=== PATIENT | female | born 1950 | race Caucasian/White ===

== ENCOUNTER → 2018-06-02 14:15 | Outpatient (CLI) | payer MEDICARE, SELFPAY ==
[2018-06-02 15:41] LABS: CRP < 2.90 mg/L (0.0-3.0)
[2018-06-04 16:11] LABS: Endomysial Antibody IgA Negative (Negative)
[2018-06-04 17:15] LABS: Immunoglobulin A 147 mg/dL (87-352); t-Transglutaminase IgA <2 U/mL (0-3)
== END ==
PROVIDERS: Family Provider Family Medicine; PCP Family Medicine; Visit Provider Internal Medicine Gastroenterology
DX: R10.9 Unspecified abdominal pain (principal)
CPT/HCPCS: 36415; 82784; 83516; 86140; 86255

== ENCOUNTER 2018-07-15 11:57 | Emergency (ER) | payer MEDICARE, SELFPAY ==
[2018-07-15 11:58] VITALS: BP 143/81; PULSE 71; RESP 18; TEMP 36.6; O2SAT 99; BMI 21.8
--- NOTE | 2018-07-15 12:13 | CT_ITS ---
STUDY: CT ABDOMEN AND PELVIS WITH CONTRAST REASON FOR EXAM: Female, 68 years old. Epigastric pain for a few weeks. RADIATION DOSAGE (If Supplied By Facility): CTDIvol = ( 14.11 ) mGy, DLP = ( 533.43 ) mGycm TECHNIQUE: Transaxial images were obtained from the dome of the diaphragm to the symphysis pubis without oral contrast. 100CC ml of Isovue 300 contrast was administered. Sagittal and coronal images were reconstructed. Individualized dose optimization techniques were used for this CT. COMPARISON: 09/22/2008 FINDINGS: Body wall soft tissues: No acute process. Osseous structures: Mild scoliosis. Degenerative disc disease L-1-L2, L4-L5 and L5-S1 without significant stenosis. Inferior chest: Clear lung bases, normal distal esophagus, no cardiomegaly, small pericardial effusion. Hepatobiliary: Normal. Pancreas: No acute process. Spleen: Normal. Adrenal glands: Normal. Urogenital: Normal kidneys, collecting systems, ureters, urinary bladder., Uterus, with no adnexal mass or cyst, trace cul-de-sac free fluid. Prominent adnexal veins discussed below. Pelvic floor and sidewalls and retroperitoneum: No mass or adenopathy. Vasculature: No acute vascular abnormality. 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 This is contributing to dual ectatic gonadal veins descending down to the left adnexa, with engorgement of left adnexal veins, uterine subserosal veins and right adnexal veins. This may present with symptoms of pelvic venous congestion syndrome although this may also be a normal variant pathway that is asymptomatic. Stomach: No acute process. Small bowel and mesentery: No acute process. Large bowel: Normal appendix and large bowel. Free fluid or free air: None. CT/Abdomen/Pelvis WITH Contrast IMPRESSION: Small pericardial effusion of uncertain significance. No acute abdominopelvic process. Nutcracker syndrome with pelvic venous congestion. Electronically Signed: Balaji Siegel, at 14:43 EDT Tel , Service support ,
--- NOTE | 2018-07-15 12:13 | ED.VISSUMM ---
- ER Visit Summary Date of Service: 07/15/18 Chief Complaint: Abdominal pain History of Present Illness: The patient is a 68 F presenting with abdominal pain. States this started a few weeks ago but has progressively worsened. She was seen by the physician finance assistant in her primary care physician's office yesterday. She was started on Zantac for gastritis. Today she states the pain worsened. She tried Tylenol with no improvement. She has a history of previous cholecystectomy. History of IBS. She denies fever. She has nausea with no vomiting. Denies urinary complaints. Denies chest pain or shortness of breath. Physical Examination: Vitals are stable. Patient is afebrile. Alert no acute distress. HEENT exam is unremarkable. Neck is supple. Lungs are clear and equal bilaterally. Heart is regular rate and rhythm. Abdomen is soft left lower quadrant tenderness with no rebound or guarding Skin is warm and dry. No focal neurologic deficit. Remainder of exam is unremarkable. Emergency Department Course and Treatment: Patient is given IV morphine, Zofran. CBC, chemistries unremarkable. Liver lipase are normal. Urinalysis is unremarkable. CT abdomen pelvis shows no acute abdominopelvic process. Nutcracker syndrome with pelvic venous congestion. On reevaluation, patient's pain is completely resolved. Abdomen is soft and nontender with no rebound or guarding. Discussed with Dr. Adorno who recommends follow-up with vascular surgery. Patient is given vascular surgery referral. Advised return to ED for any worsening complaints. Disposition: Discharge home Impression: Abdominal pain, resolved This note was generated with [employer] dictation software. It may contain incorrect words, spelling, and punctuation that were not noted in review of the chart prior to signing ED Disposition - Plan for ED Patient: Chief Complaint: Abd Pain Instructions: ED Abdominal Pain Unkn Cause Referrals: Kwaku Biswas MD [STAFF PHYSICIAN] - Chris Lovett MD [Primary Care Provider] - Raul Mcintosh MD [NON-STAFF] -
[2018-07-15 12:28] LABS: Bacteria 0 SEEN /hpf (None Seen); Mucous, Urine 0 SEEN /hpf (<or=2+); Red Blood Cells-Urine 0 SEEN /hpf (0-5)
[2018-07-15 12:32] LABS: Color, Urine Yellow (Yellow); Glucose, Dipstick Normal (Normal); Ketone-Dipstick Negative (Negative); Leukocyte Esterase-Dipstick 25 /ul (Negative); Nitrite-Dipstick Negative (Negative); Occult Blood-Urine Negative /ul (Negative); Protein-Dipstick Negative (Negative); Specific Gravity, Urine 1.005 (1.002-1.030); Urine Bilirubin Dipstick Negative (Negative); Urine Clarity Sl. Cloudy (Clear); Urine Urobilinogen Normal (Normal)
[2018-07-15 12:38] LABS: Squamous Epithelial Cells - UA 0-5 SEEN /hpf (5-10); White Blood Cells 0-5 SEEN /hpf (0-5)
[2018-07-15 12:39] LABS: Absolute Lymphocyte Count 2.02 X10^3/ul (0.83-4.51); Absolute Neutrophil Count 3.3 X10^3/uL (2.0-7.7); Basophil# 0.03 X10^3/uL; Basophil% 0.5 % (0-1); Eosinophils% 1.7 % (0-5); Hematocrit 45.8 % (37-47); Hemoglobin 14.9 g/dl (12.0-15.0); Lymphocyte # 2.02 X10^3/ul (4.0); Lymphocyte % 34.6 % (19-41); Mean Corp Hgb Conc 32.5 g/gl (32-36); Mean Corpuscular Hgb 30.7 pg (27.0-32.0); Mean Corpuscular Volume 94.2 fL (81-99); Mean Platelet Vol. 9.2 fl (6.2-12.0); Monocyte# 0.38 X10^3/uL; Monocyte% 6.5 % (0-10); Neutrophil % 56.5 % (47-70); Platelet Count 265 K/mm3 (150-450); RBC Distribution Width CV 13.2 % (11.6-14.6); RBC Distribution Width SD 44.1 fl (35.1-43.9); Red Blood Count 4.86 M/mm3 (4.2-5.4); White Blood Count 5.8 K/mm3 (4.4-11.0)
[2018-07-15 12:42] LABS: POSITIVE COUNT NO; POSITIVE DIFFERENTIAL NO; POSITIVE MORPHOLOGY NO
--- NOTE | 2018-07-15 12:43 | ED.RN ---
PT DOES NOT WANT MEDICATION AT THIS TIME
[2018-07-15 13:01] LABS: AST(SGOT) 20 U/L (15-37); Alanine Aminotransfer ALT/SGPT 25 U/L (13-56); Albumin, Serum 4.2 g/dL (3.2-5.0); Alkaline Phosphatase 74 U/L (45-117); Anion Gap 7 (5-15); BUN 17 mg/dL (7-18); BUN/Creat Ratio 22.7 RATIO (10-20); Calcium,Total 9.1 mg/dL (8.5-10.1); Chloride 105 mmol/L (98-107); Creatinine, Serum 0.75 mg/dL (0.55-1.02); EST Glomerular Filtration Rate 81 mL/min (>60); Est Glom Filt Rate - Afr Amer 99 mL/min (>60); Globulin 3.5 g/dL (2.2-4.2); Glucose 85 mg/dL (74-106); Lipase 194 U/L (73-393); Protein, Total 7.7 g/dL (6.4-8.2); Sodium Level 142 mmol/L (136-145)
--- NOTE | 2018-07-15 16:42 | ED.DEP ---
ED Disposition - Plan for ED Patient: Chief Complaint: Abd Pain Instructions: ED Abdominal Pain Unkn Cause Referrals: Chris Lovett MD [Primary Care Provider] - Raul Mcintosh MD [NON-STAFF] - Kwaku Biswas MD [STAFF PHYSICIAN] -
[2018-07-15 17:20] VITALS: BP 132/73; PULSE 90; RESP 16; O2SAT 97
== END 2018-07-15 17:21 | disposition home or self-care (01) ==
PROVIDERS: Emergency Provider Emergency Medicine; Family Provider Family Medicine; PCP Family Medicine
DX: R10.32 Left lower quadrant pain (principal); R10.13 Epigastric pain; K29.70 Gastritis, unspecified, without bleeding; Z79.899 Other long term (current) drug therapy
CPT/HCPCS: 74177; 80048; 80076; 81001; 83690; 85025; 99283; J7030; Q9967; J2405

== ENCOUNTER → 2019-03-30 | Outpatient (CLI) | payer MEDICARE, SELFPAY ==
--- NOTE | 2019-03-30 12:36 | BI_ITS ---
MAMMOGRAPHY - BILATERAL SCREENING 3-D TOMOSYNTHESIS REASON FOR EXAM: Female, 68 years old. Bilateral Screening 3-D tomosynthesis PERTINENT HISTORY: No significant family history. TECHNIQUE: 2-D mammograms and 3-D Tomosynthesis of the breast (s) were performed. CAD was performed. COMPARISON: December 17, 2016, January 12, 2016 FINDINGS: The breast composition is composed of scattered fibroglandular density. Scattered benign calcifications are seen. No dense spiculated masses or suspicious microcalcifications are identified. No architectural distortion is identified. There is no skin thickening or retraction. There has been no significant change since the prior study. BI/SCREEN MAMM (CAD) W/VIKI BILAT IMPRESSION: No mammographic signs of malignancy. Routine yearly mammograms recommended. ASSESSMENT CATEGORY: BIRADS Category 1: Negative. A letter regarding these results will be sent to the patient by the facility within 30 days. FOLLOW UP RECOMMENDATION: Yearly follow up mammogram recommended. (A) Approximately 10% of breast cancers are not detected by mammography. A normal mammogram should not delay biopsy of a clinically suspicious abnormality. Electronically Signed: Bryce Mayen MD at 17:32 EDT , Service support ,
== END | disposition home or self-care (01) ==
LOC: OPBI 12:34
PROVIDERS: Family Provider Family Medicine; PCP Family Medicine; Referring Provider Family Medicine; Visit Provider Family Medicine
DX: Z12.31 Encounter for screening mammogram for malignant neoplasm of breast (principal)
CPT/HCPCS: 77063; 77067

== ENCOUNTER 2020-03-03 08:33 | Emergency (ER) | payer MEDICARE, SELFPAY ==
[2020-03-03] VITALS (8 sets, daily range): BP systolic 93–130; BP diastolic 52–83; PULSE 89–109; RESP 16–23; TEMP 36.6–36.7; O2SAT 96–98; BMI 21.1
--- NOTE | 2020-03-03 08:36 | NURSING ---
NO OLD EKGS
--- NOTE | 2020-03-03 08:48 | RAD_ITS ---
STUDY: X-RAY CHEST REASON FOR EXAM: Female, 69 years old. CP THAT STARTED LAST NIGHT, SOB. CP LAST WEEK THAT LAST FOR 3 DAYS. TECHNIQUE: Single AP portable view of the chest. COMPARISON: None. FINDINGS: EKG electrodes are seen. Mild degree of increased markings at the lung bases suggestive of bibasilar atelectasis and/or early infiltrates worse on the right side. There is no demonstrated pleural abnormality. Normal size heart. Normal mediastinum and fawn. Normal visualized pulmonary arteries. Normal visualized aortic arch and descending thoracic aorta. Normal visualized thoracic spine. Normal visualized ribs, clavicles, and shoulders. There is no demonstrated abnormality of the visualized soft tissue structures of the upper abdomen. RAD/Chest 1 View (Portable) IMPRESSION: Mild degree of increased markings at the lung bases slightly worse on the right side. This may represent atelectasis and/or early infiltrates. Electronically Signed: Blue Sheikh, at 9:42 EDT , Service support ,
--- NOTE | 2020-03-03 08:48 | EKG12_ITS ---
Test Reason : CP Blood Pressure : / mmHG Vent. Rate : 104 BPM Atrial Rate : 104 BPM P-R Int : 146 ms QRS Dur : 074 ms QT Int : 338 ms P-R-T Axes : 045 002 036 degrees QTc Int : 444 ms Sinus tachycardia Otherwise normal ECG Confirmed by GARY ANDREWS ([id number]), technical editor NIYA ELLIOTT ([id number] on 03/07/2020 11:27:50 AM Referred By: MAXIME Confirmed By:GARY ANDREWS
--- NOTE | 2020-03-03 08:49 | ED.VISSUMM ---
- ER Visit Summary Date of Service: 03/03/20 Chief Complaint: [Chest pain] History of Present Illness: The patient is a 69 F [presents to the emergency department complaint of chest discomfort that started last evening around suppertime. Patient describes a pressure like someone standing on her in the center of her chest that radiates to her neck as well as both shoulder blades. Patient denies any nausea or vomiting. She does feel short of breath with it. Patient states she had similar episode last week that lasted about 3 days and then resolved. Patient had blood work yesterday and was told she had high calcium levels. Patient does take a calcium supplement and was instructed to discontinue that for the next week. No history of PE or DVT. No cardiac history.] Physical Examination: [HEENT-PERRLA, EOMI. Cranial nerves II through XII grossly intact. TMs clear. Mucous membranes moist. No adenopathy. Cardiovascular-regular rate and rhythm without murmur or ectopy Lungs-clear to auscultation, chest wall stable without crepitus or subcu emphysema Abdomen-normoactive bowel sounds, soft, nontender, no rebound or rigidity, no peritoneal signs. Extremities-intact ?4, normal range of motion, normal pulses, atraumatic] Test Results: [EKG obtained arrival shows sinus rhythm with a ventricular rate of 104 bpm with some nonspecific ST changes noted. No old EKGs available for comparison.] CBC with differential obtained was unremarkable. Chemistries unremarkable. Troponin less than 0.015. D-dimer was normal. Chest x-ray showed increased markings in the lung bases which could represent atelectasis versus early infiltrates. CTA of the chest was obtained as patient continued of pain with no relief from nitro and wanted to rule out dissection. CTA of the chest showed bibasilar infiltrates without evidence of PE or dissection. Emergency Department Course and Treatment: [Patient placed on quality assurance monitor chassis on arrival. Patient received sublingual nitro which did not improve her pain. Patient had blood cultures ordered. Patient started on Rocephin and Zithromax. Patient had COVID 19 test ordered.] Treatment Plan: [Admit] patient does not have classic pneumonia symptoms. 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 It is unclear if CT findings are acute or chronic. Patient was evaluated by hospitalist in the department by Dr. Dickerson. After hospitalist and patient had long conversation it was felt that patient would go home. I was asked to obtain a delta troponin which was negative. COVID-19 test still pending. I was asked to start patient on Levaquin. I was told patient was given the option to be admitted but would prefer to go home. She is advised to return if increasing shortness of breath, worsening chest pain, exertional dyspnea, or condition should worsen anyway. Disposition: [Discharged] Impression: [Chest pain-rule out acute coronary syndrome Pneumonia] This note was generated with [employer] dictation software. It may contain incorrect words, spelling, and punctuation that were not noted in review of the chart prior to signing ED Disposition - Plan for ED Patient: Referrals: Senthil Aguilar MD [Primary Care Provider] -
[2020-03-03 08:59] LABS: Absolute Lymphocyte Count 1.17 X10^3/uL (0.83-4.51); Absolute Neutrophil Count 7.3 X10^3/uL (2.0-7.7); Basophil# 0.03 X10^3/uL; Basophil% 0.3 % (0-1); Eosinophil# 0.08 X10^3/uL; Eosinophils% 0.9 % (0-5); Hemoglobin 14.3 g/dL (12.0-15.0); Lymphocyte # 1.17 X10^3/ul (4.0); Lymphocyte % 12.6 % (19-41); Mean Corp Hgb Conc 32.5 g/dL (32-36); Mean Corpuscular Hgb 31.2 pg (27.0-32.0); Mean Corpuscular Volume 95.9 fL (81-99); Mean Platelet Vol. 9.2 fl (6.2-12.0); Monocyte# 0.65 X10^3/uL; NRBC Flagged by Analyzer 0 % (0-5); Neutrophil # 7.32 X10^3/uL (2.7-7.7); Platelet Count 375 K/mm3 (150-450); RBC Distribution Width CV 13.1 % (11.6-14.6); RBC Distribution Width SD 46.5 fl (35.1-43.9); Red Blood Count 4.59 M/mm3 (4.2-5.4); White Blood Count 9.3 K/mm3 (4.4-11.0)
[2020-03-03] MEDS: Aspirin 81 MG TAB.CHEW 324 MG PO (09:06)
[2020-03-03] MEDS: Nitroglycerin SL (ED/IMG/CATH) 0.4 MG TABLET SUBLINGUAL ×3 (09:09→09:29)
[2020-03-03] MEDS: 0.9% Normal Saline 1,000 ML 150 ML IV (09:10)
[2020-03-03 09:16] LABS: Anion Gap 5 (5-15); BUN 9 mg/dL (7-18); Calcium,Total 9.2 mg/dL (8.5-10.1); Chloride 107 mmol/L (98-107); Creatinine, Serum 0.75 mg/dL (0.55-1.02); EST Glomerular Filtration Rate 81 mL/min (>60); Est Glom Filt Rate - Afr Amer 98 mL/min (>60); Glucose 102 mg/dL (74-106); Potassium 3.5 mmol/L (3.5-5.1); Sodium Level 140 mmol/L (136-145)
[2020-03-03 09:31] LABS: D-Dimer Quantitative (DVT/PE) <= 0.27 FEU/ug/m (0.27-0.49)
--- NOTE | 2020-03-03 09:31 | CT_ITS ---
STUDY: CTA CHEST REASON FOR EXAM: Female, 69 years old. Chest pain x 3 days, SOB. RADIATION DOSAGE (If Supplied By Facility): CTDIvol = ( 4.36 ) mGy, DLP = ( 134.30 ) mGycm TECHNIQUE: The examination was performed with the intravenous administration of 100mL Isovue 370. Post-processing of the angiographic images was performed, with multiplanar reformation and 3D reconstruction. Individualized dose optimization techniques were used for this CT. COMPARISON: None. FINDINGS: Normal enhancement of the main pulmonary artery and right and left pulmonary arteries. Normal enhancement of the bilateral peripheral pulmonary arteries. There is no demonstrated pulmonary embolism. Normal thoracic aorta and visualized great vessels. There is no demonstrated aortic dissection. Small pericardial effusion. Normal mediastinum. Normal hilar regions. Normal visualized trachea and bronchi. The lungs are well expanded. Bibasilar patchy infiltrates. Normal pleura. Normal chest wall structures. There are degenerative changes of thoracic spine. Normal visualized upper abdomen. CT/CTA Chest W/WO Contrast IMPRESSION: Patchy bibasilar infiltrates. Electronically Signed: Blue Sheikh, at 10:24 EDT , Service support ,
[2020-03-03] MEDS: Ceftriaxone 1 GM/50 ML BAG IV (11:09)
--- NOTE | 2020-03-03 11:26 | ED.RN ---
dr cabezas in to see pt. pt asks to be sent home . will complete a delta troponin
--- NOTE | 2020-03-03 12:34 | ED.DEP ---
ED Disposition - Plan for ED Patient: Instructions: ED Chest Pain Pleurisy, ED Chest Pain Atypical Unkn Cause, Pneumonia Prescriptions: Levofloxacin [Levaquin] 750 mg PO DAILY #7 tab Prescription Printed Hydrocodone Bitart/Apap 5-325 [[place] 5MG-325MG] 1 tab PO Q4H PRN PRN 2 Days #10 tab PRN Reason: Pain Prescription Printed Referrals: Senthil Aguilar MD [Primary Care Provider] - 5-7 Days
--- NOTE | 2020-03-03 12:37 | ED.RN ---
pt states iv hurts. this rn sachin blood with no difficulty. area soft but tender. iv dc'd per pt request. dr aware . po medication to be oredered
[2020-03-03] MEDS: levoFLOXacin 750 MG Tablet PO (12:55)
--- NOTE | 2020-03-03 13:00 | CON.PCM_ITS ---
Reason for Consult Date of Consultation: 03/03/20 Reason for Consultation: Chest pain History of Present Illness: The patient is a 69 year old F presents with chest pain. Chest pain that began over the past few days but states that it is worse with movement particularly twisting and also deep respirations. Patient had similar symptoms about a week prior to which were much more intense. Patient sought evaluation at this time because it recurred. Work-up in the emergency room was unremarkable. The hospital service was asked to evaluate the patient for further chest pain evaluation. Patient denies any sick contacts though she did feel ill about a week ago. Patient had a CAT scan carotid dissection but did not did not show any dissection but did show some infiltrate in the bases. [] Past Medical History Allergies No Known Allergies Allergy (Verified 03/03/20 08:34) Home Medications: Ambulatory Orders Medication Instructions Recorded Hydrocodone Bitart/Apap 5-325 1 tab PO Q4H PRN PRN 2 Days #10 tab 03/03/20 [[place] 5MG-325MG] Levofloxacin [Levaquin] 750 mg PO DAILY #7 tab 03/03/20 Smoking Status: Never smoker - *Family History Maternal History Items: - - No lung disease Review of Systems Constitutional: Denies: Chills, Fever, Weight Change Eyes: Denies: Blurred vision, Double vision HEENT: Denies: Head Aches, Sinus Congestion, Sinus Drainage Cardiovascular: Reports: Chest Pain Respiratory: Reports: Cough Gastrointestinal: Denies: Abdominal Pain, Nausea, Vomiting Genitourinary: Denies: Dysuria Musculoskeletal: Denies: Joint Pain, Joint Tenderness Skin: Denies: Rash, Wounds Neurological: Denies: Numbness, Tingling, Focal weakness Hematologic/ Lymphatic: Denies: Easy Bruising, Easy Bleeding, Hx of blood clot Comment: All review of systems were negative except as mentioned above in the history of present illness and the other review of systems. - Physical Exam Vitals/I&O's: Vital Signs Temp Pulse Resp BP Pulse Ox 36.6 C 89 18 107/61 98 03/03/20 12:56 03/03/20 12:56 03/03/20 12:56 03/03/20 12:56 03/03/20 12:38 Oxygen Delivery Method Room Air Weight: 59.3 kg Body Mass Index (BMI) 21.1 Intake and Output for Last 24 Hours 03/01/20 03/02/20 03/03/20 23:59 23:59 23:59 Intake Total 1166.67 / 1166.67 Balance 1166.67 / 1166.67 General: Alert, Cooperative, No apparent distress HEENT: Atraumatic, Normocephalic Oral: Moist Mucosa, No Gingival or Mucosal Lesions/ Ulcerations Neck: No Nodes, Thyroid Normal Size and Texture Lungs: Normal air movement, - - Bibasilar crackles Cardiovascular: Regular rate, Regular Rhythm, Normal S1, Normal S2, No murmurs Abdomen: Bowel Sounds Present, Soft, Non Tender, Non-Distended, No Hepato- splenomegaly Extremities: No edema, No Calf Tenderness Skin: No rashes, No breakdown Musculoskeletal: No Tenderness to Palpation of Joints or Extremities, No Muscle Wasting Neurological: Sensory exam intact to light touch and pain, Coordination normal Psych/Mental Status: Normal Affect, Appropriate Laboratory Results 03/03/20 08:50: WBC 9.3, RBC 4.59, Hgb 14.3, Hct 44.0, MCV 95.9, MCH 31.2, MCHC 32.5, RDW Std Deviation 46.5 H, RDW Coeff of Ameya 13.1, Plt Count 375, MPV 9.2, Immature Gran % (Auto) 0.200, Neut % (Auto) 79.0 H, Lymph % (Auto) 12.6 L, [place] % (Auto) 7.0, Eos % (Auto) 0.9, Baso % (Auto) 0.3, Absolute Neuts (auto) 7.3, Absolute Lymphs (auto) 1.17, Nucleated RBC % 0 03/03/20 08:50: D-Dimer Quant (PE/DVT) <= 0.27 03/03/20 08:50: Sodium 140, Potassium 3.5, Chloride 107, Carbon Dioxide 28.0, Anion Gap 5, BUN 9, Creatinine 0.75, Estim Creat Clear Calc 48.30, Est GFR (MDRD) Af Amer 98, Est GFR (MDRD) Non-Af 81, BUN/Creatinine Ratio 12.0, Glucose 102, Calcium 9.2, Troponin I < 0.015 03/03/20 11:50: Troponin I < 0.015 Clinical Impression(s) from Imaging Studies Chest X-Ray 03/03/20 08:48 IMPRESSION: Mild degree of increased markings at the lung bases slightly worse on the right side. This may represent atelectasis and/or early infiltrates. Electronically Signed: Blue Sheikh, at 9:42 EDT , Service support , Chest CTA 03/03/20 09:31 IMPRESSION: Patchy bibasilar infiltrates. Electronically Signed: Blue Sheikh, at 10:24 EDT , Service support , Assessment/Plan 1. Chest pain: Suspect is more pleuritic in nature as is worse with deep respiration and cough. Troponins were negative x2 and her EKG was unremarkable for any ischemic changes. Told the patient that my suspicion for this being cardiac is very low and even if it were higher, she would not be able to have a stress test at this hospital particular there is concern for COVID-19. Recommend she follow-up with her primary care provider to see if she still having ongoing symptoms and that point time to have further evaluation with a possible stress test. Once again, my suspicion for this being cardiac is extremely low. 2. Pneumonia: Could be bacterial pneumonia versus viral infiltrate. Patient did have some concerning areas for groundglass opacity which can be seen with COVID-19. Patient did have symptoms a week ago and back again but less severe. My concern of this being COVID is higher from and is being bacterial pneumonia. I did recommend patient be discharged on antibiotics. Patient advised to return if she is feeling worse. I told the patient that I do not feel is necessary for her to be hospitalized but I did offer her the opportunity to be put in under observation under the COVID core head units. I did tell her that should we would be donning and doffing protective gear appropriately to mitigate any kind of transfer of COVID even if she were not to have it. She did have COVID testing performed in the emergency room which results are still pending. I did recommend that she exercise social distancing at home and to wear a mask while she is at home but also other family members to wear a mask while they interact with her. Medical I feel the patient can be discharged home. Case was discussed with emergency room physician. Office Visits / Consults: [id number] OP Consult L4
== END 2020-03-03 12:58 | disposition home or self-care (01) ==
LOC: ED 10:13
PROVIDERS: Emergency Provider Emergency Medicine; PCP Family Medicine
DX: J18.9 Pneumonia, unspecified organism (principal); R07.9 Chest pain, unspecified
CPT/HCPCS: 71045; 71275; 80048; 84484; 85025; 85379; 87040; 87635; 93005; 96361; 96365; 96367; 99285; C9803; G2023; J7030; Q9967; A4216; U0004

== ENCOUNTER 2020-03-10 12:05 | Inpatient (IN) | payer MEDICARE, SELFPAY ==
[2020-03-03 08:34] VITALS: BMI 21.1
[2020-03-10] VITALS (9 sets, daily range): BP systolic 123–158; BP diastolic 63–104; PULSE 107–125; RESP 18–28; TEMP 35.8–37.2; O2SAT 94–98; BMI 21.8; BMI 22.1; BMI 22.8
--- NOTE | 2020-03-10 12:30 | EKG12_ITS ---
Test Reason : SOB Blood Pressure : / mmHG Vent. Rate : 111 BPM Atrial Rate : 111 BPM P-R Int : 138 ms QRS Dur : 074 ms QT Int : 312 ms P-R-T Axes : 005 -13 023 degrees QTc Int : 424 ms Sinus tachycardia Voltage criteria for left ventricular hypertrophy Nonspecific ST and T wave abnormality Abnormal ECG Confirmed by ANASTACIA MULTANI, CRISTELA ([id number]), editor index KAYLA TSAI ([id number]) on 03/14/2020 1:36:01 PM Referred By: ANTOLIN Confirmed By:CRISTELA GALAVIZ MD
--- NOTE | 2020-03-10 12:38 | ED.DCSUM_ITS ---
- ER Visit Summary Date of Service: 03/10/20 Chief Complaint: Shortness of breath History of Present Illness: The patient is a 69 F who presents with shortness of breath that is been constant for the past week. Patient was seen here 1 week ago and was diagnosed with pneumonia. Patient was started on Levaquin at that time. Patient states she took her last dose of Levaquin today. Patient states she is not feeling any better. Patient admits to some pain in her back that is worse when she lays flat. Patient admits to a mild cough but denies any sputum production. Patient states her fever has been up to 100 but nothing higher. Patient admits to some dull pain in her chest this started on her left side but is now in the substernal area. Patient denies any vomiting. Patient was tested for COVID-19 the last time she was in the emergency department and was negative. Blood cultures were also drawn at that time which were negative. Physical Examination: Vital signs are stable except for mild tachycardia of 114. Patient is afebrile here. Patient is in no acute distress. Oral mucosa is pink and moist. Neck is supple. Trachea is midline. There is no JVD. Heart was regular and tachycardic. Lungs showed rales in the bases bilaterally. Abdomen is soft. Bowel sounds are normal. There is no tenderness. Cranial nerves II through XII are intact. There are no focal motor or sensory deficits. Extremities are intact. There is no calf tenderness or edema. Test Results: EKG showed sinus tachycardia with a rate of 111. There are nonspecific ST-T wave changes and evidence of left ventricular hypertrophy. These were unchanged compared to previous EKG dated 03/03/2020. Chest x-ray shows progression of the left lower lobe infiltrate. CBC was essentially within normal limits. Comprehensive metabolic profile was also within normal limits. Urinalysis does not show any evidence of urinary tract infection. Troponin was normal. D-dimer was elevated at 3.9. Because of this a CTA of the chest was obtained. There is no evidence of PE. There is progression of bilateral lower lobe infiltrates compared to previous CT on 03/03/2020. RSV and influenza swabs were negative. Rapid strep was positive. Emergency Department Course and Treatment: Blood cultures were obtained. Patient was started on Rocephin and Zithromax here. Case was discussed with the hospitalist. She recommended repeating the COVID-19 test. This was ordered. Patient will be admitted. Patient understood and was agreeable with the plan. All questions were answered. Disposition: Admit to hospital Impression: 1. Pneumonia 2. Sepsis 3. Failed outpatient therapy This note was generated with [employer] dictation software. It may contain incorrect words, spelling, and punctuation that were not noted in review of the chart prior to signing ED Disposition - Plan for ED Patient: Disposition: Acute Care Hospital [facility] Diagnosis: Pneumonia, Sepsis, Failure of outpatient treatment Referrals: Senthil Aguilar MD [Primary Care Provider] -
[2020-03-10] MEDS: Ipratropium/Albuterol Sulfate 3 ML AMPUL.NEB INHALATION (12:53)
[2020-03-10 13:15] LABS: Absolute Lymphocyte Count 1.04 X10^3/uL (0.83-4.51); Absolute Neutrophil Count 8.1 X10^3/uL (2.0-7.7); Basophil# 0.05 X10^3/uL; Basophil% 0.5 % (0-1); Eosinophil# 0.05 X10^3/uL; Eosinophils% 0.5 % (0-5); Hematocrit 40.8 % (37-47); Hemoglobin 12.8 g/dL (12.0-15.0); Lymphocyte # 1.04 X10^3/ul (4.0); Lymphocyte % 10.4 % (19-41); Mean Corp Hgb Conc 31.4 g/dL (32-36); Mean Corpuscular Hgb 30.5 pg (27.0-32.0); Mean Corpuscular Volume 97.1 fL (81-99); Monocyte# 0.76 X10^3/uL; Monocyte% 7.6 % (0-10); NRBC Flagged by Analyzer 0 % (0-5); Neutrophil # 8.05 X10^3/uL (2.7-7.7); Neutrophil % 80.7 % (47-70); Platelet Count 530 K/mm3 (150-450); RBC Distribution Width CV 13.2 % (11.6-14.6); RBC Distribution Width SD 47.3 fl (35.1-43.9)
[2020-03-10] MEDS: Acetaminophen 500 MG Tablet 1000 MG PO (13:19)
--- NOTE | 2020-03-10 13:20 | RAD_ITS ---
STUDY: X-RAY CHEST REASON FOR EXAM: Female, 69 years old. INCREASING SOB AND CHEST WALL PAIN. REPORTS RECENTLY DIAGNOSED WITH PNEUMONIA TECHNIQUE: Single AP portable view of the chest. COMPARISON: Comparison is made with prior examination dated March 03, 2020. FINDINGS: EKG electrodes are seen. Since prior study, there has been further infiltration in the left lower lobe with a small left pleural effusion. Mild degree of increased markings at the right lung base as well. Normal size heart. Normal mediastinum and fawn. Normal visualized pulmonary arteries. Normal visualized aortic arch and descending thoracic aorta. There are degenerative changes of the visualized thoracic spine. Normal visualized ribs, clavicles, and shoulders. There is no demonstrated abnormality of the visualized soft tissue structures of the upper abdomen. RAD/Chest 1 View (Portable) IMPRESSION: Interval progression of the left lower lobe infiltrate with a small left pleural effusion. Mild increased markings at the right lung base. Electronically Signed: Blue Sheikh, at 13:32 EDT , Service support ,
[2020-03-10 13:26] LABS: Bacteria 0 SEEN /hpf (None Seen); Mucous, Urine 0 SEEN /hpf (<or=2+)
[2020-03-10 13:29] LABS: Color, Urine Yellow (Yellow); Glucose, Dipstick Normal (Normal); Ketone-Dipstick Negative (Negative); Leukocyte Esterase-Dipstick 25 /ul (Negative); Nitrite-Dipstick Negative (Negative); Occult Blood-Urine 25 /ul (Negative); Protein-Dipstick 15 mg/dl (Negative); Urine Bilirubin Dipstick Negative (Negative); Urine Clarity Sl. Cloudy (Clear); Urine Urobilinogen Normal (Normal)
[2020-03-10 13:33] LABS: ALB/GLOB Ratio 0.6 RATIO (0.9-2.4); AST(SGOT) 46 U/L (15-37); Alanine Aminotransfer ALT/SGPT 77 U/L (13-56); Albumin, Serum 3.1 g/dL (3.2-5.0); Alkaline Phosphatase 163 U/L (45-117); Anion Gap 7 (5-15); BUN 9 mg/dL (7-18); BUN/Creat Ratio 11.5 RATIO (10-20); Calcium,Total 9.4 mg/dL (8.5-10.1); Chloride 102 mmol/L (98-107); Creatinine, Serum 0.78 mg/dL (0.55-1.02); EST Glomerular Filtration Rate 77 mL/min (>60); Est Glom Filt Rate - Afr Amer 93 mL/min (>60); Estimated Creatinine Clearance 46.43 ml/min; Globulin 5.1 g/dL (2.2-4.2); Glucose 112 mg/dL (74-106); Potassium 3.7 mmol/L (3.5-5.1); Protein, Total 8.2 g/dL (6.4-8.2); Sodium Level 138 mmol/L (136-145)
--- NOTE | 2020-03-10 13:42 | CT_ITS ---
STUDY: CTA CHEST REASON FOR EXAM: Female, 69 years old. INCREASED SHORTNESS OF BREATH, CHEST WALL PAIN, CHILLS,COUGH -- RECENTLY DX W/ PNEUMONIA -- NEG COVID X1 MONTH AGO RADIATION DOSAGE (If Supplied By Facility): CTDIvol = ( 4.31 ) mGy, DLP = ( 115.74 ) mGycm TECHNIQUE: The examination was performed with the intravenous administration of 100CC ISOVUE 370. Post-processing of the angiographic images was performed, with multiplanar reformation and 3D reconstruction. Individualized dose optimization techniques were used for this CT. COMPARISON: Comparison is made with prior study dated March 03, 2020. FINDINGS: Normal enhancement of the main pulmonary artery and right and left pulmonary arteries. Normal enhancement of the bilateral peripheral pulmonary arteries. There is no demonstrated pulmonary embolism. Normal thoracic aorta and visualized great vessels. There is no demonstrated aortic dissection. Moderate pericardial effusion. There are calcifications of the coronary arteries. Cardiomegaly. Normal mediastinum. Normal hilar regions. Normal visualized trachea and bronchi. The lungs are well expanded. Mild to moderate degree of left pleural effusion with infiltration at the left lung base. Patchy right lower lobe infiltrate as well. These have progressed as compared to prior study. Normal chest wall structures. There are degenerative changes of thoracic spine. Normal visualized upper abdomen. CT/CTA Chest W/WO Contrast IMPRESSION: Mild to moderate degree of left pleural effusion with underlying consolidation. Patchy infiltrate in the right lower lobe. Moderate degree of a pericardial effusion. Coronary artery calcification. Electronically Signed: Blue Sheikh, at 14:14 EDT , Service support ,
[2020-03-10 13:45] LABS: Red Blood Cells-Urine 0-5 SEEN /hpf (0-5); Squamous Epithelial Cells - UA 0-5 SEEN /hpf (5-10); White Blood Cells 0-5 SEEN /hpf (0-5)
[2020-03-10] MEDS: 0.9% Normal Saline 1,000 ML 999 ML IV ×2 (14:47→14:54)
[2020-03-10 15:26] LABS: Lactic Acid 1.3 mmol/L (0.4-1.9)
--- NOTE | 2020-03-10 15:39 | PCM.HP.STD ---
History of Present Illness Date of Admission: 03/10/20 Chief Complaint: SOB The patient is a 69 year old F who began having sx of SOB, pleuritic CP and low grade temps about 2 weeks ago. She states that initially she felt badly and then she thought her sx had gone and she was feeling back to her baseline. About 2 days after that she began to feel poorly again and on 03/03/2020 she came to the ED and was diagnosed with PNA and given a script for Levaquin, which she completed today. She was tested for COVID-19 at that time and was negative and blood cx were negative as well. She came back as she is still having some SOB and pain. She c/o persistent low grade temps of abut 100 degrees and has a mild cough with no significant sputum production. She states that she has been in isolation up until recently and when she has gone out she has been wearing a mask. She did go out recently to get her hair done. She has had no vomiting but has had some loose stool which she attributed to the antibiotics. Upon presentation she she is tachycardic, sats were 93-97% on RA but she does have tachypnea with RR in the upper 20-30. Temp has been normal since presentation with no temp > 98.6. She has a normal white count with lymphopenia, mild transaminase elevations, thrombocytosis, and her D-Dimer was elevated to 3.90; it was WNL on the . CTA of her chest was done and does not show PE but does demonstrate a moderate L pleural effusion with ? infiltrate vs compressive atelectasis and a moderate pericardial effusion. On exam she has crackles in her R base and is diminshed in her L base in the distal 1/2 of the lung field. Past Medical History Allergies No Known Allergies Allergy (Verified 03/10/20 12:05) Home Medications: Ambulatory Orders Medication Instructions Recorded NK 03/10/20 Surgical History: no surgical history Psychiatric History: No pertinent psych hx [employer] History: No pertinent [employer] history Lives: Spouse/ Significant Other Smoking Status: Never smoker - *Family History Maternal History Items: - - No lung disease Review of Systems Constitutional: Reports: Anorexia, Fever, Malaise, Weakness, Fatigue. Denies: Chills, Night Sweats, Weight Change Eyes: Denies: Blurred vision, Cataracts, Conjunctivae Inflammation, Double vision, Drainage, Eyelid Inflammation, Pain, Redness, Vision Change HEENT: Denies: Difficulty Hearing, Difficulty Swallowing, Dysphasia, Ear Pain, Eye Pain, Hard of Hearing, Head Aches, Hearing Changes, Nasal bleeding, Nasal Congestion, Post Nasal Drip, Sinus Congestion, Sinus Drainage, Sore Throat, Visual Changes Cardiovascular: Reports: Chest Pain. Denies: Claudication, Chest Pressure, Chest Tightness, Edema, Heaviness, Light Headedness, Orthopnea, Palpitations, Paroxysmal Noc. Dyspnea, Syncope Respiratory: Reports: Cough, Pleuritic Pain, Shortness of Breath, Shortness of breath at rest, Shortness of breath upon exertion. Denies: Hemoptysis, Sputum production, Wheezing Gastrointestinal: Reports: Diarrhea. Denies: Abdominal Pain, Constipation, Dyspepsia, Hematemesis, Hematochezia, Nausea, Melena, Vomiting Genitourinary: Denies: Dysuria, Frequency, Hematuria, Hesitancy, Incontinence, Nocturia, Retention, Urgency Gynecological: Denies: Breast symptoms, Vaginal bleeding, Vaginal discharge, Vaginal itching Musculoskeletal: Denies: Back Pain, Joint Pain, Joint stiffness, Joint swelling, Joint Tenderness, Muscle pain, Neck Pain Skin: Denies: Dryness, Jaundice, Lesions, Pruritis, Rash, Skin Changes, Wounds Neurological: Denies: Balance problems, Blurred vision, Double vision, Change in Speech, Slurred speech, Confusion, Difficulty swallowing, Focal weakness, Headaches, Incoordination, Numbness, Tingling, Tremor, Seizures Psychiatric: Denies: Anxiety, Depression Endocrine: Denies: Change in Body Habitus, Heat/ Cold Intolerance, Polydipsia, Polyuria, Hx of Irradiation, Hx of Thyroiditis Hematologic/ Lymphatic: Denies: Adenopathy, Anemia, Easy Bruising, Easy Bleeding, Petechiae, Purpura, Hx of blood clot, Hx of blood transfusion VTE Information - Inpt Only VTE Present on Admission: No VTE Pharm Prophylaxis ordered?: Yes Patient Problems: Active and Suspected Problems Pneumonia (Acute) Sepsis (Acute) Failure of outpatient treatment (Acute) - Physical Exam Vitals/I&O's: Vital Signs Temp Pulse Resp BP Pulse Ox 98.2 F 110 H 23 H 158/104 H 94 03/10/20 14:45 03/10/20 14:45 03/10/20 14:45 03/10/20 14:45 03/10/20 14:45 Oxygen Delivery Method Room Air Weight: 60.5 kg Body Mass Index (BMI) 22.1 Intake and Output for Last 24 Hours 03/08/20 03/09/20 03/10/20 23:59 23:59 23:59 Intake Total 666.55 / 666.55 Balance 666.55 / 666.55 General: Alert, Oriented x3, Cooperative, Well developed, Well nourished, - - appears younger than stated age HEENT: Atraumatic, PERRLA, EOMI, Normocephalic, EAC Clear Oral: Moist Mucosa, No Gingival or Mucosal Lesions/ Ulcerations, - - mallampati 2, no thrush, good dentition Neck: Supple, No JVD, Negative Carotid Bruits, Negative Hepatojugular Reflux, No Nodes, No Nuchal Rigidity, Trachea Midline, Thyroid Normal Size and Texture Lungs: No rhonchi, No wheeze, Diminished - L Base to about 1/2 of the lung field, Short of Breath, Tachypneic, - - crackles R base, RR 33 Cardiovascular: Regular Rhythm, Normal S1, Normal S2, No murmurs, No Ectopic Activity, No rub noted, No Gallop, Tachycardic Abdomen: Bowel Sounds Present, Soft, Non Tender, Non-Distended, No Hepato-splenomegaly, No hernias noted Extremities: No clubbing, No cyanosis, No edema, Capillary Refill Less than 3 Seconds, Peripheral Pulses Normal Skin: No rashes, No breakdown Musculoskeletal: No Tenderness to Palpation of Joints or Extremities, No Muscle Wasting Lymphatic: No Cervical, Supraclavicular, or Inguinal Adenopathy Neurological: Cranial nerves II-XII grossly intact, Deep Tendon Reflexes 2+/4 and Symmetrical, Neuro grossly intact Psych/Mental Status: Normal Affect, Appropriate, Anxious - mild as she is worried about potential COVID imfection, - - A&O x 4 Microbiology Past 72 Hours 03/10/20 12:53 Mucosa - Nose Rapid RSV (DFA) - Final 03/10/20 12:53 Mucosa - Nose Influenza Types A,B Direct FA (STACIE) - Final 03/10/20 12:53 Mucosa - Throat Group A Streptococcus Rapid Screen - Final Streptococcus Group A Laboratory Results 03/10/20 12:50: WBC 10.0, RBC 4.20, Hgb 12.8, Hct 40.8, MCV 97.1, MCH 30.5, MCHC 31.4 L, RDW Std Deviation 47.3 H, RDW Coeff of Ameya 13.2, Plt Count 530 H, MPV 9.0, Immature Gran % (Auto) 0.300, Neut % (Auto) 80.7 H, Lymph % (Auto) 10.4 L, Hancock % (Auto) 7.6, Eos % (Auto) 0.5, Baso % (Auto) 0.5, Absolute Neuts (auto) 8.1 H, Absolute Lymphs (auto) 1.04, Nucleated RBC % 0 03/10/20 12:50: D-Dimer Quant (PE/DVT) 3.90 H* 03/10/20 12:50: Sodium 138, Potassium 3.7, Chloride 102, Carbon Dioxide 29.0, Anion Gap 7, BUN 9, Creatinine 0.78, Estim Creat Clear Calc 46.43, Est GFR (MDRD) Af Amer 93, Est GFR (MDRD) Non-Af 77, BUN/Creatinine Ratio 11.5, Glucose 112 H, Calcium 9.4, Total Bilirubin 0.40, AST 46 H, ALT 77 H, Alkaline Phosphatase 163 H, Troponin I < 0.015, Total Protein 8.2, Albumin 3.1 L, Globulin 5.1 H, Albumin/Globulin Ratio 0.6 L 03/10/20 13:20: Urine Color Yellow, Urine Clarity Sl. Cloudy, Urine pH 6.0, Ur Specific Hinckley 1.020, Urine Protein 15 H, Urine Glucose (UA) Normal, Urine Ketones Negative, Urine Occult Blood 25 H, Urine Nitrite Negative, Urine Bilirubin Negative, Urine Urobilinogen Normal, Ur Leukocyte Esterase 25 H, Urine RBC 0-5 SEEN, Urine WBC 0-5 SEEN, Ur Squamous Epith Cells 0-5 SEEN, Urine Bacteria 0 SEEN, Urine Mucus 0 SEEN 03/10/20 14:35: Lactic Acid 1.3 03/10/20 15:22: COVID-19 (GAGE) Pending Current Medications Sodium Chloride () 1,000 mls @ 999 mls/hr IV .Q1H1M [facility]; Protocol Stop: 03/10/20 16:10 Last Admin: 03/10/20 14:54 Dose: 999 mls/hr Documented by: Assessment/Plan All Active Problems Pneumonia (Acute) Sepsis (Acute) Failure of outpatient treatment (Acute) SOB -with elevated D-dimer, mild transaminitis, tachypnea and lymphopenia will R/O COVID-19 -test pending -Flu and RSV negative -lactate is WNL -Check ECHO -continue Rocephin and Azithro for now -will try to obtain sputum sample -LLL consolidation may not be infiltrate and may be compression atelectasis -check urine antigens and mycoplasma -Albuterol HFA PRN -supplemental O2 as needed Elevated D-Dimer -CT neg -will give Lovenox BID dosing for now Transaminitis -suspect related to acute infection -repeat in am and monitor Throat cx + for GAS -Rocephin for now Moderate L Pleural Effusion -may need thora -will repeat CXR with decubitus view in the am to evaluate how it layers out Pericardial Effusion -moderate on CT -Check ECHO DVT Prophylaxis -Lovenox 30 BID Inpatient E&M: [id number] Init Hosp L3
[2020-03-10 16:48] LABS: Probe Check PASS; Specimen Processing Control PASS
--- NOTE | 2020-03-10 17:40 | ECHOD_ITS ---
Reason For Study: SOB Procedure This was a 2D Doppler, Color Flow transthoracic echocardiogram. Exam performed portable in patient room. Left Ventricle Normal LV size. Left ventricular systolic function is normal. The estimated ejection fraction is 60 %. Stage 2 diastolic dysfunction. No regional wall motion abnormalities noted. Right Ventricle Normal RV size. Normal systolic function. Atria Normal left atrium. Normal right atrium. Mitral Valve Normal mitral valve. Tricuspid Valve Normal tricuspid valve. Mild to moderate (1-2+) tricuspid valve insufficiency. Pulmonary artery systolic pressure is 34 mmHg. Aortic Valve Trisinus/trileaflet aortic valve. Pulmonic Valve Normal pulmonic valve. Great Vessels Normal aortic root. The pulmonary artery is normal size. Normal inferior vena cava. Pericardium/Pleural Trivial pericardial effusion. Moderate size left pleural effusion. MMode/2D Measurements & Calculations LVIDd: 3.2 cm IVSd: 0.84 cm Ao root diam: 2.9 cm LVIDs: 1.6 cm LVPWd: 0.77 cm RVDd: 2.3 cm FS: 49.9 % LAV(MOD-bp): 32.2 ml LA A4 area: 14.9 cm2 RA A4 area: 14.3 cm2 LAV(MOD-bp) Indexed: 19.3 ml/m2 LAV(MOD-sp2): 27.2 ml LAV(MOD-sp4): 32.7 ml Doppler Measurements & Calculations MV E max maxwell: 104.9 cm/sec Lat Peak E' Maxwell: 8.0 cm/sec Med Peak E' Maxwell: 9.1 cm/sec MV A max maxwell: 70.8 cm/sec E/E' lat: 13.1 E/E' med: 11.6 MV E/A: 1.5 Ao V2 max: 187.3 cm/sec LV V1 max: 130.8 cm/sec PA V2 max: 117.2 cm/sec Ao max P.0 mmHg LV V1 max P.8 mmHg TR max maxwell: 280.6 cm/sec TR max P.5 mmHg Interpretation Summary Normal LV size. Left ventricular systolic function is normal. The estimated ejection fraction is 60 %. Stage 2 diastolic dysfunction. Trivial pericardial effusion. Moderate size left pleural effusion. Ordering Physician: Ivette Fay Referring Physician: Senthil Aguilar Performed By: Kirsten Tejeda RDCS
[2020-03-10] MEDS: Acetaminophen 325 MG Tablet 650 MG PO (18:07)
[2020-03-10] MEDS: Enoxaparin 30 MG/0.3 ML Syringe SC (21:18)
[2020-03-10] MEDS: Ketorolac 15 MG/ML Vial IV (22:11)
[2020-03-10] MEDS: 0.9% Saline Lock 10 ML Syringe IV (22:11)
[2020-03-11] MEDS: Acetaminophen 325 MG Tablet 650 MG PO ×2 (01:40→10:20)
[2020-03-11 02:39] VITALS: BP 118/67; PULSE 111; RESP 20; TEMP 36.7; O2SAT 93
--- NOTE | 2020-03-11 05:50 | RAD_ITS ---
STUDY: X-RAY CHEST REASON FOR EXAM: Female, 69 years old. Left lateral decubitus film for left pleural effusion TECHNIQUE: Left down decubitus view. COMPARISON: Comparison is made with prior examination dated March 10, 2020. FINDINGS: There is evidence of a [id number] sized free flowing left pleural effusion. Basilar atelectasis.. RAD/Special CXR (Obl/Decub/A/L) IMPRESSION: Small to moderate sized left pleural effusion. Electronically Signed: Blue Sheikh, at 9:50 EDT , Service support ,
[2020-03-11 06:05] LABS: Absolute Lymphocyte Count 1.39 X10^3/uL (0.83-4.51); Absolute Neutrophil Count 10.3 X10^3/uL (2.0-7.7); Basophil# 0.03 X10^3/uL; Basophil% 0.2 % (0-1); Eosinophil# 0.01 X10^3/uL; Eosinophils% 0.1 % (0-5); Hematocrit 33.2 % (37-47); Hemoglobin 10.4 g/dL (12.0-15.0); Lymphocyte # 1.39 X10^3/ul (4.0); Lymphocyte % 10.8 % (19-41); Mean Corp Hgb Conc 31.3 g/dL (32-36); Mean Corpuscular Hgb 30.8 pg (27.0-32.0); Mean Corpuscular Volume 98.2 fL (81-99); Mean Platelet Vol. 9.2 fl (6.2-12.0); Monocyte% 8.5 % (0-10); NRBC Flagged by Analyzer 0 % (0-5); Neutrophil # 10.32 X10^3/uL (2.7-7.7); Neutrophil % 80.1 % (47-70); Platelet Count 444 K/mm3 (150-450); RBC Distribution Width CV 13.7 % (11.6-14.6); RBC Distribution Width SD 48.9 fl (35.1-43.9); Red Blood Count 3.38 M/mm3 (4.2-5.4); White Blood Count 12.9 K/mm3 (4.4-11.0)
[2020-03-11 06:31] LABS: AST(SGOT) 27 U/L (15-37); Alanine Aminotransfer ALT/SGPT 54 U/L (13-56); Albumin, Serum 2.2 g/dL (3.2-5.0); Alkaline Phosphatase 140 U/L (45-117); Anion Gap 7 (5-15); BUN 6 mg/dL (7-18); BUN/Creat Ratio 9.8 RATIO (10-20); Bilirubin, Direct 0.33 mg/dL (0.00-0.30); Calcium,Total 8.4 mg/dL (8.5-10.1); Chloride 107 mmol/L (98-107); Creatinine, Serum 0.62 mg/dL (0.55-1.02); EST Glomerular Filtration Rate 102 mL/min (>60); Est Glom Filt Rate - Afr Amer 123 mL/min (>60); Estimated Creatinine Clearance 46.43 ml/min; Glucose 110 mg/dL (74-106); Magnesium 2.3 mg/dL (1.6-2.6); Potassium 3.5 mmol/L (3.5-5.1); Protein, Total 6.2 g/dL (6.4-8.2); Sodium Level 139 mmol/L (136-145)
[2020-03-11 07:26] LABS: SARS-COV-2 TOTAL ABS Nonreactive (Nonreactive)
--- NOTE | 2020-03-11 08:06 | NURSING ---
echo staff called unit and state they are coming at this time to complete echo
[2020-03-11 08:30] VITALS: BP 129/66; PULSE 114; RESP 20; TEMP 37.1; O2SAT 94
[2020-03-11] MEDS: 0.9% Saline Lock 10 ML Syringe IV (08:31)
--- NOTE | 2020-03-11 10:15 | NURSING ---
This RN notified that patient states that she has been having some chest pain with atb infusion. This RN spoke with Dorina, primary RN- she states doctors are aware that it originally occurred in ER and they completed full cardiac workup that was negative. Pt did have an echo today that was completed this AM.
[2020-03-11] MEDS: Enoxaparin 30 MG/0.3 ML Syringe SC ×2 (10:21→21:31)
--- NOTE | 2020-03-11 11:42 | PCM.PN.HOSP ---
Patient Problems: Active and Suspected Problems Pneumonia (Acute) Sepsis (Acute) Failure of outpatient treatment (Acute) Reason for Visit: Follow-up for pneumonia, shortness of breath and chest pain. Objective: Patient has tachycardia, heart rate in the 110s. Blood pressures controlled. No hypoxia. Respiratory rate 20/min Patient complained that she has left upper extremity pain for few days about 2 weeks ago that got better and then had left-sided chest pain which moved to the center and also sometimes gets back pain on lying down. She denies history of chronic rheumatological disease including rheumatoid, lupus or other disease. Denies smoking except few years in teenage. Denies chronic cardiac or pulmonary disease including asthma, COPD or prolonged exposure history to dust, fumes or pollutants. She has seasonal allergy. Vitals/I&O's: Vital Signs Temp Pulse Resp BP Pulse Ox 98.8 F 114 H 20 H 129/66 H 94 03/11/20 08:30 03/11/20 08:30 03/11/20 08:30 03/11/20 08:30 03/11/20 08:30 Oxygen Delivery Method Room Air Weight: 137 lb Body Mass Index (BMI) 22.8 Intake and Output for Last 24 Hours 03/09/20 03/10/20 03/11/20 23:59 23:59 23:59 Intake Total 1921.55 / 2221.55 806.5 / 806.5 Balance 1921.55 / 2221.55 806.5 / 806.5 General: Alert, Oriented x3, Cooperative HEENT: Atraumatic, PERRLA, EOMI, Normocephalic Oral: No Gingival or Mucosal Lesions/ Ulcerations, Dry Mucosa Neck: Supple, No JVD, Negative Carotid Bruits Lungs: Clear to auscultation, No rhonchi, No wheeze, No rales, Diminished - Air entry diminished in the left lung base, more than right lung base. Cardiovascular: Regular rate, Regular Rhythm, Normal S1, Normal S2, No murmurs Abdomen: Bowel Sounds Present, Soft, Non Tender, Non-Distended, No Hepato-splenomegaly Extremities: No edema, Capillary Refill Less than 3 Seconds Skin: No rashes, No breakdown Musculoskeletal: No Tenderness to Palpation of Joints or Extremities Neurological: Cranial nerves II-XII grossly intact, Deep Tendon Reflexes 2+/4 and Symmetrical, Neuro grossly intact, Motor Exam 5/5 strength throughout Psych/Mental Status: Normal Affect, Appropriate Microbiology Past 72 Hours 03/10/20 18:42 Mucosa - Nasopharyngeal Respiratory Panel (PCR) - Final 03/10/20 19:40 Interface Orders Streptococcus pneumoniae Antigen (M - Final 03/10/20 19:40 Interface Orders Legionella Antigen - Final 03/10/20 12:53 Mucosa - Nose Rapid RSV (DFA) - Final 03/10/20 12:53 Mucosa - Nose Influenza Types A,B Direct FA (STACIE) - Final 03/10/20 12:53 Mucosa - Throat Group A Streptococcus Rapid Screen - Final Streptococcus Group A Laboratory Results 03/10/20 12:50: WBC 10.0, RBC 4.20, Hgb 12.8, Hct 40.8, MCV 97.1, MCH 30.5, MCHC 31.4 L, RDW Std Deviation 47.3 H, RDW Coeff of Ameya 13.2, Plt Count 530 H, MPV 9.0, Immature Gran % (Auto) 0.300, Neut % (Auto) 80.7 H, Lymph % (Auto) 10.4 L, Wright % (Auto) 7.6, Eos % (Auto) 0.5, Baso % (Auto) 0.5, Absolute Neuts (auto) 8.1 H, Absolute Lymphs (auto) 1.04, Nucleated RBC % 0 03/10/20 12:50: D-Dimer Quant (PE/DVT) 3.90 H* 03/10/20 12:50: Sodium 138, Potassium 3.7, Chloride 102, Carbon Dioxide 29.0, Anion Gap 7, BUN 9, Creatinine 0.78, Estim Creat Clear Calc 46.43, Est GFR (MDRD) Af Amer 93, Est GFR (MDRD) Non-Af 77, BUN/Creatinine Ratio 11.5, Glucose 112 H, Calcium 9.4, Total Bilirubin 0.40, AST 46 H, ALT 77 H, Alkaline Phosphatase 163 H, Troponin I < 0.015, Total Protein 8.2, Albumin 3.1 L, Globulin 5.1 H, Albumin/Globulin Ratio 0.6 L 03/10/20 13:20: Urine Color Yellow, Urine Clarity Sl. Cloudy, Urine pH 6.0, Ur Specific Hickman 1.020, Urine Protein 15 H, Urine Glucose (UA) Normal, Urine Ketones Negative, Urine Occult Blood 25 H, Urine Nitrite Negative, Urine Bilirubin Negative, Urine Urobilinogen Normal, Ur Leukocyte Esterase 25 H, Urine RBC 0-5 SEEN, Urine WBC 0-5 SEEN, Ur Squamous Epith Cells 0-5 SEEN, Urine Bacteria 0 SEEN, Urine Mucus 0 SEEN 03/10/20 14:35: Lactic Acid 1.3 03/10/20 15:22: COVID-19 (GAGE) Negative 03/10/20 18:53: Mycoplasma pneumon IgG Pending, Mycoplasma pneumon IgM Pending 03/10/20 18:53: SARS Serology Nonreactive 03/11/20 05:38: WBC 12.9 H, RBC 3.38 L, Hgb 10.4 L, Hct 33.2 L, MCV 98.2, MCH 30.8, MCHC 31.3 L, RDW Std Deviation 48.9 H, RDW Coeff of Ameya 13.7, Plt Count 444, MPV 9.2, Immature Gran % (Auto) 0.300, Neut % (Auto) 80.1 H, Lymph % (Auto) 10.8 L, Wright % (Auto) 8.5, Eos % (Auto) 0.1, Baso % (Auto) 0.2, Absolute Neuts (auto) 10.3 H, Absolute Lymphs (auto) 1.39, Nucleated RBC % 0 03/11/20 05:38: Sodium 139, Potassium 3.5, Chloride 107, Carbon Dioxide 25.0, Anion Gap 7, BUN 6 L, Creatinine 0.62, Estim Creat Clear Calc 46.43, Est GFR (MDRD) Af Amer 123, Est GFR (MDRD) Non-Af 102, BUN/Creatinine Ratio 9.8 L, Glucose 110 H, Calcium 8.4 L, Magnesium 2.3, Total Bilirubin 0.60, Direct Bilirubin 0.33 H, AST 27, ALT 54, Alkaline Phosphatase 140 H, Total Protein 6.2 L, Albumin 2.2 L, Globulin 4.0 Current Medications Acetaminophen (Tylenol) 650 mg PO Q6H PRN PRN PRN Reason: Pain 1-07/16 or Fever Last Admin: 03/11/20 10:20 Dose: 650 mg Documented by: Albuterol Sulfate (Ventolin Aerosols) 2.5 mg INHALATION Q4H PRN PRN Reason: SOB &/OR WHEEZING Enoxaparin Sodium (Lovenox) 30 mg SC BID [facility] Last Admin: 03/11/20 10:21 Dose: 30 mg Documented by: Azithromycin 500 mg/ Dextrose 255 mls @ 250 mls/hr IV Q24 [facility] Stop: 03/12/20 23:59 Last Infusion: 03/11/20 09:54 Dose: Infused Documented by: Ceftriaxone Sodium 2 gm/ (Sodium Chloride) 50 mls @ 100 mls/hr IV Q24 [facility] Last Infusion: 03/11/20 11:07 Dose: Infused Documented by: Sodium Chloride () 250 mls @ 15 mls/hr IV .[id number] PRN PRN Reason: Saline Flush Last Infusion: 03/11/20 08:37 Dose: 0 mls/hr Documented by: Sodium Chloride () 250 mls @ 15 mls/hr IV .[id number] PRN PRN Reason: Additional IVPB Infusion Lactobacillus Acidophilus (Acidophilus) 1 tablet PO 4X/DAY [facility] Last Admin: 03/11/20 10:20 Dose: 1 tablet Documented by: Sodium Chloride () 10 - 40 ml IV UD PRN PRN Reason: SALINE FLUSH Last Admin: 03/11/20 08:31 Dose: 10 ml Documented by: STROKE Vital Signs/Narrative: Vital Signs Temp Pulse Resp BP Pulse Ox 03/11/20 08:30 98.8 F 114 H 20 H 129/66 H 94 Medical Necessity - Tobacco Use Smoking Status: Never smoker Assessment/Plan All Active Problems Pneumonia (Acute) Sepsis (Acute) Failure of outpatient treatment (Acute) This is a 69-year-old female who is admitted with about 2 weeks history of shortness of breath, progressively worsening along with pleuritic chest pain and low-grade fever. She completed 1 week of Levaquin as an outpatient but symptoms did not jeremiah therefore admitted. COVID-19 x2 are negative. Start serology nonreactive. 1. Bilateral lower lobe pneumonia with a small left pleural effusion. Patient had chest x-ray and 2 CT scans since March 03. All images were independently reviewed. There is progression of infiltrate in bilateral lower lobes, more on the left lower lobe with small effusion. Since left effusion is not big enough that requires tap. The patient is on IV ceftriaxone and Zithromax. ID consult. Strep group A positive. Saroj antigens are negative. Respiratory panel are negative. Sputum culture pending. Mild leukocytosis with left shift. Patient has inflammatory markers including d-dimer, transaminases elevated. Improvement in inflammatory markers. 2D echo is pending. 2. Small to moderate left pleural effusion: follow-up further with chest x-ray. As mentioned above, may be reactive from pneumonia/parapneumonic effusion 3. Pericardial Effusion -moderate on CT. Follow-up echo. 4. DVT Prophylaxis -Lovenox 30 BID Total time of the visit including total time spent in counseling or coordination of care, (more than 50% of the total time, spent in obtaining medical information from nurses and other ancillary care providers), coordination with consultants, review of labs and imaging is 30 minutes Microbiology Past 72 Hours 03/10/20 18:42 Mucosa - Nasopharyngeal Respiratory Panel (PCR) - Final 03/10/20 19:40 Interface Orders Streptococcus pneumoniae Antigen (M - Final 03/10/20 19:40 Interface Orders Legionella Antigen - Final 03/10/20 12:53 Mucosa - Nose Rapid RSV (DFA) - Final 03/10/20 12:53 Mucosa - Nose Influenza Types A,B Direct FA (STACIE) - Final 03/10/20 12:53 Mucosa - Throat Group A Streptococcus Rapid Screen - Final Streptococcus Group A Clinical Impression(s) from Imaging Studies Chest X-Ray 03/10/20 13:20 IMPRESSION: Interval progression of the left lower lobe infiltrate with a small left pleural effusion. Mild increased markings at the right lung base. Chest CTA 03/10/20 13:42 IMPRESSION: Mild to moderate degree of left pleural effusion with underlying consolidation. Patchy infiltrate in the right lower lobe. Moderate degree of a pericardial effusion. Coronary artery calcification. Electronically Signed: Blue Sheikh, at 14:14 EDT , Service support , Chest X-Ray 03/11/20 05:50 IMPRESSION: Small to moderate sized left pleural effusion. Inpatient E&M: [id number] [facility] Hosp L3
--- NOTE | 2020-03-11 11:54 | NURSING ---
Call placed to James and update given on pts condition
--- NOTE | 2020-03-11 13:45 | CASEMGMT ---
RN MIRIAM Face to Face with patient for initial transition planning/care coordination assessment. RN CM introduced self and role at [facility]. Patient lying in bed, alert and oriented. Patient willing to participate in assessment and is able to answer all questions appropriately. Care providers, pharmacy, and demographics verified. Patient wishes to discharge home, denies need for home health at this time. Patient states she has no further needs or concerns at this time. CM to follow for discharge planning needs that may arise. PCP: Lauren Specialists: None Preferred Pharmacy: [facility] Insurance: [facility] Prescription Benefit: yes Living Will/HPOA: yes, James LNKHURRAM: Living Arrangements: Patient lives with in 1 story home with 2 steps to enter the home. Patient is independent at home. Transportation: self/ DME/HHC: Patient has walker at home, denies additional DME. Patient denies previous HHC. Disposition Plan: Patient to discharge home with family support and follow-up plans in place. Lachelle ROJAS, RN, CM
--- NOTE | 2020-03-11 14:13 | CON.PCM_ITS ---
Problem List (1) Pneumonia Status: Acute Reason for Consult: pneumonia Consulted by: Dr. Matute History of Present Illness: The patient is a 69 year old F with minimal PMH, presented yesterday to ED with about 2 weeks of chest/shoulder pressure and pain. Pain waxes and wanes and is migratory. Initially had some dyspnea, cough with yellow/green sputum. Mild fever. No headache, no aches, no sore throat, no change in taste/smell. No sick contacts. Was given course of azithro without improvement, went to ED 03/03, given levaquin for 1 week without much improvement but sputum did resolve. Came back last night, started on azithro/ceftriaxone. Pain slightly improved today. Repeat covid neg. Full ROS performed and neg except as noted above. - Medical History Surgical History: reviewed Allergies/Adverse Reactions: Allergies No Known Allergies Allergy (Verified 03/10/20 12:05) Home Medications: Ambulatory Orders Medication Instructions Recorded NK 03/10/20 - Social History Tobacco Use: non-smoker Vital Signs Temp Pulse Resp BP Pulse Ox 98.8 F 114 H 20 H 129/66 H 94 03/11/20 08:30 03/11/20 08:30 03/11/20 08:30 03/11/20 08:30 03/11/20 08:30 Oxygen Delivery Method Room Air Weight: 62.142 kg Body Mass Index (BMI) 22.8 Microbiology Past 72 Hours 03/10/20 18:15 Gram Stain - Final Sputum, Expectorated/Coughed Respiratory Culture - Preliminary Appears to be normal respiratory anibal. Further studies to follow. 03/10/20 18:42 Respiratory Panel (PCR) - Final Mucosa - Nasopharyngeal 03/10/20 19:40 Streptococcus pneumoniae Antigen (M - Final Interface Orders 03/10/20 19:40 Legionella Antigen - Final Interface Orders 03/10/20 12:53 Rapid RSV (DFA) - Final Mucosa - Nose 03/10/20 12:53 Influenza Types A,B Direct FA (STACIE) - Final Mucosa - Nose 03/10/20 12:53 Group A Streptococcus Rapid Screen - Final Mucosa - Throat Streptococcus Group A Laboratory Tests Past 24 Hrs 03/10/20 03/10/20 03/10/20 14:35 15:22 18:53 WBC RBC Hgb Hct MCV MCH MCHC RDW Std Deviation RDW Coeff of Ameya Plt Count MPV Immature Gran % (Auto) Neut % (Auto) Lymph % (Auto) [place] % (Auto) Eos % (Auto) Baso % (Auto) Absolute Neuts (auto) Absolute Lymphs (auto) Nucleated RBC % Sodium Potassium Chloride Carbon Dioxide Anion Gap BUN Creatinine Estim Creat Clear Calc Est GFR (MDRD) Af Amer Est GFR (MDRD) Non-Af BUN/Creatinine Ratio Glucose Lactic Acid 1.3 Calcium Magnesium Total Bilirubin Direct Bilirubin AST ALT Alkaline Phosphatase Total Protein Albumin Globulin COVID-19 (GAGE) Negative Mycoplasma pneumon IgG Pending Mycoplasma pneumon IgM Pending SARS Serology 03/10/20 03/11/20 03/11/20 18:53 05:38 05:38 WBC 12.9 H RBC 3.38 L Hgb 10.4 L Hct 33.2 L MCV 98.2 MCH 30.8 MCHC 31.3 L RDW Std Deviation 48.9 H RDW Coeff of Ameya 13.7 Plt Count 444 MPV 9.2 Immature Gran % (Auto) 0.300 Neut % (Auto) 80.1 H Lymph % (Auto) 10.8 L [place] % (Auto) 8.5 Eos % (Auto) 0.1 Baso % (Auto) 0.2 Absolute Neuts (auto) 10.3 H Absolute Lymphs (auto) 1.39 Nucleated RBC % 0 Sodium 139 Potassium 3.5 Chloride 107 Carbon Dioxide 25.0 Anion Gap 7 BUN 6 L Creatinine 0.62 Estim Creat Clear Calc 46.43 Est GFR (MDRD) Af Amer 123 Est GFR (MDRD) Non-Af 102 BUN/Creatinine Ratio 9.8 L Glucose 110 H Lactic Acid Calcium 8.4 L Magnesium 2.3 Total Bilirubin 0.60 Direct Bilirubin 0.33 H AST 27 ALT 54 Alkaline Phosphatase 140 H Total Protein 6.2 L Albumin 2.2 L Globulin 4.0 COVID-19 (GAGE) Mycoplasma pneumon IgG Mycoplasma pneumon IgM SARS Serology Nonreactive - Other Studies Radiology: [] reviewed cxr images, small L sided effusion Other Studies: [] Route of nutrition/ use of supplements: [] Nutritional Intake: [] IV Site: [] Hoyt Catheter: [] - Physical Exam General: Alert, Oriented x3, Cooperative, No apparent distress HEENT: Atraumatic, PERRLA, EOMI Neck: Supple, No Nodes Lungs: - - dull in L base Cardiovascular: Regular rate, Regular Rhythm Abdomen: Soft, Non Tender, Non-Distended Extremities: No edema Skin: No rashes IV Site: Peripheral, without redness Musculoskeletal: - - mild tenderness over sternum Neurological: Cranial nerves II-XII grossly intact - Assessment/Plan Antibiotics: [] Assessment/Plan: [] Active and Suspected Problems Pneumonia (Acute) Sepsis (Acute) Failure of outpatient treatment (Acute) Low suspicion for covid at this point with 2 neg pcrs and neg serology. Echo was ok. D-dimer was high but no PE seen. No arm swelling, so low suspicion for UE dvt. Some pain is reproducible with palpation on chest. Throat with GAS but no sore throat. Cont azithro/ceftriaxone for now while cxs pending. Sputum showing normal anibal. Will follow, thank you, d/w Dr. Matute
[2020-03-11 14:22] VITALS: BP 114/64; PULSE 106; RESP 18; TEMP 36.9; O2SAT 98
--- NOTE | 2020-03-11 16:50 | NURSING ---
Call placed to anna Coburn update given on patients test results per patient request.
[2020-03-11] MEDS: Capsaicin 0.025% 1 APPLIC Tube TOPICAL (18:36)
[2020-03-11 21:30] VITALS: BP 122/56; PULSE 113; RESP 18; TEMP 37.9; O2SAT 94
[2020-03-11 22:38] VITALS: TEMP 37.1
[2020-03-12] VITALS (10 sets, daily range): BP systolic 108–142; BP diastolic 60–97; PULSE 102–112; RESP 18; TEMP 36.8–37.5; O2SAT 92–96
[2020-03-12] MEDS: Acetaminophen 325 MG Tablet 650 MG PO ×2 (06:39→18:08)
--- NOTE | 2020-03-12 09:04 | PCM.PN.HOSP ---
Patient Problems: Active and Suspected Problems Pneumonia (Acute) Sepsis (Acute) Failure of outpatient treatment (Acute) Reason for Visit: Follow-up for bilateral pneumonia and pleuritic chest pain Objective: Patient shortness of breath is better but he still complained of chest pain which is migratory from left side and then moved to right upper chest. Pulse ox 92% on room air. Heart rate in 100s. T-max 100.2 Fahrenheit last night Vitals/I&O's: Vital Signs Temp Pulse Resp BP Pulse Ox 98.7 F 106 H 18 108/60 92 03/12/20 07:32 03/12/20 07:32 03/12/20 07:32 03/12/20 07:32 03/12/20 07:32 Oxygen Delivery Method Room Air Weight: 137 lb Body Mass Index (BMI) 22.8 Intake and Output for Last 24 Hours 03/10/20 03/11/20 03/12/20 23:59 23:59 23:59 Intake Total 1921.55 / 2221.55 1806.5 / 1806.5 1000 / 1000 Balance 1921.55 / 2221.55 1806.5 / 1806.5 1000 / 1000 General: Alert, Oriented x3, Cooperative HEENT: Atraumatic, PERRLA, EOMI, Normocephalic Neck: Supple, No JVD, Negative Carotid Bruits Lungs: Clear to auscultation, No rhonchi, No wheeze, No rales, Diminished - Air entry diminished in bilateral lower lungs. Cardiovascular: Regular Rhythm, Normal S1, Normal S2, No murmurs, Tachycardic Abdomen: Bowel Sounds Present, Soft, Non Tender, Non-Distended Extremities: No edema, Capillary Refill Less than 3 Seconds Skin: No rashes, No breakdown Musculoskeletal: No Tenderness to Palpation of Joints or Extremities Neurological: Cranial nerves II-XII grossly intact, Neuro grossly intact Psych/Mental Status: Normal Affect, Appropriate Microbiology Past 72 Hours 03/10/20 14:42 Blood Culture (Wb) - Left Forearm Blood Culture - Preliminary No growth in 48 hours. 03/10/20 14:35 Blood Culture (Wb) - Anticubital Right Blood Culture - Preliminary No growth in 48 hours. 03/10/20 18:15 Sputum, Expectorated/Coughed Gram Stain - Final 03/10/20 18:15 Sputum, Expectorated/Coughed Respiratory Culture - Preliminary Appears to be normal respiratory anibal. Further studies to follow. 03/10/20 18:42 Mucosa - Nasopharyngeal Respiratory Panel (PCR) - Final 03/10/20 19:40 Interface Orders Streptococcus pneumoniae Antigen (M - Final 03/10/20 19:40 Interface Orders Legionella Antigen - Final 03/10/20 12:53 Mucosa - Nose Rapid RSV (DFA) - Final 03/10/20 12:53 Mucosa - Nose Influenza Types A,B Direct FA (STACIE) - Final 03/10/20 12:53 Mucosa - Throat Group A Streptococcus Rapid Screen - Final Streptococcus Group A Current Medications Acetaminophen (Tylenol) 650 mg PO Q6H PRN PRN PRN Reason: Pain 1-07/16 or Fever Last Admin: 03/12/20 06:39 Dose: 650 mg Documented by: Albuterol Sulfate (Ventolin Aerosols) 2.5 mg INHALATION Q4H PRN PRN Reason: SOB &/OR WHEEZING Capsaicin (Zostrix) 1 applic TOPICAL TID PRN PRN; Protocol PRN Reason: Pain Last Admin: 03/11/20 18:36 Dose: 1 applicatio Documented by: Enoxaparin Sodium (Lovenox) 30 mg SC BID [facility] Last Admin: 03/11/20 21:31 Dose: 30 mg Documented by: Azithromycin 500 mg/ Dextrose 255 mls @ 250 mls/hr IV Q24 [facility] Stop: 03/12/20 23:59 Last Infusion: 03/11/20 09:54 Dose: Infused Documented by: Ceftriaxone Sodium 2 gm/ (Sodium Chloride) 50 mls @ 100 mls/hr IV Q24 [facility] Last Infusion: 03/11/20 11:07 Dose: Infused Documented by: Sodium Chloride () 250 mls @ 15 mls/hr IV .[id number] PRN PRN Reason: Saline Flush Last Infusion: 03/11/20 08:37 Dose: 0 mls/hr Documented by: Sodium Chloride () 250 mls @ 15 mls/hr IV .[id number] PRN PRN Reason: Additional IVPB Infusion Lactobacillus Acidophilus (Acidophilus) 1 tablet PO 4X/DAY [facility] Last Admin: 03/11/20 21:31 Dose: 1 tablet Documented by: Sodium Chloride () 10 - 40 ml IV UD PRN PRN Reason: SALINE FLUSH Last Admin: 03/11/20 08:31 Dose: 10 ml Documented by: STROKE Vital Signs/Narrative: Vital Signs Temp Pulse Resp BP Pulse Ox 03/12/20 07:32 98.7 F 106 H 18 108/60 92 03/12/20 06:44 98.4 F Medical Necessity - Tobacco Use Smoking Status: Never smoker Assessment/Plan All Active Problems Pneumonia (Acute) Sepsis (Acute) Failure of outpatient treatment (Acute) This is a 69-year-old female who is admitted with about 2 weeks history of shortness of breath, progressively worsening along with pleuritic chest pain and low-grade fever. She completed 1 week of Levaquin as an outpatient but symptoms did not jeremiah therefore admitted. COVID-19 x2 are negative. Start serology nonreactive. 1. Bilateral lower lobe pneumonia with a small left pleural effusion. Patient had chest x-ray and 2 CT scans since March 03. All images were independently reviewed. There is progression of infiltrate in bilateral lower lobes, more on the left lower lobe with small effusion. Since left effusion is not big enough that requires tap. The patient is on IV ceftriaxone and Zithromax. ID consult appreciated and discussed. 03/12 strep group A positive. Urinary antigens are negative. Respiratory panel are negative. Sputum culture appears normal respiratory anibal. Mild leukocytosis with left shift. Patient has inflammatory markers including d-dimer, transaminases elevated. Improvement in inflammatory markers. Discussed with ID. 2D echo reported as EF 60%, normal LV size with stage II diastolic dysfunction with history of chronic diastolic heart failure. Trivial pericardial effusion. Mild to moderate left pleural effusion. 2. Small left pleural effusion: follow-up further with chest x-ray. As mentioned above, may be reactive from pneumonia/parapneumonic effusion, discussed with radiologist Dr. Sheikh. No indication for thoracocentesis. Will repeat chest x-ray on 03/14/2020 a.m. 3. Pericardial Effusion -Echo reported trivial pericardial effusion 4. DVT Prophylaxis -Lovenox 30 BID Total time of the visit including total time spent in counseling or coordination of care, (more than 50% of the total time, spent in obtaining medical information from nurses and other ancillary care providers), coordination with consultants, review of labs and imaging is 30 minutes Microbiology Past 72 Hours 03/10/20 14:42 Blood Culture (Wb) - Left Forearm Blood Culture - Preliminary No growth in 48 hours. 03/10/20 14:35 Blood Culture (Wb) - Anticubital Right Blood Culture - Preliminary No growth in 48 hours. 03/10/20 18:15 Sputum, Expectorated/Coughed Gram Stain - Final 03/10/20 18:15 Sputum, Expectorated/Coughed Respiratory Culture - Preliminary Appears to be normal respiratory anibal. Further studies to follow. 03/10/20 18:42 Mucosa - Nasopharyngeal Respiratory Panel (PCR) - Final 03/10/20 19:40 Interface Orders Streptococcus pneumoniae Antigen (M - Final 03/10/20 19:40 Interface Orders Legionella Antigen - Final 03/10/20 12:53 Mucosa - Nose Rapid RSV (DFA) - Final 03/10/20 12:53 Mucosa - Nose Influenza Types A,B Direct FA (STACIE) - Final 03/10/20 12:53 Mucosa - Throat Group A Streptococcus Rapid Screen - Final Streptococcus Group A Clinical Impression(s) from Imaging Studies Chest X-Ray 03/10/20 13:20 IMPRESSION: Interval progression of the left lower lobe infiltrate with a small left pleural effusion. Mild increased markings at the right lung base. Chest CTA 03/10/20 13:42 IMPRESSION: Mild to moderate degree of left pleural effusion with underlying consolidation. Patchy infiltrate in the right lower lobe. Moderate degree of a pericardial effusion. Coronary artery calcification. Electronically Signed: Blue Sheikh, at 14:14 EDT , Service support , Chest X-Ray 03/11/20 05:50 IMPRESSION: Small to moderate sized left pleural effusion. Inpatient E&M: 23957 Subs Hosp L2
[2020-03-12] MEDS: 0.9% Saline Lock 10 ML Syringe IV (09:22)
[2020-03-12] MEDS: Enoxaparin 30 MG/0.3 ML Syringe SC ×2 (09:24→22:13)
[2020-03-12] MEDS: Capsaicin 0.025% 1 APPLIC Tube TOPICAL (19:59)
[2020-03-13] VITALS (7 sets, daily range): BP systolic 106–127; BP diastolic 59–91; PULSE 75–109; RESP 16–18; TEMP 36.4–37.1; O2SAT 94–97
[2020-03-13] MEDS: Acetaminophen 325 MG Tablet 650 MG PO ×2 (00:18→06:54)
[2020-03-13 06:19] LABS: Absolute Lymphocyte Count 1.87 X10^3/uL (0.83-4.51); Absolute Neutrophil Count 5.4 X10^3/uL (2.0-7.7); Basophil# 0.06 X10^3/uL; Basophil% 0.7 % (0-1); Eosinophil# 0.26 X10^3/uL; Eosinophils% 3.2 % (0-5); Hematocrit 36.3 % (37-47); Hemoglobin 11.7 g/dL (12.0-15.0); Lymphocyte # 1.87 X10^3/ul (4.0); Lymphocyte % 22.8 % (19-41); Mean Corp Hgb Conc 32.2 g/dL (32-36); Mean Corpuscular Hgb 30.2 pg (27.0-32.0); Mean Corpuscular Volume 93.8 fL (81-99); Mean Platelet Vol. 8.8 fl (6.2-12.0); Monocyte% 7.3 % (0-10); NRBC Flagged by Analyzer 0 % (0-5); Neutrophil # 5.36 X10^3/uL (2.7-7.7); Neutrophil % 65.5 % (47-70); Platelet Count 595 K/mm3 (150-450); RBC Distribution Width CV 13.6 % (11.6-14.6); RBC Distribution Width SD 46.5 fl (35.1-43.9); Red Blood Count 3.87 M/mm3 (4.2-5.4); White Blood Count 8.2 K/mm3 (4.4-11.0)
--- NOTE | 2020-03-13 07:59 | RAD_ITS ---
STUDY: X-RAY CHEST REASON FOR EXAM: Female, 69 years old. LEFT PLEURAL EFFUSION, COUGH, SHORT OF BREATH, TECHNIQUE: PA and lateral views of the chest. Decubitus films were also obtained. COMPARISON: 11 March 2020 FINDINGS: There is a large left layering effusion within the left lower lobe which on left side down projection demonstrates minimal layering. Small layering effusion overlying the right costophrenic angle is also noted. Normal size heart. Normal mediastinum and fawn. Normal visualized pulmonary arteries. Normal visualized aortic arch and descending thoracic aorta. Normal visualized thoracic spine. Normal visualized ribs, clavicles, and shoulders. There is no demonstrated abnormality of the visualized soft tissue structures of the upper abdomen. RAD/Chest 3 View IMPRESSION: Similar large left lower lung layering effusion with minimal layering and associated left upper lobe basilar atelectasis. Additionally small layering right effusion is present. Electronically Signed: Ryan Garza DO at 9:03 EDT , Service support ,
[2020-03-13] MEDS: Enoxaparin 30 MG/0.3 ML Syringe SC (09:33)
[2020-03-13] MEDS: 0.9% Saline Lock 10 ML Syringe IV (09:35)
[2020-03-13] MEDS: Ketorolac 15 MG/ML Vial IV (09:35)
--- NOTE | 2020-03-13 10:13 | PCM.PN.HOSP ---
Patient Problems: Active and Suspected Problems Pneumonia (Acute) Sepsis (Acute) Failure of outpatient treatment (Acute) Reason for Visit: Patient continues to complain of pain, bilateral front and back of chest. Patient reluctant to take NSAID yesterday as it can exacerbate her interstitial cystitis. I convinced her to take for 1 day of Motrin and she had 1 dose of 50 mg IV Toradol which improved her pain. No shortness of breath. Mild tachycardia. No fever. Vitals/I&O's: Vital Signs Temp Pulse Resp BP Pulse Ox 98.2 F 101 H 16 127/91 H 95 03/13/20 09:00 03/13/20 09:00 03/13/20 09:00 03/13/20 09:00 03/13/20 09:00 Oxygen Delivery Method Room Air Weight: 137 lb Body Mass Index (BMI) 22.8 Intake and Output for Last 24 Hours 03/11/20 03/12/20 03/13/20 23:59 23:59 23:59 Intake Total 1806.5 / 1806.5 2125 / 2125 500 / 500 Balance 1806.5 / 1806.5 2125 / 2125 500 / 500 General: Alert, Oriented x3, Cooperative HEENT: Atraumatic, PERRLA, EOMI, Normocephalic Neck: Supple, No JVD, Negative Carotid Bruits Lungs: No rhonchi, No wheeze, No rales, Diminished - Air entry diminished in left lower half. Stony dullness present in left lower half of lung of moderate pleural effusion. No crepitation or rhonchi Cardiovascular: Regular rate, Regular Rhythm, Normal S1, Normal S2, No murmurs Abdomen: Bowel Sounds Present, Soft, Non Tender, Non-Distended Extremities: No edema, Capillary Refill Less than 3 Seconds Skin: No rashes, No breakdown Musculoskeletal: No Tenderness to Palpation of Joints or Extremities Neurological: Cranial nerves II-XII grossly intact Psych/Mental Status: Normal Affect, Appropriate Microbiology Past 72 Hours 03/10/20 18:15 Sputum, Expectorated/Coughed Gram Stain - Final 03/10/20 18:15 Sputum, Expectorated/Coughed Respiratory Culture - Final Mixed normal respiratory anibal. No Streptococcus pneumoniae, beta-hemolytic Streptococcus or Staphylococcus aureus isolated. 03/10/20 14:42 Blood Culture (Wb) - Left Forearm Blood Culture - Preliminary No growth in 48 hours. 03/10/20 14:35 Blood Culture (Wb) - Anticubital Right Blood Culture - Preliminary No growth in 48 hours. 03/10/20 18:42 Mucosa - Nasopharyngeal Respiratory Panel (PCR) - Final 03/10/20 19:40 Interface Orders Streptococcus pneumoniae Antigen (M - Final 03/10/20 19:40 Interface Orders Legionella Antigen - Final 03/10/20 12:53 Mucosa - Nose Rapid RSV (DFA) - Final 03/10/20 12:53 Mucosa - Nose Influenza Types A,B Direct FA (STACIE) - Final 03/10/20 12:53 Mucosa - Throat Group A Streptococcus Rapid Screen - Final Streptococcus Group A Laboratory Results 03/13/20 05:55: WBC 8.2, RBC 3.87 L, Hgb 11.7 L, Hct 36.3 L, MCV 93.8, MCH 30.2, MCHC 32.2, RDW Std Deviation 46.5 H, RDW Coeff of Ameya 13.6, Plt Count 595 H, MPV 8.8, Immature Gran % (Auto) 0.500, Neut % (Auto) 65.5, Lymph % (Auto) 22.8, [place] % (Auto) 7.3, Eos % (Auto) 3.2, Baso % (Auto) 0.7, Absolute Neuts (auto) 5.4, Absolute Lymphs (auto) 1.87, Nucleated RBC % 0 Current Medications Acetaminophen (Tylenol) 650 mg PO Q6H PRN PRN PRN Reason: Pain 1-10/10 or Fever Last Admin: 03/13/20 06:54 Dose: 650 mg Documented by: Albuterol Sulfate (Ventolin Aerosols) 2.5 mg INHALATION Q4H PRN PRN Reason: SOB &/OR WHEEZING Capsaicin (Zostrix) 1 applic TOPICAL TID PRN PRN; Protocol PRN Reason: Pain Last Admin: 03/12/20 19:59 Dose: 1 applicatio Documented by: Enoxaparin Sodium (Lovenox) 30 mg SC BID [facility] Last Admin: 03/13/20 09:33 Dose: 30 mg Documented by: Famotidine (Pepcid) 20 mg PO DAILY [facility] Ceftriaxone Sodium 2 gm/ (Sodium Chloride) 50 mls @ 100 mls/hr IV Q24 [facility] Last Admin: 03/13/20 09:35 Dose: 100 mls/hr Documented by: Sodium Chloride () 250 mls @ 15 mls/hr IV .[id number] PRN PRN Reason: Saline Flush Last Infusion: 03/12/20 15:17 Dose: Infused Documented by: Sodium Chloride () 250 mls @ 15 mls/hr IV .[id number] PRN PRN Reason: Additional IVPB Infusion Ibuprofen (Motrin) 600 mg PO Q8 [facility] Ketorolac Tromethamine (Toradol (Bkc)) 15 mg IV Q6 PRN PRN Reason: Pain Score 6-10/10 Stop: 03/18/20 09:57 Lactobacillus Acidophilus (Acidophilus) 1 tablet PO 4X/DAY [facility] Last Admin: 03/13/20 09:33 Dose: 1 tablet Documented by: Sodium Chloride () 10 - 40 ml IV UD PRN PRN Reason: SALINE FLUSH Last Admin: 03/13/20 09:35 Dose: 10 ml Documented by: STROKE Vital Signs/Narrative: Vital Signs Temp Pulse Resp BP Pulse Ox 03/13/20 09:00 98.2 F 101 H 16 127/91 H 95 Medical Necessity - Tobacco Use Smoking Status: Never smoker Assessment/Plan All Active Problems Pneumonia (Acute) Sepsis (Acute) Failure of outpatient treatment (Acute) This is a 69-year-old female who is admitted with about 2 weeks history of shortness of breath, progressively worsening along with pleuritic chest pain and low-grade fever. She completed 1 week of Levaquin as an outpatient but symptoms did not jeremiah therefore admitted. COVID-19 x2 are negative. Start serology nonreactive. 1. Bilateral lower lobe pneumonia with a small left pleural effusion. Patient had chest x-ray and 2 CT scans since March 03. All images were independently reviewed. There is progression of infiltrate in bilateral lower lobes, more on the left lower lobe with small effusion. Since left effusion is not big enough that requires tap. The patient is on IV ceftriaxone and Zithromax. ID consult appreciated and discussed. 6/6 strep group A positive. Urinary antigens are negative. Respiratory panel are negative. Sputum culture appears normal respiratory anibal. Mild leukocytosis with left shift. Patient has inflammatory markers including d-dimer, transaminases elevated. Improvement in inflammatory markers. Discussed with ID. 2D echo reported as EF 60%, normal LV size with stage II diastolic dysfunction with history of chronic diastolic heart failure. Trivial pericardial effusion. Mild to moderate left pleural effusion. 03/13: Repeat chest x-ray done shows moderate left pleural effusion associated left upper lobe basilar atelectasis and small right effusion with no change from previous x-ray. Chest pain is pleuritic and agreed for NSAID. Monitor kidney function electrolytes. Ultrasound-guided thoracocentesis tomorrow a.m. 2. Mild to moderate left pleural effusion: follow-up further with chest x-ray. As mentioned above, may be reactive from pneumonia/parapneumonic effusion, discussed with radiologist Dr. Sheikh. As mentioned above 3. Pericardial Effusion -Echo reported trivial pericardial effusion 4. DVT Prophylaxis -Lovenox 30 BID. Hold night dose of Lovenox for thoracocentesis tomorrow a.m. Total time of the visit including total time spent in counseling or coordination of care, (more than 50% of the total time, spent in obtaining medical information from nurses and other ancillary care providers), coordination with consultants, review of labs and imaging and discussion with patient is 30 minutes Clinical Impression(s) from Imaging Studies Chest X-Ray 03/10/20 13:20 IMPRESSION: Interval progression of the left lower lobe infiltrate with a small left pleural effusion. Mild increased markings at the right lung base. Chest CTA 03/10/20 13:42 IMPRESSION: Mild to moderate degree of left pleural effusion with underlying consolidation. Patchy infiltrate in the right lower lobe. Moderate degree of a pericardial effusion. Coronary artery calcification. Electronically Signed: Blue Sheikh, at 14:14 EDT , Service support , Chest X-Ray 03/11/20 05:50 IMPRESSION: Small to moderate sized left pleural effusion. Chest X-Ray 03/13/20 07:59 IMPRESSION: Similar large left lower lung layering effusion with minimal layering and associated left upper lobe basilar atelectasis. Additionally small layering right effusion is present. Microbiology Past 72 Hours 03/10/20 18:15 Sputum, Expectorated/Coughed Gram Stain - Final 03/10/20 18:15 Sputum, Expectorated/Coughed Respiratory Culture - Final Mixed normal respiratory anibal. No Streptococcus pneumoniae, beta-hemolytic Streptococcus or Staphylococcus aureus isolated. 03/10/20 14:42 Blood Culture (Wb) - Left Forearm Blood Culture - Preliminary No growth in 48 hours. 03/10/20 14:35 Blood Culture (Wb) - Anticubital Right Blood Culture - Preliminary No growth in 48 hours. 03/10/20 18:42 Mucosa - Nasopharyngeal Respiratory Panel (PCR) - Final 03/10/20 19:40 Interface Orders Streptococcus pneumoniae Antigen (M - Final 03/10/20 19:40 Interface Orders Legionella Antigen - Final 03/10/20 12:53 Mucosa - Nose Rapid RSV (DFA) - Final 03/10/20 12:53 Mucosa - Nose Influenza Types A,B Direct FA (STACIE) - Final 03/10/20 12:53 Mucosa - Throat Group A Streptococcus Rapid Screen - Final Streptococcus Group A Laboratory Results 03/13/20 05:55: WBC 8.2, RBC 3.87 L, Hgb 11.7 L, Hct 36.3 L, MCV 93.8, MCH 30.2, MCHC 32.2, RDW Std Deviation 46.5 H, RDW Coeff of Ameya 13.6, Plt Count 595 H, MPV 8.8, Immature Gran % (Auto) 0.500, Neut % (Auto) 65.5, Lymph % (Auto) 22.8, [place] % (Auto) 7.3, Eos % (Auto) 3.2, Baso % (Auto) 0.7, Absolute Neuts (auto) 5.4, Absolute Lymphs (auto) 1.87, Nucleated RBC % 0 Inpatient E&M: [id number] Subs Hosp L3
[2020-03-13] MEDS: Famotidine 20 MG Tablet PO (11:51)
[2020-03-13] MEDS: Ibuprofen 600 MG Tablet PO ×2 (11:51→17:16)
--- NOTE | 2020-03-13 15:12 | NURSING ---
called abdi with luciano
--- NOTE | 2020-03-13 17:15 | EKG12_ITS ---
Test Reason : PALPS Blood Pressure : / mmHG Vent. Rate : 102 BPM Atrial Rate : 102 BPM P-R Int : 162 ms QRS Dur : 072 ms QT Int : 356 ms P-R-T Axes : 004 001 017 degrees QTc Int : 463 ms Sinus tachycardia Nonspecific T wave abnormality Abnormal ECG When compared with ECG of 10-MAR-2020 12:53, MANUAL COMPARISON REQUIRED, DATA IS UNCONFIRMED Confirmed by ANASTACIA MULTANI, CRISTELA ([id number]), continuity editor NIYA ELLIOTT ([id number]) on 03/15/2020 10:19:34 AM Referred By: LESLIE Confirmed By:CRISTELA GALAVIZ MD
--- NOTE | 2020-03-13 17:17 | NURSING ---
pt c/o palpitations. apical hr checked and hr was irregular. ekg ordered and tele placed on pt . dr tovar notified of event
[2020-03-13] MEDS: Ibuprofen 400 MG Tablet PO (21:21)
[2020-03-14] VITALS (7 sets, daily range): BP systolic 109–136; BP diastolic 54–72; PULSE 95–115; RESP 14–18; TEMP 36.5–37.1; O2SAT 93–97
--- NOTE | 2020-03-14 | FLU_PTH ---
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 Jaison Matute MD : [id number] BED: 1 DIS: 03/15/2020 SPEC #: [id number] RECD: 03/14/20 11:15 STATUS: ESPERANZA REQ #: [id number] JAYSON: 03/14/20 00:[address]: Jaison Matute DEPT: CYTOLOGY RECD BY: Orlando Cabrera ENTERED: 03/14/20 12:27 SP TYPE: Fluid OTHR DR: DO Dr. James Welch MD Dr. William Lago, MD Tissues: THORACIC FLUID Procedures: Special Stain Group II Surgery Specimen Level IV Cytospin Fluid HEADER OPERATION: Left sided thoracentesis PRE-OP DIAGNOSIS: Pleural effusion TISSUE SUBMITTED: Thoracentesis fluid for cytology DIAGNOSIS CYTOLOGY Thoracentesis fluid for cytology (cytospin and cell block): Negative for malignant cells. See comment. LASHONDA:ramo 03/15/20 COMMENT Correlation with clinical findings and appropriate follow up are necessary. CYTOLOGY STUDY Slides are reviewed. CYTOLOGY GROSS Received is 80 ml of clear yellow fluid labeled with the patient's name and and designated per the requisition as thoracentesis. Submitted for cytology preparation including cell block. / ramo 03/14/20 TC:5 CPT: 20541, 16360
[2020-03-14] MEDS: Ibuprofen 400 MG Tablet PO ×3 (05:57→21:06)
[2020-03-14 06:26] LABS: Absolute Lymphocyte Count 1.84 X10^3/uL (0.83-4.51); Absolute Neutrophil Count 5.6 X10^3/uL (2.0-7.7); Basophil# 0.04 X10^3/uL; Basophil% 0.5 % (0-1); Eosinophil# 0.34 X10^3/uL; Eosinophils% 4.1 % (0-5); Hematocrit 39.6 % (37-47); Hemoglobin 12.6 g/dL (12.0-15.0); Lymphocyte # 1.84 X10^3/ul (4.0); Lymphocyte % 22.2 % (19-41); Mean Corp Hgb Conc 31.8 g/dL (32-36); Mean Corpuscular Hgb 30.7 pg (27.0-32.0); Mean Corpuscular Volume 96.6 fL (81-99); Mean Platelet Vol. 8.6 fl (6.2-12.0); Monocyte# 0.44 X10^3/uL; Monocyte% 5.3 % (0-10); NRBC Flagged by Analyzer 0 % (0-5); Neutrophil # 5.58 X10^3/uL (2.7-7.7); Neutrophil % 67.5 % (47-70); Platelet Count 605 K/mm3 (150-450); RBC Distribution Width CV 13.8 % (11.6-14.6); RBC Distribution Width SD 49.3 fl (35.1-43.9); White Blood Count 8.3 K/mm3 (4.4-11.0)
[2020-03-14 06:35] LABS: International Normalized Ratio 1.1; Prothrombin Time (Protime)PT. 13.4 SECONDS (11.7-14.9)
[2020-03-14 06:53] LABS: ALB/GLOB Ratio 0.6 RATIO (0.9-2.4); AST(SGOT) 25 U/L (15-37); Alanine Aminotransfer ALT/SGPT 50 U/L (13-56); Albumin, Serum 2.6 g/dL (3.2-5.0); Alkaline Phosphatase 151 U/L (45-117); Anion Gap 5 (5-15); BUN 9 mg/dL (7-18); BUN/Creat Ratio 12.1 RATIO (10-20); Calcium,Total 9.4 mg/dL (8.5-10.1); Chloride 110 mmol/L (98-107); Creatinine, Serum 0.74 mg/dL (0.55-1.02); EST Glomerular Filtration Rate 82 mL/min (>60); Est Glom Filt Rate - Afr Amer 99 mL/min (>60); Estimated Creatinine Clearance 46.43 ml/min; Globulin 4.7 g/dL (2.2-4.2); Glucose 88 mg/dL (74-106); Potassium 3.9 mmol/L (3.5-5.1); Protein, Total 7.3 g/dL (6.4-8.2); Sodium Level 142 mmol/L (136-145)
[2020-03-14 06:55] LABS: LDH 184 U/L (84-246)
--- NOTE | 2020-03-14 10:00 | RAD_ITS ---
STUDY: X-RAY CHEST REASON FOR EXAM: Female, 69 years old. THORA LEFT SIDE TECHNIQUE: AP inspiration and expiration views. COMPARISON: Comparison is made with prior examination dated March 13, 2020. FINDINGS: The patient is status post left thoracentesis. There is no evidence of pneumothorax. Minimal pleural-parenchymal changes persist at the left base. RAD/Chest Insp/Exp 2 View IMPRESSION: Status post left thoracentesis. There is no evidence of pneumothorax. Electronically Signed: Blue Sheikh, at 12:33 EDT , Service support ,
--- NOTE | 2020-03-14 10:10 | US_ITS ---
PROCEDURE: ULTRASOUND GUIDED THORACENTESIS. DATE: March 14, 2020. INDICATION: Female, 69 years old. Left pleural effusion. PHYSICIAN: Blue Sheikh M.D. PROCEDURE: The risks, benefits, and alternatives to the procedure were explained to the patient. The specific risks of bleeding, infection, and pneumothorax requiring chest tube insertion were discussed and accepted. Written informed consent was obtained. Ultrasonographic evaluation of the left lower pleural space was carried out. An adequate pocket was identified. The patient was placed in the sitting, upright position. The overlying skin was prepped and draped in sterile fashion. 1% lidocaine was administered subcutaneously for local anesthesia. Under ultrasound guidance, a 5 Omani thoracentesis needle/catheter system was advanced into the left posterior lower pleural fluid collection. Approximately 500 mL of td-colored fluid was drained. The catheter was removed, and a sterile dressing was applied. A specimen was collected and sent to the laboratory for analysis, as requested by the referring clinician. The patient tolerated the procedure well. A chest x-ray was ordered. US/Thoracentesis W US IMPRESSION: Ultrasound-guided left thoracentesis. Electronically Signed: Blue Sheikh, at 12:13 EDT , Service support ,
--- NOTE | 2020-03-14 10:22 | NURSING ---
pt off unit for thoracentesis
[2020-03-14 11:16] LABS: Cytology, Body Fluid / CSF SEE PATHOLOGY REPORT
[2020-03-14] MEDS: Famotidine 20 MG Tablet PO (11:21)
[2020-03-14] MEDS: 0.9% Saline Lock 10 ML Syringe IV ×2 (11:24→14:16)
[2020-03-14 11:39] LABS: Body Fluid Mononuclear WBC # 0.617 10^3/uL; Body Fluid Mononuclear WBC % 81.6 %; Body Fluid Polynuclear WBC # 0.139 10^3/uL; Body Fluid Polynuclear WBC % 18.4 %; Body Fluid Total Cells Counted 0.787 10^3/ul; White Blood Count/Body Fluid 0.756 10^3/uL
--- NOTE | 2020-03-14 11:58 | PN_ITS ---
Patient Problems: Active and Suspected Problems Pneumonia (Acute) Sepsis (Acute) Failure of outpatient treatment (Acute) Reason for Visit: Follow-up effusion, chest pain and shortness of breath. Objective: Patient had palpitation and tachycardia in the evening last night. EKG was done and reported as sinus tachycardia at [address]-T changes. Troponin normal. Patient has much relief of chest pain and is feeling much better. Motrin dose was decreased to 400 mg 3 times daily yesterday. Patient just had left-sided thoracocentesis. On physical exam General: Alert, Oriented x3, Cooperative HEENT: Atraumatic, PERRLA, EOMI, Normocephalic Neck: Supple, No JVD, Negative Carotid Bruits Lungs: No rhonchi, No wheeze, No rales, Air entry diminished in left lower half. Left sided moderate pleural effusion. Cardiovascular: Regular rate, Regular Rhythm, Normal S1, Normal S2, No murmurs Abdomen: Bowel Sounds Present, Soft, Non Tender, Non-Distended : No suprapubic tenderness or renal angle tenderness. Extremities: No edema, Capillary Refill Less than 3 Seconds Skin: No rashes, No breakdown Musculoskeletal: No Tenderness to Palpation of Joints or Extremities Neurological: Cranial nerves II-XII grossly intact Psych/Mental Status: Normal Affect, Appropriate Vitals/I&O's: Vital Signs Temp Pulse Resp BP Pulse Ox 98.1 F 108 H 16 127/54 H 93 03/14/20 08:24 03/14/20 11:16 03/14/20 11:16 03/14/20 11:16 03/14/20 08:24 Oxygen Delivery Method [3] Room Air Oxygen Delivery Method [2] Room Air Oxygen Delivery Method [1 ( Room Air Initial Baseline)] Oxygen Delivery Method Room Air Weight: 137 lb Body Mass Index (BMI) 22.8 Intake and Output for Last 24 Hours 03/12/20 03/13/20 03/14/20 23:59 23:59 23:59 Intake Total 2124 / 2124 1000 / 1000 500 / 500 Output Total 500 / 500 Balance 2124 / 2124 1000 / 1000 0 / 0 Microbiology Past 72 Hours 03/10/20 18:15 Sputum, Expectorated/Coughed Gram Stain - Final 03/10/20 18:15 Sputum, Expectorated/Coughed Respiratory Culture - Final Mixed normal respiratory anibal. No Streptococcus pneumoniae, beta-hemolytic Streptococcus or Staphylococcus aureus isolated. 03/10/20 14:42 Blood Culture (Wb) - Left Forearm Blood Culture - Preliminary No growth in 48 hours. 03/10/20 14:35 Blood Culture (Wb) - Anticubital Right Blood Culture - Preliminary No growth in 48 hours. Laboratory Results 03/13/20 10:45: Fluid pH Pending 03/13/20 17:45: Troponin I < 0.015 03/14/20 06:00: WBC 8.3, RBC 4.10 L, Hgb 12.6, Hct 39.6, MCV 96.6, MCH 30.7, MCHC 31.8 L, RDW Std Deviation 49.3 H, RDW Coeff of Ameya 13.8, Plt Count 605 H, MPV 8.6, Immature Gran % (Auto) 0.400, Neut % (Auto) 67.5, Lymph % (Auto) 22.2, Elbert % (Auto) 5.3, Eos % (Auto) 4.1, Baso % (Auto) 0.5, Absolute Neuts (auto) 5.6, Absolute Lymphs (auto) 1.84, Nucleated RBC % 0 03/14/20 06:00: Sodium 142, Potassium 3.9, Chloride 110 H, Carbon Dioxide 27.0, Anion Gap 5, BUN 9, Creatinine 0.74, Estim Creat Clear Calc 46.43, Est GFR (MDRD) Af Amer 99, Est GFR (MDRD) Non-Af 82, BUN/Creatinine Ratio 12.1, Glucose 88, Calcium 9.4, Total Bilirubin 0.30, AST 25, ALT 50, Alkaline Phosphatase 151 H, Total Protein 7.3, Albumin 2.6 L, Globulin 4.7 H, Albumin/Globulin Ratio 0.6 L 03/14/20 06:00: PT 13.4, INR 1.1 03/14/20 06:00: Lactate Dehydrogenase 184 03/14/20 10:45: Fluid Glucose Pending, Fluid Total Protein Pending, Fluid LDH Pending 03/14/20 10:45: Fluid Source Pending, Fluid Color Pending, Fluid Appearance Pending, Fluid WBC Pending, Fluid RBC Pending, Fluid Tot Cell Count Pending, Fl Pathologist Comment Pending, Fluid Comment 2 Pending 03/14/20 10:45: Miscellaneous Cytology Pending Current Medications Acetaminophen (Tylenol) 650 mg PO Q6H PRN PRN PRN Reason: Pain 1-10/10 or Fever Last Admin: 03/13/20 06:54 Dose: 650 mg Documented by: Albuterol Sulfate (Ventolin Aerosols) 2.5 mg INHALATION Q4H PRN PRN Reason: SOB &/OR WHEEZING Capsaicin (Zostrix) 1 applic TOPICAL TID PRN PRN; Protocol PRN Reason: Pain Last Admin: 03/12/20 19:59 Dose: 1 applicatio Documented by: Enoxaparin Sodium (Lovenox) 30 mg SC BID [facility] Last Admin: 03/13/20 09:33 Dose: 30 mg Documented by: Famotidine (Pepcid) 20 mg PO DAILY [facility] Last Admin: 03/14/20 11:21 Dose: 20 mg Documented by: Ceftriaxone Sodium 2 gm/ (Sodium Chloride) 50 mls @ 100 mls/hr IV Q24 [facility] Last Admin: 03/14/20 11:21 Dose: 100 mls/hr Documented by: Sodium Chloride () 250 mls @ 15 mls/hr IV .[id number] PRN PRN Reason: Saline Flush Last Infusion: 03/12/20 15:17 Dose: Infused Documented by: Sodium Chloride () 250 mls @ 15 mls/hr IV .[id number] PRN PRN Reason: Additional IVPB Infusion Ibuprofen (Motrin) 400 mg PO Q8 [facility] Last Admin: 03/14/20 05:57 Dose: 400 mg Documented by: Ketorolac Tromethamine (Toradol (Bkc)) 15 mg IV Q6H PRN PRN Reason: Pain Score 6-10/10 Stop: 03/18/20 15:31 Lactobacillus Acidophilus (Acidophilus) 1 tablet PO 4X/DAY [facility] Last Admin: 03/14/20 11:19 Dose: 1 tablet Documented by: Sodium Chloride () 10 - 40 ml IV UD PRN PRN Reason: SALINE FLUSH Last Admin: 03/14/20 11:24 Dose: 10 ml Documented by: STROKE Vital Signs/Narrative: Vital Signs Temp Pulse Pulse Pulse Pulse Resp Resp 03/14/20 11:16 108 H 115 H 109 H 16 03/14/20 08:24 98.1 F 106 H 16 Resp Resp BP BP BP BP Pulse Ox 03/14/20 11:16 14 16 127/54 H 136/72 H 112/55 L 03/14/20 08:24 109/57 L 93 Medical Necessity - Tobacco Use Smoking Status: Never smoker Assessment/Plan All Active Problems Pneumonia (Acute) Sepsis (Acute) Failure of outpatient treatment (Acute) This is a 69-year-old female who is admitted with about 2 weeks history of shortness of breath, progressively worsening along with pleuritic chest pain and low-grade fever. She completed 1 week of Levaquin as an outpatient but symptoms did not jeremiah therefore admitted. COVID-19 x2 are negative. Start serology nonreactive. 1. Bilateral lower lobe pneumonia with a small left pleural effusion. Patient had chest x-ray and 2 CT scans since March 03. All images were independently reviewed. There is progression of infiltrate in bilateral lower lobes, more on the left lower lobe with small effusion. Since left effusion is not big enough that requires tap. The patient is on IV ceftriaxone and Zithromax. ID consult appreciated and discussed. 03/12 strep group A positive. Urinary antigens are negative. Respiratory panel are negative. Sputum culture appears normal respiratory anibal. Mild leukocytosis with left shift. Patient has inflammatory markers including d- dimer, transaminases elevated. Improvement in inflammatory markers. Discussed with ID. 2D echo reported as EF 60%, normal LV size with stage II diastolic dysfunction with history of chronic diastolic heart failure. Trivial pericardial effusion. Mild to moderate left pleural effusion. 03/13: Repeat chest x-ray done shows moderate left pleural effusion associated left upper lobe basilar atelectasis and small right effusion with no change from previous x-ray. Chest pain is pleuritic and agreed for NSAID. Monitor kidney function electrolytes. 2. Mild to moderate left pleural effusion: follow-up further with chest x-ray. As mentioned above 03/14: Patient had 500 mL td-colored left side thoracocentesis. Serum LDH normal 184. As per lights criteria, fluid is exudative per protein and LDH criteria. Fluid cell count total 756 WBC mainly 57% lymphocyte and 20% monocyte, 23% neutrophils. Glucose 114. Culture and cytology sent. Seen by ID 3. Pericardial Effusion -Echo reported trivial pericardial effusion 4. DVT Prophylaxis -Lovenox 30 BID. Total time of the visit including total time spent in counseling or coordination of care, (more than 50% of the total time, spent in obtaining medical information from nurses and other ancillary care providers), coordination with consultants, review of labs and imaging and discussion with patient is 30 minutes Clinical Impression(s) from Imaging Studies Chest X-Ray 03/10/20 13:20 IMPRESSION: Interval progression of the left lower lobe infiltrate with a small left pleural effusion. Mild increased markings at the right lung base. Chest CTA 03/10/20 13:42 IMPRESSION: Mild to moderate degree of left pleural effusion with underlying consolidation. Patchy infiltrate in the right lower lobe. Moderate degree of a pericardial effusion. Coronary artery calcification. Electronically Signed: Blue Echeverriajoon, at 14:14 EDT , Service support , Chest X-Ray 03/11/20 05:50 IMPRESSION: Small to moderate sized left pleural effusion. Chest X-Ray 03/13/20 07:59 IMPRESSION: Similar large left lower lung layering effusion with minimal layering and associated left upper lobe basilar atelectasis. Additionally small layering right effusion is present. Microbiology Past 72 Hours 03/10/20 18:15 Sputum, Expectorated/Coughed Gram Stain - Final 03/10/20 18:15 Sputum, Expectorated/Coughed Respiratory Culture - Final Mixed normal respiratory anibal. No Streptococcus pneumoniae, beta-hemolytic Streptococcus or Staphylococcus aureus isolated. 03/10/20 14:42 Blood Culture (Wb) - Left Forearm Blood Culture - Preliminary No growth in 48 hours. 03/10/20 14:35 Blood Culture (Wb) - Anticubital Right Blood Culture - Preliminary No growth in 48 hours. Laboratory Results 03/13/20 10:45: Fluid pH Pending 03/13/20 17:45: Troponin I < 0.015 03/14/20 06:00: WBC 8.3, RBC 4.10 L, Hgb 12.6, Hct 39.6, MCV 96.6, MCH 30.7, MCHC 31.8 L, RDW Std Deviation 49.3 H, RDW Coeff of Ameya 13.8, Plt Count 605 H, MPV 8.6, Immature Gran % (Auto) 0.400, Neut % (Auto) 67.5, Lymph % (Auto) 22.2, Elbert % (Auto) 5.3, Eos % (Auto) 4.1, Baso % (Auto) 0.5, Absolute Neuts (auto) 5.6, Absolute Lymphs (auto) 1.84, Nucleated RBC % 0 03/14/20 06:00: Sodium 142, Potassium 3.9, Chloride 110 H, Carbon Dioxide 27.0, Anion Gap 5, BUN 9, Creatinine 0.74, Estim Creat Clear Calc 46.43, Est GFR (MDRD) Af Amer 99, Est GFR (MDRD) Non-Af 82, BUN/Creatinine Ratio 12.1, Glucose 88, Calcium 9.4, Total Bilirubin 0.30, AST 25, ALT 50, Alkaline Phosphatase 151 H, Total Protein 7.3, Albumin 2.6 L, Globulin 4.7 H, Albumin/Globulin Ratio 0.6 L 03/14/20 06:00: PT 13.4, INR 1.1 03/14/20 06:00: Lactate Dehydrogenase 184 03/14/20 10:45: Fluid Glucose 114 H, Fluid Total Protein 3.8, Fluid LDH 139 03/14/20 10:45: Fluid Source Pending, Fluid Color Pending, Fluid Appearance Pending, Fluid WBC Pending, Fluid RBC Pending, Fluid Tot Cell Count Pending, Fl Pathologist Comment Pending, Fluid Comment 2 Pending 03/14/20 10:45: Miscellaneous Cytology Pending Inpatient E&M: 25270 Subs Hosp L3
[2020-03-14 12:01] LABS: Glucose, Body Fluid 114 mg/dL (40-70); LDH,Body Fluid 139 Units/l (Not Establ.); Protein, Body Fluid 3.8 g/dL (Not Establ.)
[2020-03-14 12:41] LABS: Auto B Fluid Analyzer BKGD Ct COUNTS W/IN LIMITS (W/IN LIMITS); Source- Body Fluid THORACENTESIS
[2020-03-14 12:42] LABS: Appearance/Body Fluid CLEAR; Body Fluid QC Type(s) BF1Q; Color/Body Fluid YELLOW; Lymphocytes 57 %; Mesothelial Cells 20 %; Monocytes 20 %; Neutrophil (Segs) 23 %
[2020-03-14 14:22] LABS: Red Cell Count/Body Fluid 94 /mm3
--- NOTE | 2020-03-14 15:21 | PCM.PN.ID ---
Patient Problems: Active and Suspected Problems Pneumonia (Acute) Sepsis (Acute) Failure of outpatient treatment (Acute) Subjective: Feeling better, breathing much improved, no fever, chest pain much improved. - Physical Exam Vitals/I&O's: Vital Signs Temp Pulse Resp BP Pulse Ox 97.7 F L 103 H 18 120/68 95 03/14/20 14:09 03/14/20 14:09 03/14/20 14:09 03/14/20 14:09 03/14/20 14:09 Oxygen Delivery Method [3] Room Air Oxygen Delivery Method [2] Room Air Oxygen Delivery Method [1 ( Room Air Initial Baseline)] Oxygen Delivery Method Room Air Weight: 62.142 kg Body Mass Index (BMI) 22.8 Intake and Output for Last 24 Hours 03/12/20 03/13/20 03/14/20 23:59 23:59 23:59 Intake Total 2125 / 2125 1000 / 1000 550 / 550 Output Total 500 / 500 Balance 2125 / 2125 1000 / 1000 50 / 50 General: Alert, Cooperative, No apparent distress Lungs: Clear to auscultation, Normal air movement Cardiovascular: Regular rate, Regular Rhythm Abdomen: Soft, Non Tender, Non-Distended Skin: No rashes Microbiology Past 72 Hours 03/14/20 10:45 Fluid - Thoracentesis Fluid Gram Stain - Final 03/10/20 18:15 Sputum, Expectorated/Coughed Gram Stain - Final 03/10/20 18:15 Sputum, Expectorated/Coughed Respiratory Culture - Final Mixed normal respiratory anibal. No Streptococcus pneumoniae, beta-hemolytic Streptococcus or Staphylococcus aureus isolated. 03/10/20 14:42 Blood Culture (Wb) - Left Forearm Blood Culture - Preliminary No growth in 48 hours. 03/10/20 14:35 Blood Culture (Wb) - Anticubital Right Blood Culture - Preliminary No growth in 48 hours. Laboratory Results 03/13/20 10:45: Fluid pH Pending 03/13/20 17:45: Troponin I < 0.015 03/14/20 06:00: WBC 8.3, RBC 4.10 L, Hgb 12.6, Hct 39.6, MCV 96.6, MCH 30.7, MCHC 31.8 L, RDW Std Deviation 49.3 H, RDW Coeff of Ameya 13.8, Plt Count 605 H, MPV 8.6, Immature Gran % (Auto) 0.400, Neut % (Auto) 67.5, Lymph % (Auto) 22.2, Hopkins % (Auto) 5.3, Eos % (Auto) 4.1, Baso % (Auto) 0.5, Absolute Neuts (auto) 5.6, Absolute Lymphs (auto) 1.84, Nucleated RBC % 0 03/14/20 06:00: Sodium 142, Potassium 3.9, Chloride 110 H, Carbon Dioxide 27.0, Anion Gap 5, BUN 9, Creatinine 0.74, Estim Creat Clear Calc 46.43, Est GFR (MDRD) Af Amer 99, Est GFR (MDRD) Non-Af 82, BUN/Creatinine Ratio 12.1, Glucose 88, Calcium 9.4, Total Bilirubin 0.30, AST 25, ALT 50, Alkaline Phosphatase 151 H, Total Protein 7.3, Albumin 2.6 L, Globulin 4.7 H, Albumin/Globulin Ratio 0.6 L 03/14/20 06:00: PT 13.4, INR 1.1 03/14/20 06:00: Lactate Dehydrogenase 184 03/14/20 10:45: Fluid Glucose 114 H, Fluid Total Protein 3.8, Fluid LDH 139 03/14/20 10:45: Fluid Source THORACENTESIS, Fluid Color YELLOW, Fluid Appearance CLEAR, Fluid WBC 0.756, Fluid RBC 94, Fluid Tot Cell Count 0.787 H, Fld Polynuclear WBCs # 0.139, Fld Polynuclear WBCs % 18.4, Fluid Mononuclear WBCs 0.617, Fld Mononuclear WBCs % 81.6, Fluid Neutrophils 23, Fluid Lymphocytes 57, Fluid Monocytes 20, Fld Mesothelial Cells 20, Fl Pathologist Comment May follow, Fluid Comment 2 SEE COMMENT 03/14/20 10:45: Miscellaneous Cytology Pending Current Medications Acetaminophen (Tylenol) 650 mg PO Q6H PRN PRN PRN Reason: Pain 1-07/16 or Fever Last Admin: 03/13/20 06:54 Dose: 650 mg Documented by: Albuterol Sulfate (Ventolin Aerosols) 2.5 mg INHALATION Q4H PRN PRN Reason: SOB &/OR WHEEZING Capsaicin (Zostrix) 1 applic TOPICAL TID PRN PRN; Protocol PRN Reason: Pain Last Admin: 03/12/20 19:59 Dose: 1 applicatio Documented by: Enoxaparin Sodium (Lovenox) 30 mg SC BID [facility] Last Admin: 03/13/20 09:33 Dose: 30 mg Documented by: Famotidine (Pepcid) 20 mg PO DAILY [facility] Last Admin: 03/14/20 11:21 Dose: 20 mg Documented by: Ceftriaxone Sodium 2 gm/ (Sodium Chloride) 50 mls @ 100 mls/hr IV Q24 [facility] Last Infusion: 03/14/20 12:00 Dose: Infused Documented by: Sodium Chloride () 250 mls @ 15 mls/hr IV .[id number] PRN PRN Reason: Saline Flush Last Infusion: 03/12/20 15:17 Dose: Infused Documented by: Sodium Chloride () 250 mls @ 15 mls/hr IV .[id number] PRN PRN Reason: Additional IVPB Infusion Ibuprofen (Motrin) 400 mg PO Q8 [facility] Last Admin: 03/14/20 14:16 Dose: 400 mg Documented by: Ketorolac Tromethamine (Toradol (Bkc)) 15 mg IV Q6H PRN PRN Reason: Pain Score 6-10/10 Stop: 03/18/20 15:31 Lactobacillus Acidophilus (Acidophilus) 1 tablet PO 4X/DAY [facility] Last Admin: 03/14/20 14:16 Dose: 1 tablet Documented by: Sodium Chloride () 10 - 40 ml IV UD PRN PRN Reason: SALINE FLUSH Last Admin: 03/14/20 14:16 Dose: 10 ml Documented by: Medical Necessity - Tobacco Use Smoking Status: Never smoker Route of nutrition/ use of supplements: [] Nutritional Intake: [] IV Site: [] Hoyt Catheter: [] - Assessment/Plan Antibiotics: [] Assessment/Plan: [] Active and Suspected Problems Pneumonia (Acute) Sepsis (Acute) Failure of outpatient treatment (Acute) Low suspicion for covid at this point with 2 neg pcrs and neg serology. Echo was ok. Feeling much better. On ceftriaxone. Tap done, may be parapneumonic effusion. May be able to stop abx tomorrow and d/c home. Will follow, d/w Dr. Matute
[2020-03-14 16:19] LABS: Mycoplasma Pneum AB IgG 925 U/mL (0-99); Mycoplasma pneum. AB IgM < 770 U/mL (0-769)
--- NOTE | 2020-03-14 16:27 | NURSING ---
James called and this time and updated on pt's day per her request.
--- NOTE | 2020-03-14 19:55 | NURSING ---
Pt upset this shift= reports that she called out stating she felt she had a fever and needed her temp checked and no one came in an acceptable time per. This RN busy with stat orders in another room. When able to enter pt room to check temp- this RN apologized for delay and notified pt of need to be in another room. Pt angry and states, you mean to tell me no one else was out there that could take my temperature? It is probably gone now- I don't feel flushed anymore. This RN notified patient that we can look at other things including lab work to indicate infection. Also notified that she has been afebrile x2 days. temp= 98.2 at this time. This RN again apologized and pt again voiced anger for not having temperature taken. sabiha rim fire charger operator notified of situation.
[2020-03-15 02:26] VITALS: BP 116/76; PULSE 92; RESP 16; TEMP 36.7; O2SAT 96
[2020-03-15] MEDS: Ibuprofen 400 MG Tablet PO (05:48)
--- NOTE | 2020-03-15 09:28 | DCINST_ITS ---
- Discharge Diagnoses Current Active Problems: Current Active and Chronic Problems Pneumonia (Acute) Sepsis (Acute) Failure of outpatient treatment (Acute) You will use the following diet at home:: Regular Your food should be the consistency of: Regular Discharge Activity: May Not Drive - FOR 1 WEEK until sees PCP Weight Bearing Status: Weight bearing as tolerated Call your doctor if you observe: Fever of 101 or Higher, Coldness, Increased Pain, Change in Color, Inability to urinate, Inability to have a bowel movement, Using more than one pad per hour, Shortness of breath, Dizziness, Fainting spells, Swelling in the ankles, Chest pain, Prolonged hiccoughing, Increased palpitations (irregular heartbeat), Calf discomfort, Uncontrolled pain Instructions: Thoracentesis Allergies/Adverse Reactions: Allergies No Known Allergies Allergy (Verified 03/10/20 12:05) Medications to take at Discharge Ibuprofen [Motrin] 400 mg PO Q8H PRN PRN tab 03/15/20 Lactobacillus Acidophilus [Acidophilus] 1 tab PO 4X/DAY tab 03/15/20 Primary Care Physician: Senthil Aguilar MD [Primary Care Provider] - Please follow up with your Primary Care Physician in: [place] 1 week to follow up pleural fluid culture and cytology Test Results: Test results from this visit will be discussed in further detail at your follow- up appointment, if applicable.
[2020-03-15 09:50] VITALS: BP 116/56; PULSE 72; RESP 16; TEMP 36.8; O2SAT 95
[2020-03-15] MEDS: 0.9% Saline Lock 10 ML Syringe IV (10:01)
[2020-03-15] MEDS: Famotidine 20 MG Tablet PO (10:04)
[2020-03-15 11:15] LABS: Pathologist Comment/Body Fluid Reviewed
--- NOTE | 2020-03-15 11:30 | DS.PCM_ITS ---
Discharge Date and Diagnosis - Problem List Patient Problems: Active and Suspected Problems Pneumonia (Acute) Sepsis (Acute) Failure of outpatient treatment (Acute) Date of Admission: 03/10/20 Date of Discharge: 03/15/20 - Primary Discharge Diagnosis Acute Problems: Active Problems Pneumonia (Acute) Sepsis (Acute) Failure of outpatient treatment (Acute) Hospital Course and Treatment Summary of Care Provided: [] This is a 69-year-old female who is admitted with about 2 weeks history of shortness of breath, progressively worsening along with pleuritic chest pain and low-grade fever. She completed 1 week of Levaquin as an outpatient but symptoms did not jeremiah therefore admitted. COVID-19 x 2 are negative. Start serology nonreactive. 1.Sepsis secondary to Bilateral lower lobe pneumonia, probably progressed from strep group A acute pharyngitis with moderate left pleural effusion, present on admission:Patient has tachypnea, left lower lobe infiltrate, community-acquired pneumonia with high suspicion of parapneumonic effusion. Urinary antigens are negative. Respiratory panel are negative. Sputum culture appears normal respiratory anibal. Mild leukocytosis with left shift. Patient has inflammatory markers including d-dimer, transaminases elevated. Improvement in inflammatory markers. Patient has group a streptococcus present in the mucosa swab of throat suggestive of strep A, acute pharyngitis Patient had chest x-ray and 2 CT scans since March 03. All images were independently reviewed. There is progression of infiltrate in bilateral lower lobes, more on the left lower lobe with heart rate effusion. ID was consulted. Patient had 5 days of IV antibiotics and prior to that she had a 7 days of Levaquin. Therefore no further need for antibiotic. Patient has been afebrile for 5 days during hospital course. 2D echo reported as EF 60%, normal LV size with stage II diastolic dysfunction with history of chronic diastolic heart failure. Trivial pericardial effusion. Mild to moderate left pleural effusion. 2. Mild to moderate left pleural effusion: follow-up further with chest x-ray. As mentioned above 03/14: Patient had 500 mL td-colored left side thoracocentesis. Serum LDH normal 184. As per lights criteria, fluid is exudative per protein and LDH criteria. Fluid cell count total 756 WBC mainly 57% lymphocyte and 20% monocyte, 23% neutrophils. Glucose 114. Pleural fluid Gram stain shows no organism. Final culture pending. Pleural fluid cytology is negative for malignant cells. 3. Pericardial Effusion -Echo reported trivial pericardial effusion 4. DVT Prophylaxis -Lovenox 30 BID. Discharge medication reconciliation done. Discharge follow-up instructions completed. Discharge process discussed with the patient and all questions were answered to patient's satisfaction. Patient was advised to take Motrin 400 mg every 6 hourly as needed for pleuritic chest pain along with PPI she takes at home. Total time spent, exact 35 minutes on discharge meds reconciliation, examination, coordination of care with nurses and ancillary staff, review of imaging and blood test and discussion with the patient on follow-up instructions Patient Problems: Active and Suspected Problems Pneumonia (Acute) Sepsis (Acute) Failure of outpatient treatment (Acute) Objective: Patient is to complain of intermittent chest pain, mainly midsternal sometimes left lower, pleuritic in nature. Patient had 2 times EKG and troponins, negative for acute coronary syndrome. Acute coronary syndrome ruled out. Pleural fluid cytology suggestive of exudative. No high-grade fever during hospital course of 5 days. T-max 100.2 Fahrenheit on 03/11. On physical exam General: Alert, Oriented x3, Cooperative HEENT: Atraumatic, PERRLA, EOMI, Normocephalic Neck: Supple, No JVD, Negative Carotid Bruits Lungs: No rhonchi, No wheeze, No rales, Air entry improved in left lower half. Had left-sided thoracocentesis Cardiovascular: Regular rate, Regular Rhythm, Normal S1, Normal S2, No murmurs Abdomen: Bowel Sounds Present, Soft, Non Tender, Non-Distended : No suprapubic tenderness or renal angle tenderness. Extremities: No edema, Capillary Refill Less than 3 Seconds Skin: No rashes, No breakdown Musculoskeletal: No Tenderness to Palpation of Joints or Extremities Neurological: Cranial nerves II-XII grossly intact Psych/Mental Status: Normal Affect, Appropriate - Physical Exam Vitals/I&O's: Vital Signs Temp Pulse Resp BP Pulse Ox 98.1 F 92 16 116/76 96 03/15/20 02:26 03/15/20 02:26 03/15/20 02:26 03/15/20 02:26 03/15/20 02:26 Oxygen Delivery Method [3] Room Air Oxygen Delivery Method [2] Room Air Oxygen Delivery Method [1 ( Room Air Initial Baseline)] Oxygen Delivery Method Room Air Weight: 137 lb Body Mass Index (BMI) 22.8 Intake and Output for Last 24 Hours 03/13/20 03/14/20 03/15/20 23:59 23:59 23:59 Intake Total 1000 / 1000 1110 / 1110 Output Total 500 / 500 Balance 1000 / 1000 610 / 610 Microbiology Past 72 Hours 03/14/20 10:45 Fluid - Thoracentesis Fluid Gram Stain - Final 03/10/20 18:15 Sputum, Expectorated/Coughed Gram Stain - Final 03/10/20 18:15 Sputum, Expectorated/Coughed Respiratory Culture - Final Mixed normal respiratory anibal. No Streptococcus pneumoniae, beta-hemolytic Streptococcus or Staphylococcus aureus isolated. 03/10/20 14:42 Blood Culture (Wb) - Left Forearm Blood Culture - Preliminary No growth in 48 hours. 03/10/20 14:35 Blood Culture (Wb) - Anticubital Right Blood Culture - Preliminary No growth in 48 hours. Laboratory Results 03/10/20 18:53: Mycoplasma pneumon IgG 925 H, Mycoplasma pneumon IgM < 770 03/13/20 10:45: Fluid pH Pending 03/14/20 10:45: Fluid Glucose 114 H, Fluid Total Protein 3.8, Fluid LDH 139 03/14/20 10:45: Fluid Source THORACENTESIS, Fluid Color YELLOW, Fluid Appearance CLEAR, Fluid WBC 0.756, Fluid RBC 94, Fluid Tot Cell Count 0.787 H, Fld Polynuclear WBCs # 0.139, Fld Polynuclear WBCs % 18.4, Fluid Mononuclear WBCs 0.617, Fld Mononuclear WBCs % 81.6, Fluid Neutrophils 23, Fluid Lymphocytes 57, Fluid Monocytes 20, Fld Mesothelial Cells 20, Fl Pathologist Comment May follow, Fluid Comment 2 SEE COMMENT 03/14/20 10:45: Miscellaneous Cytology Pending Current Medications Acetaminophen (Tylenol) 650 mg PO Q6H PRN PRN PRN Reason: Pain 1-10 or Fever Last Admin: 03/13/20 06:54 Dose: 650 mg Documented by: Albuterol Sulfate (Ventolin Aerosols) 2.5 mg INHALATION Q4H PRN PRN Reason: SOB &/OR WHEEZING Capsaicin (Zostrix) 1 applic TOPICAL TID PRN PRN; Protocol PRN Reason: Pain Last Admin: 03/12/20 19:59 Dose: 1 applicatio Documented by: Enoxaparin Sodium (Lovenox) 30 mg SC BID [facility] Last Admin: 03/13/20 09:33 Dose: 30 mg Documented by: Famotidine (Pepcid) 20 mg PO DAILY [facility] Last Admin: 03/14/20 11:21 Dose: 20 mg Documented by: Ceftriaxone Sodium 2 gm/ (Sodium Chloride) 50 mls @ 100 mls/hr IV Q24 [facility] Last Infusion: 03/14/20 12:00 Dose: Infused Documented by: Sodium Chloride () 250 mls @ 15 mls/hr IV .[id number] PRN PRN Reason: Saline Flush Last Infusion: 03/12/20 15:17 Dose: Infused Documented by: Sodium Chloride () 250 mls @ 15 mls/hr IV .[id number] PRN PRN Reason: Additional IVPB Infusion Ibuprofen (Motrin) 400 mg PO Q8 [facility] Last Admin: 03/15/20 05:48 Dose: 400 mg Documented by: Ketorolac Tromethamine (Toradol (Bkc)) 15 mg IV Q6H PRN PRN Reason: Pain Score 6-10/10 Stop: 03/18/20 15:31 Lactobacillus Acidophilus (Acidophilus) 1 tablet PO 4X/DAY [facility] Last Admin: 03/14/20 21:06 Dose: 1 tablet Documented by: Sodium Chloride () 10 - 40 ml IV UD PRN PRN Reason: SALINE FLUSH Last Admin: 03/14/20 14:16 Dose: 10 ml Documented by: Discharge Activity: May Not Drive - FOR 1 WEEK until sees PCP Weight Bearing Status: Weight bearing as tolerated Call your doctor if you observe: Fever of 101 or Higher, Coldness, Increased Pain, Change in Color, Inability to urinate, Inability to have a bowel movement, Using more than one pad per hour, Shortness of breath, Dizziness, Fainting spells, Swelling in the ankles, Chest pain, Prolonged hiccoughing, Increased palpitations (irregular heartbeat), Calf discomfort, Uncontrolled pain Home Medications: Medications to take at Discharge Ibuprofen [Motrin] 400 mg PO Q8H PRN PRN tab 03/15/20 Lactobacillus Acidophilus [Acidophilus] 1 tab PO 4X/DAY tab 03/15/20 Primary Care Physician: Senthil Aguilar MD [Primary Care Provider] - Please follow up with your Primary Care Physician in: [place] 1 week to follow up pleural fluid culture and cytology Patient Instructions: Thoracentesis Medical Necessity - Tobacco Use Smoking Status: Never smoker Meaningful Use Info Meaningful Use Diagnoses (Choose all that apply): None applicable Inpatient E&M: [id number] [facility]
--- NOTE | 2020-03-15 11:39 | PCM.PN.ID ---
Patient Problems: Active and Suspected Problems Pneumonia (Acute) Sepsis (Acute) Failure of outpatient treatment (Acute) Subjective: Feeling better, no dyspnea, mild chest soreness, no fever - Physical Exam Vitals/I&O's: Vital Signs Temp Pulse Resp BP Pulse Ox 98.3 F 72 16 116/56 L 95 03/15/20 09:50 03/15/20 09:50 03/15/20 09:50 03/15/20 09:50 03/15/20 09:50 Oxygen Delivery Method [3] Room Air Oxygen Delivery Method [2] Room Air Oxygen Delivery Method [1 ( Room Air Initial Baseline)] Oxygen Delivery Method Room Air Weight: 62.142 kg Body Mass Index (BMI) 22.8 Intake and Output for Last 24 Hours 03/13/20 03/14/20 03/15/20 23:59 23:59 23:59 Intake Total 1000 / 1000 1110 / 1110 50 / 50 Output Total 500 / 500 Balance 1000 / 1000 610 / 610 50 / 50 General: Alert, Cooperative, No apparent distress Lungs: Clear to auscultation, Normal air movement Cardiovascular: Regular rate, Regular Rhythm Abdomen: Soft, Non Tender, Non-Distended Skin: No rashes Microbiology Past 72 Hours 03/14/20 10:45 Fluid - Thoracentesis Fluid Gram Stain - Final 03/14/20 10:45 Fluid - Thoracentesis Fluid Body Fluid Culture - Preliminary No growth-Final to follow 03/10/20 18:15 Sputum, Expectorated/Coughed Gram Stain - Final 03/10/20 18:15 Sputum, Expectorated/Coughed Respiratory Culture - Final Mixed normal respiratory anibal. No Streptococcus pneumoniae, beta-hemolytic Streptococcus or Staphylococcus aureus isolated. 03/10/20 14:42 Blood Culture (Wb) - Left Forearm Blood Culture - Preliminary No growth in 48 hours. 03/10/20 14:35 Blood Culture (Wb) - Anticubital Right Blood Culture - Preliminary No growth in 48 hours. Laboratory Results 03/10/20 18:53: Mycoplasma pneumon IgG 925 H, Mycoplasma pneumon IgM < 770 03/14/20 10:45: Fluid Glucose 114 H, Fluid Total Protein 3.8, Fluid LDH 139 03/14/20 10:45: Fluid Source THORACENTESIS, Fluid Color YELLOW, Fluid Appearance CLEAR, Fluid WBC 0.756, Fluid RBC 94, Fluid Tot Cell Count 0.787 H, Fld Polynuclear WBCs # 0.139, Fld Polynuclear WBCs % 18.4, Fluid Mononuclear WBCs 0.617, Fld Mononuclear WBCs % 81.6, Fluid Neutrophils 23, Fluid Lymphocytes 57, Fluid Monocytes 20, Fld Mesothelial Cells 20, Fl Pathologist Comment Reviewed, Fluid Comment 2 SEE COMMENT Current Medications Acetaminophen (Tylenol) 650 mg PO Q6H PRN PRN PRN Reason: Pain 1-10/10 or Fever Last Admin: 03/13/20 06:54 Dose: 650 mg Documented by: Albuterol Sulfate (Ventolin Aerosols) 2.5 mg INHALATION Q4H PRN PRN Reason: SOB &/OR WHEEZING Capsaicin (Zostrix) 1 applic TOPICAL TID PRN PRN; Protocol PRN Reason: Pain Last Admin: 03/12/20 19:59 Dose: 1 applicatio Documented by: Enoxaparin Sodium (Lovenox) 30 mg SC BID ON LICENSE OF [facility] Last Admin: 03/13/20 09:33 Dose: 30 mg Documented by: Famotidine (Pepcid) 20 mg PO DAILY ON LICENSE OF [facility] Last Admin: 03/15/20 10:04 Dose: 20 mg Documented by: Ceftriaxone Sodium 2 gm/ (Sodium Chloride) 50 mls @ 100 mls/hr IV Q24 ON LICENSE OF [facility] Last Infusion: 03/15/20 10:34 Dose: Infused Documented by: Sodium Chloride () 250 mls @ 15 mls/hr IV .[id number] PRN PRN Reason: Saline Flush Last Infusion: 03/12/20 15:17 Dose: Infused Documented by: Sodium Chloride () 250 mls @ 15 mls/hr IV .[id number] PRN PRN Reason: Additional IVPB Infusion Ibuprofen (Motrin) 400 mg PO Q8 ON LICENSE OF [facility] Last Admin: 03/15/20 05:48 Dose: 400 mg Documented by: Ketorolac Tromethamine (Toradol (Bkc)) 15 mg IV Q6H PRN PRN Reason: Pain Score 6-10/10 Stop: 03/18/20 15:31 Lactobacillus Acidophilus (Acidophilus) 1 tablet PO 4X/DAY ON LICENSE OF [facility] Last Admin: 03/15/20 10:03 Dose: 1 tablet Documented by: Sodium Chloride () 10 - 40 ml IV UD PRN PRN Reason: SALINE FLUSH Last Admin: 03/15/20 10:01 Dose: 10 ml Documented by: Medical Necessity - Tobacco Use Smoking Status: Never smoker Route of nutrition/ use of supplements: [] Nutritional Intake: [] IV Site: [] Hoyt Catheter: [] - Assessment/Plan Antibiotics: [] Assessment/Plan: [] Active and Suspected Problems Pneumonia (Acute) Sepsis (Acute) Failure of outpatient treatment (Acute) Low suspicion for covid at this point with 2 neg pcrs and neg serology. Echo was ok. Feeling much better. On ceftriaxone. Tap done, may be parapneumonic effusion. Ok for d/c home off of abx. Will follow as needed, d/w Dr. Matute
[2020-03-15 12:32] VITALS: BP 116/69; PULSE 105; RESP 16; TEMP 36.6; O2SAT 98
--- NOTE | 2020-03-15 12:46 | NURSING ---
pt c/o rapid hr and check and hr is irreg and tachy - pt states it feels like my heart is going to explode- will let dr tovar know - vs obtained and hr at 109- montioring
[2020-03-15 12:53] VITALS: BP 102/58; PULSE 109; RESP 16; TEMP 36.5; O2SAT 97
[2020-03-15] MEDS: Ibuprofen 600 MG Tablet PO (13:04)
--- NOTE | 2020-03-15 14:50 | NURSING ---
pt states hr better and after listening- apical at 74- talked with pt at [facility] about pnuemonia and stress and anxiety and how they can all be connected - pt stated understand and is ready for d/c
[2020-03-16 23:53] LABS: pH, Body Fluid 11254 7.5 (Not Estab.)
== END 2020-03-15 14:40 | disposition home or self-care (01) | DRG 194 ==
LOC: ED 15:18 → MS3 18:36
PROVIDERS: Admitting Provider Internal Medicine; Emergency Provider Emergency Medicine; PCP Family Medicine; Visit Provider Internal Medicine
DX: J18.9 Pneumonia, unspecified organism (principal); J90 Pleural effusion, not elsewhere classified; I31.3 Pericardial effusion (noninflammatory); I50.32 Chronic diastolic (congestive) heart failure; J98.11 Atelectasis; J02.0 Streptococcal pharyngitis; B95.0 Streptococcus, group A, as the cause of diseases classified elsewhere; D72.810 Lymphocytopenia; R74.0 Nonspecific elevation of levels of transaminase and lactic acid dehydrogenase [LDH]; N30.10 Interstitial cystitis (chronic) without hematuria
CPT/HCPCS: 32555; 36415; 71045; 71046; 71047; 71275; 80048; 80053; 80076; 81001; 82945; 83605; 83615; 83735; 83986; 84157; 84484; 85025; 85379; 85610; 86738; 86769; 87040; 87070; 87075; 87077; 87205; 87449; 87633; 87635; 87804; 87807; 87880; 88108; 88305; 88313; 89050; 93005; 93306; 94640; 96365; 96367; 99285; G2023; J7030; J7040; J7050; Q9967; A4216; J0696; U0003

== ENCOUNTER → 2020-04-11 | Outpatient (CLI) | payer MEDICARE, SELFPAY ==
[2020-03-10 17:47] VITALS: BMI 22.8
== END | disposition home or self-care (01) ==
LOC: PSN 11:02
PROVIDERS: PCP Family Medicine; Referring Provider Family Medicine; Visit Provider Family Medicine
DX: R00.2 Palpitations (principal)
CPT/HCPCS: 93225; 93226

== ENCOUNTER → 2020-05-26 | Outpatient (CLI) | payer MEDICARE, SELFPAY ==
[2020-03-10 17:47] VITALS: BMI 22.8
--- NOTE | 2020-05-26 15:15 | BI_ITS ---
MAMMOGRAPHY - BILATERAL SCREENING 3-D TOMOSYNTHESIS REASON FOR EXAM: Female, 70 years old. Annual screening mammogram. PERTINENT HISTORY: History of bilateral needle biopsies in 2004. TECHNIQUE: 2-D mammograms and 3-D Tomosynthesis of the breast (s) were performed. CAD was performed. COMPARISON: 03/30/2019, 12/17/2016 FINDINGS: The breast composition is Scattered benign calcifications are seen. No dense spiculated masses or suspicious microcalcifications are identified. No architectural distortion is identified. There is no skin thickening or retraction. There has been no significant change since the prior study. BI/SCREEN MAMM (CAD) W/VIKI BILAT IMPRESSION: No mammographic signs of malignancy. Routine yearly mammograms recommended. ASSESSMENT CATEGORY: BIRADS Category 2: Benign. A letter regarding these results will be sent to the patient by the facility within 30 days. FOLLOW UP RECOMMENDATION: Yearly follow up mammogram recommended. (A) Approximately 10% of breast cancers are not detected by mammography. A normal mammogram should not delay biopsy of a clinically suspicious abnormality. Electronically Signed: Bryce Mayen MD at 15:17 EDT , Service support ,
== END | disposition home or self-care (01) ==
PROVIDERS: PCP Family Medicine; Referring Provider Family Medicine; Visit Provider Family Medicine
DX: Z12.31 Encounter for screening mammogram for malignant neoplasm of breast (principal)
CPT/HCPCS: 77063; 77067

== ENCOUNTER 2021-05-24 12:59 | Day surgery (SDC) | payer MEDICARE, SELFPAY ==
[2020-03-10 17:47] VITALS: BMI 22.8
[2021-05-24] MEDS: Lactated Ringers 1,000 ML 100 ML IV (13:35)
[2021-05-24 13:52] VITALS: BP 148/87; PULSE 93; RESP 16; TEMP 37.2; O2SAT 98; BMI 22.8
[2021-05-24] MEDS: Cefazolin 2 GM in 0.9% Normal Saline 100 ML IV (15:21)
--- NOTE | 2021-05-24 15:32 | PCM.HP.STD ---
HPI - General HPI Narrative COSME WRIGHT, is a 71 F who presents for hydrodistention history of interstitial cystitis PFSH Medical History (Updated 05/24/21 @ 15:[address] Arias Plasencia MD) Alcohol use Arthritis Dietary restriction Gastric reflux History of echocardiogram History of IBS History of pain when walking History of steroid therapy Hx of tendinitis Interstitial cystitis Non-smoker Wears glasses Home Medications ibuprofen 400 mg PO Q8H PRN PRN tab 03/15/20 [Rx Last Taken Unknown] acidophilus-pectin, citrus 1 tablet PO PRN PRN 05/19/21 [History Last Taken Unknown] multivitamin 1 tab PO DAILY 05/19/21 [History Last Taken Unknown] ciprofloxacin HCl [Cipro] 500 mg PO BID #6 tab 05/24/21 [Rx Last Taken Unknown] oxycodone-acetaminophen 1 tab PO Q4H PRN 7 Days #10 tab 05/24/21 [Rx Last Taken Unknown] Allergy/AdvReac Type Severity Reaction Status Date / Time levofloxacin Allergy Nausea Verified 05/24/21 13:52 Surgical History (Updated 05/19/21 @ 14:22 by Sol Gaines) Hx laparoscopic cholecystectomy Hx of colonoscopy Hx of foot surgery Social History Smoking Status: Never smoker Vital Signs Vital Signs Vital Signs: 05/24/21 13:52 Temperature 98.9 F Temperature Source Temporal Pulse Rate 93 Respiratory Rate 16 Respiratory Pattern Normal Blood Pressure 148/87 H Blood Pressure Mean 107 Blood Pressure Source Monitor Blood Pressure Position Semi-Fowlers Blood Pressure Location Right Arm Pulse Ox 98 Oxygen Delivery Method Room Air Weight Weight: 60.2 kg Body Mass Index (BMI) 22.8 Physical Exam Const alert and oriented x3 General Appearance: cooperative HEENT normocephalic, head/scalp atraumatic, EAC's normal and TM's normal bilaterally Eyes PERRL and EOMs intact bilaterally Pupil: sluggish Neck no lymphadenopathy, supple and no JVD General: trachea midline Lymph Lymphatic: no lymphadenopathy noted, lymphedema and lymphadenopathy Resp normal respiratory effort, normal air movement and clear to auscultation bilaterally Cardio regular rate, regular rhythm and peripheral pulses 2+ throughout GI soft to palpation, non-tender and non-distended Extremity normal capillary refill and no clubbing, cyanosis or edema General Extremity: no tenderness to palpation of joints or extremities Skin no rashes or lesions noted General Skin Exam: turgor normal Lesions: no lesions Rashes: no rashes Neuro CN's II-XII intact bilaterally Speech: speech normal Motor Exam: strength 5/5 throughout; Negative for general weakness Psych thought process normal, cooperative and affect normal Appearance: appropriate
--- NOTE | 2021-05-24 15:33 | EX.PCM.DISCH ---
Discharge Instructions Procedure Urology Diet Discharge Diet: No restrictions Activity Discharge Activity: Return to Normal Activity and May Not Drive (while taking narcotic pain medications.) Dressing / Incision Call your doctor if you observe: Fever of 101 or Higher Follow Up Care Please Follow Up With: Arias Plasencia MD When: Call [phone] for an appointment Test Results: Test results from this visit will be discussed in further detail at your follow-up appointment, if applicable. Discharge Plan Admission Primary Reason for Your Visit: hydrodistention Attending Provider: Arias Plasencia Primary Care Provider: Senthil Aguilar Discharge Orders/Prescriptions Prescriptions: New oxycodone-acetaminophen 5-325 mg tablet 1 tab PO Q4H PRN (Reason: pain) 7 Days Qty: 10 RF: 0 ciprofloxacin HCl [Cipro] 500 mg tablet 500 mg PO BID Qty: 6 RF: 0 Continued ibuprofen 400 MG tablet 400 mg PO Q8H PRN PRN (Reason: pleuritic chest pain) RF: 0 multivitamin Tablet 1 tab PO DAILY RF: 0 acidophilus-pectin, citrus 1 TABLET tablet 1 tablet PO PRN PRN (Reason: PRN) RF: 0 Referrals / Follow Up: Arias Plasencia MD [STAFF PHYSICIAN] - Senthil Aguilar MD [Primary Care Provider] - Disposition Disposition (needs filled in before D/C Order can be placed): Home, Self Care
--- NOTE | 2021-05-24 15:33 | PCM.OPRPT ---
Report of Operation Date of Procedure: 05/24/21 Pre-Operative Diagnosis: Interstitial cystitis Post-Operative Diagnosis: Same Surgery/Procedure Performed:: Cystoscopy hydrodistention of the bladder instillation of bladder medication Description of Surgical Findings:: 71-year-old female with a history of interstitial cystitis who is been having chronic bladder pain and despite conservative measures her bladder pain has not improved so today working to proceed with a hydrodistention of the bladder and a cystoscopy diagnostic. Patient was taken back to the operating room at the smooth induction of anesthesia she was placed in dorsolithotomy position the urethra vaginal area were prepped and draped in usual sterile fashion went in the bladder with a 21 Portuguese rigid cystourethroscope the urethra is normal, the trigone was normal, in the back of the bladder there are some few areas that look like biopsy sites in possible Levi's ulcer, the bladder mucosa looked very thin, I then distended the bladder for 4-1/2 minutes the first time up to maximum cath passage of the bladder which was around 600 cc, and then after draining the bladder there was the typical intracystitis oozing from multiple sites. We did a second distention for another 4-1/2 minutes. And then after the second distention then a red rubber catheter was put in the bladder and I instilled a bladder IC medications combination of heparin bicarb lidocaine DMSO into the bladder per protocol. After the instillation of the medication of the bladder the patient anesthetic was reversed taken back to PACU good condition she will follow-up in a few weeks she will be given a prescription for some Cipro and some pain medicine as needed. Surgeon: Arias Plasencia Type of Anesthesia: General Drains: None Admit VTE Documentation VTE Present on Admission: No VTE Mechan Device Prophylaxis: SCD's
[2021-05-24] MEDS: Sodium Bicarbonate 50 MEQ/50 ML Vial IRRIGATION (15:39)
[2021-05-24] MEDS: Lidocaine 2% (20 ml mdv) 20 ML Vial 60 ML OPERA.SITE (15:39)
[2021-05-24] MEDS: Dimethyl Sulfoxide 50 ML Solution TOPICAL (15:39)
[2021-05-24] MEDS: Heparin 10,000 UNITS/10 ML Vial 10000 UNITS IV (15:39)
[2021-05-24] MEDS: Hydrocortisone Sod Succinate 100 MG/2 ML Vial 150 MG IV (15:39)
[2021-05-24] MEDS: Lidocaine 2% (20 ml mdv) 20 ML Vial 40 ML OPERA.SITE (15:39)
[2021-05-24 16:21] VITALS: BP 137/77; BP 148/87; PULSE 86; RESP 16; TEMP 36.4; O2SAT 100
[2021-05-24 16:30] VITALS: BP 131/70; BP 148/87; PULSE 84; RESP 16; O2SAT 98
[2021-05-24 16:45] VITALS: BP 142/72; BP 148/87; PULSE 83; RESP 16; O2SAT 100
[2021-05-24 16:53] VITALS: BP 138/74; BP 148/87; PULSE 82; RESP 16; TEMP 36.5; O2SAT 98
[2021-05-24] MEDS: Ketorolac 15 MG/ML Vial IV (16:58)
[2021-05-24 18:15] VITALS: BP 124/70; BP 148/87; PULSE 80; RESP 16; TEMP 36.3; O2SAT 99
== END 2021-05-24 18:15 | disposition home or self-care (01) ==
LOC: SDC 13:02 → AC 13:06
PROVIDERS: PCP Family Medicine; Referring Provider Urology; Visit Provider Urology
PROC: 0T7B7ZZ Dilation of Bladder, Via Natural or Artificial Opening (ICD-10-PCS; CPT 52260; principal; 2021-05-24 15:10)
DX: N30.10 Interstitial cystitis (chronic) without hematuria (principal); K21.9 Gastro-esophageal reflux disease without esophagitis; K58.9 Irritable bowel syndrome, unspecified; Z90.49 Acquired absence of other specified parts of digestive tract
CPT/HCPCS: 52260; J7120; J1212; J2405

== ENCOUNTER → 2021-05-31 12:44 | Outpatient (CLI) | payer MEDICARE, SELFPAY ==
[2020-03-10 17:47] VITALS: BMI 22.8
--- NOTE | 2021-05-31 12:59 | BI_ITS ---
MAMMOGRAPHY - BILATERAL SCREENING REASON FOR EXAM: Female, 71 years old. Routine annual screening examination. PERTINENT HISTORY: Non-contributory. TECHNIQUE: Digital bilateral breast viki (3D mammographic acquisition) in the CC and MLO projections. 2-D mediolateral oblique (MLO) and craniocaudad (CC) views of both breasts were obtained. CAD: Full Field Digital Mammography with Computer Added Detection was performed. COMPARISON: Comparison is made with prior examination 05/26/2020 and 03/30/2019. FINDINGS: Breast Composition: The breasts are heterogeneously dense, which may obscure small masses. There are no dominant masses or suspicious calcifications. No other significant abnormalities are identified. There has been no significant change since the prior study. BI/SCRN MAMM (CAD)W/VIKI BILAT IMPRESSION: Stable bilateral screening mammogram. Yearly follow-up mammogram recommended. (A) ASSESSMENT CATEGORY: BIRADS Category 1: Negative. A letter regarding these results will be sent to the patient by the facility within 30 days. Approximately 10% of breast cancers are not detected by mammography. A normal mammogram should not delay biopsy of a clinically suspicious abnormality. [id number] Electronically Signed: Blue Sheikh MD at 13:57 EDT , Service support ,
== END ==
PROVIDERS: PCP Family Medicine; Referring Provider Family Medicine; Visit Provider Family Medicine
DX: Z12.31 Encounter for screening mammogram for malignant neoplasm of breast (principal)
CPT/HCPCS: 77063; 77067

== ENCOUNTER 2021-08-16 16:55 | Emergency (ER) | payer MEDICARE, SELFPAY ==
[2021-08-16 16:57] VITALS: BP 160/80; PULSE 89; RESP 16; TEMP 36.1; O2SAT 100; BMI 21.9
--- NOTE | 2021-08-16 17:18 | ED.VIS.CHEST ---
HPI History of Present Illness Chief Complaint: Back Narrative Narrative: 71-year-old female presenting with left posterior shoulder pain which radiates around to the front in the left anterior ribs. Patient states this has been here for days. She does not describe any shortness of breath. She does not have pleuritic chest pain. She denies pressure. She states it is intermittent. She is not had any fever, chills, cough but does relate that she previously had sepsis and pneumonia and did not have any cough or other symptoms. She had a chest x-ray done today that was negative on an outpatient basis. She was told to come to the ER for a CTA of the chest to rule out blood clot. Patient states she has no recent travel, recent mobilization, prior DVT or PE, history of cancer. Patient states she does not have a significant cardiac history. She states she is very active and is sometimes on a treadmill. She does state that she is retired and does not do much vigorous work but it is possible she could have strained something. She denies paresthesias. PE Risk Factors: Negative for Recent Travel/Surgery, Recent Immobilization, Prior DVT or PE and Cancer PFSH PFSH Medical History Alcohol use Arthritis Dietary restriction Gastric reflux History of echocardiogram History of IBS History of pain when walking History of steroid therapy Hx of tendinitis Interstitial cystitis Non-smoker Wears glasses Home Medications ibuprofen 400 mg PO Q8H PRN PRN tab 03/15/20 [Rx Last Taken Unknown] acidophilus-pectin, citrus 1 tablet PO PRN PRN 05/19/21 [History Last Taken Unknown] multivitamin 1 tab PO DAILY 05/19/21 [History Last Taken Unknown] ciprofloxacin HCl [Cipro] 500 mg PO BID #6 tab 05/24/21 [Rx Last Taken Unknown] oxycodone-acetaminophen 1 tab PO Q4H PRN 7 Days #10 tab 05/24/21 [Rx Last Taken Unknown] Allergy/AdvReac Type Severity Reaction Status Date / Time ciprofloxacin Allergy Swelling Verified 08/16/21 16:56 levofloxacin Allergy Nausea Verified 05/24/21 13:52 Surgical History Hx laparoscopic cholecystectomy Hx of colonoscopy Hx of foot surgery Social History Smoking Status: Never smoker ROS ROS ED Constitutional Constitutional ED: Denies chills or fever(s) Eyes Eyes: Denies none or change in vision Cardiovascular Cardiovascular: Reports chest pain; Denies palpitations or racing heartbeat Respiratory/Chest Respiratory/Chest: Denies cough, dyspnea or dyspnea on exertion Gastrointestinal Gastrointestinal: Denies abdominal pain, nausea or vomiting Genitourinary Genitourinary ED: Denies dysuria or hematuria Musculoskeletal Musculoskeletal: Reports back pain; Denies arthralgias, myalgias or neck pain Integumentary Denies rash Neurologic Neurologic: Denies headache(s) or paresthesias EXAM Physical Exam Const Vital Signs: 08/16/21 16:57 08/16/21 17:41 Temperature 96.9 F L Temperature Source Temporal Pulse Rate 89 Respiratory Rate 16 Blood Pressure 160/80 H Blood Pressure Mean 106 Pulse Ox 100 97 Oxygen Delivery Method Room Air Room Air Positive well nourished General Appearance ED: NAD; Negative for pallor HEENT Reports moist mucous membranes normocephalic and atraumatic Eyes PERRL and EOMs intact bilaterally Resp normal respiratory effort Effort and Inspection: respiratory distress Cardio regular rate and regular rhythm GI normal to inspection, nondistended, normoactive bowel sounds Neuro oriented x3, CN's II-XII intact bilaterally and no sensory deficits noted Sensorium / Orientation: awake and alert Motor Exam: strength 5/5 throughout Psych mental status grossly normal Skin General Skin Exam: Negative for jaundice or pallor Heart Score History: Slightly/Non-Suspicious ECG: Normal Age: >45 - <65 years Risk Factors: No Risk Factors Score: 1 MDM MDM MDM Narrative Medical decision making narrative: Patient presenting with left upper back pain that radiates around to the left side of the chest. She does not have a cough, fever, shortness of breath. She does not describe it as pleuritic or pressure-like. She has no other symptoms. The pain is intermittent. She had a chest x-ray done today which was negative. She was sent to the ED out of concern for pulmonary embolism although she has no risk factors for this and has no history of this. I will obtain lab work including basic labs and troponin given her chest pain and I will obtain a D-dimer because she is low risk. CBC and BMP are unremarkable. D-dimer is negative. Troponin is 2:08 days of pain. I do not believe she needs a repeat troponin given the symptoms do not sound cardiac in nature at all. Patient had a negative chest x-ray earlier today. Given that her D-dimer is negative I do not believe she needs a CAT scan. Patient is counseled to follow-up with her primary care physician to ensure resolution. Impression: 1. Atypical chest pain Lab Data Labs: Laboratory Results - last 24 hr 08/16/21 08/16/21 08/16/21 17:40 17:40 17:40 WBC 6.5 RBC 4.61 Hgb 13.7 Hct 42.9 MCV 93.1 MCH 29.7 MCHC 31.9 L RDW Std Deviation 43.8 RDW Coeff of Ameya 12.8 Plt Count 295 MPV 9.3 Immature Gran % (Auto) 0.300 Neut % (Auto) 61.0 Lymph % (Auto) 30.3 [place] % (Auto) 5.8 Eos % (Auto) 2.0 Baso % (Auto) 0.6 Absolute Neuts (auto) 4.0 Absolute Lymphs (auto) 1.97 Nucleated RBC % 0 D-Dimer Quant (PE/DVT) < 0.27 L Sodium 141 Potassium 3.5 Chloride 107 Carbon Dioxide 28.0 Anion Gap 6 BUN 14 Creatinine 0.77 Estim Creat Clear Calc 43.27 Est GFR (MDRD) Af Amer 95 Est GFR (MDRD) Non-Af 78 BUN/Creatinine Ratio 18.3 Glucose 107 H Calcium 9.2 Troponin I High Sens 8 Discharge Plan Triage Chief Complaint: Back ED Provider: Roman Oropeza Dx/Rx/DC Orders Prescriptions: No Action ibuprofen 400 MG tablet 400 mg PO Q8H PRN PRN (Reason: pleuritic chest pain) RF: 0 multivitamin Tablet 1 tab PO DAILY RF: 0 acidophilus-pectin, citrus 1 TABLET tablet 1 tablet PO PRN PRN (Reason: PRN) RF: 0 oxycodone-acetaminophen 5-325 mg tablet 1 tab PO Q4H PRN (Reason: pain) 7 Days Qty: 10 RF: 0 ciprofloxacin HCl [Cipro] 500 mg tablet 500 mg PO BID Qty: 6 RF: 0 Primary Care Provider: Senthil Aguilar
--- NOTE | 2021-08-16 17:22 | EKG12_ITS ---
Test Reason : BACK PAIN Blood Pressure : / mmHG Vent. Rate : 082 BPM Atrial Rate : 082 BPM P-R Int : 166 ms QRS Dur : 076 ms QT Int : 392 ms P-R-T Axes : 051 -13 030 degrees QTc Int : 457 ms Normal sinus rhythm Voltage criteria for left ventricular hypertrophy Abnormal ECG Confirmed by JULIAN MULTANI, CHER ([id number]), acquisition editor KAYLA TSAI ([id number]) on 08/17/2021 11:29:28 AM Referred By: NAVID Confirmed By:CHER JORDAN MD
[2021-08-16 17:41] VITALS: O2SAT 97
[2021-08-16 17:45] LABS: Absolute Lymphocyte Count 1.97 X10^3/uL (0.83-4.51); Basophil# 0.04 X10^3/uL; Basophil% 0.6 % (0-1); Eosinophil# 0.13 X10^3/uL; Hematocrit 42.9 % (37-47); Hemoglobin 13.7 g/dL (12.0-15.0); Lymphocyte # 1.97 X10^3/ul (0.83-4.51); Lymphocyte % 30.3 % (19-41); Mean Corp Hgb Conc 31.9 g/dL (32-36); Mean Corpuscular Hgb 29.7 pg (27.0-32.0); Mean Corpuscular Volume 93.1 fL (81-99); Mean Platelet Vol. 9.3 fl (6.2-12.0); Monocyte# 0.38 X10^3/uL; Monocyte% 5.8 % (0-10); NRBC Flagged by Analyzer 0 % (0-5); Neutrophil # 3.96 X10^3/uL (2.7-7.7); Platelet Count 295 K/mm3 (150-450); RBC Distribution Width CV 12.8 % (11.6-14.6); RBC Distribution Width SD 43.8 fl (35.1-43.9); Red Blood Count 4.61 M/mm3 (4.2-5.4); White Blood Count 6.5 K/mm3 (4.4-11.0)
[2021-08-16 18:03] LABS: D-Dimer Quantitative (DVT/PE) < 0.27 FEU/ug/m (0.27-0.49)
[2021-08-16 18:05] LABS: Anion Gap 6 (5-15); BUN 14 mg/dL (7-18); BUN/Creat Ratio 18.3 RATIO (10-20); Calcium,Total 9.2 mg/dL (8.5-10.1); Chloride 107 mmol/L (98-107); Creatinine, Serum 0.77 mg/dL (0.55-1.02); EST Glomerular Filtration Rate 78 mL/min (>60); Est Glom Filt Rate - Afr Amer 95 mL/min (>60); Estimated Creatinine Clearance 43.27 ml/min; Glucose 107 mg/dL (74-106); Potassium 3.5 mmol/L (3.5-5.1); Sodium Level 141 mmol/L (136-145); Troponin-I HS 8 pg/mL (3.0-54.0)
== END 2021-08-16 19:09 | disposition home or self-care (01) ==
PROVIDERS: Emergency Provider Student in an Organized Health Care Education/Training Program; PCP Family Medicine
DX: R07.89 Other chest pain (principal); M19.90 Unspecified osteoarthritis, unspecified site; K21.9 Gastro-esophageal reflux disease without esophagitis
CPT/HCPCS: 80048; 84484; 85025; 85379; 93005; 99284; A4216

== ENCOUNTER → 2021-09-07 | Outpatient (CLI) | payer MEDICARE, SELFPAY | END | disposition home or self-care (01) | LOC: LABSPEC 16:47 | PROVIDERS: PCP Family Medicine; Visit Provider Urology | DX: R30.0 Dysuria (principal) | CPT/HCPCS: 87086; 87088 ==

== ENCOUNTER → 2021-09-22 13:01 | Outpatient (CLI) | payer MEDICARE, SELFPAY | PROVIDERS: PCP Family Medicine; Referring Provider Urology; Visit Provider Urology | DX: R30.0 Dysuria (principal) | CPT/HCPCS: 87086; 87088 ==

== ENCOUNTER → 2022-05-22 | Outpatient (CLI) | payer MEDICARE, SELFPAY | END | disposition home or self-care (01) | LOC: LABSPEC 16:33 | PROVIDERS: PCP Family Medicine; Visit Provider Urology | DX: R31.9 Hematuria, unspecified (principal) | CPT/HCPCS: 87077; 87086; 87088; 87186 ==

== ENCOUNTER → 2022-06-04 | Outpatient (CLI) | payer MEDICARE, SELFPAY ==
--- NOTE | 2022-06-04 10:10 | BI_ITS ---
MAMMOGRAPHY - BILATERAL SCREENING REASON FOR EXAM: Female, 72 years old. Routine annual screening examination. PERTINENT HISTORY: Non-contributory. Prior bilateral breast biopsies. TECHNIQUE: Digital bilateral breast viki (3D mammographic acquisition) in the CC and MLO projections. 2-D mediolateral oblique (MLO) and craniocaudad (CC) views of both breasts were obtained. CAD: Full Field Digital Mammography with Computer Added Detection was performed. COMPARISON: Comparison is made with prior study dated 05/31/2021 and 05/26/2020. FINDINGS: Breast Composition: The breasts are heterogeneously dense, which may obscure small masses. There are no dominant masses or suspicious calcifications. A tissue clip marker is seen in the retroareolar region of the left breast. No other significant abnormalities are identified. There has been no significant change since the prior study. BI/SCRN MAMM (CAD)W/VIKI BILAT IMPRESSION: Stable bilateral screening mammogram. Yearly follow-up mammogram recommended. (A) ASSESSMENT CATEGORY: BIRADS Category 2: Benign. A letter regarding these results will be sent to the patient by the facility within 30 days. Approximately 10% of breast cancers are not detected by mammography. A normal mammogram should not delay biopsy of a clinically suspicious abnormality. [id number] Electronically Signed: Blue Sheikh MD at 11:13 EDT ,
== END | disposition home or self-care (01) ==
LOC: OPBI 10:07
PROVIDERS: PCP Family Medicine; Visit Provider Family Medicine
DX: Z12.31 Encounter for screening mammogram for malignant neoplasm of breast (principal)
CPT/HCPCS: 77063; 77067

== ENCOUNTER 2022-06-15 06:33 | Day surgery (SDC) | payer MEDICARE, SELFPAY ==
[2022-06-15 06:55] VITALS: BP 142/99; PULSE 85; RESP 16; TEMP 37.1; O2SAT 98; BMI 22.4
[2022-06-15] MEDS: Lactated Ringers 1,000 ML 15 ML IV (07:07)
[2022-06-15] MEDS: Cefazolin 2 GM in 0.9% Normal Saline 100 ML IV (08:28)
[2022-06-15] MEDS: Sodium Bicarbonate 50 MEQ/50 ML Vial (08:45)
[2022-06-15] MEDS: Heparin 10,000 UNITS/10 ML Vial 10000 UNITS (08:45)
[2022-06-15] MEDS: Dimethyl Sulfoxide 50 ML Solution INTRA-CATH (08:45)
[2022-06-15] MEDS: Lidocaine 2% (20 ml mdv) 20 ML Vial (08:45)
[2022-06-15] MEDS: MethylPREDNISolone 125 MG/2 ML Vial 150 MG IV (08:45)
--- NOTE | 2022-06-15 08:59 | HP.PCM_ITS ---
HPI - General General Date of Service: 06/15/22 Chief Complaint: Interstitial cystitis HPI Narrative COSME WRIGHT, is a 72 F who presents for a hydrodistention and also again place medication in her bladder for interstitial cystitis. She is done this before and it really helped her with her bladder pain. Today she is mostly complaining of burning with urination we will send the urine for culture as well. Last culture was negative. [facility] Medical History (Updated 06/08/22 @ 11:33 by Nayely Olivia) Alcohol use Arthritis Dietary restriction Gastric reflux History of echocardiogram History of Holter monitoring History of IBS History of pain when walking Interstitial cystitis Migraine headache Non-smoker Wears glasses Home Medications ibuprofen 400 mg tablet 400 mg PO Q8H PRN PRN pleuritic chest pain 03/15/20 [Rx Last Taken Unknown] acidophilus 25 million cell-pectin, citrus 100 mg tablet 1 tablet PO PRN PRN PRN 05/19/21 [History Last Taken Unknown] multivitamin 1 tab PO DAILY 05/19/21 [History Last Taken Unknown] dicyclomine 20 mg tablet 20 mg PO DAILY PRN PRN IBS 06/08/22 [History Last Taken Unknown] cephalexin 500 mg capsule 500 mg PO TID #9 caps 06/15/22 [Rx Last Taken Unknown] Allergy/AdvReac Type Severity Reaction Status Date / Time ciprofloxacin Allergy Swelling Verified 06/15/22 06:54 doxycycline Allergy Other Verified 06/15/22 06:54 levofloxacin Allergy Nausea Verified 06/15/22 06:54 Surgical History (Updated 06/08/22 @ 11:22 by Nayely Olivia) History of bladder surgery History of surgery on wrist Hx laparoscopic cholecystectomy Hx of colonoscopy Hx of foot surgery Social History Smoking Status: Never smoker Vital Signs Vital Signs Vital Signs: 06/15/22 06:55 06/15/22 06:55 Temperature 98.7 F Temperature Source Oral Pulse Rate 85 Respiratory Rate 16 Respiratory Pattern Normal Blood Pressure 142/99 H Blood Pressure Mean 113 Blood Pressure Source Monitor Blood Pressure Position Semi-Fowlers Blood Pressure Location Left Arm Pulse Ox 98 Oxygen Delivery Method Room Air Weight Weight: 59.33 kg Body Mass Index (BMI) 22.4
--- NOTE | 2022-06-15 08:59 | DCINST_ITS ---
Discharge Instructions Diet Discharge Diet: No restrictions Activity Discharge Activity: Return to Normal Activity Follow Up Care Please Follow Up With: Arias Plasencia MD When: Call for an appointment in 2 weeks Test Results: Test results from this visit will be discussed in further detail at your follow- up appointment, if applicable. Discharge Plan Admission Primary Reason for Your Visit: hydrodistention Attending Provider: Arias Plasencia Primary Care Provider: Senthil Aguilar Discharge Orders/Prescriptions Prescriptions: New cephalexin 500 mg capsule 500 mg PO TID Qty: 9 0RF No Action ibuprofen 400 MG tablet 400 mg PO Q8H PRN PRN (Reason: pleuritic chest pain) 0RF multivitamin Tablet 1 tab PO DAILY acidophilus-pectin, citrus 1 TABLET tablet 1 tablet PO PRN PRN (Reason: PRN) dicyclomine 20 mg Tablet 20 mg PO DAILY PRN PRN (Reason: IBS) Referrals / Follow Up: Arias Plasencia MD [Med Staff - Active Staff] - Senthil Aguilar MD [Primary Care Provider] - Disposition Disposition (needs filled in before D/C Order can be placed): Home, Self Care
--- NOTE | 2022-06-15 09:00 | PCM.OPRPT ---
Report of Operation Date of Procedure: 06/15/22 Pre-Operative Diagnosis: Interstitial cystitis bladder pain and dysuria Post-Operative Diagnosis: Same Surgery/Procedure Performed:: Cystoscopy hydrodistention of the bladder and instillation of medication in her bladder Description of Surgical Findings:: Indication this is a 72-year-old female has a history of interstitial cystitis she has chronic bladder pain frequency pain burning with urination. Was recently treated. Recent culture was negative for infection. She still continues to have burning and pain and discomfort in her bladder we talked about the options of management we could do topical treatments of medication her bladder in the office, in the past she had a hydrodistention which was very effective in relieving her pain or discomfort so she wants to have that done again at the same time were also going to instill a cocktail of medications in her bladder to help with her interstitial cystitis. Unfortunately could not make any guarantees that this procedure or the medications can help with her bladder pain but hopefully it well. Patient was taken back to the operating room at a smooth induction of general anesthesia she was placed in dorsolithotomy position. On exam the urethra and vaginal area were completely normal no masses or abnormalities appreciated on exam the urethra looked normal. Went inside the bladder with a 21 [place] rigid cystourethroscope. The inside of the bladder had classic findings for interstitial cystitis with some reddish areas in the bladder she had a prior biopsy in the past that was negative for any malignancy. We then performed a hydrodistention the bag was measured up to 80 cm in the bladder patient's bladder and we distended bladder and held pressure with a distended bladder for 4 minutes. After this was done then the bladder was drained had a classic minor bleeding from all over the bladder classic for IC. I then placed the catheter bladder and we put in 120 mL of the IC cocktail which is combination of DMSO bicarbonate Heparin and lidocaine. But this in the bladder for out 5 minutes I then drained this out and we did a second hydrodistention again 4 minutes at a pressure of 80 cm of water. After the second hydrodistention and we put a catheter in her bladder and then we put another 120 cc of DMSO bicarbonate lidocaine and heparin combination into the bladder, I then took out the catheter left the medication in her bladder however hold it as long as possible and then she can urinate before she goes home. Plan to see her back in the office in about 2 weeks for checkup we will give her a short course of antibiotics on discharge. We will send the urine for culture. The urine appeared clear Surgeon: Arias Plasencia Type of Anesthesia: General Drains: none Admit VTE Documentation VTE Present on Admission: No VTE Mechan Device Prophylaxis: SCD's
[2022-06-15 09:08] VITALS: BP 123/71; BP 142/99; PULSE 85; RESP 16; TEMP 36.4; O2SAT 99
[2022-06-15 09:15] VITALS: BP 121/67; BP 142/99; PULSE 84; RESP 16; O2SAT 97
[2022-06-15 09:20] VITALS: BP 129/65; BP 142/99; PULSE 79; RESP 16; O2SAT 100
[2022-06-15 09:25] VITALS: BP 126/66; BP 142/99; PULSE 77; RESP 16; TEMP 36.7; O2SAT 99
[2022-06-15] MEDS: Ketorolac 30 MG/ML Syringe IV (09:59)
[2022-06-15] MEDS: Acetaminophen 325 MG Tablet 650 MG PO (10:11)
[2022-06-15 10:36] VITALS: BP 136/71; BP 142/99; PULSE 75; RESP 16; TEMP 36.7; O2SAT 98
== END 2022-06-15 10:45 | disposition home or self-care (01) ==
LOC: SDC 06:39 → AC 06:40
PROVIDERS: PCP Family Medicine; Referring Provider Urology; Visit Provider Urology
PROC: 0T7B7ZZ Dilation of Bladder, Via Natural or Artificial Opening (ICD-10-PCS; CPT 52260; principal; 2022-06-15 08:10)
DX: N30.10 Interstitial cystitis (chronic) without hematuria (principal); R30.0 Dysuria; R39.89 Other symptoms and signs involving the genitourinary system; G89.29 Other chronic pain; K21.9 Gastro-esophageal reflux disease without esophagitis; Z79.899 Other long term (current) drug therapy
CPT/HCPCS: 52260; 87086; 87088; J7120; J1212; J2405

== ENCOUNTER 2022-09-10 10:26 | Emergency (ER) | payer MEDICARE, SELFPAY ==
[2022-09-10 10:27] VITALS: BP 160/84; PULSE 87; RESP 16; TEMP 36.3; O2SAT 97; BMI 21.8
--- NOTE | 2022-09-10 10:54 | EX.ED.GENINJ ---
HPI History of Present Illness Chief Complaint: Other, Pain/Inj Informant: patient Narrative Narrative: Patient has right lower anterior rib pain. She states that on Saturday evening she was getting out of a recliner. As she rotated around her foot got stuck and she fell with her full force onto the arm of the recliner. She states she did not hurt her foot. The only thing that hurts is her right anterior lateral rib cage. She has been eating and drinking fine. No hematuria. She is not short of breath but taking a big deep breath does hurt a little bit. The pain started immediately. Also, moving or twisting hurts. No trouble walking. No pain with upper extremities. She did not hit her head. No anticoagulation. PFSH [facility] Medical History Alcohol use Arthritis Dietary restriction Gastric reflux History of echocardiogram History of Holter monitoring History of IBS History of pain when walking Interstitial cystitis Migraine headache Non-smoker Wears glasses Home Medications ibuprofen 400 mg tablet 400 mg PO Q8H PRN PRN pleuritic chest pain 03/15/20 [Rx Last Taken Unknown] acidophilus 25 million cell-pectin, citrus 100 mg tablet 1 tablet PO PRN PRN PRN 05/19/21 [History Last Taken Unknown] multivitamin 1 tab PO DAILY 05/19/21 [History Last Taken Unknown] dicyclomine 20 mg tablet 20 mg PO DAILY PRN PRN IBS 06/08/22 [History Last Taken Unknown] cephalexin 500 mg capsule 500 mg PO TID #9 caps 06/15/22 [Rx Last Taken Unknown] oxycodone-acetaminophen 5 mg-325 mg tablet 1 tab PO Q4H PRN pain 7 days #20 tabs 06/15/22 [Rx Last Taken Unknown] oxycodone-acetaminophen 5 mg-325 mg tablet (Percocet) 1 tab PO Q6H PRN pain 3 days #10 tabs 09/10/22 [Rx Last Taken Unknown] Allergy/AdvReac Type Severity Reaction Status Date / Time ciprofloxacin Allergy Swelling Verified 09/10/22 10:28 doxycycline Allergy Other Verified 09/10/22 10:28 levofloxacin Allergy Nausea Verified 09/10/22 10:28 Surgical History History of bladder surgery History of surgery on wrist Hx laparoscopic cholecystectomy Hx of colonoscopy Hx of foot surgery Social History Smoking Status: Never smoker ROS ROS ED Constitutional Constitutional ED: Denies chills or fever(s) ENT ENT ED: Denies rhinorrhea or sore throat Cardiovascular Cardiovascular: Reports chest pain; Denies palpitations or racing heartbeat Respiratory/Chest Respiratory/Chest: Denies cough or dyspnea Gastrointestinal Gastrointestinal: Denies diarrhea, nausea or vomiting Genitourinary Genitourinary ED: Denies hematuria Musculoskeletal Musculoskeletal: Denies back pain or neck pain Integumentary Denies abscess, Abrasions or rash Neurologic Neurologic: Denies headache(s) Hematologic/Lymphatic Hematologic/Lymphatic: Denies easy bleeding or easy bruising Allergic/Immunologic Allergic/Immunologic ED: Denies urticaria EXAM Physical Exam Const Vital Signs: 09/10/22 10:27 09/10/22 11:06 Temperature 97.4 F L Temperature Source Temporal Pulse Rate 87 Respiratory Rate 16 Respiratory Effort Normal Non-Labored Respiratory Pattern Normal Blood Pressure 160/84 H Blood Pressure Mean 109 Pulse Ox 97 Oxygen Delivery Method Room Air Positive well nourished and well developed General Appearance ED: well developed and NAD HEENT atraumatic; Negative for trauma Eyes EOMs intact bilaterally Neck full ROM Neck Narrative: No cervical spine tenderness Resp normal respiratory effort and clear to auscultation bilaterally Resp Narrative: Patient has tenderness at the anterior ribs just to about the point of the anterior axillary line. Below the ribs and the abdomen are quite benign. No subcu air. No crepitance is felt. Cardio regular rhythm and no murmurs GI normal to inspection, nondistended, normoactive bowel sounds and non-tender Back/Spine normal to inspection and no thoracic nor lumbar tenderness Extremity normal to inspection and full ROM Neuro Sensorium / Orientation: alert Psych mental status grossly normal Skin no rashes or lesions noted MDM MDM MDM Narrative Medical decision making narrative: X-rays show rib fracture without pneumothorax or pneumonia. Ice rest [id number] meds will be appropriate. I will write for something stronger especially to take at night for sleep. She has used oxycodone in the past without difficulties. Radiography Diagnostic Testing: Clinical Impression(s) from Imaging Studies Ribs w/Chest X-Ray 09/10/22 11:10 IMPRESSION: RIBS: Nondisplaced fracture involving the anterior lateral aspect of the right ninth rib. CHEST: No acute abnormality is seen. Electronically Signed: Blue Sheikh MD at 11:51 EST , Three-view x-ray of the ribs and chest show nondisplaced right ninth rib fracture. No pneumothorax or pneumonia. Discharge Plan Triage Chief Complaint: Other, Pain/Inj ED Provider: Andrei Borrero Dx/Rx/DC Orders Clinical Impression: Right rib fracture, Fall at home Instructions: ED Rib Fracture Prescriptions: New oxycodone-acetaminophen [Percocet] 5-325 mg tablet 1 tab PO Q6H PRN (Reason: pain) 3 Days Qty: 10 0RF No Action ibuprofen 400 MG tablet 400 mg PO Q8H PRN PRN (Reason: pleuritic chest pain) 0RF multivitamin Tablet 1 tab PO DAILY acidophilus-pectin, citrus 1 TABLET tablet 1 tablet PO PRN PRN (Reason: PRN) dicyclomine 20 mg Tablet 20 mg PO DAILY PRN PRN (Reason: IBS) cephalexin 500 mg capsule 500 mg PO TID Qty: 9 0RF oxycodone-acetaminophen 5-325 mg tablet 1 tab PO Q4H PRN (Reason: pain) 7 Days Qty: 20 0RF Primary Care Provider: Senthil Aguilar Referrals: Senthil Aguilar MD [Primary Care Provider] - 1 Week if not improving Disposition Disposition: Home, Self Care
--- NOTE | 2022-09-10 11:10 | RAD_ITS ---
STUDY: X-RAY - UNILATERAL RIBS ( RIGHT ) WITH CHEST REASON FOR EXAM: Female, 72 years old. Right-sided rib pain following a fall. TECHNIQUE - RIBS: 2 view(s) of the ribs. TECHNIQUE - CHEST: Single PA view of the chest. COMPARISON: Comparison is made with prior chest radiograph dated 03/14/2020. FINDINGS - RIBS: There is a nondisplaced fracture of the anterior lateral aspect of the right ninth rib. FINDINGS - CHEST: Hyperinflation. No acute abnormality is seen. There is no demonstrated pleural abnormality. Normal size heart. Normal mediastinum and fawn. Normal visualized pulmonary arteries. Normal visualized aortic arch and descending thoracic aorta. There is a dextroscoliosis of the thoracic spine. Normal visualized ribs, clavicles, and shoulders. There is no demonstrated abnormality of the visualized soft tissue structures of the upper abdomen. RAD/Ribs Uni Min 3V w/PA Chest IMPRESSION: RIBS: Nondisplaced fracture involving the anterior lateral aspect of the right ninth rib. CHEST: No acute abnormality is seen. Electronically Signed: Blue Sheikh MD at 11:51 EST ,
== END 2022-09-10 13:00 | disposition home or self-care (01) ==
PROVIDERS: Emergency Provider Emergency Medicine; PCP Family Medicine; Visit Provider Emergency Medicine
DX: S22.31XA Fracture of one rib, right side, initial encounter for closed fracture (principal); R07.9 Chest pain, unspecified; W19.XXXA Unspecified fall, initial encounter
CPT/HCPCS: 71101; 99282

== ENCOUNTER → 2023-04-15 | Outpatient (CLI) | payer MEDICARE, SELFPAY ==
--- NOTE | 2023-04-15 09:32 | US_ITS ---
STUDY: SUPERFICIAL ULTRASOUND - REASON FOR EXAM: Female, 72 years old. RT GROIN POSSIBLE LYMPH NODE ENLARGEMENT TECHNIQUE: A superficial ultrasound was performed with real-time and static leavitt-scale imaging. COMPARISON: None. FINDINGS: Multiple sonographic images obtained in the area of interest in the right groin show no sonographic abnormality. No identifiable solid or cystic lesions. US/Ext Non Vasc Limited/Soft Tiss IMPRESSION: No sonographic abnormalities. Electronically Signed: Jama Whalen MD at 0:03 EDT ,
== END | disposition home or self-care (01) ==
LOC: US 09:29
PROVIDERS: PCP Family Medicine; Referring Provider Registered Nurse; Visit Provider Registered Nurse
DX: R59.9 Enlarged lymph nodes, unspecified (principal)
CPT/HCPCS: 76882

== ENCOUNTER → 2023-06-27 | Outpatient (CLI) | payer MEDICARE, SELFPAY ==
--- NOTE | 2023-06-27 10:14 | BI_ITS ---
MAMMOGRAPHY - BILATERAL SCREENING REASON FOR EXAM: Female, 73 years old. Routine annual screening examination. PERTINENT HISTORY: Non-contributory. History of prior bilateral needle biopsies. TECHNIQUE: Digital bilateral breast viki (3D mammographic acquisition) in the CC and MLO projections. 2-D mediolateral oblique (MLO) and craniocaudad (CC) views of both breasts were obtained. CAD: Full Field Digital Mammography with Computer Added Detection was performed. COMPARISON: Comparison is made with prior study dated June 04, 2022 and May 31, 2021. FINDINGS: Breast Composition: The breasts are heterogeneously dense, which may obscure small masses. There are no dominant masses or suspicious calcifications. 2 adjacent tissue but markings are seen in the retroareolar region of the right breast. No other significant abnormalities are identified. There has been no significant change since the prior study. BI/SCRN MAMM (CAD)W/VIKI BILAT IMPRESSION: Stable bilateral screening mammogram. Yearly follow-up mammogram recommended. (A) ASSESSMENT CATEGORY: BIRADS Category 2: Benign. A letter regarding these results will be sent to the patient by the facility within 30 days. Approximately 10% of breast cancers are not detected by mammography. A normal mammogram should not delay biopsy of a clinically suspicious abnormality. [id number] Electronically Signed: Blue Sheikh MD at 11:19 EDT ,
== END | disposition home or self-care (01) ==
LOC: OPBI 10:13
PROVIDERS: PCP Family Medicine; Referring Provider Family Medicine; Visit Provider Family Medicine
DX: Z12.31 Encounter for screening mammogram for malignant neoplasm of breast (principal)
CPT/HCPCS: 77063; 77067

== ENCOUNTER 2023-09-20 15:34 | Observation (INO) | payer MEDICARE, SELFPAY ==
[2023-09-20 15:35] VITALS: BP 143/64; PULSE 82; RESP 16; TEMP 36.8; O2SAT 100; BMI 22.8
--- NOTE | 2023-09-20 15:51 | EDS_ITS ---
HPI HPI - Female History of Present Illness Chief Complaint: Female C/O Detail of Chief Complaint: Lump in left groin Informant: patient Narrative Narrative: Patient presents to the emergency department complaint of a lump in the left groin. Patient states that she noticed it about a week ago because she had some pain in that area. Worse with certain movements. She has had no fever. She has had no nausea or vomiting. She was seen by her primary care physician Dr. Lauren roth and referred to the emergency department for concern about incarcerated hernia. PFSH PFS Medical History Alcohol use Arthritis Dietary restriction Gastric reflux History of echocardiogram History of Holter monitoring History of IBS History of pain when walking Interstitial cystitis Migraine headache Non-smoker Wears glasses Home Medications dicyclomine PO TID PRN IBS 09/20/23 [History Last Taken Unknown] pantoprazole 20 mg tablet,delayed release 20 mg PO DAILY GERD 09/20/23 [History Last Taken Unknown] Allergy/AdvReac Type Severity Reaction Status Date / Time ciprofloxacin Allergy Swelling Verified 09/20/23 15:34 doxycycline Allergy Other Verified 09/20/23 15:34 levofloxacin Allergy Nausea Verified 09/20/23 15:34 Surgical History History of bladder surgery History of surgery on wrist Hx laparoscopic cholecystectomy Hx of colonoscopy Hx of foot surgery Social History Smoking Status: Never smoker ROS ROS ED Review of Systems ROS Unobtainable: other Constitutional Constitutional ED: Reports lethargy; Denies chills, fever(s), sweats or weight loss Eyes Eyes: Denies blurry vision, change in vision or diplopia ENT ENT ED: Denies rhinorrhea or sore throat Cardiovascular Cardiovascular: Denies chest pain, orthopnea or racing heartbeat Respiratory/Chest Respiratory/Chest: Denies cough, dyspnea, dyspnea on exertion, orthopnea or sputum Gastrointestinal Gastrointestinal: Reports abdominal pain; Denies diarrhea, nausea or vomiting Genitourinary Genitourinary ED: Denies dysuria, hematuria or urinary frequency Musculoskeletal Musculoskeletal: Denies arthralgias, back pain, myalgias or neck pain Integumentary Denies abscess, Abrasions or rash Neurologic Neurologic: Denies headache(s) or weakness Psychiatric Psychiatric: Denies anxiety, depression or suicidal thoughts Endocrine Endocrinology: Denies polydipsia, polyphagia or polyuria Hematologic/Lymphatic Hematologic/Lymphatic: Denies easy bleeding, easy bruising or lymphadenopathy Allergic/Immunologic Allergic/Immunologic ED: Denies mouth swelling, tongue swelling or urticaria EXAM Physical Exam Const Vital Signs: 09/20/23 15:35 09/20/23 17:34 09/20/23 18:49 Temperature 98.2 F 97.6 F L Temperature Source Temporal Temporal Pulse Rate 82 65 81 Respiratory Rate 16 16 16 Blood Pressure 143/64 H 125/84 H 144/76 H Blood Pressure Mean 90 97 98 Pulse Ox 100 99 99 Oxygen Delivery Method Room Air Room Air Room Air Positive well nourished and well developed General Appearance ED: well developed and NAD HEENT Reports TM's clear and moist mucous membranes normocephalic and atraumatic; Negative for trauma or tenderness Tympanic Membrane ED: Yes TM's clear Eyes PERRL and EOMs intact bilaterally General Eye ED: Negative for pale conjunctiva or scleral icterus Neck no lymphadenopathy, supple and no JVD General: Negative for tenderness Chest Wall inspection of chest normal and palpation of chest normal Chest: Negative for tenderness Resp normal respiratory effort and clear to auscultation bilaterally Effort and Inspection: Negative for respiratory distress or pain with movement Auscultation: Negative for rhonchi, wheezes or diminished lung sounds Cardio regular rate, regular rhythm, S1 normal heart sound, S2 normal heart sound and no murmurs Peripheral Pulses: pulses 2+ throughout GI normal to inspection, nondistended, normoactive bowel sounds, soft to palpation, non-distended and no masses GI Narrative: Patient with painful lump left inguinal area. She does have a hernia that I am not able to reduce. Area is tender. There is no erythema or warmth to the area. Coloration noted. Back/Spine no CVA tenderness and no thoracic nor lumbar tenderness Extremity normal to inspection General Extremety ED: Negative for edema General Extremity: Negative for edema Neuro oriented x3, CN's II-XII intact bilaterally, no sensory deficits noted and gait normal Sensorium / Orientation: awake, alert, oriented to person, oriented to place and oriented to time Motor Exam: strength 5/5 throughout and strength abnormal Psych mental status grossly normal Skin no rashes or lesions noted and no wounds MDM MDM MDM Narrative Medical decision making narrative: Patient with left inguinal hernia that is painful. Unable to reduce in department. Will discuss with Dr. Miller. CBC with differential obtained showing of 8.0 with hemoglobin 14.7 and platelet count of 304. Chemistries unremarkable. Lactate normal 1.4. CT scan of the abdomen pelvis obtained read by radiology as left femoral hernia with epiploic appendagitis from colon. Also small fluid collection in the mid abdomen of unknown etiology or significance. I did discuss findings with Dr. Su who is the surgeon on-call who evaluated patient in the emergency department and will admit patient for surgical intervention tomorrow. Lab Data Attestation: I reviewed the patient's lab results. Labs: Laboratory Results - last 24 hr 09/20/23 16:07 WBC 8.0 RBC 4.89 Hgb 14.7 Hct 47.2 H MCV 96.5 MCH 30.1 MCHC 31.1 L RDW Std Deviation 47.6 H RDW Coeff of Ameya 13.3 Plt Count 304 MPV 9.8 Immature Gran % (Auto) 0.300 Neut % (Auto) 70.8 H Lymph % (Auto) 20.7 Alfalfa % (Auto) 6.4 Eos % (Auto) 1.3 Baso % (Auto) 0.5 Absolute Neuts (auto) 5.6 Absolute Lymphs (auto) 1.65 Nucleated RBC % 0 Sodium 142 Potassium 3.5 Chloride 110 H Carbon Dioxide 28.0 Anion Gap 4 L BUN 14 Creatinine 0.88 Estim Creat Clear Calc 47.70 Est GFR (MDRD) Af Amer 81 Est GFR (MDRD) Non-Af 67 BUN/Creatinine Ratio 15.9 Glucose 89 Lactic Acid 1.4 Calcium 9.5 EKG Initial EKG: Attestation: I personally reviewed and interpreted this EKG as follows: Comments: With rate of 80 bpm with no acute ST segment changes. Discharge Plan Triage Chief Complaint: Female C/O ED Provider: Foreign Shen Dx/Rx/DC Orders Clinical Impression: History of IBS, Femoral hernia, Abdominal pain Prescriptions: No Action pantoprazole 20 mg tablet,delayed release (DR/EC) 20 mg PO DAILY dicyclomine [Bentyl] PO TID PRN (Reason: IBS) Patient Comments: 1 CAPSULE Primary Care Provider: Senthil Aguilar Referrals: Senthil Aguilar MD [Primary Care Provider] - Disposition Disposition: Acute Care Hospital [facility]
--- NOTE | 2023-09-20 15:51 | CT_ITS ---
INDICATION: abdominal pain EXAMINATION: CT Abdomen And Pelvis W/ Contrast Injection TECHNIQUE: Helically acquired images were obtained of the abdomen and pelvis after IV contrast. A radiation dose optimization technique was used for this scan. IV Contrast dosage and agent: IV 100mL Isovue-300 Oral contrast: None. COMPARISON: 07/15/2018 FINDINGS: Visualized lung bases: Unremarkable Liver: Unremarkable Gallbladder: Surgically absent. Spleen: Unremarkable Pancreas: Unremarkable Adrenal Glands: Unremarkable Kidneys: Unremarkable Vasculature: Mild scattered aortoiliac atherosclerotic calcifications. GI Tract: Subtle fat stranding surrounding the transverse and ascending colon. Lymphadenopathy: None Peritoneum: There is a loculated 1.6 x 1.4 cm nonrim-enhancing water attenuation fluid collection in the lower abdomen to the right of midline at the S3/S4 level (image 40, series 601). Bladder: Unremarkable Reproductive organs: Bilateral tubal ligation clips. Pelvic venous congestion. Bones/Soft tissues: There is a left femoral hernia containing fat, vessels and a fat density oval lesion adjacent to the proximal sigmoid colon with surrounding fat stranding. It measures 2.1 x 1.6 cm. Mild multilevel degenerative disc disease and spondylosis of the visualized thoracolumbar spine. 2 mm anterolisthesis L4 on L5. CT/Abdomen/Pelvis W IV Cont ONLY IMPRESSION: Findings suspicious for left femoral hernia containing fat, vessels and epiploic appendagitis. Subtle inflammatory changes surrounding the ascending and transverse colon could represent infectious versus inflammatory colitis in the correct clinical setting. 1.6 cm nonrim-enhancing fluid collection in the lower abdomen to the right of midline at the S3/S4 level of uncertain cause. 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 N.B. : The above Results were Read Back by Chip Rodriguez MD to Foreign Shen DO, and understanding confirmed on 09/20/2023 19:08:45 (ET). Electronically Signed: Chip Rodriguez MD at 19:29 EST ,
[2023-09-20] MEDS: 0.9% Normal Saline (1000mL) 1,000 ML 125 ML IV (16:13)
[2023-09-20 16:48] LABS: Absolute Lymphocyte Count 1.65 X10^3/uL (0.83-4.51); Absolute Neutrophil Count 5.6 X10^3/uL (2.0-7.7); Basophil# 0.04 X10^3/uL; Basophil% 0.5 % (0-1); Eosinophils% 1.3 % (0-5); Hematocrit 47.2 % (37-47); Hemoglobin 14.7 g/dL (12.0-15.0); Lymphocyte # 1.65 X10^3/ul (0.83-4.51); Lymphocyte % 20.7 % (19-41); Mean Corp Hgb Conc 31.1 g/dL (32-36); Mean Corpuscular Hgb 30.1 pg (27.0-32.0); Mean Corpuscular Volume 96.5 fL (81-99); Mean Platelet Vol. 9.8 fl (6.2-12.0); Monocyte# 0.51 X10^3/uL; Monocyte% 6.4 % (0-10); NRBC Flagged by Analyzer 0 % (0-5); Neutrophil # 5.64 X10^3/uL (2.7-7.7); Neutrophil % 70.8 % (47-70); Platelet Count 304 K/mm3 (150-450); RBC Distribution Width CV 13.3 % (11.6-14.6); RBC Distribution Width SD 47.6 fl (35.1-43.9); Red Blood Count 4.89 M/mm3 (4.2-5.4)
[2023-09-20 16:50] LABS: Anion Gap 4 (5-15); BUN 14 mg/dL (7-18); BUN/Creat Ratio 15.9 RATIO (10-20); Calcium,Total 9.5 mg/dL (8.5-10.1); Chloride 110 mmol/L (98-107); Creatinine, Serum 0.88 mg/dL (0.55-1.02); EST Glomerular Filtration Rate 67 mL/min (>60); Est Glom Filt Rate - Afr Amer 81 mL/min (>60); Glucose 89 mg/dL (74-106); Potassium 3.5 mmol/L (3.5-5.1); Sodium Level 142 mmol/L (136-145)
[2023-09-20 17:15] LABS: Lactic Acid 1.4 mmol/L (0.4-1.9)
[2023-09-20 17:34] VITALS: BP 125/84; PULSE 65; RESP 16; O2SAT 99
[2023-09-20] MEDS: Ondansetron 4 MG/2 ML Vial IV (18:01)
[2023-09-20] MEDS: Morphine 4 MG/ML Syringe IV (18:01)
--- NOTE | 2023-09-20 18:20 | EKG12_ITS ---
Test Reason : PRE-OP Blood Pressure : / mmHG Vent. Rate : 080 BPM Atrial Rate : 080 BPM P-R Int : 172 ms QRS Dur : 076 ms QT Int : 390 ms P-R-T Axes : 057 -13 023 degrees QTc Int : 449 ms Normal sinus rhythm Possible Left atrial enlargement Minimal voltage criteria for LVH, may be normal variant ( R in aVL ) Borderline ECG Confirmed by GREGG MULTANI, AGUEDA ([id number]), script editor KAYLA TSIA ([id number]) on 09/23/2023 1:35:14 P M Referred By: REBEKA Confirmed By:MICHAEL ESCOBEDO MD
--- NOTE | 2023-09-20 18:28 | HP.PCM.SX_ITS ---
HPI - General HPI Narrative COSME WRIGHT, is a 73 F who presents with left groin pain. The patient went to her PCP and noted that she has been having a bulge in her left groin for the past week. She says it got larger over the last 2 days. She is a little sore but is not very painful. She denies any nausea vomiting fevers or chills. PFSH Medical History Alcohol use Arthritis Dietary restriction Gastric reflux History of echocardiogram History of Holter monitoring History of IBS History of pain when walking Interstitial cystitis Migraine headache Non-smoker Wears glasses Home Medications dicyclomine PO TID PRN IBS 09/20/23 [History Last Taken Unknown] pantoprazole 20 mg tablet,delayed release mg PO 09/20/23 [History Last Taken Unknown] Allergy/AdvReac Type Severity Reaction Status Date / Time ciprofloxacin Allergy Swelling Verified 09/20/23 15:34 doxycycline Allergy Other Verified 09/20/23 15:34 levofloxacin Allergy Nausea Verified 09/20/23 15:34 Surgical History History of bladder surgery History of surgery on wrist Hx laparoscopic cholecystectomy Hx of colonoscopy Hx of foot surgery Social History Smoking Status: Never smoker ROS Constitutional Constitutional: Denies anorexia, chills or fatigue Eyes Eyes: Denies blurry vision ENT HEENT: Denies abnormal hearing or dysphagia Cardiovascular Cardiovascular: Denies chest pain or chest pain at rest Respiratory/Chest Respiratory/Chest: Denies cough or dyspnea Gastrointestinal Gastrointestinal: Denies abdominal pain, constipation, diarrhea, nausea or vomiting Genitourinary Genitourinary: Reports genital pain Musculoskeletal Musculoskeletal: Denies back pain Integumentary Integumentary: Denies new lesions Neurologic Neurologic: Denies abnormal gait Psychiatric Psychiatric: Denies anxiety Endocrine Endocrinology: Denies heat intolerance Vital Signs Vital Signs Vital Signs: 09/20/23 15:35 Temperature 98.2 F Temperature Source Temporal Pulse Rate 82 Respiratory Rate 16 Blood Pressure 143/64 H Blood Pressure Mean 90 Pulse Ox 100 Oxygen Delivery Method Room Air Weight Weight: 132 lb 15.02 oz Body Mass Index (BMI) 22.8 Physical Exam Const oriented x3 and no apparent distress Resp normal respiratory effort Cardio regular rate and regular rhythm GI normal to inspection, nondistended, normoactive bowel sounds GI Narrative: Patient has an incarcerated left inguinal hernia. It is unable to be reduced. There is no redness or erythema over the area. It is not tender and less is deeply palpated while trying to reduce. Extremity normal to inspection Results Lab / Micro Data 09/20/23 16:07 09/20/23 16:07 Labs: Laboratory Results - last 24 hr 09/20/23 16:07: WBC 8.0, RBC 4.89, Hgb 14.7, Hct 47.2 H, MCV 96.5, MCH 30.1, MCHC 31.1 L, RDW Std Deviation 47.6 H, RDW Coeff of Ameya 13.3, Plt Count 304, MPV 9.8, Immature Gran % (Auto) 0.300, Neut % (Auto) 70.8 H, Lymph % (Auto) 20.7, [place] % (Auto) 6.4, Eos % (Auto) 1.3, Baso % (Auto) 0.5, Absolute Neuts (auto) 5.6, Absolute Lymphs (auto) 1.65, Nucleated RBC % 0, Sodium 142, Potassium 3.5, Chloride 110 H, Carbon Dioxide 28.0, Anion Gap 4 L, BUN 14, Creatinine 0.88, Estim Creat Clear Calc 47.70, Est GFR (MDRD) Af Amer 81, Est GFR (MDRD) Non-Af 67, BUN/Creatinine Ratio 15.9, Glucose 89, Lactic Acid 1.4, Calcium 9.5 Assessment & Plan Assessment/Plan (1) Incarcerated left inguinal hernia: PLAN: The patient has left inguinal hernia which I was unable to reduce. I revi ewed the CT scan which is not officially read yet but it appears that there is a diverticulum from the sigmoid colon held within a inguinal or femoral hernia with a very small neck and the diverticulum does contain stool. It does not appear to be strangulated. Her white count and lactate are normal and it does not hurt unless I am really pushing on the trying to reduce it but I was unable to reduce it after trying twice. I would like to admit her and take her for surgery tomorrow. I discussed robotic assisted laparoscopic inguinal hernia repair with mesh. I discussed having to perform open if I am unable to reduce it in the OR or from inside. I also discussed having to resect bowel if there is any bowel but I do not think there is ischemia to the bowel as it is not very tender and it appears only be a diverticulum through a small neck. I discussed the risks of surgery such as bleeding, infection, injury to other organs such as the bowel, bladder, ureter or blood supply to the leg. Patient understands all the risks and is willing to proceed with surgery tomorrow. Arnaldo Su MD Pager: [facility] [address] [place] [address], [address] [place] [address] Office:
[2023-09-20 18:49] VITALS: BP 144/76; PULSE 81; RESP 16; TEMP 36.4; O2SAT 99
[2023-09-20 21:13] VITALS: BMI 22.1
[2023-09-20 21:25] VITALS: BP 146/73; PULSE 77; RESP 14; TEMP 36.6; O2SAT 100
[2023-09-20] MEDS: 0.9% Normal Saline (1000mL) 1,000 ML 100 ML IV (21:46)
[2023-09-21] VITALS (12 sets, daily range): BP systolic 117–156; BP diastolic 59–81; PULSE 73–99; RESP 16–20; TEMP 36.5–37; O2SAT 93–100; BMI 22.1
[2023-09-21] MEDS: 0.9% Normal Saline (1000mL) 1,000 ML 100 ML IV (06:03)
[2023-09-21] MEDS: Cefotetan 2 GM in 0.9% Normal Saline (100mL MB+) 100 ML IV (07:50)
[2023-09-21] MEDS: Bupivacaine 0.25% 30 ML Vial (09:06)
--- NOTE | 2023-09-21 09:10 | PCM.OPRPT ---
Report of Operation Date of Procedure: 09/21/23 Pre-Operative Diagnosis: Incarcerated left femoral hernia Post-Operative Diagnosis: Same Surgery/Procedure Performed:: Robotic assisted laparoscopic left femoral incarcerated hernia repair Type of Anesthesia: General/Regional Specimen's removed: 1. Left inguinal hernia sac 2. Pericolonic appendage Estimated Blood Loss (mL): 5 Description of Procedure: Patient was brought back to the operating room and general anesthesia was induced. The abdomen and groin were prepped and draped in usual sterile fashion. Next a midline incision was made superior to the umbilicus and the fascia was grasped and elevated. A Veress needle was placed into the abdomen and a drop test was performed. Next the abdomen was insufflated to 15 mmHg and then the Veress needle was removed and a port was placed. Camera was placed into the abdomen and there were no injuries from entry. The patient was placed in Trendelenburg position. I was unable to reduce the inflamed epiploic appendage from the hernia. Next under direct visualization right and left lateral 8 mm port were placed and then the robot was docked. I was still unable to reduce the fat and so an incision was made in the peritoneum and dissection was carried inferiorly until the hernia was identified. The anterior portion of the hernia was opened using scissors. This allowed for reduction of the contents. The epiploic appendage was necrotic. Next the hernia sac was dissected free and reduced. The hernia sac was necrotic as well and resected. The contents were removed as well. I decided not to place mesh due to the amount of inflammation. The hernia itself was closed with 2 interrupted 2-0 silk sutures to reapproximate the tissue. Next the peritoneum was reapproximated using a running 3 OV lock suture. The opening where the hernia sac was was also closed with a running 3 oh V-Loc suture. This completely covered the hernia area with peritoneum. Next the epiploic appendage was inspected. It was suture-ligated from the colon using a 2-0 silk suture. The colon appeared viable with no signs of ischemia. None of the colon was actually in the hernia only the fat. The right colon was inspected as well as there was question of colitis but the colon appeared normal from the outside. Next the camera was moved to the left lateral port and a bag was placed through the umbilicus port and the contents of the hernia and epiploic appendage were placed into the bag and removed. Next the robot was undocked and the ports were removed and the abdomen was allowed to desufflate. The incision sites were injected with local anesthetic and closed with interrupted 4-0 Monocryl suture. Steri-Strips and bandages were applied. Patient was awoken and taken to PACU in stable condition. Grafts/Implants Used: No mesh was used Admit VTE Documentation VTE Mechan Device Prophylaxis: SCD's
--- NOTE | 2023-09-21 12:38 | CASEMGMT ---
RN CM: This RN CM met with pt and pt's spouse at bedside. Pt awake, alert, but states she is not feeling well. Pt deferred assessment and review of VIRGEN form with her spouse. Pt's spouse James states pt is independent at baseline with ADLs and IADLs and denies any expected discharge needs at this time. Reviewed VIRGEN form with pt's spouse per pt's request who signed form. Original placed in chart and copy provided to pt's spouse. Glory Bradshaw RN [facility]
[2023-09-21] MEDS: Pantoprazole Sodium 20 MG Tablet PO (12:58)
[2023-09-21] MEDS: Dicyclomine 10 MG Capsule 20 MG PO (12:58)
[2023-09-21] MEDS: Piperacil/Tazobactam 3.375 GM in 0.9% Normal Saline (50mL MB+) 50 ML IV ×2 (14:03→21:23)
[2023-09-21] MEDS: Acetaminophen 325 MG Tablet 650 MG PO (16:23)
[2023-09-22 04:26] VITALS: BP 133/65; PULSE 74; RESP 20; TEMP 36.8; O2SAT 97
[2023-09-22] MEDS: Acetaminophen 325 MG Tablet 650 MG PO (04:30)
[2023-09-22] MEDS: Piperacil/Tazobactam 3.375 GM in 0.9% Normal Saline (50mL MB+) 50 ML IV (04:32)
[2023-09-22 07:58] VITALS: BP 134/68; PULSE 75; RESP 16; TEMP 36.7; O2SAT 97
--- NOTE | 2023-09-22 08:12 | PCM.PN.SRG ---
Subjective Subjective Patient reports she is doing well. She is still having some mild pain in the groin but she reports she is tolerating a diet with no issues. Objective Data Objective Data Vital Signs: Vital Signs Temp Pulse Resp BP Pulse Ox O2 Del Method O2 Flow Rate 98.0 F 75 16 134/68 H 97 Room Air 2 09/22/23 07:58 09/22/23 07:58 09/22/23 07:58 09/22/23 07:58 09/22/23 07:58 09/22/23 07:58 09/21/23 09:45 Oxygen Flow Rate (L/min) 2 Oxygen Delivery Method Room Air Weight: 130 lb 11.746 oz Body Mass Index (BMI) 22.1 Intake & Output: Intake and Output for Last 24 Hours 09/20/23 09/21/23 09/22/23 23:59 23:59 23:59 Intake Total 981.25 / 981.25 1760.00 / 1760.00 50 / 50 Output Total 1600 / 1600 Balance 981.25 / 981.25 160.00 / 160.00 50 / 50 Lab / Micro Data 09/20/23 16:07 09/20/23 16:07 Physical Exam Const oriented x3 and no apparent distress Resp normal respiratory effort GI soft to palpation and non-tender Assessment & Plan Assessment/Plan (1) Femoral hernia: QUALIFIERS: Obstruction and gangrene presence: without obstruction or gangrene Laterality: unilateral Recurrence: non-recurrent Qualified Code(s): K41.90 - Unilateral femoral hernia, without obstruction or gangrene, not specified as recurrent PLAN: Patient seems to be doing well after her left femoral hernia repair. She is still having some soreness in that area but I assured her that this would take some time to go away as there was necrosis of the hernia sac. I will discharge her home and she will follow-up with me. Arnaldo Su MD Pager: [facility] [address] [place] [address], [address] [place] [address] Office:
--- NOTE | 2023-09-22 08:13 | DS.PCM_ITS ---
Providers Date of Admission: 09/21/23 Primary Care Physician: Dr. Senthil Aguilar MD Reason For Visit: INCARCERATED LEFT INGUINAL HERNIA Diagnosis Discharge Diagnosis (1) Femoral hernia: Status: Acute Code(s): K41.90 - Unilateral femoral hernia, without obstruction or gangrene, not specified as recurrent Qualifiers: Obstruction and gangrene presence: without obstruction or gangrene Laterality: unilateral Recurrence: non-recurrent Qualified Code(s): K41.90 - Unilateral femoral hernia, without obstruction or gangrene, not specified as recurrent Plan: Patient seems to be doing well after her left femoral hernia repair. She is still having some soreness in that area but I assured her that this would take some time to go away as there was necrosis of the hernia sac. I will discharge her home and she will follow-up with me. Arnaldo Su MD Pager: [facility] [address] [place] [address], [address] [place] [phone] Office: Medications at Discharge Home Medications dicyclomine 20 mg PO DAILY PRN PRN IBS 09/20/23 pantoprazole 20 mg tablet,delayed release 20 mg PO DAILY GERD 09/20/23 acetaminophen 325 mg tablet 650 mg (2 x 325 mg) PO Q4H PRN PRN Pain 1-10 Or Fever #0 tabs 09/22/23 oxycodone 5 mg tablet 5 - 10 mg (1 - 2 x 5 mg) PO Q4H PRN PRN Pain Score 4-10 5 days #20 tabs 09/22/23 Hospital Course Operations None (Robotic assisted left femoral hernia repair) Summary of Care Provided Hospital Course: The patient was admitted with incarcerated left femoral hernia containing epiploic appendagitis. The patient had robotic assisted laparoscopic femoral hernia repair. Mesh was not placed due to the inflammation. The hernia sac was necrotic and was resected. The epiploic appendagitis was resected as well. Patient seemed to be doing well the next day and will be discharged home today. She will follow-up with me in 1 week. Weight / BMI Weight Weight: 130 lb 11.746 oz Body Mass Index (BMI) 22.1 ABG / Lab / Microbiology Data 09/20/23 16:07 09/20/23 16:07 D/C Instructions Discharge Diet: No restrictions Discharge Activity: May Drive (In 2 to 3 days and once off narcotics) and May Sh ower Lifting Restrictions: No lifting over 15 pounds for 4-6 weeks Call your doctor if your incision/area has: Continuous Slow Oozing, Sudden Increased Bleeding, Increased Pain/ Swelling, Increased Redness, Foul Smelling Discharge and Swelling at the incision site Call your doctor if you observe: Fever of 101 or Higher Remove Dressing in: 2 days (Remove clear dressing in 2 days, remove Steri-Strips in 7 to 10 days. May shower over both starting today) Cleanse incision/area with: Soap & Water Please Follow Up With: Arnaldo Su MD When: Please call to schedule 1 week follow up appointment. [phone] Meaningful Use Info Meaningful Use Diagnoses (Choose all that apply): None applicable Discharge Plan Admission Admit Date/Time: 09/21/23 18:24 Attending Provider: Arnaldo Su Primary Care Provider: Senthil Aguilar Instructions Additional Instructions / Restrictions: Alternate ibuprofen and Tylenol for pain, oxycodone for breakthrough. Discharge Orders/Prescriptions Prescriptions: New acetaminophen 325 mg Tablet 650 mg PO Q4H PRN PRN (Reason: Pain 1-10 Or Fever) Qty: 0 0RF oxycodone 5 mg Tablet 5 - 10 mg PO Q4H PRN PRN (Reason: Pain Score 4-10) 5 Days Qty: 20 0RF Continued pantoprazole 20 mg tablet,delayed release (DR/EC) 20 mg PO DAILY dicyclomine [Bentyl] 20 mg PO DAILY PRN PRN (Reason: IBS) Patient Comments: 1 CAPSULE Referrals / Follow Up: Senthil Aguilar MD [Primary Care Provider] - Disposition Disposition (needs filled in before D/C Order can be placed): Home, Self Care
--- NOTE | 2023-09-23 07:50 | HIP_PTH ---
PATIENT: COSME WRIGHT LOC: MS3 U#:[id number] AGE/SX: 73/F ROOM: [facility] [place] RE09/20/[address]: Dr. Arnaldo Su MD : [id number] BED: 1 DIS: 09/22/2023 SPEC #: [id number] RECD: 09/23/23 12:04 STATUS: ESPERANZA TEE #: [id number] JAYSON: 09/23/23 07:[address]: Aranldo Su DEPT: SURGICAL PATHOLOGY RECD BY: Glenna Ferrari ENTERED: 09/23/23 12:05 SP TYPE: TOTAL HIP OTHR DR: Dr. Senthil Aguilar MD Tissues: Hip, NOS Procedures: Surgery Specimen Level IV HEADER OPERATION: Lap robotic left incarcerated femoral hernia repair PRE-OP DIAGNOSIS: Incarcerated left femoral hernia TISSUE SUBMITTED: Left femoral hernia sac and epiploic fat MICROSCOPIC DIAGNOSIS Left femoral hernia sac and fat, excision: Fibrosis, granulation and focal acute inflammation. AM:ramo 09/25/2023 MICROSCOPIC DESCRIPTION Slides are reviewed. GROSS DESCRIPTION Received in fixative is one container labeled with the patient's name and designated left femoral hernia sac and epiploic fat. The specimen consists of multiple pieces of yellow adipose tissue that in aggregate measure 3.5 x 3.0 x 1.5 cm. No mass lesion is identified. Tractor [employer]ic Helper sections are submitted in one cassette. / SJ:ramo 09/23/2023 TC:2 CPT: 13732
== END 2023-09-22 09:25 | disposition home or self-care (01) | DRG 352 ==
LOC: ED 19:11 → MS3 19:39
PROVIDERS: Admitting Provider Surgery; Emergency Provider Emergency Medicine; PCP Family Medicine; Visit Provider Surgery
PROC: 0YQ64ZZ Repair Left Inguinal Region, Percutaneous Endoscopic Approach (ICD-10-PCS; CPT 49650; principal; 2023-09-21 07:30)
DX: K41.30 Unilateral femoral hernia, with obstruction, without gangrene, not specified as recurrent (principal); K21.9 Gastro-esophageal reflux disease without esophagitis; Z79.899 Other long term (current) drug therapy
CPT/HCPCS: 49650; S2900; 00830; 74177; 80048; 83605; 85025; 88305; 88311; 93005; 94668; 96361; 96365; 96366; 96375; 99221; 99284; J7030; Q9967; A4216; G0378; J2405

== ENCOUNTER → 2023-10-21 | Outpatient (CLI) | payer MEDICARE, SELFPAY ==
--- NOTE | 2023-10-21 13:50 | CT_ITS ---
STUDY: CT PELVIS WITH CONTRAST REASON FOR EXAM: Female, 73 years old. left groin pain RADIATION DOSAGE (If Supplied By Facility): CTDIvol = ( 27.75 ) mGy, DLP = ( 1015.49 ) mGycm TECHNIQUE: Transaxial imaging of the pelvis was performed without oral contrast. Oral and amp;amp; IV Gastrografin and amp;amp; 100mL Isovue-370 was administered intravenously. Individualized dose optimization techniques were used for this CT. COMPARISON: None. FINDINGS: Normal urinary bladder. Anteverted uterus. Normal visualized small intestine. Increased fecal debris within the colon suggestive of constipation, more obvious distally. The visualized appendix is normal in size. There is no pelvic fluid. There is no pelvic lymphadenopathy or mass lesion. Normal visualized pelvic arteries. Small left-sided fat-containing inguinal hernia. There are diffuse degenerative changes of the visualized lumbar spine. Possible mild osteopenia. CT/Pelvis WITH IV Contrast IMPRESSION: Small left-sided fat-containing inguinal hernia. Possible mild constipation. No acute appendicitis or bowel obstruction. Electronically Signed: Stefanie Leon MD at 16:45 EST ,
--- OUTSIDE RECORDS SUMMARY | 2023-10-21 14:43 | XMS RPT_ITS | CCD ---
Author Name Unknown Address [facility] [address] [place] [address] Organization [facility] Care Team Providers Care Appian Bpm Developer Name Role Phone Godfrey Aguilar MD Primary Care Provider GODFERY AGUILAR Primary Care Unavailable TARIQ, GODFREY Sullivan Attending Unavailable TARIQ, GODFREY Sullivan Primary Care Unavailable TARIQ, GODFREY Sullivan Referring Unavailable TARIQ, GODFREY Sullivan Primary Care Unavailable TARIQ, GODFREY Sullivan Attending Unavailable CATHERINE AGUAYO Attending Unavailable TARIQ, GODFREY Sullivan Primary Care Unavailable ATRIQ, GODFREY Sullivan Attending Unavailable TARIQ, GODFREY Sullivan Primary Care Unavailable TARIQ, GODFREY Sullivan Primary Care Unavailable MARYAN HUMPHREY Attending Unavailable TARIQ, GODFREY Sullivan Primary Care Unavailable TARIQ, GODFREY Sullivan Attending Unavailable TARIQ, GODFREY Sullivan Primary Care Unavailable TARIQ, GODFREY Sullivan Referring Unavailable TARIQ, GODFREY Sullivan Primary Care Unavailable TARIQ, GODFREY Sullivan Referring Unavailable TARIQ, GODFREY Sullivan Primary Care Unavailable TARIQ, GODFREY Sullivan Attending Unavailable TARIQ, GODFREY Sullivan Primary Care Unavailable TARIQ, GODFREY Sullivan Primary Care Unavailable TARIQ, GODFREY Sullivan Referring Unavailable TARIQ, GODFREY Sullivan Primary Care Unavailable TARIQ, GODFREY Sullivan Referring Unavailable TARIQ, GODFREY Sullivan Primary Care Unavailable TARIQ, GODFREY Sullivan Referring Unavailable Allergies Allergy Classification Reported Allergen(s) Allergy Type Date of Onset Reaction(s) Facility Quinolones (antibiotic) (2 sources) levoFLOXacin Drug Allergy 7 Other (See Comments) [facility] (20 sources) Amitriptyline; Translations: [AMITRIPTYLINE] Drug Allergy 2 Other: See Comments [facility] (20 sources) cefdinir; Translations: [CEFDINIR] Drug Allergy 2 Other: See Comments [facility] (20 sources) Ciprofloxacin; Translations: [CIPROFLOXACIN] Drug Allergy 6 Swelling [facility] (20 sources) Doxycycline; Translations: [DOXYCYCLINE] Drug Allergy 2 Other: See Comments [facility] (20 sources) Hydrocortisone; Translations: [HYDROCORTISONE] Drug Allergy 2 Unknown [facility] (20 sources) levoFLOXacin; Translations: [LEVOFLOXACIN] Drug Allergy 7 Other: See Comments [facility] (20 sources) environmental [Other] Propensity to adverse reactions 6 Itching [facility] Work Phone: (1 source) OTHER; Translations: [OTHER] Propensity to adverse reactions (disorder) 6 [facility] Repository NEGATED: Highlighted row has been ruled out!Unclassified (2 sources) Other Propensity to adverse reactions 1 [facility] Medications Current Medications Medication Drug Class(es) Dates Sig (Normalized) Sig (Original) acetaminophen 325 mg / HYDROcodone bitartrate 5 mg oral tablet (1 source) Opioid Agonist Start: 03-10-2021 End: 03-15-2021 take 1 tablet by mouth every eight hours as needed for pain HYDROcodone-acet aminophen (NORCO) 5-325 MG per tablet Indications: De Quervain's tenosynovitis, left , Post-op pain Take 1 tablet by mouth every 8 hours as needed for Pain for up to 5 days. 15 tablet 0 03/10/2021 03/15/2021 Active ALPRAZolam 0.25 mg disintegrating oral tablet (1 source) Benzodiazepine Start: 03-10-2021 ALPRAZolam (NIRAVAM) dissolvable tablet 0.25 mg amoxicillin 875 mg / clavulanate 125 mg oral tablet (3 sources) Penicillin-class Antibacterial Start: 05-25-2023 End: 06-01-2023 take 1 tablet by mouth twice daily amoxicillin-clav ulanic acid (AUGMENTIN) 875-125 mg per tablet Take 1 tablet by mouth twice daily for 7 days. 14 tablet 0 05/25/2023 06/01/2023 Active Completed/Discontinued Medications Medication Drug Class(es) Dates Sig (Normalized) Sig (Original) acetaminophen 500 mg oral tablet (1 source) Start: 03-10-2021 End: 03-10-2021 acetaminophen (TYLENOL) tablet 1,000 mg Problems Active Problems Problem Classification Problem Date Documented Da te Episodic/Chronic Abdominal pain (2 sources) Abdominal pain; Translations: [Unspecified abdominal pain] Onset: 08-26-2023 09-11-2023 Episodic Acquired foot deformities (2 sources) Acquired hallux valgus; Translations: [Hallux valgus (acquired), unspecified foot] Chronic Disorders of lipid metabolism (2 sources) Mixed hyperlipidemia; Translations: [Mixed hyperlipidemia] Onset: 05-31-2023 05-31-2023 Chronic Genitourinary symptoms and ill-defined conditions (1 source) Asymptomatic microscopic hematuria; Translations: [Asymptomatic microscopic hematuria] Episodic Immunizations and screening for infectious disease (1 source) Contact with or exposure to other viral diseases; Translations: [Close exposure to COVID-19 virus] Episodic Inflammatory diseases of female pelvic organs (1 source) Chronic vaginitis; Translations: [Subacute and chronic vaginitis] Episodic Malaise and fatigue (1 source) Fatigue; Translations: [Other fatigue] Episodic Menopausal disorders (3 sources) Atrophy of vagina; Translations: [Postmenopausal atrophic vaginitis] Chronic Nonmalignant breast conditions (20 sources) Fibrocystic disease of breast; Translations: [Diffuse cystic mastopathy of unspecified breast] Onset: 12-03-2005 12-03-2005 Chronic Nutritional deficiencies (1 source) Vitamin D deficiency; Translations: [Vitamin D deficiency, unspecified] Chronic Osteoporosis (20 sources) Senile osteoporosis; Translations: [Age-related osteoporosis without current pathological fracture] Onset: 08-18-2009 Chronic Other connective tissue disease (3 sources) Tenosynovitis of left radial styloid; Translations: [Radial styloid tenosynovitis [de Quervain]] Onset: 01-05-2021 01-05-2021 Episodic Other connective tissue disease (1 source) Dysfunction of posterior tibial tendon; Translations: [Posterior tibial tendinitis, unspecified leg] Episodic Other female genital disorders (2 sources) Vaginal irritation; Translations: [Other specified noninflammatory disorders of vagina] Episodic Other female genital disorders (2 sources) Vaginal discharge; Translations: [Other specified noninflammatory disorders of vagina] Episodic Other female genital disorders (1 source) Vaginal odor; Translations: [Other specified noninflammatory disorders of vagina] Episodic Other gastrointestinal disorders (20 sources) Irritable bowel syndrome; Translations: [Irritable bowel syndrome without diarrhea] 11-05-2008 Chronic Other gastrointestinal disorders (2 sources) Groin mass; Translations: [Other intra-abdominal and pelvic swelling, mass and lump] 05-31-2023 Episodic Other lower respiratory disease (1 source) Cough; Translations: [Cough] Episodic Other nervous system disorders (1 source) Postoperative pain ; Translations: [Other acute postprocedural pain] Episodic Other nutritional; endocrine; and metabolic disorders (1 source) Weight loss; Translations: [Abnormal weight loss] Episodic Other upper respiratory disease (20 sources) Allergic rhinitis; Translations: [Allergic rhinitis, unspecified] Onset: 07-21-2015 10-29-2019 Chronic Other upper respiratory disease (1 source) Chronic rhinitis; Translations: [Unspecified sinusitis (chronic)] 05-25-2023 Chronic Other upper respiratory infections (1 source) Sore throat symptom; Translations: [Acute pharyngitis, unspecified] Episodic Otitis media and related conditions (1 source) Acute left otitis media; Translations: [Otitis media, unspecified, left ear] 05-25-2023 Episodic Pancreatic disorders (not diabetes) (4 sources) Cyst of pancreas; Translations: [Cyst of pancreas] Episodic Residual codes; unclassified (1 source) Family history of neurological disorder; Translations: [Family history of epilepsy and other diseases of the nervous system] Episodic Residual codes; unclassified (1 source) Procedure not done; Translations: [Procedure and treatment not carried out due to patient leaving prior to being seen by health care provider] Episodic Residual codes; unclassified (1 source) Asymptomatic menopausal state; Translations: [Postmenopausal state] Onset: 10-14-2023 Episodic Spondylosis; intervertebral disc disorders; other back problems (1 source) Degeneration of cervical intervertebral disc; Translations: [Other cervical disc degeneration, unspecified cervical region] Chronic Urinary tract infections (20 sources) Chronic interstitial cystitis; Translations: [Interstitial cystitis (chronic) without hematuria] Onset: 02-02-2008 Chronic Viral infection (2 sources) Disease caused by 2019-nCoV; Translations: [COVID-19] Episodic Past or Other Problems Problem Classification Problem Date Documented Da te Episodic/Chronic Lymphadenitis (3 sources) Lymphadenopathy; Translations: [Enlarged lymph nodes, unspecified] Onset: 03-06-2023 Episodic Neoplasms of unspecified nature or uncertain behavior (20 sources) Benign neoplasm of pancreas; Translations: [Neoplasm of unspecified behavior of digestive system] Onset: 10-29-2019 Episodic Other gastrointestinal disorders (1 source) Other intra-abdominal and pelvic swelling, mass and lump; Translations: [Groin lump] Onset: 05-31-2023 Episodic Other hematologic conditions (1 source) Secondary polycythemia; Translations: [Polycythemia] Onset: 07-05-2023 Episodic Other screening for suspected conditions (not mental disorders or infectious disease) (20 sources) Patient encounter status; Translations: [Encounter for screening mammogram for malignant neoplasm of breast] Onset: 03-19-2022 Episodic Residual codes; unclassified (20 sources) Family history of amyotrophic lateral sclerosis; Translations: [Family history of epilepsy and other diseases of the nervous system] Onset: 03-19-2022 Episodic Spondylosis; intervertebral disc disorders; other back problems (20 sources) Chronic thoracic back pain; Translations: [Pain in thoracic spine] Onset: 07-22-2015 Episodic Results Test Name Value Interpretation Reference Range Facil ity Vital Signs Date Time Vital Sign Value Performing Clinician Facility 09-20-2023 14:44-0500 Body height 163.8 cm Godfrey Aguilar MD Work Phone: [facility] 09-20-2023 14:44-0500 Body temperature 98.29 [degF] Godfrey Aguilar MD Work Phone: [facility] 09-20-2023 14:44-0500 Body weight 59.78 kg Godfrey Aguilar MD Work Phone: [facility] 09-20-2023 14:44-0500 Diastolic blood pressure 66 mm[Hg] Godfrey Aguilar MD Work Phone: [facility] 09-20-2023 14:44-0500 Heart rate 89 /min Godfrey Aguilar MD Work Phone: [facility] 09-20-2023 14:44-0500 SaO2% (BldA) [Mass fraction] 97 % Godfrey Aguilar MD Work Phone: [facility] 09-20-2023 14:44-0500 Systolic blood pressure 122 mm[Hg] Godfrey Aguilar MD Work Phone: [facility] 05-31-2023 09:46-0400 Body weight 59.42 kg Godfrey Aguilar MD Work Phone: [facility] 05-31-2023 09:46-0400 Diastolic blood pressure 66 mm[Hg] Godfrey Aguilar MD Work Phone: [facility] 05-31-2023 09:46-0400 Respiratory rate 16 /min Godfrey Aguilar MD Work Phone: [facility] 05-31-2023 09:46-0400 SaO2% (BldA) [Mass fraction] 98 % Godfrey Aguilar MD Work Phone: [facility] 05-31-2023 09:46-0400 Systolic blood pressure 118 mm[Hg] Godfrey Aguilar MD Work Phone: [facility] 05-25-2023 13:01-0400 Body temperature 97.9 [degF] Tawana Thompson APPLICATION INFRASTRUCTURE ENGINEER.SALES ENABLEMENT CONSULTANT Work Phone: [facility] 05-25-2023 13:01-0400 Body weight 58.97 kg Tawana Thompson APPLICATION INFRASTRUCTURE ENGINEER.SALES ENABLEMENT CONSULTANT Work Phone: [facility] 05-25-2023 13:01-0400 Diastolic blood pressure 68 mm[Hg] Tawana Thompson APPLICATION INFRASTRUCTURE ENGINEER.SALES ENABLEMENT CONSULTANT Work Phone: [facility] 05-25-2023 13:01-0400 Heart rate 84 /min Tawana Thompson APPLICATION INFRASTRUCTURE ENGINEER.SALES ENABLEMENT CONSULTANT Work Phone: [facility] 05-25-2023 13:01-0400 Respiratory rate 16 /min Tawana Thompson APPLICATION INFRASTRUCTURE ENGINEER.SALES ENABLEMENT CONSULTANT Work Phone: [facility] 05-25-2023 13:01-0400 SaO2% (BldA) [Mass fraction] 95 % Tawana Thompson APPLICATION INFRASTRUCTURE ENGINEER.SALES ENABLEMENT CONSULTANT Work Phone: [facility] 05-25-2023 13:01-0400 Systolic blood pressure 122 mm[Hg] Tawana Thompson APPLICATION INFRASTRUCTURE ENGINEER.SALES ENABLEMENT CONSULTANT Work Phone: [facility] 03-06-2023 14:22-0400 Diastolic blood pressure 78 mm[Hg] Maryan Humphrey APPLICATION INFRASTRUCTURE ENGINEER.SALES ENABLEMENT CONSULTANT Work Phone: [facility] 03-06-2023 14:22-0400 Heart rate 86 /min Maryan Humphrey APPLICATION INFRASTRUCTURE ENGINEER.SALES ENABLEMENT CONSULTANT Work Phone: [facility] 03-06-2023 14:22-0400 Respiratory rate 16 /min Maryan Humphrey APPLICATION INFRASTRUCTURE ENGINEER.SALES ENABLEMENT CONSULTANT Work Phone: [facility] 03-06-2023 14:22-0400 SaO2% (BldA) [Mass fraction] 95 % Maryan Haagen APPLICATION INFRASTRUCTURE ENGINEER.SALES ENABLEMENT CONSULTANT Work Phone: [facility] 03-06-2023 14:22-0400 Systolic blood pressure 122 mm[Hg] Maryan Humphrey APPLICATION INFRASTRUCTURE ENGINEER.SALES ENABLEMENT CONSULTANT Work Phone: [facility] 01-23-2023 13:51-0400 Body weight 58.97 kg Godfrey Aguilar MD Work Phone: [facility] 01-23-2023 13:51-0400 Diastolic blood pressure 62 mm[Hg] Godfrey Aguilar MD Work Phone: [facility] 01-23-2023 13:51-0400 Heart rate 84 /min Godfrey Aguilar MD Work Phone: [facility] 01-23-2023 13:51-0400 SaO2% (BldA) [Mass fraction] 97 % Godfrey Aguilar MD Work Phone: [facility] 01-23-2023 13:51-0400 Systolic blood pressure 130 mm[Hg] Godfrey Aguilar MD Work Phone: [facility] 06-19-2022 15:27-0400 Body weight 58.06 kg Christal Rider APPLICATION INFRASTRUCTURE ENGINEER.CNM Work Phone: [facility] 06-19-2022 15:27-0400 Diastolic blood pressure 70 mm[Hg] Christal Rider APPLICATION INFRASTRUCTURE ENGINEER.CNM Work Phone: [facility] 06-19-2022 15:27-0400 Systolic blood pressure 122 mm[Hg] Christal Rider APPLICATION INFRASTRUCTURE ENGINEER.CNM Work Phone: [facility] 06-08-2022 13:40-0400 Body weight 58.51 kg Disha Treviño MD Work Phone: [facility] 06-08-2022 13:40-0400 Diastolic blood pressure 62 mm[Hg] Disha Treviño MD Work Phone: [facility] 06-08-2022 13:40-0400 Systolic blood pressure 112 mm[Hg] Disha Treviño MD Work Phone: [facility] 05-25-2022 09:42-0400 Body weight 59.42 kg Maryan Haagen APPLICATION INFRASTRUCTURE ENGINEER.SALES ENABLEMENT CONSULTANT Work Phone: [facility] 05-25-2022 09:42-0400 Diastolic blood pressure 78 mm[Hg] Maryan Haagen APPLICATION INFRASTRUCTURE ENGINEER.SALES ENABLEMENT CONSULTANT Work Phone: [facility] 05-25-2022 09:42-0400 Heart rate 75 /min Amryan Haagen APPLICATION INFRASTRUCTURE ENGINEER.SALES ENABLEMENT CONSULTANT Work Phone: [facility] 05-25-2022 09:42-0400 Respiratory rate 18 /min Maryan Haagen APPLICATION INFRASTRUCTURE ENGINEER.SALES ENABLEMENT CONSULTANT Work Phone: [facility] 05-25-2022 09:42-0400 SaO2% (BldA) [Mass fraction] 96 % Maryan Haagen APPLICATION INFRASTRUCTURE ENGINEER.SALES ENABLEMENT CONSULTANT Work Phone: [facility] 05-25-2022 09:42-0400 Systolic blood pressure 124 mm[Hg] Maryan Haagen APPLICATION INFRASTRUCTURE ENGINEER.SALES ENABLEMENT CONSULTANT Work Phone: [facility] 2022 13:34-0400 Body weight 58.97 kg Christal Plotts APPLICATION INFRASTRUCTURE ENGINEER.CNM Work Phone: [facility] 2022 13:34-0400 Diastolic blood pressure 64 mm[Hg] Christal Plotts APPLICATION INFRASTRUCTURE ENGINEER.CNM Work Phone: [facility] 2022 13:34-0400 Systolic blood pressure 126 mm[Hg] Christal Plotts APPLICATION INFRASTRUCTURE ENGINEER.CNM Work Phone: [facility] 04-18-2022 13:09-0400 Body weight 59.15 kg Christal Toledoconcepcion APPLICATION INFRASTRUCTURE ENGINEER.CNM Work Phone: [facility] 04-18-2022 13:09-0400 Diastolic blood pressure 60 mm[Hg] Christal Toledoconcepcion APPLICATION INFRASTRUCTURE ENGINEER.CNM Work Phone: [facility] 04-18-2022 13:09-0400 Systolic blood pressure 102 mm[Hg] Christal Toledoconcepcion APPLICATION INFRASTRUCTURE ENGINEER.CNM Work Phone: [facility] 03-19-2022 10:38-0400 Body height 164 cm Maryan Hacarolina APPLICATION INFRASTRUCTURE ENGINEER.SALES ENABLEMENT CONSULTANT Work Phone: [facility] 03-19-2022 10:38-0400 Body weight 57.61 kg Maryan Humphrey APPLICATION INFRASTRUCTURE ENGINEER.SALES ENABLEMENT CONSULTANT Work Phone: [facility] 03-19-2022 10:38-0400 Diastolic blood pressure 78 mm[Hg] Maryan Humphrey APPLICATION INFRASTRUCTURE ENGINEER.SALES ENABLEMENT CONSULTANT Work Phone: [facility] 03-19-2022 10:38-0400 Heart rate 82 /min Maryan Humphrey APPLICATION INFRASTRUCTURE ENGINEER.SALES ENABLEMENT CONSULTANT Work Phone: [facility] 03-19-2022 10:38-0400 Respiratory rate 18 /min Maryan Humphrey APPLICATION INFRASTRUCTURE ENGINEER.SALES ENABLEMENT CONSULTANT Work Phone: [facility] 03-19-2022 10:38-0400 SaO2% (BldA) [Mass fraction] 97 % Maryan Humphrey APPLICATION INFRASTRUCTURE ENGINEER.SALES ENABLEMENT CONSULTANT Work Phone: [facility] 03-19-2022 10:38-0400 Systolic blood pressure 116 mm[Hg] Maryan Humphrey APPLICATION INFRASTRUCTURE ENGINEER.SALES ENABLEMENT CONSULTANT Work Phone: [facility] 03-06-2022 17:27-0400 Body temperature 100.09 [degF] Jossy Treviño APPLICATION INFRASTRUCTURE ENGINEER.SALES ENABLEMENT CONSULTANT Work Phone: [facility] 03-06-2022 17:27-0400 Body weight 57.97 kg Jossy Treviño APPLICATION INFRASTRUCTURE ENGINEER.SALES ENABLEMENT CONSULTANT Work Phone: [facility] 03-06-2022 17:27-0400 Diastolic blood pressure 82 mm[Hg] Jossy Treviño APRN.SALES ENABLEMENT CONSULTANT Work Phone: [facility] 03-06-2022 17:27-0400 Heart rate 101 /min Jossy Treviño APRN.SALES ENABLEMENT CONSULTANT Work Phone: [facility] 03-06-2022 17:27-0400 Respiratory rate 18 /min Jossy Treviño APRN.SALES ENABLEMENT CONSULTANT Work Phone: [facility] 03-06-2022 17:27-0400 SaO2% (BldA) [Mass fraction] 96 % Jossy Treviño APRN.SALES ENABLEMENT CONSULTANT Work Phone: [facility] 03-06-2022 17:27-0400 Systolic blood pressure 132 mm[Hg] Jossy Treviño APRN.SALES ENABLEMENT CONSULTANT Work Phone: [facility] 01-04-2022 09:37-0400 Body weight 60.78 kg Godfrey Aguilar MD Work Phone: [facility] 01-04-2022 09:37-0400 Diastolic blood pressure 78 mm[Hg] Godfrey Aguilar MD Work Phone: [facility] 01-04-2022 09:37-0400 Heart rate 76 /min Godfrey Aguilar MD Work Phone: [facility] 01-04-2022 09:37-0400 Systolic blood pressure 122 mm[Hg] Godfrey Aguilar MD Work Phone: [facility] 03-10-2021 08:21-0400 Diastolic blood pressure 69 mm[Hg] Americo Campa MD [facility] Work Phone: 03-10-2021 08:21-0400 Heart rate 80 /min Americo Campa MD Work Phone: [facility] Work Phone: 03-10-2021 08:21-0400 Respiratory rate 20 /min Americo Campa MD Work Phone: [facility] Work Phone: 03-10-2021 08:21-0400 SaO2% (BldA) [Mass fraction] 100 % Americo Campa MD Work Phone: [facility] Work Phone: 03-10-2021 08:21-0400 Systolic blood pressure 119 mm[Hg] Americo Campa MD Work Phone: [facility] Work Phone: 03-10-2021 08:15-0400 Body temperature 97.39 [degF] Americo Campa MD Work Phone: [facility] Work Phone: 03-10-2021 06:42-0400 Body height 163.8 cm Americo Campa MD Work Phone: [facility] Work Phone: 03-10-2021 06:27-0400 Body mass index (BMI) [Ratio] 21.97 kg/m2 Americo Campa MD Work Phone: [facility] Work Phone: 03-10-2021 06:27-0400 Body weight 58.97 kg Americo Campa MD Work Phone: [facility] Work Phone: 03-07-2021 14:14-0400 Body height 163.8 cm Americo Campa MD Work Phone: [facility] Work Phone: 03-07-2021 14:14-0400 Body mass index (BMI) [Ratio] 22.14 kg/m2 Americo Campa MD Work Phone: [facility] Work Phone: 03-07-2021 14:14-0400 Body weight 59.42 kg Americo Campa MD Work Phone: [facility] Work Phone: 03-07-2021 14:14-0400 Respiratory rate 16 /min Americo Campa MD Work Phone: [facility] Work Phone: Encounters Encounter Date Encounter Type Care Provider Facility Start: 10-14-2023 End: 10-14-2023 ambulatory GODFREY AGUILAR Facility:[facility] Start: 09-20-2023 End: 09-20-2023 ambulatory GODFREY AGUILAR Facility:[facility] Start: 09-20-2023 End: 09-20-2023 Patient encounter procedure Godfrey Aguilar MD Work Phone: [facility] Procedures Date Procedure Procedure Detail Performing Clinician Start: 06-20-2023 Lipid 1996 panel - S lesley or Plasma Godfrey Aguilar MD Work Phone: Start: 06-04-2022 Mammography Godfrey Amrbosio MD Work Phone: Start: 2022 Urnls dip stick/tabl et rgnt auto w/o microscopy Christal Rider APPLICATION INFRASTRUCTURE ENGINEER.CNM Work Phone: Start: 04-18-2022 Urnls dip stick/tabl et rgnt auto w/o microscopy Christal Rider APPLICATION INFRASTRUCTURE ENGINEER.CNM Work Phone: Start: 04-10-2022 MRI 3D POST PROCESSING Godfrey Aguilar MD Work Phone: Start: 04-10-2022 Mri abdomen w/o & w/contrast material Godfrey Aguilar MD Work Phone: Start: 03-19-2022 Adult depression scr eening assessment Maryan Humphrey APPLICATION INFRASTRUCTURE ENGINEER.SALES ENABLEMENT CONSULTANT Work Phone: Start: 03-06-2022 STREP A MOLECULAR (POC) Jossy Treviño APPLICATION INFRASTRUCTURE ENGINEER.SALES ENABLEMENT CONSULTANT Work Phone: Start: 05-31-2021 Mammography Godfrey Ambrosio MD Work Phone: Start: 04-18-2021 Colonoscopy Godfrey Ambrosio MD Work Phone: Start: 03-10-2021 OPERATIVE REPORT 3m Sca nning Start: 03-07-2021 Basic metabolic pane l calcium total Jostin Jerry Henderson MD Work Phone: Start: 03-07-2021 Ecg routine ecg w/le ast 12 lds w/i&r Jostinsagrario Henderson MD Work Phone: Start: 12-07-2020 Adult depression scr eening assessment Godfrey Aguilar MD Work Phone: Plan of Treatment Date Care Activity Detail Author Start: 06-20-2028 Lipid 1996 panel - S lesley or Plasma Lipid Screening [facility] Start: 06-20-2028 Lipid panel Lipid Screening [facility] Start: 06-20-2027 LIPID SCREEN LIPID SCREEN [facility] Start: 08-26-2026 Diabetes Screening Diabetes Screenin g [facility] Start: 06-09-2026 LIPID SCREEN LIPID SCREEN [facility] Start: 04-18-2026 Colonoscopy COLONOSCOPY [facility] Start: 04-18-2026 COLORECTAL CANCER SCREENING COLORECTAL CANCER SCREENING [facility] Start: 04-18-2026 Screening for malign ant neoplasm of colon [facility] Start: 06-20-2025 DIABETES SCREEN DIABETES SCREEN [facility] Start: 01-10-2025 DIABET[facility] SCREEN [facility] Start: 09-06-2024 DIABETES SCREEN [facility] Start: 05-31-2024 COVID-19 VACCINE (5 - Moderna series) COVID-19 VACCINE (5 - Moderna series) [facility] Immunizations Immunization Date Immunization Notes Care Provider Nguyen winter 08-03-2023 respiratory syncytia l virus (RSV) vaccine, bivalent (ABRYSVO) Godfrey Aguilar MD Work Phone: [facility] 07-26-2023 COVID-19 original vaccine, booster dose, monovalent (MODERNA) Godfrey Aguilar MD Work Phone: [facility] 07-24-2023 influenza virus vacc ine, unspecified formulation Godfrey Aguilar MD Work Phone: [facility] 07-07-2021 influenza virus vacc ine, unspecified formulation Godfrey Aguilar MD Work Phone: [facility] 12-20-2020 COVID-19 vaccine, fu ll dose (MODERNA) Godfrey Aguilar MD Work Phone: [facility] Work Phone: 11-26-2020 COVID-19 vaccine, fu ll dose (MODERNA) Godfrey Aguilar MD Work Phone: [facility] 10-03-2020 zoster vaccine recombinant Godfrey Aguilar MD Work Phone: [facility] 08-03-2020 zoster vaccine recombinant Godfrey Aguilar MD Work Phone: [facility] 07-01-2020 influenza, high dose seasonal, preservative-free Godfrey Aguilar MD Work Phone: [facility] 06-15-2020 zoster vaccine recombinant Godfrey Aguilar MD Work Phone: [facility] 07-07-2018 influenza virus vacc ine, unspecified formulation Godfrey Aguilar MD Work Phone: [facility] 07-22-2017 influenza, high dose seasonal, preservative-free Godfrey Aguilar MD Work Phone: [facility] 09-16-2016 pneumococcal conjuga te vaccine, 13 valent Godfrey Aguilar MD Work Phone: [facility] Work Phone: 07-18-2016 influenza, high dose seasonal, preservative-free Godfrey Aguilar MD Work Phone: [facility] 07-30-2015 influenza, high dose seasonal, preservative-free Godfrey Aguilar MD Work Phone: [facility] 04-22-2015 zoster vaccine, live Godfrey Aguilar MD Work Phone: [facility] 10-24-2014 TD(adult) unspecifie d formulation Godfrey Aguilar MD Work Phone: [facility] 10-24-2014 tetanus and diphther ia toxoids, adsorbed, preservative free, for adult use (2 Lf of tetanus toxoid and 2 Lf of diphtheria toxoid) Godfrey Aguilar MD Work Phone: [facility] 07-19-2014 influenza, seasonal, injectable Godfrey Aguilar MD Work Phone: [facility] 08-06-2013 pneumococcal polysaccharide vaccine, 23 valent Godfrey Aguilar MD Work Phone: [facility] 07-26-2009 influenza virus vacc ine, unspecified formulation Godfrey Aguilar MD Work Phone: [facility] 08-12-2008 influenza virus vacc ine, unspecified formulation Godfrey Aguilar MD Work Phone: [facility] Payers Date Payer Category Payer Medicare [id number] 2014 Unknown ANTHEM BLUE CROS S AND BLUE SHIELD ANTHEM MEDIBLUE ACCESS [id number] 2014-Present [phone] [id number] [place] [id number] PPO [id number] 2014 Unknown ANTHEM BLUE CROS S AND BLUE SHIELD ANTHEM MEDIBLUE ACCESS [id number] 2014-Present [phone] [id number] [place] [phone] PPO [id number] Social History Date Type Detail Facility Start: 03-07-2021 End: 05-25-2022 Tobacco smoking status NHIS Never smoker [facility] Start: 03-07-2021 End: 05-25-2022 Tobacco use and exposure Never used [facility] Start: 03-07-2021 End: 09-20-2023 Alcohol intake Current drinker of alcohol (finding) [facility] Work Phone: Start: 1950 Sex Assigned At Not on file [facility] Work Phone: Start: 12-25-2021 End: 06-19-2022 Exposure to SARS-CoV-2 (event) Not sure [facility] Start: 03-10-2021 Alcohol Comment social [facility] Work Phone: Start: 01-04-2022 End: 03-01-2023 Alcohol intake [facility] Start: 07-10-2020 End: 09-10-2022 History SDOH Alcohol Frequency 3 [facility] Start: 10-29-2019 End: 03-19-2022 History SDOH Alcohol Std Drinks 1 [facility] Start: 06-13-2012 History SDOH Alcohol Comment Occasional. [facility] Start: 03-06-2020 End: 09-10-2022 History SDOH Social Connections Phone 2 [facility] Start: 10-28-2019 End: 03-06-2020 History SDOH Social Connections Get Together 98 [facility] Start: 10-28-2019 History SDOH Financial 5 [facility] Start: 07-10-2020 Education 12 [facility] Start: 05-16-2017 End: 05-25-2022 Tobacco Comment Father smoked in childhood home. No other household ETS since. [facility] Start: 1950 Sex Assigned At Female [facility] Start: 09-09-2022 End: 03-01-2023 Social connection and isolation panel [facility] Frequency of Communication with Friends and Family Not on file [facility] Are you now , , , , never or living with a partner? [facility] How often to you hav e a drink containing alcohol? 2-4 times a month [facility] Do you feel stress - tense, restless, nervous, or anxious, or unable to sleep at night because your mind is troubled all the time - these days [OSQ] Only a little [facility] (I/We) worried wheth er (my/our) food would run out before (I/we) got money to buy more. Never true [facility] In the past 12 month s, was there a time when you were not able to pay the mortgage or rent on time? No [facility] Start: 08-23-2019 Gender identity Identifies as female gender (finding) [facility] Start: 10-28-2019 Sexual orientation Heterosexual (finding) [facility] How often to you hav e a drink containing alcohol? 2-3 time sa week [facility] How many standard dr inks containing alcohol do you have on a typical day? 1 or 2 [facility] How often do you hav e 6 or more drinks on 1 occasion? Never [facility] Do you feel stress - tense, restless, nervous, or anxious, or unable to sleep at night because your mind is troubled all the time - these days [OSQ] Not at all [facility] Clinical Notes 11-17-2020 to 10-14-2023 Godfrey Aguilar MD - 09/20/2023 2:44 PM Tova Fleming RT(R) - 09/11/2023 9:20 AM Godfrey Garber MD - 05/31/2023 9:59 AM Tawana Roman APRN.[facility] - 05/25/2023 1:05 PM EDT Note Date & Type Note Facility 10-14-2023 Note HNO ID: [id number] Author: CONCHIS GEORGES RT(Amrik) Service: ? Author Type: Technologist Type: Progress Notes Filed: 10/14/2023 09:14 Note Text: Radiology Service Progress Note PATIENT NAME: Shani Wright DATE OF SERVICE: October 14, 2023 TIME: 9:04 AM PATIENT IDENTITY VERIFICATION COMPLETED USING TWO (2) IDENTIFIERS: Name and Date of confirmed by patient verbally. FALL SCREENING: Has the patient had 2 falls in the last year or 1 fall with injury or currently using an Ambulatory Assistive Device (Walker, Cane, Wheelchair, Crutches, etc.)? No PATIENT GENDER DATA: Female. status: : No status: NO. PATIENT RELEVANT IMPLANT DATA REVIEWED: Not Applicable RADIOLOGY DEPARTMENT: Bone Density PERIPHERAL IV DATA: Not applicable SIGNED BY: RT Mckinley(R) October 14, 2023 9:04 AM [facility] 09-20-2023 Note HNO ID: [id number] Author: Godfrey Aguilar MD Service: ? Author Type: Physician Type: Progress Notes Filed: 09/20/2023 5:32 PM Note Text: Patient presents with: Abdominal Pain HPI: Patient presents today for office visit for lump in left lower abdomen /groin with pain is different from her last discomfort. We had recently done a normal ct scan for that. Noticed about one week ago. Can't really describe the pain. Comes and goes. Sometimes bothers her when she's walking or just sitting. Lump is tender to touch. No redness or warmth to abdomen. Denies nausea and vomiting. No fever. No bowels changes including diarrhea or constipation. No urinary symptoms. Today has noticed that the pain sometimes radiates to the right side. No lump on right side. The radiating of pain is sporadic. Today also has noticed the lump on left side seems larger than one week ago. See previous ct on 09/11: RESULT: Liver: No mass. Normal morphology. Biliary: No bile duct dilation. Spleen: No mass. No splenomegaly. Pancreas: No mass or duct dilation. Subcentimeter cystic lesions in the pancreas described on the prior MRI are not as well visualized by CT. Adrenals: No mass. Kidneys: No mass, calculus or hydronephrosis. GI tract: No dilation or wall thickening. Lymph nodes: No abdominal or pelvic lymphadenopathy. Mesentery/Peritoneum: No ascites or mass. Retroperitoneum: No mass. Vasculature: - Abdominal aorta and iliac arteries: Atherosclerotic calcifications without aneurysm. - Celiac and SMA: Patent without stenosis. - Portal venous system (SMV, splenic vein, portal vein and branches): Patent. - Hepatic veins: Patent. Pelvis: No mass, ascites or fluid collection. The bladder has a normal appearance. Bones/Soft Tissues: Degenerative changes. Lower thorax: No pleural effusion or consolidation Fiscal Services Director (topogram) images: No additional findings MEDICATIONS: Current Outpatient Medications Medication Sig pantoprazole DR (PROTONIX) 20 mg tablet Take 1 tablet by mouth once daily. dicyclomine (BENTYL) 20 mg tablet Take 1 tablet by mouth before meals and at bedtime. No current facility-administered medications for this visit. 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 Hemorrhage of gastrointestinal tract, unspecified Internal hemorrhoids 11/07/2009 Interstitial cystitis Irritable bowel syndrome Lipoma of axilla 11/13/2011 Other osteoporosis PMH - PAST MEDICAL HISTORY OF fibrocystic breast disease Snoring PAST SURGICAL HISTORY Procedure Laterality Date ABDOMINAL SURGERY HX COLONOSCOPY FLX DX W/COLLJ SPEC WHEN PFRMD Colonoscopy COLONOSCOPY FLX DX W/COLLJ SPEC WHEN PFRMD 07/01/2014 Colonoscopy COLONOSCOPY FLX DX W/COLLJ SPEC WHEN PFRMD 04/18/2021 COLONOSCOPY W/BIOPSY SINGLE/MULTIPLE 12/10/2006 CYSTOSCOPY 05/24/2021 Dr Plasencia CYSTOSCOPY,DIL BLADDER,LOCAL ANESTH 05/2021 ESOPHAGOGASTRODUODENOSCOPY TRANSORAL DIAGNOSTIC 04/28/2012 EGD ESOPHAGOGASTRODUODENOSCOPY TRANSORAL DIAGNOSTIC 12/02/2014 EGD HEMORRHOIDECTOMY INT AND XTRNL 2/> COLUMN/NAGI LAPS SURG CHOLECYSTECTOMY W/CHOLANGIOGRAPHY N/A 01/14/2017 LIG/TRNSXJ FLP TUBE ABDL/VAG APPR UNI/BI PAST SURGICAL HISTORY OF 2 left and 1 rt. foot surgeries ammer toes. neuroma PAST SURGICAL HISTORY OF 02/26/2014 right foot surgery - bunion SIGMOIDOSCOPY FLX W/BIOPSY SINGLE/MULTIPLE 11/07/2009 WRIST SURGERY HX Left 03/2021 FAMILY HISTORY Problem Relation Age of Onset Cancer Mother leukemia, hypertension Melanoma Mother Cancer Father Liver Heart Father Diabetes Father Type 2 Thyroid Sister Melanoma Sister other (ALS) Sister Stroke Maternal Grandmother Social History Tobacco Use Smoking status: Never Smokeless tobacco: Never Tobacco comments: Father smoked in childhood home. No other household ETS since. Vaping Use Vaping Use: Never used Substance Use Topics Alcohol use: Yes Comment: Occasional. Drug use: No Reviewed current medications, allergies, past medical history, surgical history, family history and social history today. REVIEW OF SYSTEMS All other reviewed and negative other than HPI. HEALTH MAINTENANCE: VITALS: BP 122/66 Pulse 89 Temp 36.8 ?C (98.3 ?F) Ht 163.8 cm (5' 4.5 ) Wt 59.8 kg (131 lb 12.8 oz) SpO2 97% BMI 22.27 kg/m? Last 4 Encounter Wt Readings: Date: Wt: 08/26/2023 60.8 kg (134 lb) 05/31/2023 59.4 kg (131 lb) 05/25/2023 59 kg (130 lb) 01/23/2023 59 kg (130 lb) PH (more content not included)... [facility] 09-20-2023 History of Presen t illness Narrative Patient presents with: Abdominal Pain HPI: Patient presents today for office visit for lump in left lower abdomen /groin with pain is different from her last discomfort. We had recently done a normal ct scan for that. Noticed about one week ago. Can't really describe the pain. Comes and goes. Sometimes bothers her when she's walking or just sitting. Lump is tender to touch. No redness or warmth to abdomen. Denies nausea and vomiting. No fever. No bowels changes including diarrhea or constipation. No urinary symptoms. Today has noticed that the pain sometimes radiates to the right side. No lump on right side. The radiating of pain is sporadic. Today also has noticed the lump on left side seems larger than one week ago. See previous ct on 09/11: RESULT: Liver: No mass. Normal morphology. Biliary: No bile duct dilation. Spleen: No mass. No splenomegaly. Pancreas: No mass or duct dilation. Subcentimeter cystic lesions in the pancreas described on the prior MRI are not as well visualized by CT. Adrenals: No mass. Kidneys: No mass, calculus or hydronephrosis. GI tract: No dilation or wall thickening. Lymph nodes: No abdominal or pelvic lymphadenopathy. Mesentery/Peritoneum: No ascites or mass. Retroperitoneum: No mass. Vasculature: - Abdominal aorta and iliac arteries: Atherosclerotic calcifications without aneurysm. - Celiac and SMA: Patent without stenosis. - Portal venous system (SMV, splenic vein, portal vein and branches): Patent. - Hepatic veins: Patent. Pelvis: No mass, ascites or fluid collection. The bladder has a normal appearance. Bones/Soft Tissues: Degenerative changes. Lower thorax: No pleural effusion or consolidation Fiscal Services Director (topogram) images: No additional findings MEDICATIONS: Current Outpatient Medications Medication Sig pantoprazole DR (PROTONIX) 20 mg tablet Take 1 tablet by mouth once daily. dicyclomine (BENTYL) 20 mg tablet Take 1 tablet by mouth before meals and at bedtime. No current facility-administered medications for this visit. 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 Hemorrhage of gastrointestinal tract, unspecified Internal hemorrhoids 11/07/2009 Interstitial cystitis Irritable bowel syndrome Lipoma of axilla 11/13/2011 Other osteoporosis PMH - PAST MEDICAL HISTORY OF fibrocystic breast disease Snoring PAST SURGICAL HISTORY Procedure Laterality Date ABDOMINAL SURGERY HX COLONOSCOPY FLX DX W/COLLJ SPEC WHEN PFRMD Colonoscopy COLONOSCOPY FLX DX W/COLLJ SPEC WHEN PFRMD 07/01/2014 Colonoscopy COLONOSCOPY FLX DX W/COLLJ SPEC WHEN PFRMD 04/18/2021 COLONOSCOPY W/BIOPSY SINGLE/MULTIPLE 12/10/2006 CYSTOSCOPY 05/24/2021 Dr Plasencia CYSTOSCOPY,DIL BLADDER,LOCAL ANESTH 05/2021 ESOPHAGOGASTRODUODENOSCOPY TRANSORAL DIAGNOSTIC 04/28/2012 EGD ESOPHAGOGASTRODUODENOSCOPY TRANSORAL DIAGNOSTIC 12/02/2014 EGD HEMORRHOIDECTOMY INT & XTRNL 2/> COLUMN/NAGI LAPS SURG CHOLECYSTECTOMY W/CHOLANGIOGRAPHY N/A 01/14/2017 LIG/TRNSXJ FLP TUBE ABDL/VAG APPR UNI/BI PAST SURGICAL HISTORY OF 2 left and 1 rt. foot surgeries ammer toes. neuroma PAST SURGICAL HISTORY OF 02/26/2014 right foot surgery - bunion SIGMOIDOSCOPY FLX W/BIOPSY SINGLE/MULTIPLE 11/07/2009 WRIST SURGERY HX Left 03/2021 FAMILY HISTORY Problem Relation Age of Onset Cancer Mother leukemia, hypertension Melanoma Mother Cancer Father Liver Heart Father Diabetes Father Type 2 Thyroid Sister Melanoma Sister other (ALS) Sister Stroke Maternal Grandmother Social History Tobacco Use Smoking status: Never Smokeless tobacco: Never Tobacco comments: Father smoked in childhood home. No other household ETS since. Vaping Use Vaping Use: Never used Substance Use Topics Alcohol use: Yes Comment: Occasional. Drug use: No Reviewed current medications, allergies, past medical history, surgical history, family history and social history today. REVIEW OF SYSTEMS All other reviewed and negative other than HPI. HEALTH MAINTENANCE: VITALS: BP 122/66 Pulse 89 Temp 36.8 C (98.3 F) Ht 163.8 cm (5' 4.5 ) Wt 59.8 kg (131 lb 12.8 oz) SpO2 97% BMI 22.27 kg/m Last 4 Encounter Wt Readings: Date: Wt: 08/26/2023 60.8 kg (134 lb) 05/31/2023 59.4 kg (131 lb) 05/25/2023 59 kg (130 lb) 01/23/2023 59 kg (130 lb) PHYSICAL EXAMINATION: General appearance: Well appearing, alert, in no acute distress, well-hydrated, well nourished. Skin: Skin color, texture, turgor normal, no suspicious rashes or lesions Head: Normocephalic, no masses, lesions, tenderness or abnormalities Lungs: Lungs clear to auscultation. No wheezing, rhonchi, rales Heart: RRR without murmur, gallop, or rubs. No ectopy Abdomen: Normal abdominal exam, Abdomen soft, non-tender. Bowel sounds normal. No masses, organomegaly, new inguinal mass that is fairly large. Is tender to touch. Not red or warm. Is very uncomfortable. I tried to reduce in case it is a hernia and unable to. ASSESSMENT/PLAN: 1. Groin mass - ICD9: 789.39, ICD10: R19.09 - given the time of day and inability to get new imaging and her tenderness, to ER of choice for evaluation. Godfrey Aguilar MD documented in this encounter [facility] 09-11-2023 Note HNO ID: [id number] Author: Tova Darden RT(R) Service: ? Author Type: Patient Care Nursing Assistant Type: Progress Notes Filed: 09/11/2023 4:00 PM Note Text: Radiology Service Progress Note DATE OF SERVICE: September 11, 2023 TIME: 4:00 PM PATIENT IDENTITY VERIFICATION COMPLETED USING TWO (2) STANDARD IDENTIFIERS: Name and Date of confirmed by patient verbally. FALL SCREENING: Has the patient had 2 falls in the last year or 1 fall with injury or currently using an Ambulatory Assistive Device (Walker, Cane, Wheelchair, Crutches, etc.)? No PATIENT GENDER DATA: Female. status: : No status: NO. PATIENT RELEVANT IMPLANT DATA REVIEWED: Yes ALLERGIES: Reviewed and unchanged CONTRAST ALLERGY: NO. EXAM: CT -CONTRAST INDUCED NEPHROPATHY RISK FACTORS: Patient age > 60 years CREATININE: Creatinine Date Value Ref Range Status 08/26/2023 0.81 0.58 - 0.96 mg/dL Final 06/20/2023 0.78 0.58 - 0.96 mg/dL Final 06/20/2022 0.75 0.58 - 0.96 mg/dL Final Estimated Glomerular Filtration Rate Date Value Ref Range Status 08/26/2023 76 >=60 mL/min/1.73m? Final Comment: Estimated Glomerular Filtration Rate (eGFR) is calculated using the 2020 CKD-EPI creatinine equation. This equation utilizes serum creatinine, sex, and age as parameters. The creatinine assay has traceable calibration to isotope dilution-mass spectrometry. Refer to KDIGO guidelines for clinical interpretation. In patients with unstable renal function, e.g. those with acute kidney injury, the eGFR may not accurately reflect actual GFR. eGFR- Date Value Ref Range Status 09/06/2021 >60 Final P.O.C.T. RESULTS: POC done: Yes, See Lab Tab September 11, 2023 TREATMENT: N/A PERIPHERAL IV DATA: Ambulatory: A peripheral IV was started in the Left antecubital site with a Angio cath: 22 gauge. RADIOLOGY DEPARTMENT: CT; Exam(s) Completed: Abdomen/Pelvis SIGNATURE: RT Rosa(R) PATIENT NAME: Shani rWight DATE: September 11, 2023 TIME: 4:00 PM [facility] 09-11-2023 History of Presen t illness Narrative Radiology Service Progress Note DATE OF SERVICE: September 11, 2023 TIME: 4:00 PM PATIENT IDENTITY VERIFICATION COMPLETED USING TWO (2) STANDARD IDENTIFIERS: Name and Date of confirmed by patient verbally. FALL SCREENING: Has the patient had 2 falls in the last year or 1 fall with injury or currently using an Ambulatory Assistive Device (Walker, Cane, Wheelchair, Crutches, etc.)? No PATIENT GENDER DATA: Female. status: : No status: NO. PATIENT RELEVANT IMPLANT DATA REVIEWED: Yes ALLERGIES: Reviewed and unchanged CONTRAST ALLERGY: NO. EXAM: CT -CONTRAST INDUCED NEPHROPATHY RISK FACTORS: Patient age > 60 years CREATININE: Creatinine Date Value Ref Range Status 08/26/2023 0.81 0.58 - 0.96 mg/dL Final 06/20/2023 0.78 0.58 - 0.96 mg/dL Final 06/20/2022 0.75 0.58 - 0.96 mg/dL Final Estimated Glomerular Filtration Rate Date Value Ref Range Status 08/26/2023 76 >=60 mL/min/1.73m Final Comment: Estimated Glomerular Filtration Rate (eGFR) is calculated using the 2020 CKD-EPI creatinine equation. This equation utilizes serum creatinine, sex, and age as parameters. The creatinine assay has traceable calibration to isotope dilution-mass spectrometry. Refer to KDIGO guidelines for clinical interpretation. In patients with unstable renal function, e.g. those with acute kidney injury, the eGFR may not accurately reflect actual GFR. eGFR- Date Value Ref Range Status 09/06/2021 >60 Final P.O.C.T. RESULTS: POC done: Yes, See Lab Tab September 11, 2023 TREATMENT: N/A PERIPHERAL IV DATA: Ambulatory: A peripheral IV was started in the Left antecubital site with a Angio cath: 22 gauge. RADIOLOGY DEPARTMENT: CT; Exam(s) Completed: Abdomen/Pelvis SIGNATURE: RT Rosa(R) PATIENT NAME: Shani Wright DATE: September 11, 2023 TIME: 4:00 PM documented in this encounter [facility] 08-26-2023 Note HNO ID: [id number] Author: Godfrey Aguilar MD Service: ? Author Type: Physician Type: Progress Notes Filed: 08/26/2023 11:14 AM Note Text: Patient presents with: Abdominal Pain HPI: Patient presents today for office visit for follow up. Gut issues: Having pressure and pain. Moves around sometimes in her back. Starting after round of ATB a couple of months ago. Had some reflux. Wondering if this is her IBS? Has the dicyclomine to use but doesn't use often. Has used some pantoprazole is having some GERD also with this. Moves the abdomen. Pain can be horrific at times. Had the antibiotic in June. Was on cefdinir per [facility]. Has occasional loose stools but not all the time but not often. No constipation. No bloody or black or stools. No urinary issues that are new. Pain has occurred once or twice that was severe. The pressure and discomfort is daily. Was initially on the right side. Now is more in the epigastric and lower left quadrant. Had colonoscopy in 2020. Back on meds for reflux which helps. MEDICATIONS: Current Outpatient Medications Medication Sig dicyclomine (BENTYL) 20 mg tablet Take 1 tablet by mouth before meals and at bedtime. No current facility-administered medications for this visit. 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 Hemorrhage of gastrointestinal tract, unspecified Internal hemorrhoids 11/07/2009 Interstitial cystitis Irritable bowel syndrome Lipoma of axilla 11/13/2011 Other osteoporosis PMH - PAST MEDICAL HISTORY OF fibrocystic breast disease Snoring PAST SURGICAL HISTORY Procedure Laterality Date ABDOMINAL SURGERY HX COLONOSCOPY FLX DX W/COLLJ SPEC WHEN PFRMD Colonoscopy COLONOSCOPY FLX DX W/COLLJ SPEC WHEN PFRMD 07/01/2014 Colonoscopy COLONOSCOPY FLX DX W/COLLJ SPEC WHEN PFRMD 04/18/2021 COLONOSCOPY W/BIOPSY SINGLE/MULTIPLE 12/10/2006 CYSTOSCOPY 05/24/2021 Dr Plasencia CYSTOSCOPY,DIL BLADDER,LOCAL ANESTH 05/2021 ESOPHAGOGASTRODUODENOSCOPY TRANSORAL DIAGNOSTIC 04/28/2012 EGD ESOPHAGOGASTRODUODENOSCOPY TRANSORAL DIAGNOSTIC 12/02/2014 EGD HEMORRHOIDECTOMY INT AND XTRNL 2/> COLUMN/NAGI LAPS SURG CHOLECYSTECTOMY W/CHOLANGIOGRAPHY N/A 01/14/2017 LIG/TRNSXJ FLP TUBE ABDL/VAG APPR UNI/BI PAST SURGICAL HISTORY OF 2 left and 1 rt. foot surgeries ammer toes. neuroma PAST SURGICAL HISTORY OF 02/26/2014 right foot surgery - bunion SIGMOIDOSCOPY FLX W/BIOPSY SINGLE/MULTIPLE 11/07/2009 WRIST SURGERY HX Left 03/2021 FAMILY HISTORY Problem Relation Age of Onset Cancer Mother leukemia, hypertension Melanoma Mother Cancer Father Liver Heart Father Diabetes Father Type 2 Thyroid Sister Melanoma Sister other (ALS) Sister Stroke Maternal Grandmother Social History Tobacco Use Smoking status: Never Smokeless tobacco: Never Tobacco comments: Father smoked in childhood home. No other household ETS since. Vaping Use Vaping Use: Never used Substance Use Topics Alcohol use: Yes Alcohol/week: 1.7 standard drinks of alcohol Comment: Occasional. Drug use: No Reviewed current medications, allergies, past medical history, surgical history, family history and social history today. REVIEW OF SYSTEMS All other reviewed and negative other than HPI. HEALTH MAINTENANCE: Reviewed health maintenance issues today and recommended the following in detail. Advance Directive Discussion due on 10/07/2022 VITALS: BP 102/62 Pulse 88 Wt 60.8 kg (134 lb) SpO2 98% BMI 22.65 kg/m? Last 4 Encounter Wt Readings: Date: Wt: 05/31/2023 59.4 kg (131 lb) 05/25/2023 59 kg (130 lb) 01/23/2023 59 kg (130 lb) 12/06/2022 59.9 kg (132 lb) PHYSICAL EXAMINATION: General appearance: Well appearing, alert, in no acute distress, well-hydrated, well nourished. Skin: Skin color, texture, turgor normal, no suspicious rashes or lesions Head: Normocephalic, no masses, lesions, tenderness or abnormalities Lungs: Lungs clear to auscultation. No wheezing, rhonchi, rales Heart: RRR without murmur, gallop, or rubs. No ectopy Abdomen: bowel sounds are positive. Mild epigastric and left sided pain on palpation. No masses. No rebound or guarding. Extremities: No deformities, edema, skin discoloration, clubbing or cyanosis. Good capillary refill. ASSESSMENT/PLAN: 1. Abdominal pain, unspecified abdominal location - ICD9: 789.00, ICD10: R10.9 (primary diagnosis) (more content not included)... [facility] 05-31-2023 Note HNO ID: [id number] Author: Godfrey Aguilar MD Service: ? Author Type: Physician Type: Progress Notes Filed: 05/31/2023 12:16 PM Note Text: Patient presents with: Follow Up: Had an ulterasound on a lump in groin area and wants to HPI: Patient presents today for office visit for follow up. May be slightly smaller than it was. She says is about half as big as a pencil eraser. Not sore or red. No fever or chills. Ultrasound of soft tissue at [facility] was negative. Discussed RSV vaccines. GASTROENTEROLOGY had recommended we recheck her IPMN in 2023. No new gi issues. See Maryan's note from February: Pt presents today with complaint of a lump in the right groin X 1 month. Thinks that it might be a little smaller than onset. She did see the market research executive and was told that it is not the skin. Doesn't noticed any redness. Refers difficult to see, but you can feel it. Sometimes it is tender after pressing on it. MEDICATIONS: Current Outpatient Medications Medication Sig amoxicillin-clavulanic acid (AUGMENTIN) 875-125 mg per tablet Take 1 tablet by mouth twice daily for 7 days. dicyclomine (BENTYL) 20 mg tablet Take 1 tablet by mouth before meals and at bedtime. estradiol (ESTRACE) 0.01 % (0.1 mg/gram) vaginal cream Use 1 g vaginally once daily. For 2 weeks. Then decrease to 2-3 times per week ongoing. (Patient not taking: Reported on 05/25/2023) No current facility-administered medications for this visit. 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 Hemorrhage of gastrointestinal tract, unspecified Internal hemorrhoids 11/07/2009 Interstitial cystitis Irritable bowel syndrome Lipoma of axilla 11/13/2011 Other osteoporosis PMH - PAST MEDICAL HISTORY OF fibrocystic breast disease Snoring PAST SURGICAL HISTORY Procedure Laterality Date ABDOMINAL SURGERY HX COLONOSCOPY FLX DX W/COLLJ SPEC WHEN PFRMD Colonoscopy COLONOSCOPY FLX DX W/COLLJ SPEC WHEN PFRMD 07/01/2014 Colonoscopy COLONOSCOPY FLX DX W/COLLJ SPEC WHEN PFRMD 04/18/2021 COLONOSCOPY W/BIOPSY SINGLE/MULTIPLE 12/10/2006 CYSTOSCOPY 05/24/2021 Dr Plaesncia CYSTOSCOPY,DIL BLADDER,LOCAL ANESTH 05/2021 ESOPHAGOGASTRODUODENOSCOPY TRANSORAL DIAGNOSTIC 04/28/2012 EGD ESOPHAGOGASTRODUODENOSCOPY TRANSORAL DIAGNOSTIC 12/02/2014 EGD HEMORRHOIDECTOMY INT AND XTRNL 2/> COLUMN/NAGI LAPS SURG CHOLECYSTECTOMY W/CHOLANGIOGRAPHY N/A 01/14/2017 LIG/TRNSXJ FLP TUBE ABDL/VAG APPR UNI/BI PAST SURGICAL HISTORY OF 2 left and 1 rt. foot surgeries ammer toes. neuroma PAST SURGICAL HISTORY OF 02/26/2014 right foot surgery - bunion SIGMOIDOSCOPY FLX W/BIOPSY SINGLE/MULTIPLE 11/07/2009 WRIST SURGERY HX Left 03/2021 FAMILY HISTORY Problem Relation Age of Onset Cancer Mother leukemia, hypertension Melanoma Mother Cancer Father Liver Heart Father Diabetes Father Type 2 Thyroid Sister Melanoma Sister other (ALS) Sister Stroke Maternal Grandmother Social History Tobacco Use Smoking status: Never Smokeless tobacco: Never Tobacco comments: Father smoked in childhood home. No other household ETS since. Vaping Use Vaping Use: Never used Substance Use Topics Alcohol use: Yes Alcohol/week: 1.7 standard drinks of alcohol Comment: Occasional. Drug use: No Reviewed current medications, allergies, past medical history, surgical history, family history and social history today. REVIEW OF SYSTEMS All other reviewed and negative other than HPI. HEALTH MAINTENANCE: Reviewed health maintenance issues today and recommended the following in detail. DTAP,TDAP,TD(1 - Tdap) due on 10/25/2014 ADVANCE DIRECTIVE DISCUSSION due on 10/07/2022 COVID-19 VACCINE(5 - Moderna series) due on 12/06/2022 MAMMOGRAM due on 06/04/2023 VITALS: BP 118/66 Resp 16 Wt 59.4 kg (131 lb) SpO2 98% BMI 22.14 kg/m? Last 4 Encounter Wt Readings: Date: Wt: 05/31/2023 59.4 kg (131 lb) 05/25/2023 59 kg (130 lb) 01/23/2023 59 kg (130 lb) 12/06/2022 59.9 kg (132 lb) PHYSICAL EXAMINATION: General appearance: Well appearing, alert, in no acute distress, well-hydrated, well nourished. Skin: Skin color, texture, turgor normal, no suspicious rashes or lesions Head: Normocephalic, no masses, lesions, tenderness or abnormalities Lungs: Lungs clear to auscultation. No wheezing, rhonchi, rales Heart: RRR without murmur, gallop, or rubs. No ectopy Abdomen: Normal abdominal exam, (more content not included)... [facility] 05-31-2023 History of Presen t illness Narrative Patient presents with: Follow Up: Had an ulterasound on a lump in groin area and wants to HPI: Patient presents today for office visit for follow up. May be slightly smaller than it was. She says is about half as big as a pencil eraser. Not sore or red. No fever or chills. Ultrasound of soft tissue at [facility] was negative. Discussed RSV vaccines. GASTROENTEROLOGY had recommended we recheck her IPMN in 2023. No new gi issues. See Maryan's note from February: Pt presents today with complaint of a lump in the right groin X 1 month. Thinks that it might be a little smaller than onset. She did see the market research executive and was told that it is not the skin. Doesn't noticed any redness. Refers difficult to see, but you can feel it. Sometimes it is tender after pressing on it. MEDICATIONS: Current Outpatient Medications Medication Sig amoxicillin-clavulanic acid (AUGMENTIN) 875-125 mg per tablet Take 1 tablet by mouth twice daily for 7 days. dicyclomine (BENTYL) 20 mg tablet Take 1 tablet by mouth before meals and at bedtime. estradiol (ESTRACE) 0.01 % (0.1 mg/gram) vaginal cream Use 1 g vaginally once daily. For 2 weeks. Then decrease to 2-3 times per week ongoing. (Patient not taking: Reported on 05/25/2023) No current facility-administered medications for this visit. 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 Hemorrhage of gastrointestinal tract, unspecified Internal hemorrhoids 11/07/2009 Interstitial cystitis Irritable bowel syndrome Lipoma of axilla 11/13/2011 Other osteoporosis PMH - PAST MEDICAL HISTORY OF fibrocystic breast disease Snoring PAST SURGICAL HISTORY Procedure Laterality Date ABDOMINAL SURGERY HX COLONOSCOPY FLX DX W/COLLJ SPEC WHEN PFRMD Colonoscopy COLONOSCOPY FLX DX W/COLLJ SPEC WHEN PFRMD 07/01/2014 Colonoscopy COLONOSCOPY FLX DX W/COLLJ SPEC WHEN PFRMD 04/18/2021 COLONOSCOPY W/BIOPSY SINGLE/MULTIPLE 12/10/2006 CYSTOSCOPY 05/24/2021 Dr Plasencia CYSTOSCOPY,DIL BLADDER,LOCAL ANESTH 05/2021 ESOPHAGOGASTRODUODENOSCOPY TRANSORAL DIAGNOSTIC 04/28/2012 EGD ESOPHAGOGASTRODUODENOSCOPY TRANSORAL DIAGNOSTIC 12/02/2014 EGD HEMORRHOIDECTOMY INT & XTRNL 2/> COLUMN/NAGI LAPS SURG CHOLECYSTECTOMY W/CHOLANGIOGRAPHY N/A 01/14/2017 LIG/TRNSXJ FLP TUBE ABDL/VAG APPR UNI/BI PAST SURGICAL HISTORY OF 2 left and 1 rt. foot surgeries ammer toes. neuroma PAST SURGICAL HISTORY OF 02/26/2014 right foot surgery - bunion SIGMOIDOSCOPY FLX W/BIOPSY SINGLE/MULTIPLE 11/07/2009 WRIST SURGERY HX Left 03/2021 FAMILY HISTORY Problem Relation Age of Onset Cancer Mother leukemia, hypertension Melanoma Mother Cancer Father Liver Heart Father Diabetes Father Type 2 Thyroid Sister Melanoma Sister other (ALS) Sister Stroke Maternal Grandmother Social History Tobacco Use Smoking status: Never Smokeless tobacco: Never Tobacco comments: Father smoked in childhood home. No other household ETS since. Vaping Use Vaping Use: Never used Substance Use Topics Alcohol use: Yes Alcohol/week: 1.7 standard drinks of alcohol Comment: Occasional. Drug use: No Reviewed current medications, allergies, past medical history, surgical history, family history and social history today. REVIEW OF SYSTEMS All other reviewed and negative other than HPI. HEALTH MAINTENANCE: Reviewed health maintenance issues today and recommended the following in detail. DTAP,TDAP,TD(1 - Tdap) due on 10/25/2014 ADVANCE DIRECTIVE DISCUSSION due on 10/07/2022 COVID-19 VACCINE(5 - Moderna series) due on 12/06/2022 MAMMOGRAM due on 06/04/2023 VITALS: BP 118/66 Resp 16 Wt 59.4 kg (131 lb) SpO2 98% BMI 22.14 kg/m Last 4 Encounter Wt Readings: Date: Wt: 05/31/2023 59.4 kg (131 lb) 05/25/2023 59 kg (130 lb) 01/23/2023 59 kg (130 lb) 12/06/2022 59.9 kg (132 lb) PHYSICAL EXAMINATION: General appearance: Well appearing, alert, in no acute distress, well-hydrated, well nourished. Skin: Skin color, texture, turgor normal, no suspicious rashes or lesions Head: Normocephalic, no masses, lesions, tenderness or abnormalities Lungs: Lungs clear to auscultation. No wheezing, rhonchi, rales Heart: RRR without murmur, gallop, or rubs. No ectopy Abdomen: Normal abdominal exam, Abdomen soft, non-tender. Bowel sounds normal. No masses, organomegaly Extremities: No deformities, edema, skin discoloration, clubbing or cyanosis. Good capillary refill. Chaperoned exam showed tiny palpable lump. No redness or warmth. ? Skin cyst etc. ASSESSMENT/PLAN: 1. Groin lump - ICD9: 789.39, ICD10: R19.09 (primary diagnosis) - offered that I could do a ct if she desires. She prefers to wait. - CBC + DIFF - COMP METABOLIC PANEL 2. Encounter for screening mammogram for malignant neoplasm of breast - ICD9: V76.12, ICD10: Z12.31 - Follow up for annual exam in one year. - TMIMY SCREENING W VIKI 3. IPMN (intraductal papillary mucinous neoplasm) - ICD9: 239.0, ICD10: D49.0 - recheck next year. 4. Age-related osteoporosis without current pathological fracture - ICD9: 733.01, ICD10: M81.0 - up to date on scanning. 5. Hyperlipidemia, mixed - ICD9: 272.2, ICD10: E78.2 - follow labs. - LIPID PANEL BASIC Godfrey Aguilar MD documented in this encounter [facility] 05-25-2023 Note HNO ID: [id number] Author: Tawana Thompson APRN.SALES ENABLEMENT CONSULTANT Service: ? Author Type: Nurse Practitioner Type: Progress Notes Filed: 05/25/2023 1:21 PM Note Text: This note was created using NoteWriter. Subjective Shani Wright is a 73 year old female. 73 year old female with PMH IBS, allergic rhinitis presents for illness. Acute onset one week ago +sinus pressure +post nasal drainage Left ear pain Denies fever or chills Denies cough. Denies N/V/D Has used nasal spray. She endorses she gets x 2 shots a week for allergies for approximately 20 years. Denies tobacco usgae. Endorses symptoms are progressively worsening The history is provided by the patient. No languages and literature instructor was used. Sinus Problem This is a new problem. The current episode started in the past 7 days. The problem occurs constantly. The problem has been gradually worsening. Associated symptoms include congestion and headaches. Pertinent negatives include no abdominal pain, anorexia, arthralgias, change in bowel habit, chest pain, chills, coughing, diaphoresis, fatigue, fever, joint swelling, myalgias, nausea, neck pain, numbness, rash, sore throat, swollen glands, urinary symptoms, vertigo, visual change, vomiting or weakness. Nothing aggravates the symptoms. She has tried nothing for the symptoms. The treatment provided no relief. 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 Hemorrhage of gastrointestinal tract, unspecified Internal hemorrhoids 11/07/2009 Interstitial cystitis Irritable bowel syndrome Lipoma of axilla 11/13/2011 Other osteoporosis PMH - PAST MEDICAL HISTORY OF fibrocystic breast disease Snoring PAST SURGICAL HISTORY Procedure Laterality Date ABDOMINAL SURGERY HX COLONOSCOPY FLX DX W/COLLJ SPEC WHEN PFRMD Colonoscopy COLONOSCOPY FLX DX W/COLLJ SPEC WHEN PFRMD 07/01/2014 Colonoscopy COLONOSCOPY FLX DX W/COLLJ SPEC WHEN PFRMD 04/18/2021 COLONOSCOPY W/BIOPSY SINGLE/MULTIPLE 12/10/2006 CYSTOSCOPY 05/24/2021 Dr Plasencia CYSTOSCOPY,DIL BLADDER,LOCAL ANESTH 05/2021 ESOPHAGOGASTRODUODENOSCOPY TRANSORAL DIAGNOSTIC 04/28/2012 EGD ESOPHAGOGASTRODUODENOSCOPY TRANSORAL DIAGNOSTIC 12/02/2014 EGD HEMORRHOIDECTOMY INT AND XTRNL 2/> COLUMN/NAGI LAPS SURG CHOLECYSTECTOMY W/CHOLANGIOGRAPHY N/A 01/14/2017 LIG/TRNSXJ FLP TUBE ABDL/VAG APPR UNI/BI PAST SURGICAL HISTORY OF 2 left and 1 rt. foot surgeries ammer toes. neuroma PAST SURGICAL HISTORY OF 02/26/2014 right foot surgery - bunion SIGMOIDOSCOPY FLX W/BIOPSY SINGLE/MULTIPLE 11/07/2009 WRIST SURGERY HX Left 03/2021 ALLERGIES Amitriptyline, Cefdinir, Ciprofloxacin, Doxycycline, Environmental [Other], Hydrocortisone, and Levofloxacin MEDICATIONS dicyclomine (BENTYL) 20 mg tablet Take 1 tablet by mouth before meals and at bedtime. amoxicillin-clavulanic acid (AUGMENTIN) 875-125 mg per tablet Take 1 tablet by mouth twice daily for 7 days. estradiol (ESTRACE) 0.01 % (0.1 mg/gram) vaginal cream Use 1 g vaginally once daily. For 2 weeks. Then decrease to 2-3 times per week ongoing. (Patient not taking: Reported on 05/25/2023) FAMILY HISTORY Problem Relation Age of Onset Cancer Mother leukemia, hypertension Melanoma Mother Cancer Father Liver Heart Father Diabetes Father Type 2 Thyroid Sister Melanoma Sister other (ALS) Sister Stroke Maternal Grandmother Social History Tobacco Use Smoking status: Never Smokeless tobacco: Never Tobacco comments: Father smoked in childhood home. No other household ETS since. Vaping Use Vaping Use: Never used Substance Use Topics Alcohol use: Yes Alcohol/week: 1.7 standard drinks of alcohol Comment: Occasional. Drug use: No Review of Systems Constitutional: Negative for chills, diaphoresis, fatigue and fever. HENT: Positive for congestion, ear pain, postnasal drip, rhinorrhea, sinus pressure and sinus pain. Negative for ear discharge and sore throat. Eyes: Negative for photophobia, pain, discharge, redness, itching and visual disturbance. Respiratory: Negative for apnea, cough, choking, chest tightness and shortness of breath. Cardiovascular: Negative for chest pain, palpitations and leg swelling. Gastrointestinal: Negative for abdominal pain, anorexia, change in bowel habit, constipation, nausea and vomiting. Musculoskeletal: Negative for arthralgias, joint swelling, myalgias and neck pain. Skin: Negative for color change, pallor and rash. Allergic/Immunologic: Negative for environmental allergies, food allergies and immunocompromised state. Neurological: Positive for headaches. Negative for dizziness, vertigo, facial asymmetry, weakness and numbness. Hematological: Negative for adenopathy. Does not bruise/bleed easily. Objective BP 122/68 Pulse 84 Temp 36.6 ?C (97.9 ?F) Resp 16 Wt 59 kg (130 lb) SpO2 95% BM (more content not included)... [facility] 05-25-2023 History of Presen t illness Narrative This note was created using NoteWriter. Subjective Shani Wright is a 73 year old female. 73 year old female with PMH IBS, allergic rhinitis presents for illness. Acute onset one week ago +sinus pressure +post nasal drainage Left ear pain Denies fever or chills Denies cough. Denies N/V/D Has used nasal spray. She endorses she gets x 2 shots a week for allergies for approximately 20 years. Denies tobacco usgae. Endorses symptoms are progressively worsening The history is provided by the patient. No languages and literature instructor was used. Sinus Problem This is a new problem. The current episode started in the past 7 days. The problem occurs constantly. The problem has been gradually worsening. Associated symptoms include congestion and headaches. Pertinent negatives include no abdominal pain, anorexia, arthralgias, change in bowel habit, chest pain, chills, coughing, diaphoresis, fatigue, fever, joint swelling, myalgias, nausea, neck pain, numbness, rash, sore throat, swollen glands, urinary symptoms, vertigo, visual change, vomiting or weakness. Nothing aggravates the symptoms. She has tried nothing for the symptoms. The treatment provided no relief. 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 Hemorrhage of gastrointestinal tract, unspecified Internal hemorrhoids 11/07/2009 Interstitial cystitis Irritable bowel syndrome Lipoma of axilla 11/13/2011 Other osteoporosis PMH - PAST MEDICAL HISTORY OF fibrocystic breast disease Snoring PAST SURGICAL HISTORY Procedure Laterality Date ABDOMINAL SURGERY HX COLONOSCOPY FLX DX W/COLLJ SPEC WHEN PFRMD Colonoscopy COLONOSCOPY FLX DX W/COLLJ SPEC WHEN PFRMD 07/01/2014 Colonoscopy COLONOSCOPY FLX DX W/COLLJ SPEC WHEN PFRMD 04/18/2021 COLONOSCOPY W/BIOPSY SINGLE/MULTIPLE 12/10/2006 CYSTOSCOPY 05/24/2021 Dr Plasencia CYSTOSCOPY,DIL BLADDER,LOCAL ANESTH 05/2021 ESOPHAGOGASTRODUODENOSCOPY TRANSORAL DIAGNOSTIC 04/28/2012 EGD ESOPHAGOGASTRODUODENOSCOPY TRANSORAL DIAGNOSTIC 12/02/2014 EGD HEMORRHOIDECTOMY INT & XTRNL 2/> COLUMN/NAGI LAPS SURG CHOLECYSTECTOMY W/CHOLANGIOGRAPHY N/A 01/14/2017 LIG/TRNSXJ FLP TUBE ABDL/VAG APPR UNI/BI PAST SURGICAL HISTORY OF 2 left and 1 rt. foot surgeries ammer toes. neuroma PAST SURGICAL HISTORY OF 02/26/2014 right foot surgery - bunion SIGMOIDOSCOPY FLX W/BIOPSY SINGLE/MULTIPLE 11/07/2009 WRIST SURGERY HX Left 03/2021 ALLERGIES Amitriptyline, Cefdinir, Ciprofloxacin, Doxycycline, Environmental [Other], Hydrocortisone, and Levofloxacin MEDICATIONS dicyclomine (BENTYL) 20 mg tablet Take 1 tablet by mouth before meals and at bedtime. amoxicillin-clavulanic acid (AUGMENTIN) 875-125 mg per tablet Take 1 tablet by mouth twice daily for 7 days. estradiol (ESTRACE) 0.01 % (0.1 mg/gram) vaginal cream Use 1 g vaginally once daily. For 2 weeks. Then decrease to 2-3 times per week ongoing. (Patient not taking: Reported on 05/25/2023) FAMILY HISTORY Problem Relation Age of Onset Cancer Mother leukemia, hypertension Melanoma Mother Cancer Father Liver Heart Father Diabetes Father Type 2 Thyroid Sister Melanoma Sister other (ALS) Sister Stroke Maternal Grandmother Social History Tobacco Use Smoking status: Never Smokeless tobacco: Never Tobacco comments: Father smoked in childhood home. No other household ETS since. Vaping Use Vaping Use: Never used Substance Use Topics Alcohol use: Yes Alcohol/week: 1.7 standard drinks of alcohol Comment: Occasional. Drug use: No Review of Systems Constitutional: Negative for chills, diaphoresis, fatigue and fever. HENT: Positive for congestion, ear pain, postnasal drip, rhinorrhea, sinus pressure and sinus pain. Negative for ear discharge and sore throat. Eyes: Negative for photophobia, pain, discharge, redness, itching and visual disturbance. Respiratory: Negative for apnea, cough, choking, chest tightness and shortness of breath. Cardiovascular: Negative for chest pain, palpitations and leg swelling. Gastrointestinal: Negative for abdominal pain, anorexia, change in bowel habit, constipation, nausea and vomiting. Musculoskeletal: Negative for arthralgias, joint swelling, myalgias and neck pain. Skin: Negative for color change, pallor and rash. Allergic/Immunologic: Negative for environmental allergies, food allergies and immunocompromised state. Neurological: Positive for headaches. Negative for dizziness, vertigo, facial asymmetry, weakness and numbness. Hematological: Negative for adenopathy. Does not bruise/bleed easily. Objective BP 122/68 Pulse 84 Temp 36.6 C (97.9 F) Resp 16 Wt 59 kg (130 lb) SpO2 95% BMI 21.97 kg/m Physical Exam Vitals and nursing note reviewed. Constitutional: General: She is not in acute distress. Appearance: Normal appearance. She is normal weight. She is not ill-appearing, toxic-appearing or diaphoretic. HENT: Head: Normocephalic and atraumatic. Comments: +frontal sinus pressure +maxillary sinus pressure Right Ear: Ear canal and external ear normal. Left Ear: Ear canal and external ear normal. Ears: Comments: Left TM erytematous Nose: Nose normal. No congestion or rhinorrhea. Mouth/Throat: Mouth: Mucous membranes are moist. Pharynx: No oropharyngeal exudate or posterior oropharyngeal erythema. Eyes: General: Right eye: No discharge. Left eye: No discharge. Extraocular Movements: Extraocular movements intact. Conjunctiva/sclera: Conjunctivae normal. Pupils: Pupils are equal, round, and reactive to light. Cardiovascular: Rate and Rhythm: Normal rate and regular rhythm. Pulses: Normal pulses. Heart sounds: Normal heart sounds. No murmur heard. No friction rub. Pulmonary: Effort: Pulmonary effort is normal. No respiratory distress. Breath sounds: Normal breath sounds. No stridor. No wheezing, rhonchi or rales. Chest: Chest wall: No tenderness. Abdominal: General: Abdomen is flat. There is no distension. Palpations: Abdomen is soft. There is no mass. Tenderness: There is no abdominal tenderness. There is no right CVA tenderness, left CVA tenderness, guarding or rebound. Hernia: No hernia is present. Musculoskeletal: General: No swelling, tenderness, deformity or signs of injury. Normal range of motion. Cervical back: Normal range of motion and neck supple. No rigidity. Right lower leg: No edema. Left lower leg: No edema. Lymphadenopathy: Cervical: No cervical adenopathy. Skin: General: Skin is warm and dry. Coloration: Skin is not jaundiced or pale. Findings: No bruising, erythema, lesion or rash. Neurological: General: No focal deficit present. Mental Status: She is alert and oriented to person, place, and time. Cranial Nerves: No cranial nerve deficit. Sensory: No sensory deficit. Motor: No weakness. Coordination: Coordination normal. Gait: Gait normal. Psychiatric: Mood and Affect: Mood normal. Behavior: Behavior normal. Thought Content: Thought content normal. Judgment: Judgment normal. Assessment and Plan ASSESSMENT/PLAN: 1. Acute otitis media, left - ICD9: 382.9, ICD10: H66.92 (primary diagnosis) - Will begin treatment with as per antibiotic as written, see orders - The patient should also be given OTC cough and cold meds as needed, warm salt water gargles, throat lozenges and/or OTC throat spray as needed, and nasal saline gtts and suction prn for the first 5-7 days of treatment. - Supportive care with plenty of fluids, rest, and analgesia prn. - Follow up in 3-5 days if symptoms persist or worsen. 2. Rhinosinusitis - ICD9: 473.9, ICD10: J31.0, J32.9 - Will begin treatment with as per antibiotic as written, see orders - The patient should also be given OTC cough and cold meds as needed, warm salt water gargles, throat lozenges and/or OTC throat spray as needed, and nasal saline gtts and suction prn for the first 5-7 days of treatment. - Supportive care with plenty of fluids, rest, and analgesia prn. - Follow up in 3-5 days if symptoms persist or worsen. Tawana Thompson APRN.[employer] ENA[employer]MENT CONSULTANT documented in this encounter [facility] 03-26-2023 Miscellaneous Notes Order faxed. Anders Sanon LPN Can we please fax the order to [facility]? Maryan Humphrey APRN.CNP Pt called to schedule. This US is not done at the [place] location. Pt would prefer to stay in [place]. Would like order sent to [facility]. documented in this encounter [facility] 03-20-2023 Note Patient Outreach (NE TNAV) SHANI WRIGHT ([id number]) 1950 F Date Time Provider Department 03/20/23 ASHLEE SMITH During your visit today, we recorded the following information about you: Ashlee Smith MA 03/20/2023 9:28 AM Signed POPULATION HEALTH NAVIGATION OUTREACH Action/FYI I left a message and sent a Doocumentst Patient needs: medicare wellness (05/26/23), mammogram (06/05/23) Patient Identified by Name and : NO Outreach Outcome/Action Unable to reach patient: Left message LUMObackhart message sent Did you use a PCP flex slot to schedule this appointment? 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 / Plan: [employer] MEDIBLUE ACCESS / Product Type: PPO / Care Gap Reviewed:: Annual Wellness visit Breast Cancer screening Reminder: Reminder note to check Health Maintenance for items below Health Maintenance items due: DTAP,TDAP,TD(1 - Tdap) due on 10/25/2014 ADVANCE DIRECTIVE DISCUSSION due on 10/07/2022 MAMMOGRAM due on 06/04/2023 Navigation Signature: Ashlee Smith Population Health Navigator March 20, 2023 8:17 AM Allergies As of Date: 03/20/2023 Noted Allergy Reaction AMITRIPTYLINE 01/04/2022 14 - Other: See Comments Comments: Unable to urinate CEFDINIR 11/07/2021 14 - Other: See Comments Comments: Gives her bad bladder infections CIPROFLOXACIN 11/17/2015 7 - Swelling Comments: Pt states facial swelling and redness DOXYCYCLINE 11/07/2021 14 - Other: See Comments Comments: Bladder pain environmental [Other] 12/03/2005 9 - Itching Comments: Dust, mold, feathers, animals, leaves, grass HYDROCORTISONE 01/04/2022 16 - Unknown LEVOFLOXACIN 03/12/2017 14 - Other: See Comments Comments: Flu-like symptoms Date Reviewed: 03/06/2023 Reviewed by: Anders Saonn LPN - Fully Assessed Reason for Visit: Population Health Navigation Outreach [3910] Cmt: [place] Care Gaps Prescriptions as of 03/20/2023 - dicyclomine (BENTYL) 20 mg tablet Take 1 tablet by mouth before meals and at bedtime. - estradiol (ESTRACE) 0.01 % (0.1 mg/gram) vaginal cream Use 1 g vaginally once daily. For 2 weeks. Then decrease to 2-3 times per week ongoing. Meds Comments as of 11/11/2018: Pantoprazole 40 mg as needed precribed by Dr. Mcintosh. [place] Problem List As Of Date 03/20/2023 Noted Resolved Other malaise and fatigue [R53.81, R53.83] 06/18/2005 07/21/2015 DIFFUS CYSTIC MASTOPATHY [N60.19] 12/03/2005 Diarrhea [R19.7] 12/10/2006 07/21/2015 GASTROINTEST HEMORR NOS [K92.2] 12/10/2006 07/21/2015 CHR INTERSTIT CYSTITIS [N30.10] 02/02/2008 IRRITABLE COLON [K58.9] Sciatica [M54.30] 06/29/2009 07/21/2015 Osteoporosis [M81.0] 08/18/2009 Disorders of bursae and tendons in shoulder reg*05/16/2010 07/21/2015 Pain in limb [M79.609] 05/16/2010 07/21/2015 Abnormal mammogram, unspecified [R92.8] 02/09/2011 07/21/2015 De Quervain's tenosynovitis, right [M65.4] 05/27/2012 07/21/2015 Allergic rhinitis [J30.9] 07/21/2015 Radiculopathy, lumbar region [M54.16] 07/22/2015 Pain in right hip [M25.551] 07/22/2015 10/29/2019 Chronic low back pain [M54.50, G89.29] 12/17/2016 Chronic cholecystitis with calculus [K80.10] 01/04/2017 10/29/2019 Acute idiopathic gout of right hand [M10.041] 06/17/2017 05/01/2019 IPMN (intraductal papillary mucinous neoplasm) *10/29/2019 Mixed hyperlipidemia [E78.2] 10/29/2019 10/29/2019 Radiculopathy, cervical region [M54.12] 11/17/2020 02/07/2021 Abnormal thyroid blood test [R79.89] 03/19/2022 12/06/2022 Advanced directives, counseling/discussion [Z71*03/19/2022 Family hx of ALS (amyotrophic lateral sclerosis*03/19/2022 Encounter Status:Closed by ASHLEE SMITH on 03/20/23 [facility] 03-20-2023 Note HNO ID: [id number] Author: Ashlee Smith MA Service: ? Author Type: Operations Administrative Assistant Type: Progress Notes Filed: 03/20/2023 9:28 AM Note Text: POPULATION HEALTH NAVIGATION OUTREACH Action/FYI I left a message and sent a mychart Patient needs: medicare wellness (05/26/23), mammogram (06/05/23) Patient Identified by Name and : NO Outreach Outcome/Action Unable to reach patient: Left message MyChart message sent Did you use a PCP flex slot to schedule this appointment? 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 Author Type: Nurse Practitioner Type: Progress Notes Filed: 03/06/2023 5:33 PM Note Text: This is a 72 year old female who presents today with: Patient presents with: Acute Visit: Lump in groin area x 1 month; using hot compresses on it; no drainage HISTORY OF PRESENT ILLNESS: Shani Wright is a 72 year old female. Patient presents with: Acute Visit: Lump in groin area x 1 month; using hot compresses on it; no drainage Pt presents today with complaint of a lump in the right groin X 1 month. Thinks that it might be a little smaller than onset. She did see the market research executive and was told that it is not the skin. Doesn't noticed any redness. Refers difficult to see, but you can feel it. Sometimes it is tender after pressing on it. No recent sickness. 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 Hemorrhage of gastrointestinal tract, unspecified Internal hemorrhoids 11/07/2009 Interstitial cystitis Irritable bowel syndrome Lipoma of axilla 11/13/2011 Other osteoporosis PMH - PAST MEDICAL HISTORY OF fibrocystic breast disease Snoring PAST SURGICAL HISTORY Procedure Laterality Date ABDOMINAL SURGERY HX COLONOSCOPY FLX DX W/COLLJ SPEC WHEN PFRMD Colonoscopy COLONOSCOPY FLX DX W/COLLJ SPEC WHEN PFRMD 07/01/2014 Colonoscopy COLONOSCOPY FLX DX W/COLLJ SPEC WHEN PFRMD 04/18/2021 COLONOSCOPY W/BIOPSY SINGLE/MULTIPLE 12/10/2006 CYSTOSCOPY 05/24/2021 Dr Plasencia CYSTOSCOPY,DIL BLADDER,LOCAL ANESTH 05/2021 ESOPHAGOGASTRODUODENOSCOPY TRANSORAL DIAGNOSTIC 04/28/2012 EGD ESOPHAGOGASTRODUODENOSCOPY TRANSORAL DIAGNOSTIC 12/02/2014 EGD HEMORRHOIDECTOMY INT AND XTRNL 2/> COLUMN/NAGI LAPS SURG CHOLECYSTECTOMY W/CHOLANGIOGRAPHY N/A 01/14/2017 LIG/TRNSXJ FLP TUBE ABDL/VAG APPR UNI/BI PAST SURGICAL HISTORY OF 2 left and 1 rt. foot surgeries ammer toes. neuroma PAST SURGICAL HISTORY OF 02/26/2014 right foot surgery - bunion SIGMOIDOSCOPY FLX W/BIOPSY SINGLE/MULTIPLE 11/07/2009 WRIST SURGERY HX Left 03/2021 ALLERGIES Amitriptyline, Cefdinir, Ciprofloxacin, Doxycycline, Environmental [Other], Hydrocortisone, and Levofloxacin MEDICATIONS Current Outpatient Medications Medication Sig dicyclomine (BENTYL) 20 mg tablet Take 1 tablet by mouth before meals and at bedtime. estradiol (ESTRACE) 0.01 % (0.1 mg/gram) vaginal cream Use 1 g vaginally once daily. For 2 weeks. Then decrease to 2-3 times per week ongoing. No current facility-administered medications for this visit. FAMILY HISTORY Problem Relation Age of Onset Cancer Mother leukemia, hypertension Melanoma Mother Cancer Father Liver Heart Father Diabetes Father Type 2 Thyroid Sister Melanoma Sister other (ALS) Sister Stroke Maternal Grandmother Social History Tobacco Use Smoking status: Never Smokeless tobacco: Never Tobacco comments: Father smoked in childhood home. No other household ETS since. Vaping Use Vaping Use: Never used Substance Use Topics Alcohol use: Yes Alcohol/week: 1.7 standard drinks Comment: Occasional. Drug use: No EXAM: BP 122/78 Pulse 86 Resp 16 SpO2 95% PHYSICAL EXAM: General Appearance: Well appearing, alert, in no acute distress, well-hydrated, well nourished.. Skin: Skin color, texture, turgor normal, no suspicious rashes or lesions. Head: Normocephalic, no masses, lesions, tenderness or abnormalities. Eyes: Anicteric sclera. Extraocular movements are intact. . Lungs: Lungs clear to auscultation. No wheezing, rhonchi, rales.. Heart: RRR without murmur, gallop, or rubs. No ectopy. Neurologic: Gait normal. Lymph: + small lump in the right inguinal area. (Suspect related to some razor burn on the mons pubis). ASSESSMENT/PLAN: 1. Lymph node enlargement - ICD9: 785.6, ICD10: R59.9 Suspect reactive lymph node. Warm compresses as needed. Continue to monitor to ensure resolves over the next few weeks. Discussed treatment plan and patient voices understanding. Patient's questions answered appropriately. Medications and potential side effects were discussed and patient voices understanding. Return to the office as scheduled or as needed for worsening/no improvement. Maryan Humphrey APRN.CNP [facility] 03-06-2023 Instructions Maryan Humphrey APRN.CNP - 03/06/2023 2:56 PM EDT Continue to watch the area. If it is not improving or worsening, let me know. documented in this encounter [facility] 03-06-2023 History of Presen t illness Narrative This is a 72 year old female who presents today with: Patient presents with: Acute Visit: Lump in groin area x 1 month; using hot compresses on it; no drainage HISTORY OF PRESENT ILLNESS: Shain Wright is a 72 year old female. Patient presents with: Acute Visit: Lump in groin area x 1 month; using hot compresses on it; no drainage Pt presents today with complaint of a lump in the right groin X 1 month. Thinks that it might be a little smaller than onset. She did see the market research executive and was told that it is not the skin. Doesn't noticed any redness. Refers difficult to see, but you can feel it. Sometimes it is tender after pressing on it. No recent sickness. 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 Hemorrhage of gastrointestinal tract, unspecified Internal hemorrhoids 11/07/2009 Interstitial cystitis Irritable bowel syndrome Lipoma of axilla 11/13/2011 Other osteoporosis PMH - PAST MEDICAL HISTORY OF fibrocystic breast disease Snoring PAST SURGICAL HISTORY Procedure Laterality Date ABDOMINAL SURGERY HX COLONOSCOPY FLX DX W/COLLJ SPEC WHEN PFRMD Colonoscopy COLONOSCOPY FLX DX W/COLLJ SPEC WHEN PFRMD 07/01/2014 Colonoscopy COLONOSCOPY FLX DX W/COLLJ SPEC WHEN PFRMD 04/18/2021 COLONOSCOPY W/BIOPSY SINGLE/MULTIPLE 12/10/2006 CYSTOSCOPY 05/24/2021 Dr Plasencia CYSTOSCOPY,DIL BLADDER,LOCAL ANESTH 05/2021 ESOPHAGOGASTRODUODENOSCOPY TRANSORAL DIAGNOSTIC 04/28/2012 EGD ESOPHAGOGASTRODUODENOSCOPY TRANSORAL DIAGNOSTIC 12/02/2014 EGD HEMORRHOIDECTOMY INT & XTRNL 2/> COLUMN/NAGI LAPS SURG CHOLECYSTECTOMY W/CHOLANGIOGRAPHY N/A 01/14/2017 LIG/TRNSXJ FLP TUBE ABDL/VAG APPR UNI/BI PAST SURGICAL HISTORY OF 2 left and 1 rt. foot surgeries ammer toes. neuroma PAST SURGICAL HISTORY OF 02/26/2014 right foot surgery - bunion SIGMOIDOSCOPY FLX W/BIOPSY SINGLE/MULTIPLE 11/07/2009 WRIST SURGERY HX Left 03/2021 ALLERGIES Amitriptyline, Cefdinir, Ciprofloxacin, Doxycycline, Environmental [Other], Hydrocortisone, and Levofloxacin MEDICATIONS Current Outpatient Medications Medication Sig dicyclomine (BENTYL) 20 mg tablet Take 1 tablet by mouth before meals and at bedtime. estradiol (ESTRACE) 0.01 % (0.1 mg/gram) vaginal cream Use 1 g vaginally once daily. For 2 weeks. Then decrease to 2-3 times per week ongoing. No current facility-administered medications for this visit. FAMILY HISTORY Problem Relation Age of Onset Cancer Mother leukemia, hypertension Melanoma Mother Cancer Father Liver Heart Father Diabetes Father Type 2 Thyroid Sister Melanoma Sister other (ALS) Sister Stroke Maternal Grandmother Social History Tobacco Use Smoking status: Never Smokeless tobacco: Never Tobacco comments: Father smoked in childhood home. No other household ETS since. Vaping Use Vaping Use: Never used Substance Use Topics Alcohol use: Yes Alcohol/week: 1.7 standard drinks Comment: Occasional. Drug use: No EXAM: BP 122/78 Pulse 86 Resp 16 SpO2 95% PHYSICAL EXAM: General Appearance: Well appearing, alert, in no acute distress, well-hydrated, well nourished.. Skin: Skin color, texture, turgor normal, no suspicious rashes or lesions. Head: Normocephalic, no masses, lesions, tenderness or abnormalities. Eyes: Anicteric sclera. Extraocular movements are intact. . Lungs: Lungs clear to auscultation. No wheezing, rhonchi, rales.. Heart: RRR without murmur, gallop, or rubs. No ectopy. Neurologic: Gait normal. Lymph: + small lump in the right inguinal area. (Suspect related to some razor burn on the mons pubis). ASSESSMENT/PLAN: 1. Lymph node enlargement - ICD9: 785.6, ICD10: R59.9 Suspect reactive lymph node. Warm compresses as needed. Continue to monitor to ensure resolves over the next few weeks. Discussed treatment plan and patient voices understanding. Patient's questions answered appropriately. Medications and potential side effects were discussed and patient voices understanding. Return to the office as scheduled or as needed for worsening/no improvement. Maryan Humphrey APRN.SALES ENABLEMENT CONSULTANT documented in this encounter [facility] 01-23-2023 Note HNO ID: [id number] Author: Godfrey Aguilar MD Service: ? Author Type: Physician Type: Progress Notes Filed: 01/23/2023 2:03 PM Note Text: Were here early so no charge. No visit. [facility] 01-23-2023 Instructions Godfrey Aguilar MD - 01/23/2023 2:01 PM EDT Do visit anytime after 05/26/23 documented in this encounter [facility] 01-23-2023 History of Presen t illness Narrative Were here early so no charge. No visit. documented in this encounter [facility] 12-25-2022 Note HNO ID: [id number] Author: Catherine Aguayo Service: ? Author Type: Physician Type: Progress Notes Filed: 12/25/2022 10:33 AM Note Text: Initial Podiatric Office Visit: Chief Complaint: This 72 year old female who presents with chief complaint:generalized pain requiring the use of orthotics HPI Patient presents to clinic for evaluation of b/l feet She denies any pain currently but does report generalized pain in lower extremity. She has used orthotics and these do help She is in need of new orthotics She has received orthotics from [facility]. PAIN EVALUATION No data found in the last 1 encounters. 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 estradiol (ESTRACE) 0.01 % (0.1 mg/gram) vaginal cream Use 1 g vaginally once daily. For 2 weeks. Then decrease to 2-3 times per week ongoing. No current facility-administered medications for this visit. ALLERGIES Allergen Reactions Amitriptyline Other: See Comments Unable to urinate Cefdinir Other: See Comments Gives her bad bladder infections Ciprofloxacin Swelling Pt states facial swelling and redness Doxycycline Other: See Comments Bladder pain Environmental [Othe* Itching Dust, mold, feathers, animals, leaves, grass Hydrocortisone Unknown Levofloxacin Other: See Comments Flu-like symptoms PAST SURGICAL HISTORY Procedure Laterality Date ABDOMINAL SURGERY HX COLONOSCOPY FLX DX W/COLLJ SPEC WHEN PFRMD Colonoscopy COLONOSCOPY FLX DX W/COLLJ SPEC WHEN PFRMD 07/01/2014 Colonoscopy COLONOSCOPY FLX DX W/COLLJ SPEC WHEN PFRMD 04/18/2021 COLONOSCOPY W/BIOPSY SINGLE/MULTIPLE 12/10/2006 CYSTOSCOPY 05/24/2021 Dr Plasencia CYSTOSCOPY,DIL BLADDER,LOCAL ANESTH 05/2021 ESOPHAGOGASTRODUODENOSCOPY TRANSORAL DIAGNOSTIC 04/28/2012 EGD ESOPHAGOGASTRODUODENOSCOPY TRANSORAL DIAGNOSTIC 12/02/2014 EGD HEMORRHOIDECTOMY INT AND XTRNL 2/> COLUMN/NAGI LAPS SURG CHOLECYSTECTOMY W/CHOLANGIOGRAPHY N/A 01/14/2017 LIG/TRNSXJ FLP TUBE ABDL/VAG APPR UNI/BI PAST SURGICAL HISTORY OF 2 left and 1 rt. foot surgeries ammer toes. neuroma PAST SURGICAL HISTORY OF 02/26/2014 right foot surgery - bunion SIGMOIDOSCOPY FLX W/BIOPSY SINGLE/MULTIPLE 11/07/2009 WRIST SURGERY HX Left 03/2021 FAMILY HISTORY Problem Relation Age of Onset Cancer Mother leukemia, hypertension Melanoma Mother Cancer Father Liver Heart Father Diabetes Father Type 2 Thyroid Sister Melanoma Sister other (ALS) Sister Stroke Maternal Grandmother Social History Tobacco Use Smoking status: Never Smokeless tobacco: Never Tobacco comments: Father smoked in childhood home. No other household ETS since. Vaping Use Vaping Use: Never used Substance Use Topics Alcohol use: Yes Alcohol/week: 1.7 standard drinks Comment: Occasional. Drug use: No REVIEW OF SYSTEMS GENERAL: Negative for Malaise, significant weight loss, fever RESPIRATORY: Negative for cough, wheezing and shortness of breath CARDIOVASCULAR: Negative for chest pain, leg swelling and palpitations GI: Negative for abdominal discomfort, blood in stools or black stools and change in bowel habits : Negative for dysuria, frequency and incontinence MUSCULOSKELETAL: Negative for joint pain or swelling, back pain, and muscle pain. SKIN: Negative for lesions, rash, and itching. HEMATOLOGY/LYMPHOLOGY Negative for prolonged bleeding, bruising easily, and swollen nodes. ENDOCRINE: Negative for cold or heat intolerance, polyuria, polydipsia and goiter. NEURO: negative Physical Exam: Constitutional: Pt is a well developed 72 year old female who is alert, oriented and cooperative Eyes: Following during examination. No redness or drainage. Respiratory: RR normal and nonlabored. Even breathing. No evidence of distress or shortness of breath. Psychology: Patient is engaged during conversation. Normal affect and mood. Does not appear depressed or anxious during encounter. Vascular: Dorsalis pedis and posterior tibial pulses palpable as b/l Capillary Fill time < 5 seconds to digits 1-5 b/l Skin temperature warm to warm proximal to distal b/l Hair growth present to digits Neurological: intact light touch/epicritic sensation b/l intact protective sensation no significant neurological deficits Dermatological: Nails 1-5 b/l appear normal. Webspaces clean and dry 1-4 b/l. Skin appears well hydrated and supple. good (more content not included)... [facility] 12-25-2022 Note HNO ID: [id number] Author: Heidi Arita LPN Service: ? Author Type: LICENSED NURSE Type: Progress Notes Filed: 12/25/2022 10:33 AM Note Text: AMB ROOMING INTAKE FLOWSHEET DATA Patient presents with: Left Foot - New, orthotics Right Foot - New, orthotics Patient requesting orthotics. Heidi Arita LPN [facility] 12-25-2022 History of Presen t illness Narrative Initial Podiatric Office Visit: Chief Complaint: This 72 year old female who presents with chief complaint:generalized pain requiring the use of orthotics HPI Patient presents to clinic for evaluation of b/l feet She denies any pain currently but does report generalized pain in lower extremity. She has used orthotics and these do help She is in need of new orthotics She has received orthotics from [facility]. PAIN EVALUATION No data found in the last 1 encounters. 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 estradiol (ESTRACE) 0.01 % (0.1 mg/gram) vaginal cream Use 1 g vaginally once daily. For 2 weeks. Then decrease to 2-3 times per week ongoing. No current facility-administered medications for this visit. ALLERGIES Allergen Reactions Amitriptyline Other: See Comments Unable to urinate Cefdinir Other: See Comments Gives her bad bladder infections Ciprofloxacin Swelling Pt states facial swelling and redness Doxycycline Other: See Comments Bladder pain Environmental [Othe* Itching Dust, mold, feathers, animals, leaves, grass Hydrocortisone Unknown Levofloxacin Other: See Comments Flu-like symptoms PAST SURGICAL HISTORY Procedure Laterality Date ABDOMINAL SURGERY HX COLONOSCOPY FLX DX W/COLLJ SPEC WHEN PFRMD Colonoscopy COLONOSCOPY FLX DX W/COLLJ SPEC WHEN PFRMD 07/01/2014 Colonoscopy COLONOSCOPY FLX DX W/COLLJ SPEC WHEN PFRMD 04/18/2021 COLONOSCOPY W/BIOPSY SINGLE/MULTIPLE 12/10/2006 CYSTOSCOPY 05/24/2021 Dr Plasencia CYSTOSCOPY,DIL BLADDER,LOCAL ANESTH 05/2021 ESOPHAGOGASTRODUODENOSCOPY TRANSORAL DIAGNOSTIC 04/28/2012 EGD ESOPHAGOGASTRODUODENOSCOPY TRANSORAL DIAGNOSTIC 12/02/2014 EGD HEMORRHOIDECTOMY INT & XTRNL 2/> COLUMN/NAGI LAPS SURG CHOLECYSTECTOMY W/CHOLANGIOGRAPHY N/A 01/14/2017 LIG/TRNSXJ FLP TUBE ABDL/VAG APPR UNI/BI PAST SURGICAL HISTORY OF 2 left and 1 rt. foot surgeries ammer toes. neuroma PAST SURGICAL HISTORY OF 02/26/2014 right foot surgery - bunion SIGMOIDOSCOPY FLX W/BIOPSY SINGLE/MULTIPLE 11/07/2009 WRIST SURGERY HX Left 03/2021 FAMILY HISTORY Problem Relation Age of Onset Cancer Mother leukemia, hypertension Melanoma Mother Cancer Father Liver Heart Father Diabetes Father Type 2 Thyroid Sister Melanoma Sister other (ALS) Sister Stroke Maternal Grandmother Social History Tobacco Use Smoking status: Never Smokeless tobacco: Never Tobacco comments: Father smoked in childhood home. No other household ETS since. Vaping Use Vaping Use: Never used Substance Use Topics Alcohol use: Yes Alcohol/week: 1.7 standard drinks Comment: Occasional. Drug use: No REVIEW OF SYSTEMS GENERAL: Negative for Malaise, significant weight loss, fever RESPIRATORY: Negative for cough, wheezing and shortness of breath CARDIOVASCULAR: Negative for chest pain, leg swelling and palpitations GI: Negative for abdominal discomfort, blood in stools or black stools and change in bowel habits : Negative for dysuria, frequency and incontinence MUSCULOSKELETAL: Negative for joint pain or swelling, back pain, and muscle pain. SKIN: Negative for lesions, rash, and itching. HEMATOLOGY/LYMPHOLOGY Negative for prolonged bleeding, bruising easily, and swollen nodes. ENDOCRINE: Negative for cold or heat intolerance, polyuria, polydipsia and goiter. NEURO: negative Physical Exam: Constitutional: Pt is a well developed 72 year old female who is alert, oriented and cooperative Eyes: Following during examination. No redness or drainage. Respiratory: RR normal and nonlabored. Even breathing. No evidence of distress or shortness of breath. Psychology: Patient is engaged during conversation. Normal affect and mood. Does not appear depressed or anxious during encounter. Vascular: Dorsalis pedis and posterior tibial pulses palpable as b/l Capillary Fill time < 5 seconds to digits 1-5 b/l Skin temperature warm to warm proximal to distal b/l Hair growth present to digits Neurological: intact light touch/epicritic sensation b/l intact protective sensation no significant neurological deficits Dermatological: Nails 1-5 b/l appear normal. Webspaces clean and dry 1-4 b/l. Skin appears well hydrated and supple. good color, texture, turgor. No open lesions present. No callosities present. Musculoskeletal/Orthopaedic: Patient has no pain to palpation of b/l feet Foot type is slightly prontated structurally AJ ROM is full with knee extended and flexed 1st MPJ is decreased when loaded and no pain or crepitus are noted with ROM. Lateral deviation of lesser toes of b/l foot MTJ, STJ are full and free of pain and crepitus. +5/5 muscle strength dorsiflexion, plantarflexion, inversion, eversion b/l Radiographs: n/a ASSESSMENT: (M76.829) Posterior tibial tendon dysfunction (primary encounter diagnosis) (M20.10) Acquired hallux valgus, unspecified laterality (M20.41, M20.42) Hammer toes of both feet PLAN: 1. History and physical examination performed. 2. Discussed pain in b/l feet. I do feel a custom orthotic especially in the presence of deformity of foot would help her to provide support thereby decreasing pain in her foot. 3. Custom orthotics ordered Catherine Aguayo DPM Podiatry [address] [facility] [address] Dept: [phone] Dept AMB ROOMING INTAKE FLOWSHEET DATA Patient presents with: Left Foot - New, orthotics Right Foot - New, orthotics Patient requesting orthotics. Heidi Arita LPN documented in this encounter [facility] 12-06-2022 Note HNO ID: [id number] Author: Godfrey Aguilar MD Service: ? Author Type: Physician Type: Progress Notes Filed: 12/06/2022 3:48 PM Note Text: Patient presents with: LESION, SKIN HPI: Patient presents today for office visit for blue spot in mouth. Noticed blue spot in mouth approximately 6 + months ago. Not raised. Not painful. Refers to it looking like it's bruised. Followed up with Dermatology about two weeks ago and was told it's a Blue Nevus and she should see her dentist. Here today for a second opinion. Has not changed size or shape. Is not sore or tender. Would like to discuss her IBS and IC symptoms. How they correlate to one another. Sometimes when she moves her bowels her interstitial cystitis. Sees Dr Plasencia. No bloody or urinary symptoms. No chest pain or shortness of breath. No fever or chills. MEDICATIONS: Current Outpatient Medications Medication Sig MULTIVITAMIN ORAL Take by mouth. L. acidophilus/Bifid. animalis 2.5 billion cell cap Take 1 capsule by mouth once daily. estradiol (ESTRACE) 0.01 % (0.1 mg/gram) vaginal cream Use 1 g vaginally once daily. For 2 weeks. Then decrease to 2-3 times per week ongoing. No current facility-administered medications for this visit. 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 Hemorrhage of gastrointestinal tract, unspecified Internal hemorrhoids 11/07/2009 Interstitial cystitis Irritable bowel syndrome Lipoma of axilla 11/13/2011 Other osteoporosis PMH - PAST MEDICAL HISTORY OF fibrocystic breast disease Snoring PAST SURGICAL HISTORY Procedure Laterality Date ABDOMINAL SURGERY HX COLONOSCOPY FLX DX W/COLLJ SPEC WHEN PFRMD Colonoscopy COLONOSCOPY FLX DX W/COLLJ SPEC WHEN PFRMD 07/01/2014 Colonoscopy COLONOSCOPY FLX DX W/COLLJ SPEC WHEN PFRMD 04/18/2021 COLONOSCOPY W/BIOPSY SINGLE/MULTIPLE 12/10/2006 CYSTOSCOPY 05/24/2021 Dr Plasencia CYSTOSCOPY,DIL BLADDER,LOCAL ANESTH 05/2021 ESOPHAGOGASTRODUODENOSCOPY TRANSORAL DIAGNOSTIC 04/28/2012 EGD ESOPHAGOGASTRODUODENOSCOPY TRANSORAL DIAGNOSTIC 12/02/2014 EGD HEMORRHOIDECTOMY INT AND XTRNL 2/> COLUMN/NAIG LAPS SURG CHOLECYSTECTOMY W/CHOLANGIOGRAPHY N/A 01/14/2017 LIG/TRNSXJ FLP TUBE ABDL/VAG APPR UNI/BI PAST SURGICAL HISTORY OF 2 left and 1 rt. foot surgeries ammer toes. neuroma PAST SURGICAL HISTORY OF 02/26/2014 right foot surgery - bunion SIGMOIDOSCOPY FLX W/BIOPSY SINGLE/MULTIPLE 11/07/2009 WRIST SURGERY HX Left 03/2021 FAMILY HISTORY Problem Relation Age of Onset Cancer Mother leukemia, hypertension Melanoma Mother Cancer Father Liver Heart Father Diabetes Father Type 2 Thyroid Sister Melanoma Sister other (ALS) Sister Stroke Maternal Grandmother Social History Tobacco Use Smoking status: Never Smokeless tobacco: Never Tobacco comments: Father smoked in childhood home. No other household ETS since. Vaping Use Vaping Use: Never used Substance Use Topics Alcohol use: Yes Alcohol/week: 1.7 standard drinks Comment: Occasional. Drug use: No Reviewed current medications, allergies, past medical history, surgical history, family history and social history today. REVIEW OF SYSTEMS Due for repeat mri of pancreas in 04/2024 All other reviewed and negative other than HPI. HEALTH MAINTENANCE: Reviewed health maintenance issues today and recommended the following in detail. DEPRESSION ASSESSMENT Never done VITALS: BP 110/56 Pulse 83 Ht 163.8 cm (5' 4.5 ) Wt 59.9 kg (132 lb) SpO2 97% BMI 22.31 kg/m? Last 4 Encounter Wt Readings: Date: Wt: 08/03/2022 59.6 kg (131 lb 6.4 oz) 06/28/2022 59.4 kg (131 lb) 06/19/2022 58.1 kg (128 lb) 06/08/2022 58.5 kg (129 lb) PHYSICAL EXAMINATION: General appearance: Well appearing, alert, in no acute distress, well-hydrated, well nourished. Skin: Skin color, texture, turgor normal, no suspicious rashes or lesions Head: Normocephalic, no masses, lesions, tenderness or abnormalities Oropharynx: dark lesion on right lower inside cheek. Neck: Supple, no adenopathy; thyroid symmetric, normal size, no bruits Lungs: Lungs clear to auscultation. No wheezing, rhonchi, rales Heart: RRR without murmur, gallop, or rubs. No ectopy ASSESSMENT/PLAN: 1. Mouth lesion - ICD9: 528.9, ICD10: K13.70 - see ent. - CONSULT TO ENT Godfrey Aguilar MD [facility] 07-03-2022 Miscellaneous Notes White discharge from the vaginal estrogen is a potential side effect. She could try switching to the yuvafem pill or could try ointment based compounded cream at [facility]. These would be options that could decrease or eliminate the white discharge. Disha Treviño MD documented in this encounter [facility] 06-19-2022 History of Presen t illness Narrative Shani Wright is a 72 year old female who presents for continued vaginal pruritis, burning, and discharge. She has been treated for bacterial vaginosis as well as yeast but continues to have vaginal irritation and a discharge that she describes as white and powdery . She notices an odor and thinks she may have bacterial vaginosis. She was seen in office on 06/08/22 with similar concerns and bacterial vaginosis and yeast swabs were negative. She was started on vaginal estrogen for dryness and atrophy. Vaginal discharge: scant amount, white, and powdery. Itching: YES Dyspareunia: N/A Fever/chills: No Abdominal pain: Yes, Bladder: Interstitial cystitis- just had hydro-distention completed last week Bowel: No blood in stool, pain with BM, tarry stool, persistent diarrhea or constipation Any new sexual partners or concern for STD exposure: No Any history of STDs: None Does your partner have any new complaints: No Are you currently taking any medications to treat vaginitis: No Do you use feminine sprays, douches or deodorants: No Menstrual cycle: no menses - postmenopausal Contraception: none Past medical, surgical, social history, medications and allergies reviewed and updated. OBJECTIVE: BP 122/70 Wt 128 lb (58.1kg) GENERAL: Well developed, well nourished, Thin in no apparent distress ABDOMEN: soft, non-tender, and no masses PELVIC: external genitalia normal, normal Bartholin's glands, urethra, [place]'s glands, no vulvar lesions, no cervical lesions, good vaginal support, physiologic discharge present, normal appearing perineal body and perianal region, atrophic changes ASSESSMENT/PLAN: 1. Vaginal discharge - ICD9: 623.5, ICD10: N89.8 (primary diagnosis) - [facility] - daily - ALVIN / TRICHOMONAS AMPLIFICATION - BACTERIAL VAGINOSIS AMPLIFICATION 2. Chronic vaginitis - ICD9: 616.10, ICD10: N76.1 - Patient concerned over continued vaginal irritation, discharge and s/s of bacterial vaginosis - CONSULT TO DR. PEREZ - ordered Will notify patient of results and will follow up after consultation Christal Rider APRN.CNM documented in this encounter [facility] 06-12-2022 Miscellaneous Notes I called patient and explained in detail how to use medication an answered all of her questions Agree with recommendations to use externally around the urethra & NOT inside the urethra. Thank you for explaining this to her. Disha Treviño MD I called patient and told her this was a vaginal cream. She is insistent that she was told to put this in her urethra. I told her this was impossible, but I would clarify if you wanted her to put any of the cream externally in the periurethral area. She is also very concerned she continues to have white chalky discharge. I have told her the Rephresh will help restore the normal anibal as well as probiotic. She would like us to call her back and not send a MyChart message Please call & help patient with the use of this medication. Disha Treviño MD See other MyChart message. Patient is worried she will have to cancel procedure with Dr Leal documented in this encounter [facility] 06-08-2022 Instructions Disha Treviño MD - 06/08/2022 2:02 PM EDT Minimizing irritation of the vulva (area around the vagina) Wear white cotton underwear. Avoid synthetic fabrics and tight clothing. Sleep wearing shorts or pajama bottoms without underwear. Shower as soon as possible after exercise. Avoid clothing detergents and soaps with perfumes or dyes. Use warm (not hot) water to wash the vulva and if you use soap use a product designed for sensitive skin (like Dove or Cetaphil). Do not douche or use creams/powders in the vulvar area unless instructed by your physician. If you must douche, use only plain warm water. Make sure the vulva is dry before dressing by patting dry with a towel. Avoid vigorous rubbing with the towel. You may want to use the blow dryer (on the cool setting only!) on the vulva. The most important way to let your body heal is by avoiding scratching. Many patients find it difficult to avoid scratching at night when they are most aware of the itchiness. You can try taking Benadryl just before bedtime. Some women find it helpful to wear cotton gloves to bed to avoid scratching at night. documented in this encounter [facility] 06-08-2022 History of Presen t illness Narrative Shani Wright is a 72 year old female who presents for problem visit . HPI: Patient presents with concerns. She was treated for BV early May. Patient still had some vaginal discharge so she took yeast medication (monistat 7). She saw her urologist and was diagnosed with a UTI. Patient then took a dose of diflucan. Today she still has vaginal discharge with maybe some burning. Patient isn't sure if the burning is from her interstitial cystitis. OB History T2 L2 SAB0 IAB0 Ectopic0 Multiple0 Live Births0 Comment: Patient also has two step-children. 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 Hemorrhage of gastrointestinal tract, unspecified Internal hemorrhoids 11/07/2009 Interstitial cystitis Irritable bowel syndrome Lipoma of axilla 11/13/2011 Other osteoporosis PMH - PAST MEDICAL HISTORY OF fibrocystic breast disease Snoring PAST SURGICAL HISTORY Procedure Laterality Date ABDOMINAL SURGERY HX COLONOSCOPY FLX DX W/COLLJ SPEC WHEN PFRMD Colonoscopy COLONOSCOPY FLX DX W/COLLJ SPEC WHEN PFRMD 07/01/2014 Colonoscopy COLONOSCOPY FLX DX W/COLLJ SPEC WHEN PFRMD 04/18/2021 COLONOSCOPY W/BIOPSY SINGLE/MULTIPLE 12/10/2006 CYSTOSCOPY 05/24/2021 Dr Plasencia CYSTOSCOPY,DIL BLADDER,LOCAL ANESTH 05/2021 ESOPHAGOGASTRODUODENOSCOPY TRANSORAL DIAGNOSTIC 04/28/2012 EGD ESOPHAGOGASTRODUODENOSCOPY TRANSORAL DIAGNOSTIC 12/02/2014 EGD HEMORRHOIDECTOMY INT & XTRNL 2/> COLUMN/NAGI LAPS SURG CHOLECYSTECTOMY W/CHOLANGIOGRAPHY N/A 01/14/2017 LIG/TRNSXJ FLP TUBE ABDL/VAG APPR UNI/BI PAST SURGICAL HISTORY OF 2 left and 1 rt. foot surgeries ammer toes. neuroma PAST SURGICAL HISTORY OF 02/26/2014 right foot surgery - bunion SIGMOIDOSCOPY FLX W/BIOPSY SINGLE/MULTIPLE 11/07/2009 WRIST SURGERY HX Left 03/2021 FAMILY HISTORY Problem Relation Age of Onset Cancer Mother leukemia, hypertension Melanoma Mother Cancer Father Liver Heart Father Diabetes Father Type 2 Thyroid Sister Melanoma Sister other (ALS) Sister Stroke Maternal Grandmother Social History Tobacco Use Smoking status: Never Smokeless tobacco: Never Tobacco comments: Father smoked in childhood home. No other household ETS since. Vaping Use Vaping Use: Never used Substance Use Topics Alcohol use: Yes Alcohol/week: 1.7 standard drinks Comment: Occasional. Drug use: No Current Outpatient Medications Medication Sig MULTIVITAMIN ORAL Take by mouth. No current facility-administered medications for this visit. Allergies As of Date: 06/08/2022 Allergen Noted Reaction AMITRIPTYLINE 01/04/2022 Other: See Comments CEFDINIR 11/07/2021 Other: See Comments CIPROFLOXACIN 11/17/2015 Swelling DOXYCYCLINE 11/07/2021 Other: See Comments ENVIRONMENTAL [OTHER] 12/03/2005 Itching HYDROCORTISONE 01/04/2022 Unknown LEVOFLOXACIN 03/12/2017 Other: See Comments Fully Assessed 06/08/2022 Allergies and current medication updated:Yes EXAM: BP 112/62 Wt 129 lb (58.5kg) GENERAL: pleasant, female in no apparent distress PELVIC: external genitalia normal, no vulvar lesions, no cervical lesions, normal appearing perineal body and perianal region; atrophic vagina ASSESSMENT AND PLAN: 72yo female with vaginal & urinary infection concerns Discussed R/B/A of management options. Patient wishes to proceed with vaginal estrogen cream - use reviewed & all questions answered in detail. She will continue the probiotic. Vaginitis swab today. Medical Decision Making: Problems: Low: 2+ self-limited or minor problems Data: Unique test(s) ordered: 1 Risk: Moderate: Drug management Medical Decision Making Level: 3 - Low Disha Treviño MD documented in this encounter [facility] 05-25-2022 Nurse Note Vision exam w/o correction R eye 20/30 L eye 20/20 B/L eyes 20/20 documented in this encounter [facility] 05-25-2022 History of Presen t illness Narrative Medicare Yearly Visit Medical B eligibilty date: unknown Date of last exam: unknown 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 Hemorrhage of gastrointestinal tract, unspecified Internal hemorrhoids 11/07/2009 Interstitial cystitis Irritable bowel syndrome Lipoma of axilla 11/13/2011 Other osteoporosis PMH - PAST MEDICAL HISTORY OF fibrocystic breast disease Snoring PAST SURGICAL HISTORY Procedure Laterality Date ABDOMINAL SURGERY HX COLONOSCOPY FLX DX W/COLLJ SPEC WHEN PFRMD Colonoscopy COLONOSCOPY FLX DX W/COLLJ SPEC WHEN PFRMD 07/01/2014 Colonoscopy COLONOSCOPY FLX DX W/COLLJ SPEC WHEN PFRMD 04/18/2021 COLONOSCOPY W/BIOPSY SINGLE/MULTIPLE 12/10/2006 CYSTOSCOPY 05/24/2021 Dr Plasencia CYSTOSCOPY,DIL BLADDER,LOCAL ANESTH 05/2021 ESOPHAGOGASTRODUODENOSCOPY TRANSORAL DIAGNOSTIC 04/28/2012 EGD ESOPHAGOGASTRODUODENOSCOPY TRANSORAL DIAGNOSTIC 12/02/2014 EGD HEMORRHOIDECTOMY INT & XTRNL 2/> COLUMN/NAGI LAPS SURG CHOLECYSTECTOMY W/CHOLANGIOGRAPHY N/A 01/14/2017 LIG/TRNSXJ FLP TUBE ABDL/VAG APPR UNI/BI PAST SURGICAL HISTORY OF 2 left and 1 rt. foot surgeries ammer toes. neuroma PAST SURGICAL HISTORY OF 02/26/2014 right foot surgery - bunion SIGMOIDOSCOPY FLX W/BIOPSY SINGLE/MULTIPLE 11/07/2009 WRIST SURGERY HX Left 03/2021 ALLERGIES: Amitriptyline, Cefdinir, Ciprofloxacin, Doxycycline, Environmental [Other], Hydrocortisone, and Levofloxacin Medications reviewed: Yes FAMILY HISTORY Problem Relation Age of Onset Cancer Mother leukemia, hypertension Melanoma Mother Cancer Father Liver Heart Father Diabetes Father Type 2 Thyroid Sister Melanoma Sister other (ALS) Sister Stroke Maternal Grandmother SOCIAL HISTORY: Social History Tobacco Use Smoking status: Never Smokeless tobacco: Never Tobacco comments: Father smoked in childhood home. No other household ETS since. Vaping Use Vaping Use: Never used Substance Use Topics Alcohol use: Yes Alcohol/week: 1.7 standard drinks Comment: Occasional. Drug use: No Shani works out regularly 1-2 times per week with walking and walking on treadmill. She watches her diet for sodium, low fat and low cholesterol, watches acids. List of current specialists seen: Urology - Dr. Kaur. Eye -- Graham Manager Marketing Communication -- Andrae. End of Live Planning discussed including patients advanced directive wishes: Yes DPOA - spouse, Cortney. I am willing to follow Shani's advanced directives. PHQ-2 / Depression screen She in the past two weeks denies having felt down, depressed, hopeless, or with little interest or pleasure in doing things. Functional Ability/Safety Screen 1. Was the patient's timed Up and Go test unsteady or longer than 30 seconds? No 2. Does the patient need help with the phone, transportation, shopping,preparing meals, housework, laundry, medications or managing money? No 3. Does your home have rugs in the hallway, lack of grab bars in the bathroom, lack of handrails on the stairs or have poor lighting? Handrails on stairs. Admits to rugs. Hearing Evaluation: within normal limits PHYSICAL EXAM BP 124/78 Pulse 75 Resp 18 Wt 59.4 kg (131 lb) SpO2 96% BMI 22.09 kg/m Alert and oriented X 3: YES Body mass index is 22.09 kg/m . Visual acuity: OD: 20/30 OS: 20/ 20 OU: 20/20 ASSESSMENT/PLAN: 72 year old female The following prevention plan was discussed during the office visit and provided to the patient: - Counseled on healthy diet and regular exercise - Depression screening - Glaucoma screening Discussed treatment plan and patient voices understanding. Patient's questions answered appropriately. Medications and potential side effects were discussed and patient voices understanding. Return to the office as scheduled or as needed for worsening/no improvement. Maryan Humphrey APRN.CNP documented in this encounter [facility] 05-15-2022 Miscellaneous Notes Per Teodoro patient is to take oral medication. Precautions regarding alcohol and intercourse given Patient states today is day 6 and she is not feeling any better. Still having a lot of discharge. has been having a lot of burning after 2-3 days of starting medication. Believes she should be feeling better, she did last time she used this medication after about 4-5 days. Just picked up oral medication and wondering if she should start that? The order is incorrect. She should only use one application daily so she is doing it correctly! It is recommended 1x daily x 5-7 days. Christal Rider APRN.CNM Patient was prescribed Metrogel for +BV. She has been using once a day for four days with minimal relief. States she read the directions today and they state to use twice daily. In the past she used once a day for 5 days. She was unaware the directions were different this time. Would you like patient to begin using twice a day and for how long? Ashlee Michael RN documented in this encounter [facility] 05-10-2022 Miscellaneous Notes Rx sent. Christal Rider APRN.CNM Shani called to inquire about her results. Reviewed medication instructions. Patient would like Metrogel again instead of the Flagyl. Concerned about developing a yeast infection. Advised patient could take a women's probiotic daily. Please cancel Flagyl RX and send in Metrogel. Thank you. Ashlee Michael RN Please review BV result. Karly Gaytan RN documented in this encounter [facility] 2022 History of Presen t illness Narrative Information Technology Administrator offered: Patient declines. Shani Wright is a 72 year old female who presents for problem visit of vaginal discharge and odor. She was seen earlier this month and was negative for yeast or bacteria vaginosis. Requesting to be swabbed again due to odor. Denies any pain or pruritis. Describes vaginal discharge as a white powdery substance that she finds on underwear . Started using Replens vaginal moisturizer and feels it is helping with dryness. Continues to refuse use of vaginal estrogen for vaginal atrophy. Comment: Patient also has two step-children. 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 Hemorrhage of gastrointestinal tract, unspecified Internal hemorrhoids 11/07/2009 Interstitial cystitis Irritable bowel syndrome Lipoma of axilla 11/13/2011 Other osteoporosis PMH - PAST MEDICAL HISTORY OF fibrocystic breast disease Snoring PAST SURGICAL HISTORY Procedure Laterality Date ABDOMINAL SURGERY HX COLONOSCOPY FLX DX W/COLLJ SPEC WHEN PFRMD Colonoscopy COLONOSCOPY FLX DX W/COLLJ SPEC WHEN PFRMD 07/01/2014 Colonoscopy COLONOSCOPY FLX DX W/COLLJ SPEC WHEN PFRMD 04/18/2021 COLONOSCOPY W/BIOPSY SINGLE/MULTIPLE 12/10/2006 CYSTOSCOPY 05/24/2021 Dr Plasencia CYSTOSCOPY,DIL BLADDER,LOCAL ANESTH 05/2021 ESOPHAGOGASTRODUODENOSCOPY TRANSORAL DIAGNOSTIC 04/28/2012 EGD ESOPHAGOGASTRODUODENOSCOPY TRANSORAL DIAGNOSTIC 12/02/2014 EGD HEMORRHOIDECTOMY INT & XTRNL 2/> COLUMN/NAGI LAPS SURG CHOLECYSTECTOMY W/CHOLANGIOGRAPHY N/A 01/14/2017 LIG/TRNSXJ FLP TUBE ABDL/VAG APPR UNI/BI PAST SURGICAL HISTORY OF 2 left and 1 rt. foot surgeries ammer toes. neuroma PAST SURGICAL HISTORY OF 02/26/2014 right foot surgery - bunion SIGMOIDOSCOPY FLX W/BIOPSY SINGLE/MULTIPLE 11/07/2009 WRIST SURGERY HX Left 03/2021 FAMILY HISTORY Problem Relation Age of Onset Cancer Mother leukemia, hypertension Melanoma Mother Cancer Father Liver Heart Father Diabetes Father Type 2 Thyroid Sister Melanoma Sister other (ALS) Sister Stroke Maternal Grandmother Social History Tobacco Use Smoking status: Never Smoker Smokeless tobacco: Never Used Tobacco comment: Father smoked in childhood home. No other household ETS since. Vaping Use Vaping Use: Never used Substance Use Topics Alcohol use: Yes Alcohol/week: 1.7 standard drinks Comment: Occasional. Drug use: No Current Outpatient Medications Medication Sig cyclobenzaprine (FLEXERIL) 10 mg tablet Take 1 tablet by mouth three times daily as needed for muscle spasm. dicyclomine (BENTYL) 10 mg capsule Take 10 mg by mouth as needed. Levocetirizine (XYZAL) 5 mg tablet Take 1 tablet by mouth as needed. No current facility-administered medications for this visit. Allergies As of Date: 2022 Allergen Noted Reaction AMITRIPTYLINE 01/04/2022 Other: See Comments CEFDINIR 11/07/2021 Other: See Comments CIPROFLOXACIN 11/17/2015 Swelling DOXYCYCLINE 11/07/2021 Other: See Comments ENVIRONMENTAL [OTHER] 12/03/2005 Itching HYDROCORTISONE 01/04/2022 Unknown LEVOFLOXACIN 03/12/2017 Other: See Comments Fully Assessed 2022 REVIEW OF SYSTEMS Abdomen: No bloating, early satiety, indigestion, or increased flatulence. No abdominal pain, nausea, vomiting, diarrhea, or constipation. Bladder: No dysuria, gross hematuria, urinary frequency, urinary urgency, or incontinence. Breast: No breast lumps, nipple d/c, overlying skin changes, redness or skin retraction. Expanded ROS: N/A Allergies and current medication updated:Yes EXAM: BP 126/64 Wt 130 lb (59.0kg) GENERAL: pleasant, female in no apparent distress PELVIC: no vulvar lesions, normal appearing perineal body and perianal region, atrophic changes. Tenderness to vaginal wall noted when swab obtained with Q-tip NEURO: alert and oriented x3,exam grossly non-focal EXTREMITIES: normal ASSESSMENT/PLAN: 1. Vaginal discharge - ICD9: 623.5, ICD10: N89.8 (primary diagnosis) - BACT/ALVIN VAG GRAM STAIN - URINE CULTURE 2. Vaginal atrophy - ICD9: 627.3, ICD10: N95.2 - Continue non hormonal options for vaginal moisturizers - Provided printout on vaginal estrogen for patient 3. Vaginal odor - ICD9: 625.8, ICD10: N89.8 - Reviewed vulvar hygiene 4. Asymptomatic microscopic hematuria - ICD9: 599.72, ICD10: R31.21 - URINE CULTURE - Patient to see urology later this month and will discuss Will notify patient of results RTO as needed Christal Rider APRN.CNM I spent a total of 25 minutes on the date of the service which included preparing to see the patient, [id number] patient care, completing clinical documentation, performing a medically appropriate examination and counseling and educating the patient/family/caregiver Medical Decision Making Christal Rider APRN.CNM documented in this encounter [facility] 2022 Miscellaneous Notes Patient called in to the office. Appointment given. Ashlee Michael RN documented in this encounter [facility] 04-18-2022 Instructions Christal Rider APRN.CNM - 04/18/2022 1:25 PM EDT Non-Hormonal Vaginal Lubricants & Vaginal Moisturizers Symptoms of vaginal dryness can be managed by the regular use of vaginal moisturizing agents with supplemental use of vaginal lubricants for sexual intercourse. . Use of vaginal moisturizers and lubricants alone is effective treatment for vaginal dryness or dyspareunia (pain with intercourse) in some patients. Vaginal lubrications- Vaginal lubricants are designed to reduce friction and discomfort from dryness during sexual intercourse. The lubricant is applied inside the vagina and/or on the partner's penis or fingers just before sex. Coconut, Hinckley, Avocado or Peanut oil- natural oils are not recommended for use with latex condoms or diaphragms as they can damage the latex Astroglide- has both water and silicone based KY Jelly- water based Just like me Pure Romance Almost Naked Good Clean Love Bio Nude ultra-sensitive Pjur- silicone ID Millennium- silicone Vaginal Moisturizers- Vaginal moisturizers are intended for use routinely, typically two or three days per week, not just during sexual activity. These products are typically bioadhesives. Many moisturizer products are available in pharmacies and online. Restore- Keduo.Brickstream Replens Rios Feminease Moist Again K-Y Liquid beads Products to assist with maintaining vaginal ph IsoFresh [email or web address].Brickstream BiopHresh Rephresh documented in this encounter [facility] 04-18-2022 History of Presen t illness Narrative Shani Wright is a 71 year old female who presents for vaginal pruritis and discharge for past couple of weeks. Was recently treated for yeast infection with Monistat 7 and Diflucan PO. She is here today to make sure she doesn't have a continuation of her last infection. Vaginal discharge: scant amount. Itching: YES Dyspareunia: Some Fever/chills: No Abdominal pain: No Bladder: Negative for dysuria or frequency Bowel: No blood in stool, pain with BM, tarry stool, persistent diarrhea or constipation Past medical, surgical, social history, medications and allergies reviewed and updated. OBJECTIVE: BP 102/60 Wt 130 lb 6.4 oz (59.1kg) GENERAL: Well developed, well nourished in no apparent distress ABDOMEN: soft and non-tender PELVIC: external genitalia normal, no vulvar lesions, no cervical lesions, normal appearing perineal body and perianal region, atrophic changes ASSESSMENT/PLAN: 1. Vaginal irritation - ICD9: 623.9, ICD10: N89.8 (primary diagnosis) - BACT/ALVIN VAG GRAM STAIN 2. Vaginal atrophy - ICD9: 627.3, ICD10: N95.2 - Previous discussion about use of vaginal estrace with patient. She is declining this option due to history of cystitis and does not want to use hormones. - Handout provided on options for non-hormonal vaginal lubricants and moisturizers. Will notify patient of results. RTO- as needed/yearly Christal Rider APRN.CNM documented in this encounter [facility] 04-10-2022 Miscellaneous Notes Placed e consult for determining the length of monitoring. documented in this encounter [facility] 04-10-2022 History of Presen t illness Narrative Radiology Service Progress Note DATE OF SERVICE: April 10, 2022 TIME: 11:19 AM PATIENT IDENTITY VERIFICATION COMPLETED USING TWO (2) STANDARD IDENTIFIERS: Name and Date of confirmed by patient verbally. FALL SCREENING: Has the patient had 2 falls in the last year or 1 fall with injury or currently using an Ambulatory Assistive Device (Walker, Cane, Wheelchair, Crutches, etc.)? No PATIENT GENDER DATA: Female. status: : No status: NO. PATIENT RELEVANT IMPLANT DATA REVIEWED: Yes ALLERGIES: Reviewed and unchanged CONTRAST ALLERGY: NO. EXAM: MRI - CONTRAST TYPE: GROUP II PERIPHERAL IV DATA: Ambulatory: A peripheral IV was started in the Right forearm with a Angio cath: 22 gauge. RADIOLOGY DEPARTMENT: MR; Exam(s) Completed: Body: Pancreas/Biliary SIGNATURE: RT Khadra(R) PATIENT NAME: Shani Wright DATE: April 10, 2022 TIME: 11:19 AM documented in this encounter [facility] 03-19-2022 History of Presen t illness Narrative E-Consult Genetics Response In response to your eConsult request to Genetics for Shani Wright regarding: Indication for genetic testing for ALS given family history. History of present illness provided through requesting provider documentation and additional pertinent information in the patient s Epic record, including photos, if associated with this eConsult was reviewed. Based on the patient history provided, my impression is as follows: Around 85% of cases of ALS are simplex cases without a family history and no known underlying monogenic cause. In hereditary cases, age of onset is usually younger than 70. In addition, it is recommended to first test the affected individual since it may be difficult or not possible to interpret the genetic testing result in an unaffected person. Given the later age of onset in her sister, a hereditary form of ALS - while not completely excluded - is not very likely. A genetic evaluation can be done on her sister and should be considered especially if more than one relatives are affected. A genetic counseling appointment can be performed if the patient would like to discuss this in more detail. Appointment recommendations: If desired for educational purposes, Patient can be seen by Genetics on a non-urgent basis. Please place a Consult to Medical Genetics - General order. [facility] will contact the patient/family to schedule after the order is received. Thank you for consulting Genetics. Lisa Mai MD, PhD March 19, 2022 documented in this encounter [facility] documented as of this encounter (statuses as of 12/25/2022) [facility] History of Past illness Narrative* Problem Noted Date Resolved Date Abnormal thyroid blood test 03/19/2022 03/0 11/2022 Radiculopathy, cervical region 11/17/2020 0 02/07/2021 Mixed hyperlipidemia 10/29/2019 10/29/2019 Acute idiopathic gout of right hand 06/17/2017 05/01/2019 Overview: Added automatically from request for surgery [id number] Chronic cholecystitis with calculus 01/04/2017 10/29/2019 Pain in right hip 07/22/2015 10/29/2019 De Quervain's tenosynovitis, right 05/27/2012 07/21/2015 Abnormal mammogram, unspecified 02/09/2011 07/21/2015 Disorders of bursae and tend ons in shoulder region, unspecified 05/16/2010 07/21/2015 Pain in limb 05/16/2010 07/21/2015 Sciatica 06/29/2009 07/21/2015 Diarrhea 12/10/2006 07/21/2015 GASTROINTEST HEMORR NOS 12/10/2006 07/21/20 15 Other malaise and fatigue 06/18/20052014 documented as of this encounter (statuses as of 01/24/2023) [facility] History of Past illness Narrative* Problem Noted Date Resolved Date Abnormal thyroid blood test 03/19/2022 03/0 11/2022 Radiculopathy, cervical region 11/17/2020 0 02/07/2021 Mixed hyperlipidemia 10/29/2019 10/29/2019 Acute idiopathic gout of right hand 06/17/2017 05/01/2019 Overview: Added automatically from request for surgery [id number] Chronic cholecystitis with calculus 01/04/2017 10/29/2019 Pain in right hip 07/22/2015 10/29/2019 De Quervain's tenosynovitis, right 05/27/2012 07/21/2015 Abnormal mammogram, unspecified 02/09/2011 07/21/2015 Disorders of bursae and tend ons in shoulder region, unspecified 05/16/2010 07/21/2015 Pain in limb 05/16/2010 07/21/2015 Sciatica 06/29/2009 07/21/2015 Diarrhea 12/10/2006 07/21/2015 GASTROINTEST HEMORR NOS 12/10/2006 07/21/20 15 Other malaise and fatigue 06/18/20052014 documented as of this encounter (statuses as of 03/07/2023) [facility] History of Past illness Narrative* Problem Noted Date Resolved Date Abnormal thyroid blood test 03/19/2022 03/0 11/2022 Radiculopathy, cervical region 11/17/2020 0 02/07/2021 Mixed hyperlipidemia 10/29/2019 10/29/2019 Acute idiopathic gout of right hand 06/17/2017 05/01/2019 Overview: Added automatically from request for surgery [id number] Chronic cholecystitis with calculus 01/04/2017 10/29/2019 Pain in right hip 07/22/2015 10/29/2019 De Quervain's tenosynovitis, right 05/27/2012 07/21/2015 Abnormal mammogram, unspecified 02/09/2011 07/21/2015 Disorders of bursae and tend ons in shoulder region, unspecified 05/16/2010 07/21/2015 Pain in limb 05/16/2010 07/21/2015 Sciatica 06/29/2009 07/21/2015 Diarrhea 12/10/2006 07/21/2015 GASTROINTEST HEMORR NOS 12/10/2006 07/21/20 15 Other malaise and fatigue 06/18/20052014 documented as of this encounter (statuses as of 03/27/2023) [facility] History of Past illness Narrative* Problem Noted Date Diagnosed Date Resolved Date Abnormal thyroid blood test 03/19/2022 12/06/2022 Radiculopathy, cervical region 11/17/2020 02/07/2021 Mixed hyperlipidemia 10/29/2019 020 Acute idiopathic gout of right hand 06/17/2017 05/01/2019 Overview: Added automatically from request for surgery [id number] Chronic cholecystitis with calculus 01/04/2017 10/29/2019 Pain in right hip 07/22/2015 10/29/2019 De Quervain's tenosynovitis, right 05/27/2012 07/21/2015 Abnormal mammogram, unspecified 02/09/2011 07/21/2015 Disorders of bursae and tend ons in shoulder region, unspecified 05/16/2010 07/21/2015 Pain in limb 05/16/2010 07/21/2015 Sciatica 06/29/2009 07/21/2015 Diarrhea 12/10/2006 07/21/2015 GASTROINTEST HEMORR NOS 12/10/200607/07 Other malaise and fatigue 06/18/2005 documented as of this encounter (statuses as of 05/25/2023) [facility] History of Past illness Narrative* Problem Noted Date Diagnosed Date Resolved Date Abnormal thyroid blood test 03/19/2022 12/06/2022 Radiculopathy, cervical region 11/17/2020 02/07/2021 Mixed hyperlipidemia 10/29/2019 020 Acute idiopathic gout of right hand 06/17/2017 05/01/2019 Overview: Added automatically from request for surgery [id number] Chronic cholecystitis with calculus 01/04/2017 10/29/2019 Pain in right hip 07/22/2015 10/29/2019 De Quervain's tenosynovitis, right 05/27/2012 07/21/2015 Abnormal mammogram, unspecified 02/09/2011 07/21/2015 Disorders of bursae and tend ons in shoulder region, unspecified 05/16/2010 07/21/2015 Pain in limb 05/16/2010 07/21/2015 Sciatica 06/29/2009 07/21/2015 Diarrhea 12/10/2006 07/21/2015 GASTROINTEST HEMORR NOS 12/10/200607/07 Other malaise and fatigue 06/18/2005 documented as of this encounter (statuses as of 05/28/2023) [facility] of Past illness Narrative* Problem Noted Date Diagnosed Date Resolved Date Abnormal thyroid blood test 03/19/2022 12/06/2022 Radiculopathy, cervical region 11/17/2020 02/07/2021 Mixed hyperlipidemia 10/29/2019 020 Acute idiopathic gout of right hand 06/17/2017 05/01/2019 Overview: Added automatically from request for surgery [id number] Chronic cholecystitis with calculus 01/04/2017 10/29/2019 Pain in right hip 07/22/2015 10/29/2019 De Quervain's tenosynovitis, right 05/27/2012 07/21/2015 Abnormal mammogram, unspecified 02/09/2011 07/21/2015 Disorders of bursae and tend ons in shoulder region, unspecified 05/16/2010 07/21/2015 Pain in limb 05/16/2010 07/21/2015 Sciatica 06/29/2009 07/21/2015 Diarrhea 12/10/2006 07/21/2015 GASTROINTEST HEMORR NOS 12/10/200607/07 Other malaise and fatigue 06/18/2005 documented as of this encounter (statuses as of 05/31/2023) [facility] History of Past illness Narrative* Problem Noted Date Diagnosed Date Resolved Date Abnormal thyroid blood test 03/19/2022 12/06/2022 Radiculopathy, cervical region 11/17/2020 02/07/2021 Mixed hyperlipidemia 10/29/2019 020 Acute idiopathic gout of right hand 06/17/2017 05/01/2019 Overview: Added automatically from request for surgery [id number] Chronic cholecystitis with calculus 01/04/2017 10/29/2019 Pain in right hip 07/22/2015 10/29/2019 De Quervain's tenosynovitis, right 05/27/2012 07/21/2015 Abnormal mammogram, unspecified 02/09/2011 07/21/2015 Disorders of bursae and tend ons in shoulder region, unspecified 05/16/2010 07/21/2015 Pain in limb 05/16/2010 07/21/2015 Sciatica 06/29/2009 07/21/2015 Diarrhea 12/10/2006 07/21/2015 GASTROINTEST HEMORR NOS 12/10/200607/07 Other malaise and fatigue 06/18/2005 documented as of this encounter (statuses as of 08/28/2023) [facility] History of Past illness Narrative* Problem Noted Date Diagnosed Date Resolved Date Abnormal thyroid blood test 03/19/2022 12/06/2022 Radiculopathy, cervical region 11/17/2020 02/07/2021 Mixed hyperlipidemia 10/29/2019 020 Acute idiopathic gout of right hand 06/17/2017 05/01/2019 Overview: Added automatically from request for surgery [id number] Chronic cholecystitis with calculus 01/04/2017 10/29/2019 Pain in right hip 07/22/2015 10/29/2019 De Quervain's tenosynovitis, right 05/27/2012 07/21/2015 Abnormal mammogram, unspecified 02/09/2011 07/21/2015 Disorders of bursae and tend ons in shoulder region, unspecified 05/16/2010 07/21/2015 Pain in limb 05/16/2010 07/21/2015 Sciatica 06/29/2009 07/21/2015 Diarrhea 12/10/2006 07/21/2015 GASTROINTEST HEMORR NOS 12/10/200607/07 Other malaise and fatigue 06/18/2005 documented as of this encounter (statuses as of 09/12/2023) [facility] of Past illness Narrative* Problem Noted Date Diagnosed Date Resolved Date Abnormal thyroid blood test 03/19/2022 12/06/2022 Radiculopathy, cervical region 11/17/2020 02/07/2021 Mixed hyperlipidemia 10/29/2019 020 Acute idiopathic gout of right hand 06/17/2017 05/01/2019 Overview: Added automatically from request for surgery [id number] Chronic cholecystitis with calculus 01/04/2017 10/29/2019 Pain in right hip 07/22/2015 10/29/2019 De Quervain's tenosynovitis, right 05/27/2012 07/21/2015 Abnormal mammogram, unspecified 02/09/2011 07/21/2015 Disorders of bursae and tend ons in shoulder region, unspecified 05/16/2010 07/21/2015 Pain in limb 05/16/2010 07/21/2015 Sciatica 06/29/2009 07/21/2015 Diarrhea 12/10/2006 07/21/2015 GASTROINTEST HEMORR NOS 12/10/200607/07 Other malaise and fatigue 06/18/2005 documented as of this encounter (statuses as of 09/12/2023) [facility] History of Past illness Narrative* Problem Noted Date Diagnosed Date Resolved Date Abnormal thyroid blood test 03/19/2022 12/06/2022 Radiculopathy, cervical region 11/17/2020 02/07/2021 Mixed hyperlipidemia 10/29/2019 020 Acute idiopathic gout of right hand 06/17/2017 05/01/2019 Overview: Added automatically from request for surgery [id number] Chronic cholecystitis with calculus 01/04/2017 10/29/2019 Pain in right hip 07/22/2015 10/29/2019 De Quervain's tenosynovitis, right 05/27/2012 07/21/2015 Abnormal mammogram, unspecified 02/09/2011 07/21/2015 Disorders of bursae and tend ons in shoulder region, unspecified 05/16/2010 07/21/2015 Pain in limb 05/16/2010 07/21/2015 Sciatica 06/29/2009 07/21/2015 Diarrhea 12/10/2006 07/21/2015 GASTROINTEST HEMORR NOS 12/10/200607/07 Other malaise and fatigue 06/18/2005 documented as of this encounter (statuses as of 09/21/2023) [facility] Instructions* Patient Instructions* Maryan Humphrey APRN.SALES ENABLEMENT CONSULTANT - 03/19/2022 11:09 AM EDT 1. Continue to watch weight. If continuing to lose, let us know. 2. Get the MRI, as scheduled. 3. I'll let you know when I hear back from genetics. Health Promotion: - Eat healthy go to Stream.gov to get started - Have a yearly physical - Mammogram yearly after age 40 - Get at least 30 minutes of physical activity daily - Get at least 7 to 8 hours of sleep each night - Reach and maintain a healthy weight - Get help to quit or don't start smoking - Limit alcohol use to one drink or less - Do not use illegal drugs or misuse prescription drugs - Wear a helmet when riding a bike and wear protective gear for sports - Wear a seatbelt in cars and not text and drive - Wear sunscreen [facility] History of Present illness Narrative* Maryan Humphrey APRN.KIRK - 03/19/2022 10:41 AM EDT This is a 71 year old female who presents today with: Patient presents with: Follow Up HISTORY OF PRESENT ILLNESS: Shani Wright is a 71 year old female. Patient presents with: Follow Up Pt presents today for follow-up. Denies problems concerns. Refers that recently had covid. Feeling better. Follows w/ ent for allergy shots. Reports sister has ALS. Questions if genetic testing is needed. Started w/ symptoms starting around age 71. Has had for 5-6 years. REVIEW OF SYSTEMS GENERAL: No weight loss, malaise or fevers/chills. + weight loss -- but thinks from recent covid infection. Down 6#. HEENT: Negative for frequent or significant headaches, No changes in hearing or vision. NECK: Negative for lumps, goiter, pain and significant neck swelling RESPIRATORY: Negative for cough, hemoptysis, wheezing, dyspnea or shortness of breath CARDIOVASCULAR: Negative for chest pain, leg swelling, orthopnea, or palpitations GI: No nausea, vomiting, or diarrhea/constipation. No hematochezia/melena. No heartburn or reflux symptoms. Last colonoscopy 2020. : No history of dysuria, frequency or incontinence MUSCULOSKELETAL: Negative for joint pain or swelling. SKIN: Negative for lesions, rash, and itching ENDOCRINE: Negative for cold or heat intolerance, polyuria, polydipsia and goiter NEURO: No history of headaches, syncope, paralysis, seizures or tremors Depression Screening 08/22/2018 10/27/2019 12/07/2020 03/19/2022 PHQ-2 Score 0 0 0 0 EVA-2 Total Score - - - - Depression screening tool completed and reviewed. Based on score and interview, patient is not at risk for depression. Screening tool discussed with patient, and I recommended no further interventionat this time. Advanced directive DPOA - spouse CORTNEY. 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 Hemorrhage of gastrointestinal tract, unspecified Internal hemorrhoids 11/07/2009 Irritable bowel syndrome Lipoma of axilla 11/13/2011 Other osteoporosis PMH - PAST MEDICAL HISTORY OF fibrocystic breast disease Snoring PAST SURGICAL HISTORY Procedure Laterality Date ABDOMINAL SURGERY HX COLONOSCOPY FLX DX W/COLLJ SPEC WHEN PFRMD Colonoscopy COLONOSCOPY FLX DX W/COLLJ SPEC WHEN PFRMD 07/01/2014 Colonoscopy COLONOSCOPY FLX DX W/COLLJ SPEC WHEN PFRMD 04/18/2021 COLONOSCOPY W/BIOPSY SINGLE/MULTIPLE 12/10/2006 CYSTOSCOPY 05/24/2021 Dr Plasencia CYSTOSCOPY,DIL BLADDER,LOCAL ANESTH 05/2021 ESOPHAGOGASTRODUODENOSCOPY TRANSORAL DIAGNOSTIC 04/28/2012 EGD ESOPHAGOGASTRODUODENOSCOPY TRANSORAL DIAGNOSTIC 12/02/2014 EGD HEMORRHOIDECTOMY INT & XTRNL 2/> COLUMN/NAGI LAPS SURG CHOLECYSTECTOMY W/CHOLANGIOGRAPHY N/A 01/14/2017 LIG/TRNSXJ FLP TUBE ABDL/VAG APPR UNI/BI PAST SURGICAL HISTORY OF 2 left and 1 rt. foot surgeries ammer toes. neuroma PAST SURGICAL HISTORY OF 02/26/2014 right foot surgery - bunion SIGMOIDOSCOPY FLX W/BIOPSY SINGLE/MULTIPLE 11/07/2009 WRIST SURGERY HX Left 03/2021 ALLERGIES Amitriptyline, Cefdinir, Ciprofloxacin, Doxycycline, Environmental [Other], Hydrocortisone, and Levofloxacin MEDICATIONS Current Outpatient Medications Medication Sig cyclobenzaprine (FLEXERIL) 10 mg tablet Take 1 tablet by mouth three times daily as needed for muscle spasm. dicyclomine (BENTYL) 10 mg capsule Take 10 mg by mouth as needed. Levocetirizine (XYZAL) 5 mg tablet Take 1 tablet by mouth as needed. No current facility-administered medications for this visit. FAMILY HISTORY Problem Relation Age of Onset Cancer Mother leukemia, hypertension Melanoma Mother Cancer Father Liver Heart Father Diabetes Father Type 2 Thyroid Sister Melanoma Sister other (ALS) Sister Stroke Maternal Grandmother Social History Tobacco Use Smoking status: Never Smoker Smokeless tobacco: Never Used Tobacco comment: Father smoked in childhood home. No other household ETS since. Vaping Use Vaping Use: Never used Substance Use Topics Alcohol use: Yes Alcohol/week: 1.7 standard drinks Comment: Occasional. Drug use: No EXAM: BP 116/78 Pulse 82 Resp 18 Ht 164 cm (5' 4.57 ) Wt 57.6 kg (127 lb) SpO2 97% BMI 21.42 kg/m PHYSICAL EXAM: General Appearance: Well appearing, alert, in no acute distress, well-hydrated, well nourished.. Skin: Skin color, texture, turgor normal, no suspicious rashes or lesions. Head: Normocephalic, no masses, lesions, tenderness or abnormalities. Eyes: Anicteric sclera. Pupils are equally round and reactive to light. Extraocular movements are intact. . Ears: External ears normal, canals clear. Normal TMs bilaterally. Oropharynx: Lips, mucosa, and tongue normal, teeth and gums normal, oropharynx normal. Neck: Supple, no adenopathy; thyroid symmetric, normal size, no bruits. Lungs: Lungs clear to auscultation. No wheezing, rhonchi, rales.Lungs clear to auscultation. No wheezing, rhonchi, rales. Heart: RRR without murmur, gallop, or rubs. No ectopy. Abdomen: Abdomen soft, non-tender. Bowel sounds normal. No masses, organomegaly. Extremities: No deformities, edema, skin discoloration, clubbing or cyanosis. Good capillary refill. Neurologic: Gait normal. ASSESSMENT/PLAN: 1. COVID-19 - ICD9: 079.89, ICD10: U07.1 (primary diagnosis) Doing better. Continue to monitor. 2. Abnormal thyroid blood test - ICD9: 790.6, ICD10: R79.89 - TSH BLD - T4 FREE/FREE THYROX 3. Screening for hyperlipidemia - ICD9: V77.91, ICD10: Z13.220 - LIPID PANEL BASIC - CBC + DIFF - COMP METABOLIC PANEL 4. Vitamin D deficiency - ICD9: 268.9, ICD10: E55.9 - VITAMIN D 25 HYDROXY 5. Advanced directives, counseling/discussion - ICD9: V65.49, ICD10: Z71.89 - ADVANCE CARE PLAN DISCUSSION Advanced directive DPOA - spouse CORTNEY. 6. Family hx of ALS (amyotrophic lateral sclerosis) - ICD9: V17.2, ICD10: Z82.0 - E-CONSULT GENOMIC MEDICINE 7. Pancreatic cyst - ICD9: 577.2, ICD10: K86.2 Has surveillance MRI ordered/scheduled. 8. Weight loss - ICD9: 783.21, ICD10: R63.4 Continue to monitor. No change in the last 2 weeks. Notify provider if further weight loss. Discussed treatment plan and patient voices understanding. Patient's questions answered appropriately. Medications and potential side effects were discussed and patient voices understanding. Return to the office as scheduled or as needed for worsening/no improvement. Recheck in 6 months. Labs in the fall. Discussed treatment plan and patient voices understanding. Patient's questions answered appropriately. Medications and potential side effects were discussed and patient voices understanding. Return to the office as scheduled or as needed for worsening/no improvement. Maryan Humphrey APRN.CNP [facility] Miscellaneous Notes* Telephone Encounter - Anders Sanon LPN - 03/12/2022 1:30 PM EDT Order sent electronically. Anders Sanon LPN * Telephone Encounter - Maryan Humphrey APRN.CNP - 03/12/2022 12:50 PM EDT Order placed. Please fax as requested. Maryan Humphrey APRN.CNP * Telephone Encounter - Kina De Oliveira LPN - 03/12/2022 9:59 AM EDT Order pending for mammo to sign and [facility] to [facility]. [facility] Miscellaneous Notes* Telephone Encounter - Maryan Humphrey APRN.CNP - 03/07/2022 9:47 AM EDT See phone note. Maryan Humphrey APRN.KIRK * Telephone Encounter - Sharon Bradley RN - 03/07/2022 8:30 AM EDT Pt called and is notified of providers results and instructions. Pt voices understanding, can't do a VV does not have it set up. Set up VV with note to call Pt for today with Maryna Humphrey. Sharon Bradley RN * Telephone Encounter - Godfrey Aguilar MD - 03/07/2022 7:52 AM EDT covid is positive. Can we arrange virtual visit with one of us for follow up. documented in this [facility] History of Present illness Narrative* Maryan Humphrey APRN.KIRK - 03/07/2022 9:23 AM EDT Chief Complaint Patient presents with: Telemedicine Patient was offered a virtual/telemedicine appointment in lieu of an office visit due to recommendations to reduce patient exposure to COVID-19. No video was used for evaluation of this patient. Patient is aware of limitations of performing thevisit without a face to face visit in the office setting and agrees. Patient agrees to the visit: Yes Patient Location: [facility] Shani Wright is a 71 year old female who is contacted today for a phone visit This is an established patient of Dr. Godfrey Aguilar MD Reports: + Covid. States symptoms stared on 03/05/22 and she is currently on day #3. had covid. He is now off isolation. Refers that she has had a fever -- 101 max. Sore throat. + cough. Some PND. No ear pain. First day headache, but none since. Some nausea last night. No vomiting/diarrhea. No loss of taste/smell. Refers yesterday had some SOB after swallowing the wrong way. Taking mucinex and allergy medication. 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 Hemorrhage of gastrointestinal tract, unspecified Internal hemorrhoids 11/07/2009 Irritable bowel syndrome Lipoma of axilla 11/13/2011 Other osteoporosis PMH - PAST MEDICAL HISTORY OF fibrocystic breast disease Snoring Previous Surgical History PAST SURGICAL HISTORY Procedure Laterality Date ABDOMINAL SURGERY HX COLONOSCOPY FLX DX W/COLLJ SPEC WHEN PFRMD Colonoscopy COLONOSCOPY FLX DX W/COLLJ SPEC WHEN PFRMD 07/01/2014 Colonoscopy COLONOSCOPY FLX DX W/COLLJ SPEC WHEN PFRMD 04/18/2021 COLONOSCOPY W/BIOPSY SINGLE/MULTIPLE 12/10/2006 CYSTOSCOPY 05/24/2021 Dr Plasencia CYSTOSCOPY,DIL BLADDER,LOCAL ANESTH 05/2021 ESOPHAGOGASTRODUODENOSCOPY TRANSORAL DIAGNOSTIC 04/28/2012 EGD ESOPHAGOGASTRODUODENOSCOPY TRANSORAL DIAGNOSTIC 12/02/2014 EGD HEMORRHOIDECTOMY INT & XTRNL 2/> COLUMN/NAGI LAPS SURG CHOLECYSTECTOMY W/CHOLANGIOGRAPHY N/A 01/14/2017 LIG/TRNSXJ FLP TUBE ABDL/VAG APPR UNI/BI PAST SURGICAL HISTORY OF 2 left and 1 rt. foot surgeries ammer toes. neuroma PAST SURGICAL HISTORY OF 02/26/2014 right foot surgery - bunion SIGMOIDOSCOPY FLX W/BIOPSY SINGLE/MULTIPLE 11/07/2009 WRIST SURGERY HX Left 03/2021 Family History FAMILY HISTORY Problem Relation Age of Onset Cancer Mother leukemia, hypertension Melanoma Mother Cancer Father Liver Heart Father Diabetes Father Type 2 Thyroid Sister Melanoma Sister other (ALS) Sister Stroke Maternal Grandmother Patient Allergies ALLERGIES Allergen Reactions Amitriptyline Other: See Comments Unable to urinate Cefdinir Other: See Comments Gives her bad bladder infections Ciprofloxacin Swelling Pt states facial swelling and redness Doxycycline Other: See Comments Bladder pain Environmental [Othe* Itching Dust, mold, feathers, animals, leaves, grass Hydrocortisone Unknown Levofloxacin Other: See Comments Flu-like symptoms Current Medications Medication secretin, Human, (CHIROSTIM) 16 mcg solr PREDNISONE ORAL cyclobenzaprine (FLEXERIL) 10 mg tablet dicyclomine (BENTYL) 10 mg capsule Levocetirizine (XYZAL) 5 mg tablet No current facility-administered medications on file prior to visit. Social History Social History Tobacco Use Smoking status: Never Smoker Smokeless tobacco: Never Used Tobacco comment: Father smoked in childhood home. No other household ETS since. Vaping Use Vaping Use: Never used Substance Use Topics Alcohol use: Yes Alcohol/week: 1.7 standard drinks Comment: Occasional. Drug use: No EXAM: There were no vitals taken for this visit. Limited exam as visit was completed over the phone platform. Virtual visit completed using video, limited exam completed. Patient sounds ill: Yes Patient is unable to speak in complete sentences: No Patient has labored breathing: No. Patient is audibly coughing: Yes Psych: Attitude - cooperative, easily engaged in conversation Health Maintenance List DTAP,TDAP,TD(1 - Tdap) due on 10/25/2014 ADVANCE DIRECTIVE DISCUSSION Never done COVID-19 VACCINE(4 - Booster for Moderna series) due on 12/04/2021 DEPRESSION SCREENING due on 12/07/2021 MAMMOGRAM due on 05/31/2022 DIABETES SCREEN due on 01/10/2025 COLORECTAL CANCER SCREENING due on 04/18/2026 LIPID SCREEN due on 06/09/2026 BONE DENSITY Completed INFLUENZA Completed HEPATITIS C SCREENING Completed SHINGRIX VACCINE Completed PNEUMOCOCCAL: 65+ Completed Data reviewed Last 5 Encounter BP Readings: Date: BP: 03/06/2022 132/82 01/04/2022 122/78 11/18/2021 116/78 11/14/2021 114/72 11/07/2021 110/70 BMI Readings from Last 5 Encounters: 03/06/22 : 21.27 kg/m 01/04/22 : 22.30 kg/m 11/18/21 : 22.47 kg/m 11/14/21 : 22.13 kg/m 11/07/21 : 22.53 kg/m Last 5 Encounter Wt Readings: Date: Wt: 03/06/2022 58 kg (127 lb 12.8 oz) 01/04/2022 60.8 kg (134 lb) 11/18/2021 61.2 kg (135 lb) 11/14/2021 60.3 kg (133 lb) 11/07/2021 61.4 kg (135 lb 6.4 oz) Medication and allergy list reviewed, reconciled and updated 03/07/2022 ASSESSMENT/PLAN: 1. COVID-19 - ICD9: 079.89, ICD10: U07.1 Pt with + covid infection. Discussed the different options available to her and risks/benefits of each. . 1. Continue to monitor and treat symptoms. 2. Paxlovid 3. Monoclonal antibodies. She is going to continue to monitor her symptoms over the next 24 hours. She will let us know tomorrow (or sooner if she decides) if she'd like to proceed with antiviral or monoclonal antibodies. Also discussed with patient that if she should develop any severe symptoms, she should proceed to the ER. Voices understanding. Discussed treatment plan and patient voices understanding. Patient's questions answered appropriately. Medications and potential side effects were discussed and patient voices understanding. Return to the office as scheduled or as needed for worsening/no improvement. Maryan Humphrey APRN.CNP Total appointment time on phone with patient = 11-20 minutes documented in this encounterM[facility]05-31-2022 History of Present illness Narrative* Jossy Treviño APRN.KIRK - 03/06/2022 5:36 PM EDT CC: Patient presents with: Sore Throat: ST, fever and cough x 3 days HPI: Shani Wright is a 71 year old female who presents to the office with complaint of cough, nonproductive and sore throat for a few days. Symptoms are worsening Associated symptoms includes fever. Denies nausea, vomiting and diarrhea. Treatments tried include nothing so far. with no relief of symptoms. Sick contacts: unknown. History of asthma, frequent episodes of bronchitis, chronic bronchitis, bronchiectasis or COPD: No Smoker: No Seasonal/environmental allergies: No The ROS is otherwise negative. The patient's pmh, medications, allergies, and past visits are reviewed. PHYSICAL EXAM: BP 132/82 Pulse 101 Temp 37.8 C (100.1 F) (Tympanic) Resp 18 Wt 58 kg (127 lb 12.8 oz) SpO2 96% BMI 21.27 kg/m General appearance: alert, cooperative, pleasant, in no acute distress Head: Normocephalic Eyes: EOM's intact, conjunctiva pink and moist, no icterus, sclera white, non-injected Ears: Right ear: External ear/canal- Normal, TM - clear with good landmarks. Left ear: External ear/canal- Normal, TM - clear with good landmarks Oropharynx:moderate erythema, without exudates present Heart: Negative. RRR without obvious murmur, gallop, or rubs. No ectopy. 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 Hemorrhage of gastrointestinal tract, unspecified Internal hemorrhoids 11/07/2009 Irritable bowel syndrome Lipoma of axilla 11/13/2011 Other osteoporosis PMH - PAST MEDICAL HISTORY OF fibrocystic breast disease Snoring PAST SURGICAL HISTORY Procedure Laterality Date ABDOMINAL SURGERY HX COLONOSCOPY FLX DX W/COLLJ SPEC WHEN PFRMD Colonoscopy COLONOSCOPY FLX DX W/COLLJ SPEC WHEN PFRMD 07/01/2014 Colonoscopy COLONOSCOPY FLX DX W/COLLJ SPEC WHEN PFRMD 04/18/2021 COLONOSCOPY W/BIOPSY SINGLE/MULTIPLE 12/10/2006 CYSTOSCOPY 05/24/2021 Dr Plasencia CYSTOSCOPY,DIL BLADDER,LOCAL ANESTH 05/2021 ESOPHAGOGASTRODUODENOSCOPY TRANSORAL DIAGNOSTIC 04/28/2012 EGD ESOPHAGOGASTRODUODENOSCOPY TRANSORAL DIAGNOSTIC 12/02/2014 EGD HEMORRHOIDECTOMY INT & XTRNL 2/> COLUMN/NAGI LAPS SURG CHOLECYSTECTOMY W/CHOLANGIOGRAPHY N/A 01/14/2017 LIG/TRNSXJ FLP TUBE ABDL/VAG APPR UNI/BI PAST SURGICAL HISTORY OF 2 left and 1 rt. foot surgeries ammer toes. neuroma PAST SURGICAL HISTORY OF 02/26/2014 right foot surgery - bunion SIGMOIDOSCOPY FLX W/BIOPSY SINGLE/MULTIPLE 11/07/2009 WRIST SURGERY HX Left 03/2021 ALLERGIES Amitriptyline, Cefdinir, Ciprofloxacin, Doxycycline, Environmental [Other], Hydrocortisone, and Levofloxacin MEDICATIONS cyclobenzaprine (FLEXERIL) 10 mg tablet Take 1 tablet by mouth three times daily as needed for muscle spasm. dicyclomine (BENTYL) 10 mg capsule Take 10 mg by mouth as needed. secretin, Human, (CHIROSTIM) 16 mcg solr For MRI PANCREAS FUNCTION WO/W IVCON. Inject 0.2 mcg/kg/dose intravenously as directed. Slow push at the appropriate time during MRI PREDNISONE ORAL Take by mouth. Levocetirizine (XYZAL) 5 mg tablet Take 1 tablet by mouth as needed. FAMILY HISTORY Problem Relation Age of Onset Cancer Mother leukemia, hypertension Melanoma Mother Cancer Father Liver Heart Father Diabetes Father Type 2 Thyroid Sister Melanoma Sister other (ALS) Sister Stroke Maternal Grandmother Social History Tobacco Use Smoking status: Never Smoker Smokeless tobacco: Never Used Tobacco comment: Father smoked in childhood home. No other household ETS since. Vaping Use Vaping Use: Never used Substance Use Topics Alcohol use: Yes Alcohol/week: 1.7 standard drinks Comment: Occasional. Drug use: No ASSESSMENT/PLAN: 1. Sore throat - ICD9: 462, ICD10: J02.9 (primary diagnosis) - STREP A MOLECULAR (POC) - negative 2. Cough - ICD9: 786.2, ICD10: R05.9 - COVID WITH FLUA+B, ROUTINE 3. Close exposure to COVID-19 virus - ICD9: V01.79, ICD10: Z20.822 - COVID WITH FLUA+B, ROUTINE Potential red flag symptoms discussed with the patient. Reviewed appropriate action plan to take ifred flag symptoms occur. Patient agreeable to treatment plan. Jossy Treviño APRN.KIRK documented in this encounterM[facility]05-06-2022 Miscellaneous Notes* Telephone Encounter - Carmen Dennis - 02/09/2022 10:30 AM EDT Need new order placed patient cancelled rescheduled MRI. * Telephone Encounter - Kina De Oliveira LPN - 01/31/2022 10:29 AM EDT Patient is agreeable to this. Please contact to set up test as ordered. * Telephone Encounter - Godfrey Aguilar MD - 01/31/2022 8:12 AM EDT See if we can do this one which is identical to what she has done before. * Telephone Encounter - Jory Feng LPN - 01/31/2022 8:05 AM EDT Pt went to do her MRI today but states she had to drink a fluid that had flavoring and due to her chronic interstitial cystitis she is not able to drink this. She is on her way home. Pt asking what to do. Please advise. Jory Feng LPN documented in this encounterM[facility]let[facility]04-04-2022 Miscellaneous Notes* Telephone Encounter - Misti Hogan - 01/08/2022 2:55 PM EDT Please schedule patient in [place]. * Telephone Encounter - Kendra Paz - 01/04/2022 10:43 AM EDTSummary: Pain Management PT would like to be seen for pain management in [place]. Order is in place, please call to schedule. documented in this encounterM[facility]letown [facility]03-31-2022 History of Present illness Narrative* Godfrey Aguilar MD - 01/04/2022 9:52 AM EDT Patient presents with: Medicare Wellness Exam HPI: Patient presents today for office visit for check up/follow up. Not medicare wellness. See below. Muscle relaxers helped. Antacids did not. Chest xray. Was negative. Neck continues to bother her as well. Has known ddd of her neck. Has done physical therapy. Saw [place] [facility] for same and said shehad a tipped disc . Also had xrays of her thoracic spine she believes. She was to see Dr. Barry in the past and did not go. Has fatigue frequently. Does admit to worry and stress. Does not sleep well due to it. Uses melatonin. Does not want meds. No chest pain with exertion. No shortness of breath. No gi or gu issues. Requests to have her thyroid checked again. No weight changes. Changes in her hair or skin Worried about her pancreas cysts. Last checked they had not changed. No stomach pain. Still seeing urology for her bladder. Does not want osteoporosis tx. See previous note from Maryan Humphrey on 09/26 Has been having some back pains. Worried that it was pneumonia. Came into urgent care. Was sent to ER to get a CT scan. She went to the ER. They did an EKG. They did a d-dimer, which was negative. Refers that she continues with the pains. Refers that if she eats dairy, it is worse. Refers that it also has progressed. It started in upper back, then both upper back, and her forearmarea, and right leg. Shoulder blades, around shoulders and lateral chest wall bilaterally. Tried to take some motrin for it. Sometimes will help and sometimes not. Tried heat but didn't seem to help as much as cold. Refers that she has a dark spot on the inside of her cheek. Refers that she was to the dentist and they didn't say anything about it. + Fatigue. She did have an elevated TSH several months ago. Normalized on recheck. Sore throat off and on for the last month. Intermittent in nature. Unsure if is related to PND. Refers that it was only one side. Refers that she did have swollen glands and her face was kind of swollen, too. MEDICATIONS: Current Outpatient Medications Medication Sig cyclobenzaprine (FLEXERIL) 10 mg tablet Take 1 tablet by mouth three times daily as needed for muscle spasm. dicyclomine (BENTYL) 10 mg capsule Take 10 mg by mouth as needed. Levocetirizine (XYZAL) 5 mg tablet Take 1 tablet by mouth as needed. PREDNISONE ORAL Take by mouth. No current facility-administered medications for this visit. 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 Hemorrhage of gastrointestinal tract, unspecified Internal hemorrhoids 11/07/2009 Irritable bowel syndrome Lipoma of axilla 11/13/2011 Other osteoporosis PMH - PAST MEDICAL HISTORY OF fibrocystic breast disease Snoring PAST SURGICAL HISTORY Procedure Laterality Date ABDOMINAL SURGERY HX COLONOSCOPY FLX DX W/COLLJ SPEC WHEN PFRMD Colonoscopy COLONOSCOPY FLX DX W/COLLJ SPEC WHEN PFRMD 07/01/2014 Colonoscopy COLONOSCOPY FLX DX W/COLLJ SPEC WHEN PFRMD 04/18/2021 COLONOSCOPY W/BIOPSY SINGLE/MULTIPLE 12/10/2006 CYSTOSCOPY 05/24/2021 Dr Plasencia CYSTOSCOPY,DIL BLADDER,LOCAL ANESTH 05/2021 ESOPHAGOGASTRODUODENOSCOPY TRANSORAL DIAGNOSTIC 04/28/2012 EGD ESOPHAGOGASTRODUODENOSCOPY TRANSORAL DIAGNOSTIC 12/02/2014 EGD HEMORRHOIDECTOMY INT & XTRNL 2/> COLUMN/NAGI LAPS SURG CHOLECYSTECTOMY W/CHOLANGIOGRAPHY N/A 01/14/2017 LIG/TRNSXJ FLP TUBE ABDL/VAG APPR UNI/BI PAST SURGICAL HISTORY OF 2 left and 1 rt. foot surgeries ammer toes. neuroma PAST SURGICAL HISTORY OF 02/26/2014 right foot surgery - bunion SIGMOIDOSCOPY FLX W/BIOPSY SINGLE/MULTIPLE 11/07/2009 WRIST SURGERY HX Left 03/2021 FAMILY HISTORY Problem Relation Age of Onset Cancer Mother leukemia, hypertension Melanoma Mother Cancer Father Liver Heart Father Diabetes Father Type 2 Thyroid Sister Melanoma Sister other (ALS) Sister Stroke Maternal Grandmother Social History Tobacco Use Smoking status: Never Smoker Smokeless tobacco: Never Used Tobacco comment: Father smoked in childhood home. No other household ETS since. Vaping Use Vaping Use: Never used Substance Use Topics Alcohol use: Yes Alcohol/week: 1.7 standard drinks Comment: Occasional. Drug use: No Reviewed current medications, allergies, past medical history, surgical history, family history andsocial history today. REVIEW OF SYSTEMS All other reviewed and negative other than HPI. HEALTH MAINTENANCE: Reviewed health maintenance issues today VITALS: BP 122/78 Pulse 76 Wt 60.8 kg (134 lb) BMI 22.30 kg/m Last 4 Encounter Wt Readings: Date: Wt: 01/04/2022 60.8 kg (134 lb) 11/18/2021 61.2 kg (135 lb) 11/14/2021 60.3 kg (133 lb) 11/07/2021 61.4 kg (135 lb 6.4 oz) PHYSICAL EXAMINATION: General appearance: Well appearing, alert, in no acute distress, well-hydrated, well nourished. Skin: Skin color, texture, turgor normal, no suspicious rashes or lesions Head: Normocephalic, no masses, lesions, tenderness or abnormalities Lungs: Lungs clear to auscultation. No wheezing, rhonchi, rales Heart: RRR without murmur, gallop, or rubs. No ectopy Abdomen: Normal abdominal exam, Abdomen soft, non-tender. Bowel sounds normal. No masses, organomegaly Extremities: No deformities, edema, skin discoloration, clubbing or cyanosis. Good capillary refill. Musculoskeletal: No joint swelling, deformity, or tenderness Peripheral pulses: Normal Neuro: Gait normal. Reflexes normal and symmetric. Sensation grossly intact. ASSESSMENT/PLAN: 1. DDD (degenerative disc disease), cervical - ICD9: 722.4, ICD10: M50.30 (primary diagnosis) - see pain management. - CONSULT TO PAIN MGT 2. Chronic thoracic back pain, unspecified back pain laterality - ICD9: 724.1, 338.29, ICD10: M54.6, G89.29 - CONSULT TO PAIN MGT 3. Pancreatic cyst - ICD9: 577.2, ICD10: K86.2 - follow up mri. Is due. - MRI PANCREAS FUNCTION WO/W IVCON - IV CONTRAST (RADIOLOGY PROCEDURE) - ENTERIC CONTRAST (RADIOLOGY PROCEDURE) - SECRETIN (HUMAN) 16 MCG INTRAVENOUS SOLUTION 4. IPMN (intraductal papillary mucinous neoplasm) - ICD9: 239.0, ICD10: D49.0 - MRI PANCREAS FUNCTION WO/W IVCON - IV CONTRAST (RADIOLOGY PROCEDURE) - ENTERIC CONTRAST (RADIOLOGY PROCEDURE) - SECRETIN (HUMAN) 16 MCG INTRAVENOUS SOLUTION 5. Chronic interstitial cystitis - ICD9: 595.1, ICD10: N30.10 chronic Per urology 6. Age-related osteoporosis without current pathological fracture - ICD9: 733.01, ICD10: M81.0 - Reviewed the need for Calcium and Vitamin D supplements and weight bearing exercise as tolerated - VITAMIN D 25 HYDROXY 7. Fatigue, unspecified type - ICD9: 780.79, ICD10: R53.83 - check labs. - CBC + DIFF - COMP METABOLIC PANEL - TSH BLD Godfrey Aguilar RTO in six months and prn. documented in this encounterM[facility]own [facility]06-04-2021 History of Present illness Narrative* Oxana Barriga, RN - 03/10/2021 8:16 AM EDT PATIENT RECEIVED FROM OR VIA CART TO PHASE II . ALERT SPONT RESP. WITH ASSISTANT PASSENGER LOCOMOTIVE ENGINEER IN ATTENDANCE documented in this encounterSUMPF Changs Work Phone: 1(525) 699-813606-01-2021 Hospital Discharge instructions* Instructions* Radha Pierce RN - 03/07/2021 HOLD MULTIVITAMINS FOR 5 DAYS BEFORE SURGERY MAY TAKE ALL OTHER MEDICATIONS PRESCRIBED ARRIVE 2 HOURS PRIOR TO SURGERY BE AT THE HOSPITAL AT 6:00 am Check in at 2nd floor registration using photo ID and insurance card Have a responsible adult that will be able to take you home and will be able to stay with you when you are home. NO FOOD AFTER MIDNIGHT THE NIGHT BEFORE SURGERY This includes candy, gum, and mints MAY have CLEAR LIQUIDS (WATER, APPLE JUICE, CRANBERRY JUICE, BLACK COFFEE, TEA, CARBONATED POP GATORADE) To drink until arrival time for surgery *(NOTE: IF YOU ARE A DIABETIC AVOID HIGH SUGAR BEVERAGES)* Wear loose comfortable clean clothing that you can go home in Leave all jewelry, contact lenses and valuables at home ONLY ONE visitor is permitted at this time Bring printed medication list with you Write the date and times of last dose DO NOT USE alcohol, recreational drugs or tobacco products for 24 hours before surgery Please write down any questions that you may have for your surgeon, anesthesiologist, Etc. * Attachments The following attachments cannot be sent through Care Everywhere. * De Quervain's: Tendon Release: Post-op (Italian) * De Quervain's: Tendon Release: Pre-op (Italian) documented in this encounterSUMMA Work Phone: 1(578) 313-132802-11-2021 History of Past illness Narrative* Problem Noted Date Resolved Date Radiculopathy, cervical region 11/17/2020 0 02/07/2021 Mixed hyperlipidemia 10/29/2019 10/29/2019 Acute idiopathic gout of right hand 06/17/2017 05/01/2019 Overview: Added automatically from request for surgery [id number] Chronic cholecystitis with calculus 01/04/2017 10/29/2019 Pain in right hip 07/22/2015 10/29/2019 De Quervain's tenosynovitis, right 05/27/2012 07/21/2015 Abnormal mammogram, unspecified 02/09/2011 07/21/2015 Disorders of bursae and tend ons in shoulder region, unspecified 05/16/2010 07/21/2015 Pain in limb 05/16/2010 07/21/2015 Sciatica 06/29/2009 07/21/2015 Diarrhea 12/10/2006 07/21/2015 GASTROINTEST HEMORR NOS 12/10/2006 07/21/20 15 Other malaise and fatigue 06/18/20052014 documented as of this encounter (statuses as of 01/04/2022) [facility] of Past illness Narrative* Problem Noted Date Resolved Date Radiculopathy, cervical region 11/17/2020 0 02/07/2021 Mixed hyperlipidemia 10/29/2019 10/29/2019 Acute idiopathic gout of right hand 06/17/2017 05/01/2019 Overview: Added automatically from request for surgery [id number] Chronic cholecystitis with calculus 01/04/2017 10/29/2019 Pain in right hip 07/22/2015 10/29/2019 De Quervain's tenosynovitis, right 05/27/2012 07/21/2015 Abnormal mammogram, unspecified 02/09/2011 07/21/2015 Disorders of bursae and tend ons in shoulder region, unspecified 05/16/2010 07/21/2015 Pain in limb 05/16/2010 07/21/2015 Sciatica 06/29/2009 07/21/2015 Diarrhea 12/10/2006 07/21/2015 GASTROINTEST HEMORR NOS 12/10/2006 07/21/20 15 Other malaise and fatigue 06/18/20052014 documented as of this encounter (statuses as of 01/08/2022) [facility] of Past illness Narrative* Problem Noted Date Resolved Date Radiculopathy, cervical region 11/17/2020 0 02/07/2021 Mixed hyperlipidemia 10/29/2019 10/29/2019 Acute idiopathic gout of right hand 06/17/2017 05/01/2019 Overview: Added automatically from request for surgery [id number] Chronic cholecystitis with calculus 01/04/2017 10/29/2019 Pain in right hip 07/22/2015 10/29/2019 De Quervain's tenosynovitis, right 05/27/2012 07/21/2015 Abnormal mammogram, unspecified 02/09/2011 07/21/2015 Disorders of bursae and tend ons in shoulder region, unspecified 05/16/2010 07/21/2015 Pain in limb 05/16/2010 07/21/2015 Sciatica 06/29/2009 07/21/2015 Diarrhea 12/10/2006 07/21/2015 GASTROINTEST HEMORR NOS 12/10/2006 07/21/20 15 Other malaise and fatigue 06/18/20052014 documented as of this encounter (statuses as of 02/01/2022) [facility] of Past illness Narrative* Problem Noted Date Resolved Date Radiculopathy, cervical region 11/17/2020 0 02/07/2021 Mixed hyperlipidemia 10/29/2019 10/29/2019 Acute idiopathic gout of right hand 06/17/2017 05/01/2019 Overview: Added automatically from request for surgery [id number] Chronic cholecystitis with calculus 01/04/2017 10/29/2019 Pain in right hip 07/22/2015 10/29/2019 De Quervain's tenosynovitis, right 05/27/2012 07/21/2015 Abnormal mammogram, unspecified 02/09/2011 07/21/2015 Disorders of bursae and tend ons in shoulder region, unspecified 05/16/2010 07/21/2015 Pain in limb 05/16/2010 07/21/2015 Sciatica 06/29/2009 07/21/2015 Diarrhea 12/10/2006 07/21/2015 GASTROINTEST HEMORR NOS 12/10/2006 07/21/20 15 Other malaise and fatigue 06/18/20052014 documented as of this encounter (statuses as of 02/26/2022) [facility] of Past illness Narrative* Problem Noted Date Resolved Date Radiculopathy, cervical region 11/17/2020 0 02/07/2021 Mixed hyperlipidemia 10/29/2019 10/29/2019 Acute idiopathic gout of right hand 06/17/2017 05/01/2019 Overview: Added automatically from request for surgery [id number] Chronic cholecystitis with calculus 01/04/2017 10/29/2019 Pain in right hip 07/22/2015 10/29/2019 De Quervain's tenosynovitis, right 05/27/2012 07/21/2015 Abnormal mammogram, unspecified 02/09/2011 07/21/2015 Disorders of bursae and tend ons in shoulder region, unspecified 05/16/2010 07/21/2015 Pain in limb 05/16/2010 07/21/2015 Sciatica 06/29/2009 07/21/2015 Diarrhea 12/10/2006 07/21/2015 GASTROINTEST HEMORR NOS 12/10/2006 07/21/20 15 Other malaise and fatigue 06/18/20052014 documented as of this encounter (statuses as of 03/06/2022) [facility] History of Past illness Narrative* Problem Noted Date Resolved Date Radiculopathy, cervical region 11/17/2020 0 02/07/2021 Mixed hyperlipidemia 10/29/2019 10/29/2019 Acute idiopathic gout of right hand 06/17/2017 05/01/2019 Overview: Added automatically from request for surgery [id number] Chronic cholecystitis with calculus 01/04/2017 10/29/2019 Pain in right hip 07/22/2015 10/29/2019 De Quervain's tenosynovitis, right 05/27/2012 07/21/2015 Abnormal mammogram, unspecified 02/09/2011 07/21/2015 Disorders of bursae and tend ons in shoulder region, unspecified 05/16/2010 07/21/2015 Pain in limb 05/16/2010 07/21/2015 Sciatica 06/29/2009 07/21/2015 Diarrhea 12/10/2006 07/21/2015 GASTROINTEST HEMORR NOS 12/10/2006 07/21/20 15 Other malaise and fatigue 06/18/20052014 documented as of this encounter (statuses as of 03/07/2022) [facility] History of Past illness Narrative* Problem Noted Date Resolved Date Radiculopathy, cervical region 11/17/2020 0 02/07/2021 Mixed hyperlipidemia 10/29/2019 10/29/2019 Acute idiopathic gout of right hand 06/17/2017 05/01/2019 Overview: Added automatically from request for surgery [id number] Chronic cholecystitis with calculus 01/04/2017 10/29/2019 Pain in right hip 07/22/2015 10/29/2019 De Quervain's tenosynovitis, right 05/27/2012 07/21/2015 Abnormal mammogram, unspecified 02/09/2011 07/21/2015 Disorders of bursae and tend ons in shoulder region, unspecified 05/16/2010 07/21/2015 Pain in limb 05/16/2010 07/21/2015 Sciatica 06/29/2009 07/21/2015 Diarrhea 12/10/2006 07/21/2015 GASTROINTEST HEMORR NOS 12/10/2006 07/21/20 15 Other malaise and fatigue 06/18/20052014 documented as of this encounter (statuses as of 03/07/2022) [facility] History of Past illness Narrative* Problem Noted Date Resolved Date Radiculopathy, cervical region 11/17/2020 0 02/07/2021 Mixed hyperlipidemia 10/29/2019 10/29/2019 Acute idiopathic gout of right hand 06/17/2017 05/01/2019 Overview: Added automatically from request for surgery [id number] Chronic cholecystitis with calculus 01/04/2017 10/29/2019 Pain in right hip 07/22/2015 10/29/2019 De Quervain's tenosynovitis, right 05/27/2012 07/21/2015 Abnormal mammogram, unspecified 02/09/2011 07/21/2015 Disorders of bursae and tend ons in shoulder region, unspecified 05/16/2010 07/21/2015 Pain in limb 05/16/2010 07/21/2015 Sciatica 06/29/2009 07/21/2015 Diarrhea 12/10/2006 07/21/2015 GASTROINTEST HEMORR NOS 12/10/2006 07/21/20 15 Other malaise and fatigue 06/18/20052014 documented as of this encounter (statuses as of 03/08/2022) [facility] History of Past illness Narrative* Problem Noted Date Resolved Date Radiculopathy, cervical region 11/17/2020 0 02/07/2021 Mixed hyperlipidemia 10/29/2019 10/29/2019 Acute idiopathic gout of right hand 06/17/2017 05/01/2019 Overview: Added automatically from request for surgery [id number] Chronic cholecystitis with calculus 01/04/2017 10/29/2019 Pain in right hip 07/22/2015 10/29/2019 De Quervain's tenosynovitis, right 05/27/2012 07/21/2015 Abnormal mammogram, unspecified 02/09/2011 07/21/2015 Disorders of bursae and tend ons in shoulder region, unspecified 05/16/2010 07/21/2015 Pain in limb 05/16/2010 07/21/2015 Sciatica 06/29/2009 07/21/2015 Diarrhea 12/10/2006 07/21/2015 GASTROINTEST HEMORR NOS 12/10/2006 07/21/20 15 Other malaise and fatigue 06/18/20052014 documented as of this encounter (statuses as of 03/13/2022) [facility] History of Past illness Narrative* Problem Noted Date Resolved Date Radiculopathy, cervical region 11/17/2020 0 02/07/2021 Mixed hyperlipidemia 10/29/2019 10/29/2019 Acute idiopathic gout of right hand 06/17/2017 05/01/2019 Overview: Added automatically from request for surgery [id number] Chronic cholecystitis with calculus 01/04/2017 10/29/2019 Pain in right hip 07/22/2015 10/29/2019 De Quervain's tenosynovitis, right 05/27/2012 07/21/2015 Abnormal mammogram, unspecified 02/09/2011 07/21/2015 Disorders of bursae and tend ons in shoulder region, unspecified 05/16/2010 07/21/2015 Pain in limb 05/16/2010 07/21/2015 Sciatica 06/29/2009 07/21/2015 Diarrhea 12/10/2006 07/21/2015 GASTROINTEST HEMORR NOS 12/10/2006 07/21/20 15 Other malaise and fatigue 06/18/20052014 documented as of this encounter (statuses as of 03/19/2022) [facility] History of Past illness Narrative* Problem Noted Date Resolved Date Radiculopathy, cervical region 11/17/2020 0 02/07/2021 Mixed hyperlipidemia 10/29/2019 10/29/2019 Acute idiopathic gout of right hand 06/17/2017 05/01/2019 Overview: Added automatically from request for surgery [id number] Chronic cholecystitis with calculus 01/04/2017 10/29/2019 Pain in right hip 07/22/2015 10/29/2019 De Quervain's tenosynovitis, right 05/27/2012 07/21/2015 Abnormal mammogram, unspecified 02/09/2011 07/21/2015 Disorders of bursae and tend ons in shoulder region, unspecified 05/16/2010 07/21/2015 Pain in limb 05/16/2010 07/21/2015 Sciatica 06/29/2009 07/21/2015 Diarrhea 12/10/2006 07/21/2015 GASTROINTEST HEMORR NOS 12/10/2006 07/21/20 15 Other malaise and fatigue 06/18/20052014 documented as of this encounter (statuses as of 03/19/2022) [facility] History of Past illness Narrative* Problem Noted Date Resolved Date Radiculopathy, cervical region 11/17/2020 0 02/07/2021 Mixed hyperlipidemia 10/29/2019 10/29/2019 Acute idiopathic gout of right hand 06/17/2017 05/01/2019 Overview: Added automatically from request for surgery [id number] Chronic cholecystitis with calculus 01/04/2017 10/29/2019 Pain in right hip 07/22/2015 10/29/2019 De Quervain's tenosynovitis, right 05/27/2012 07/21/2015 Abnormal mammogram, unspecified 02/09/2011 07/21/2015 Disorders of bursae and tend ons in shoulder region, unspecified 05/16/2010 07/21/2015 Pain in limb 05/16/2010 07/21/2015 Sciatica 06/29/2009 07/21/2015 Diarrhea 12/10/2006 07/21/2015 GASTROINTEST HEMORR NOS 12/10/2006 07/21/20 15 Other malaise and fatigue 06/18/20052014 documented as of this encounter (statuses as of 04/10/2022) [facility] History of Past illness Narrative* Problem Noted Date Resolved Date Radiculopathy, cervical region 11/17/2020 0 02/07/2021 Mixed hyperlipidemia 10/29/2019 10/29/2019 Acute idiopathic gout of right hand 06/17/2017 05/01/2019 Overview: Added automatically from request for surgery [id number] Chronic cholecystitis with calculus 01/04/2017 10/29/2019 Pain in right hip 07/22/2015 10/29/2019 De Quervain's tenosynovitis, right 05/27/2012 07/21/2015 Abnormal mammogram, unspecified 02/09/2011 07/21/2015 Disorders of bursae and tend ons in shoulder region, unspecified 05/16/2010 07/21/2015 Pain in limb 05/16/2010 07/21/2015 Sciatica 06/29/2009 07/21/2015 Diarrhea 12/10/2006 07/21/2015 GASTROINTEST HEMORR NOS 12/10/2006 07/21/20 15 Other malaise and fatigue 06/18/20052014 documented as of this encounter (statuses as of 04/11/2022) [facility] History of Past illness Narrative* Problem Noted Date Resolved Date Radiculopathy, cervical region 11/17/2020 0 02/07/2021 Mixed hyperlipidemia 10/29/2019 10/29/2019 Acute idiopathic gout of right hand 06/17/2017 05/01/2019 Overview: Added automatically from request for surgery [id number] Chronic cholecystitis with calculus 01/04/2017 10/29/2019 Pain in right hip 07/22/2015 10/29/2019 De Quervain's tenosynovitis, right 05/27/2012 07/21/2015 Abnormal mammogram, unspecified 02/09/2011 07/21/2015 Disorders of bursae and tend ons in shoulder region, unspecified 05/16/2010 07/21/2015 Pain in limb 05/16/2010 07/21/2015 Sciatica 06/29/2009 07/21/2015 Diarrhea 12/10/2006 07/21/2015 GASTROINTEST HEMORR NOS 12/10/2006 07/21/20 15 Other malaise and fatigue 06/18/20052014 documented as of this encounter (statuses as of 04/18/2022) [facility] History of Past illness Narrative* Problem Noted Date Resolved Date Radiculopathy, cervical region 11/17/2020 0 02/07/2021 Mixed hyperlipidemia 10/29/2019 10/29/2019 Acute idiopathic gout of right hand 06/17/2017 05/01/2019 Overview: Added automatically from request for surgery [id number] Chronic cholecystitis with calculus 01/04/2017 10/29/2019 Pain in right hip 07/22/2015 10/29/2019 De Quervain's tenosynovitis, right 05/27/2012 07/21/2015 Abnormal mammogram, unspecified 02/09/2011 07/21/2015 Disorders of bursae and tend ons in shoulder region, unspecified 05/16/2010 07/21/2015 Pain in limb 05/16/2010 07/21/2015 Sciatica 06/29/2009 07/21/2015 Diarrhea 12/10/2006 07/21/2015 GASTROINTEST HEMORR NOS 12/10/2006 10/15/20 15 Other malaise and fatigue 06/18/20052014 documented as of this encounter (statuses as of 2022) [facility] History of Past illness Narrative* Problem Noted Date Resolved Date Radiculopathy, cervical region 11/17/2020 0 02/07/2021 Mixed hyperlipidemia 10/29/2019 10/29/2019 Acute idiopathic gout of right hand 06/17/2017 05/01/2019 Overview: Added automatically from request for surgery [id number] Chronic cholecystitis with calculus 01/04/2017 10/29/2019 Pain in right hip 07/22/2015 10/29/2019 De Quervain's tenosynovitis, right 05/27/2012 07/21/2015 Abnormal mammogram, unspecified 02/09/2011 07/21/2015 Disorders of bursae and tend ons in shoulder region, unspecified 05/16/2010 07/21/2015 Pain in limb 05/16/2010 07/21/2015 Sciatica 06/29/2009 07/21/2015 Diarrhea 12/10/2006 07/21/2015 GASTROINTEST HEMORR NOS 12/10/2006 07/21/20 15 Other malaise and fatigue 06/18/20052014 documented as of this encounter (statuses as of 2022) [facility] History of Past illness Narrative* Problem Noted Date Resolved Date Radiculopathy, cervical region 11/17/2020 0 02/07/2021 Mixed hyperlipidemia 10/29/2019 10/29/2019 Acute idiopathic gout of right hand 06/17/2017 05/01/2019 Overview: Added automatically from request for surgery [id number] Chronic cholecystitis with calculus 01/04/2017 10/29/2019 Pain in right hip 07/22/2015 10/29/2019 De Quervain's tenosynovitis, right 05/27/2012 07/21/2015 Abnormal mammogram, unspecified 02/09/2011 07/21/2015 Disorders of bursae and tend ons in shoulder region, unspecified 05/16/2010 07/21/2015 Pain in limb 05/16/2010 07/21/2015 Sciatica 06/29/2009 07/21/2015 Diarrhea 12/10/2006 07/21/2015 GASTROINTEST HEMORR NOS 12/10/2006 07/21/20 15 Other malaise and fatigue 06/18/20052014 documented as of this encounter (statuses as of 05/15/2022) [facility] History of Past illness Narrative* Problem Noted Date Resolved Date Radiculopathy, cervical region 11/17/2020 0 02/07/2021 Mixed hyperlipidemia 10/29/2019 10/29/2019 Acute idiopathic gout of right hand 06/17/2017 05/01/2019 Overview: Added automatically from request for surgery [id number] Chronic cholecystitis with calculus 01/04/2017 10/29/2019 Pain in right hip 07/22/2015 10/29/2019 De Quervain's tenosynovitis, right 05/27/2012 07/21/2015 Abnormal mammogram, unspecified 02/09/2011 07/21/2015 Disorders of bursae and tend ons in shoulder region, unspecified 05/16/2010 07/21/2015 Pain in limb 05/16/2010 07/21/2015 Sciatica 06/29/2009 07/21/2015 Diarrhea 12/10/2006 07/21/2015 GASTROINTEST HEMORR NOS 12/10/2006 07/21/20 15 Other malaise and fatigue 06/18/20052014 documented as of this encounter (statuses as of 05/21/2022) [facility] History of Past illness Narrative* Problem Noted Date Resolved Date Radiculopathy, cervical region 11/17/2020 0 02/07/2021 Mixed hyperlipidemia 10/29/2019 10/29/2019 Acute idiopathic gout of right hand 06/17/2017 05/01/2019 Overview: Added automatically from request for surgery [id number] Chronic cholecystitis with calculus 01/04/2017 10/29/2019 Pain in right hip 07/22/2015 10/29/2019 De Quervain's tenosynovitis, right 05/27/2012 07/21/2015 Abnormal mammogram, unspecified 02/09/2011 07/21/2015 Disorders of bursae and tend ons in shoulder region, unspecified 05/16/2010 07/21/2015 Pain in limb 05/16/2010 07/21/2015 Sciatica 06/29/2009 07/21/2015 Diarrhea 12/10/2006 07/21/2015 GASTROINTEST HEMORR NOS 12/10/2006 07/21/20 15 Other malaise and fatigue 06/18/20052014 documented as of this encounter (statuses as of 05/25/2022) [facility] History of Past illness Narrative* Problem Noted Date Resolved Date Radiculopathy, cervical region 11/17/2020 0 02/07/2021 Mixed hyperlipidemia 10/29/2019 10/29/2019 Acute idiopathic gout of right hand 06/17/2017 05/01/2019 Overview: Added automatically from request for surgery [id number] Chronic cholecystitis with calculus 01/04/2017 10/29/2019 Pain in right hip 07/22/2015 10/29/2019 De Quervain's tenosynovitis, right 05/27/2012 07/21/2015 Abnormal mammogram, unspecified 02/09/2011 07/21/2015 Disorders of bursae and tend ons in shoulder region, unspecified 05/16/2010 07/21/2015 Pain in limb 05/16/2010 07/21/2015 Sciatica 06/29/2009 07/21/2015 Diarrhea 12/10/2006 07/21/2015 GASTROINTEST HEMORR NOS 12/10/2006 07/21/20 15 Other malaise and fatigue 06/18/20052014 documented as of this encounter (statuses as of 06/05/2022) [facility] History of Past illness Narrative* Problem Noted Date Resolved Date Radiculopathy, cervical region 11/17/2020 0 02/07/2021 Mixed hyperlipidemia 10/29/2019 10/29/2019 Acute idiopathic gout of right hand 06/17/2017 05/01/2019 Overview: Added automatically from request for surgery [id number] Chronic cholecystitis with calculus 01/04/2017 10/29/2019 Pain in right hip 07/22/2015 10/29/2019 De Quervain's tenosynovitis, right 05/27/2012 07/21/2015 Abnormal mammogram, unspecified 02/09/2011 07/21/2015 Disorders of bursae and tend ons in shoulder region, unspecified 05/16/2010 07/21/2015 Pain in limb 05/16/2010 07/21/2015 Sciatica 06/29/2009 07/21/2015 Diarrhea 12/10/2006 07/21/2015 GASTROINTEST HEMORR NOS 12/10/2006 07/21/20 15 Other malaise and fatigue 06/18/20052014 documented as of this encounter (statuses as of 06/08/2022) [facility] History of Past illness Narrative* Problem Noted Date Resolved Date Radiculopathy, cervical region 11/17/2020 0 02/07/2021 Mixed hyperlipidemia 10/29/2019 10/29/2019 Acute idiopathic gout of right hand 06/17/2017 05/01/2019 Overview: Added automatically from request for surgery [id number] Chronic cholecystitis with calculus 01/04/2017 10/29/2019 Pain in right hip 07/22/2015 10/29/2019 De Quervain's tenosynovitis, right 05/27/2012 07/21/2015 Abnormal mammogram, unspecified 02/09/2011 07/21/2015 Disorders of bursae and tend ons in shoulder region, unspecified 05/16/2010 07/21/2015 Pain in limb 05/16/2010 07/21/2015 Sciatica 06/29/2009 07/21/2015 Diarrhea 12/10/2006 07/21/2015 GASTROINTEST HEMORR NOS 12/10/2006 07/21/20 15 Other malaise and fatigue 06/18/20052014 documented as of this encounter (statuses as of 06/12/2022) [facility] History of Past illness Narrative* Problem Noted Date Resolved Date Radiculopathy, cervical region 11/17/2020 0 02/07/2021 Mixed hyperlipidemia 10/29/2019 10/29/2019 Acute idiopathic gout of right hand 06/17/2017 05/01/2019 Overview: Added automatically from request for surgery [id number] Chronic cholecystitis with calculus 01/04/2017 10/29/2019 Pain in right hip 07/22/2015 10/29/2019 De Quervain's tenosynovitis, right 05/27/2012 07/21/2015 Abnormal mammogram, unspecified 02/09/2011 07/21/2015 Disorders of bursae and tend ons in shoulder region, unspecified 05/16/2010 07/21/2015 Pain in limb 05/16/2010 07/21/2015 Sciatica 06/29/2009 07/21/2015 Diarrhea 12/10/2006 07/21/2015 GASTROINTEST HEMORR NOS 12/10/2006 07/21/20 15 Other malaise and fatigue 06/18/20052014 documented as of this encounter (statuses as of 06/19/2022) [facility] History of Past illness Narrative* Problem Noted Date Resolved Date Radiculopathy, cervical region 11/17/2020 0 02/07/2021 Mixed hyperlipidemia 10/29/2019 10/29/2019 Acute idiopathic gout of right hand 06/17/2017 05/01/2019 Overview: Added automatically from request for surgery [id number] Chronic cholecystitis with calculus 01/04/2017 10/29/2019 Pain in right hip 07/22/2015 10/29/2019 De Quervain's tenosynovitis, right 05/27/2012 07/21/2015 Abnormal mammogram, unspecified 02/09/2011 07/21/2015 Disorders of bursae and tend ons in shoulder region, unspecified 05/16/2010 07/21/2015 Pain in limb 05/16/2010 07/21/2015 Sciatica 06/29/2009 07/21/2015 Diarrhea 12/10/2006 07/21/2015 GASTROINTEST HEMORR NOS 12/10/2006 07/21/20 15 Other malaise and fatigue 06/18/20052014 documented as of this encounter (statuses as of 07/05/2022) [facility] De Quervain's tenosynovitis, left- Primary Radial styloid tenosynovitis Post-op pain Other acute postoperative pain documented in this encounter [facility] Work Phone: Evaluation note* Diagnosis DDD (degenerative disc disease), cervical- Primary Degeneration of cervical intervertebral disc Chronic thoracic back pain, unspecified back pain laterality Pancreatic cyst Cyst and pseudocyst of pancreas IPMN (intraductal papillary mucinous neoplasm) Neoplasm of unspecified nature of digestive system Chronic interstitial cystitis Age-related osteoporosis without current pathological fracture Senile osteoporosis Fatigue, unspecified type [facility] Diagnosis IPMN (intraductal papillary mucinous neoplasm)- Primary Neoplasm of unspecified nature of digestive system Pancreatic cyst Cyst and pseudocyst of pancreas [facility] Diagnosis Sore throat- Primary Acute pharyngitis Cough Close exposure to COVID-19 virus [facility] Diagnosis COVID-19- Primary [facility] Diagnosis Encounter for screening mammogram for malignant neoplasm of breast- Primary Other screening mammogram [facility] Diagnosis COVID-19- Primary Abnormal thyroid blood test Nonspecific abnormal results of thyroid function study Screening for hyperlipidemia Screening for lipoid disorders Vitamin D deficiency Unspecified vitamin D deficiency Advanced directives, counseling/discussion Other specified counseling Family hx of ALS (amyotrophic lateral sclerosis) Family history of other neurological diseases Pancreatic cyst Cyst and pseudocyst of pancreas Weight loss Loss of weight [facility] Diagnosis Family history of neurologic disorder Family history of other neurological diseases [facility] Diagnosis IPMN (intraductal papillary mucinous neoplasm)- Primary Neoplasm of unspecified nature of digestive system [facility] Diagnosis IPMN (intraductal papillary mucinous neoplasm) Neoplasm of unspecified nature of digestive system Pancreatic cyst Cyst and pseudocyst of pancreas [facility] Diagnosis Vaginal irritation- Primary Unspecified noninflammatory disorder of vagina Vaginal atrophy Postmenopausal atrophic vaginitis [facility] Diagnosis Vaginal discharge- Primary Leukorrhea, not specified as infective Vaginal atrophy Postmenopausal atrophic vaginitis Vaginal odor Unspecified symptom associated with female genital organs Asymptomatic microscopic hematuria [facility] Diagnosis Medicare annual wellness visit, subsequent- Primary Routine general medical examination at a health care facility [facility] Diagnosis Vaginal discharge- Primary Leukorrhea, not specified as infective Chronic vaginitis Vaginitis and vulvovaginitis, unspecified [facility] Diagnosis Posterior tibial tendon dysfunction- Primary Other disorders of synovium, tendon, and bursa Acquired hallux valgus, unspecified laterality Hammer toes of both feet documented in this encounter [facility] note* Diagnosis Procedure and treatment not carried out due to patient leaving prior to being seen by health care provider- Primary [facility] Diagnosis Lymph node enlargement- Primary Enlargement of lymph nodes [facility] Diagnosis Lymph node enlargement- Primary Enlargement of lymph nodes [facility] Diagnosis Acute otitis media, left- Primary Unspecified otitis media Rhinosinusitis Unspecified sinusitis (chronic) documented in this encounter [facility] note* Diagnosis Groin lump- Primary Abdominal or pelvic swelling, mass or lump, unspecified site Encounter for screening mammogram for malignant neoplasm of breast Other screening mammogram IPMN (intraductal papillary mucinous neoplasm) Neoplasm of unspecified nature of digestive system Age-related osteoporosis without current pathological fracture Senile osteoporosis Hyperlipidemia, mixed Mixed hyperlipidemia documented in this encounter [facility] note* Diagnosis Abdominal pain, unspecified abdominal location documented in this encounter [facility] note* Diagnosis Groin mass- Primary Abdominal or pelvic swelling, mass or lump, unspecified site [facility]* Instructions* Cherry Luna PA - 03/10/2021 Images from the original note were not included. Bandage: Keep operative dressing on, clean, and dry for one week. After one week from the date of surgery, you can remove only the CHRISTEN wrap and rolled dressing. Please leave the clear bandage underneath intact until follow up appointment in 2 weeks. Underneath the clear bandage, you have Steri-Strips/white tape over the incision holding a blue suture in place, please leave intact until your follow- up appointment. It is okay to shower and get the clear bandage wet as it is waterproof but do not soak in tub. Swelling control: Elevate and Ice for pain control. Immobilization: Encourage range of motion of index finger, long finger, ring finger, little finger, thumb, and wrist in dressing with goal of touching fingertips to palm by initial post op appointment. Please see exercises listed below. Weightbearing: Non weight bearing in operative extremity. Nerve block for pain control: You received a local injection with lidocaine and epinephrine today. It is normal for your finger tips to look pale or white for up to 10 hours after surgery but if this persists past the 10 hours please call the office immediately. De Quervain's Disease: Exercises Introduction Here are some examples of exercises for you to try. The exercises may be suggested for a condition or for rehabilitation. Start each exercise slowly. Ease off the exercises if you start to have pain. You will be told when to start these exercises and which ones will work best for you. How to do the exercises Thumb lifts 1. Place your hand on a flat surface, with your palm up. 2. Lift your thumb away from your palm to make a C shape. 3. Hold for about 6 seconds. 4. Repeat 8 to 12 times. Passive thumb MP flexion 1. Hold your hand in front of you, and turn your hand so your little finger faces down and your thumb faces up. (Your hand should be in the position used for shaking someone's hand.) You may also rest your hand on a flat surface. 2. Use the fingers on your other hand to bend your thumb down at the point where your thumb connects to your palm. 3. Hold for at least 15 to 30 seconds. 4. Repeat 2 to 4 times. Melvi stretch 1. Hold your arms out in front of you. (Your hand should be in the position used for shaking someone's hand.) 2. Bend your thumb toward your palm. 3. Use your other hand to gently stretch your thumb and wrist downward until you feel the stretch on the thumb side of your wrist. 4. Hold for at least 15 to 30 seconds. 5. Repeat 2 to 4 times. Thumb opposition 1. With your affected hand, point your fingers and thumb straight up. Your wrist should be relaxed, following the line of your fingers and thumb. 2. Touch your affected thumb to each finger, one finger at a time. This will look like an okay sign, but try to keep your other fingers straight and pointing upward as much as you can. 3. Repeat 8 to 12 times. 4. Switch hands and repeat steps 1 through 3, even if only one thumb is sore. Follow-up care is a mireles part of your treatment and safety. Be sure to make and go to all appointments, and call your doctor if you are having problems. It's also a good idea to know your test resultsand keep a list of the medicines you take. Where can you learn more? Go to [email or web address] and sign in to your [employer] unlimited account. Enter E635 in the Search Health Information box to learn more about De Quervain's Disease: Exercises. If you do not have an account, please click on the Sign Up Now link. Current as of: December 07, 2019 Content Version: . [employer]. Care instructions adapted under license by [employer]. If you have questions about a medical condition or this instruction, always ask your healthcare professional. [employer] disclaims any warranty or liability for your use of this information. documented in this encounterSUMMA Work Phone: Reason for referral (narrative)* Diagnostic Procedure Only (Routine) - Pending Review Specialty Diagnoses / Procedures Referred By Kody castaneda Referred To Contact BR IMAGING Diagnoses Encounter for screening mammogram for malignant neoplasm of breast Procedures TIMMY SCREENING W VIKI SCREENING DIGITAL BREAST TOMOSYNTHESIS BI SCREENING MAMMOGRAPHY BI 2-VIEW BREAST INC CAD Godfrey Aguilar MD [address] [place] [address] [facility] [address] [place] [address] Referral ID Status Reason Start Date Expiration Date Visits Requested Visits Authorized [id number] Pending Review Auto-Generat ed Referral 03/12/2022 04/11/2023 1 1 [facility] for referral (narrative)* Diagnostic Procedure Only (Routine) - Pending Review Specialty Diagnoses / Procedures Referred By Kody castaneda Referred To Contact US IMAGING Diagnoses Lymph node enlargement Procedures US EXTREMITY MASS/FLUID COLLECTION RIGHT Maryan Humphrey APRN.[employer] [address] [place] [address] Us Imaging Referral ID Status Reason Start Date Expiration Date Visits Requested Visits Authorized [id number] Pending Review Auto-Generat ed Referral 03/25/2023 04/23/2024 1 [facility] Diagnostic Procedure Only (Routine) - Pending Review Specialty Diagnoses / Procedures Referred By Kody t Referred To Contact BR IMAGING Diagnoses Encounter for screening mammogram for malignant neoplasm of breast Procedures TIMMY SCREENING W VIKI SCREENING DIGITAL BREAST TOMOSYNTHESIS BI SCREENING MAMMOGRAPHY BI 2-[place] [address] [place] [address] [facility] [address] [address] Referral ID Status Reason Start Date Expiration Date Visits Requested Visits Authorized [id number] Pending Review Auto-Generat ed Referral 05/31/2023 06/29/2024 1 1 [facility] Advance Directives No Advanced Directives Records FoundLatest Code Status on File Code Status Date Activated Date Inactivated Comments Full Code 03/10/2021 6:21 AM Documents on File Type Date 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 Advance Directive(s) 04/18/2021 11:32 AM Advance Directive(s) 03/29/2021 9:37 AM Advance Directive(s) 06/17/2017 10:44 AM Documents on File Type Date 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 Advance Directive(s) 04/18/2021 11:32 AM Advance Directive(s) 03/29/2021 9:37 AM Advance Directive(s) 06/17/2017 10:44 AM Summary Purpose Family History No Family History Records FoundNo Family History Records Found Reason for Referral Specialty Diagnoses / Procedures Referred By Kody castaneda Referred To Contact MR IMAGING Diagnoses Pancreatic cyst IPMN (intraductal papillary mucinous neoplasm) Procedures MRI PANCREAS FUNCTION WO/W IVCON MRI ABDOMEN W/O & W/CONTRAST MATERIAL Godfrey Aguilar MD [address] [place] [address] Mr Imaging Referral ID Status Reason Start Date Expiration Date Visits Requested Visits Authorized [id number] Authorized Auto-Generat ed Referral 01/04/2022 02/03/2023 1 1 Specialty Diagnoses / Procedures Referred By Contac t Referred To Contact Pain Management Diagnoses DDD (degenerative disc disease), cervical Chronic thoracic back pain, unspecified back pain laterality Procedures CONSULT TO PAIN MGT OFFICE/OUTPATIENT NEW HIGH MDM 60-74 MINUTES Godfrey Aguilar MD [address] [place] [address] Referral ID Status Reason Start Date Expiration Date Visits Requested Visits Authorized [id number] Pending Review PCP Requested Referral 01/04/2022 01/04/2023 1 1 Specialty Diagnoses / Procedures Referred By Contac t Referred To Contact MR IMAGING Diagnoses IPMN (intraductal papillary mucinous neoplasm) Procedures MRI 3D POST PROCESSING 3D RENDERING W/INTERP&POSTPROC DIFF WORK STATION Godfrey Aguilar MD [address] [place] [address] Mr Imaging Referral ID Status Reason Start Date Expiration Date Visits Requested Visits Authorized [id number] Authorized Auto-Generat ed Referral 01/31/2022 03/02/2023 1 1 Specialty Diagnoses / Procedures Referred By Contac t Referred To Contact MR IMAGING Diagnoses IPMN (intraductal papillary mucinous neoplasm) Pancreatic cyst Procedures MRI PANC/MICHELLE WO/W IVCON MRI ABDOMEN W/O & W/CONTRAST MATERIAL Godfrey Aguilar MD [address] [place] [address] Mr Imaging Referral ID Status Reason Start Date Expiration Date Visits Requested Visits Authorized [id number] Authorized Auto-Generat ed Referral 01/31/2022 03/02/2023 1 1 Referral ID Status Reason Start Date Expiration Date V isits Requested Visits Authorized [id number] Closed Auto-Generate d Referral 01/31/2022 03/02/2023 1 1 Referral ID Status Reason Start Date Expiration Date V isits Requested Visits Authorized [id number] Closed Auto-Generate d Referral 01/31/2022 03/02/2023 1 1 Specialty Diagnoses / Procedures Referred By Contac t Referred To Contact Diagnoses Vaginal discharge Chronic vaginitis Procedures CONSULT TO URO GYNECOLOGY OFFICE/OUTPATIENT NEW HIGH MDM 60-74 MINUTES Christal Rider APRN.CNM [address] [place] [address] Referral ID Status Reason Start Date Expiration Date Visits Requested Visits Authorized [id number] Pending Review PCP Requested Referral Auto-Generate d Referral 06/26/2022 06/19/2023 1 1 Health Concerns Infection Onset Date Last Indicated Resolved Time COVID-19 Rule-Out 03/06/2022 03/06/2022 Infection Onset Date Last Indicated Resolved Time COVID-19 Rule-Out 03/06/2022 03/06/2022 03/07/2022 6:20 AM EDT COVID-19 Confirmed 03/06/2022 03/06/2022 Infection Onset Date Last Indicated Resolved Time COVID-19 Confirmed 03/06/2022 03/06/2022 Infection Onset Date Last Indicated Resolved Time COVID-19 Confirmed 03/06/2022 03/06/2022 Additional Source Comments Ordered Prescriptions (unrec ognized section and content) Scheduled Active and Recently Administ ered Medications (unrecognized section and content) Continuous Medication Order 03/08/2021 03/09/2021 03/10/2021 lactated ringers infusion Intravenous, at 50 mL/hr, CONTINUOUS, Starting on Sat03/10/21 at 0645, Upon admission to sameday - please start iv if patient does not have iv access. Use 500ml NS for patients on dialysis., Pre-op (day of surgery) 0645 (Due) PRN Medication Order 03/08/2021 03/09/2021 03/10/2021 ALPRAZolam (NIRAVAM) dissolvable tablet 0.25 mg 0.25 mg, Oral, PRN, Anxiety, Starting on Sat03/10/21 at 0621, Pre-op (day of surgery) lidocaine PF 1 % injection 1 mL 1 mL, Intradermal, ONCE PRN, IV start, Starting on Sat03/10/21 at 0621, For 1 dose, Pre-op (day of surgery) INFORMATION SOURCE (unrecogn ized section and content) DATE CREATED AUTHOR AUTHOR'S ORGANIZ ATION 10/14/2023 [facility] Source Comments (unrecognize d section and content) In the event this informatio n is protected by the Federal Confidentiality of Alcohol and Drug Abuse Patient Records regulations: The Federal rules restrict any use of the information to criminally investigate or prosecute any alcohol or drug abuse patient.[facility] the event this information is protected by the Federal Confidentiality of Alcohol and Drug Abuse Patient Records regulations: The Federal rules restrict any use of the information to criminally investigate or prosecute any alcohol or drug abuse patient.[facility] the event this information is protected by the Federal Confidentiality of Alcohol and Drug Abuse Patient Records regulations: The Federal rules restrict any use of the information to criminally investigate or prosecute any alcohol or drug abuse patient.[facility] the event this information is protected by the Federal Confidentiality of Alcohol and Drug Abuse Patient Records regulations: The Federal rules restrict any use of the information to criminally investigate or prosecute any alcohol or drug abuse patient.[facility] the event this information is protected by the Federal Confidentiality of Alcohol and Drug Abuse Patient Records regulations: The Federal rules restrict any use of the information to criminally investigate or prosecute any alcohol or drug abuse patient.[facility] the event this information is protected by the Federal Confidentiality of Alcohol and Drug Abuse Patient Records regulations: The Federal rules restrict any use of the information to criminally investigate or prosecute any alcohol or drug abuse patient.[facility] the event this information is protected by the Federal Confidentiality of Alcohol and Drug Abuse Patient Records regulations: The Federal rules restrict any use of the information to criminally investigate or prosecute any alcohol or drug abuse patient.[facility] the event this information is protected by the Federal Confidentiality of Alcohol and Drug Abuse Patient Records regulations: The Federal rules restrict any use of the information to criminally investigate or prosecute any alcohol or drug abuse patient.[facility] the event this information is protected by the Federal Confidentiality of Alcohol and Drug Abuse Patient Records regulations: The Federal rules restrict any use of the information to criminally investigate or prosecute any alcohol or drug abuse patient.[facility] the event this information is protected by the Federal Confidentiality of Alcohol and Drug Abuse Patient Records regulations: The Federal rules restrict any use of the information to criminally investigate or prosecute any alcohol or drug abuse patient.[facility] the event this information is protected by the Federal Confidentiality of Alcohol and Drug Abuse Patient Records regulations: The Federal rules restrict any use of the information to criminally investigate or prosecute any alcohol or drug abuse patient.[facility] the event this information is protected by the Federal Confidentiality of Alcohol and Drug Abuse Patient Records regulations: The Federal rules restrict any use of the information to criminally investigate or prosecute any alcohol or drug abuse patient.[facility] HospitalIn the event this information is protected by the Federal Confidentiality of Alcohol and Drug Abuse Patient Records regulations: The Federal rules restrict any use of the information to criminally investigate or prosecute any alcohol or drug abuse patient.[facility] HospitalIn the event this information is protected by the Federal Confidentiality of Alcohol and Drug Abuse Patient Records regulations: The Federal rules restrict any use of the information to criminally investigate or prosecute any alcohol or drug abuse patient.[facility] HospitalIn the event this information is protected by the Federal Confidentiality of Alcohol and Drug Abuse Patient Records regulations: The Federal rules restrict any use of the information to criminally investigate or prosecute any alcohol or drug abuse patient.[facility] HospitalIn the event this information is protected by the Federal Confidentiality of Alcohol and Drug Abuse Patient Records regulations: The Federal rules restrict any use of the information to criminally investigate or prosecute any alcohol or drug abuse patient.[facility] HospitalIn the event this information is protected by the Federal Confidentiality of Alcohol and Drug Abuse Patient Records regulations: The Federal rules restrict any use of the information to criminally investigate or prosecute any alcohol or drug abuse patient.[facility]In the event this information is protected by the Federal Confidentiality of Alcohol and Drug Abuse Patient Records regulations: The Federal rules restrict any use of the information to criminally investigate or prosecute any alcohol or drug abuse patient.[facility] HospitalIn the event this information is protected by the Federal Confidentiality of Alcohol and Drug Abuse Patient Records regulations: The Federal rules restrict any use of the information to criminally investigate or prosecute any alcohol or drug abuse patient.[facility] HospitalIn the event this information is protected by the Federal Confidentiality of Alcohol and Drug Abuse Patient Records regulations: The Federal rules restrict any use of the information to criminally investigate or prosecute any alcohol or drug abuse patient.[facility]In the event this information is protected by the Federal Confidentiality of Alcohol and Drug Abuse Patient Records regulations: The Federal rules restrict any use of the information to criminally investigate or prosecute any alcohol or drug abuse patient.[facility] HospitalIn the event this information is protected by the Federal Confidentiality of Alcohol and Drug Abuse Patient Records regulations: The Federal rules restrict any use of the information to criminally investigate or prosecute any alcohol or drug abuse patient.[facility] HospitalIn the event this information is protected by the Federal Confidentiality of Alcohol and Drug Abuse Patient Records regulations: The Federal rules restrict any use of the information to criminally investigate or prosecute any alcohol or drug abuse patient.[facility] the event this information is protected by the Federal Confidentiality of Alcohol and Drug Abuse Patient Records regulations: The Federal rules restrict any use of the information to criminally investigate or prosecute any alcohol or drug abuse patient.[facility]In the event this information is protected by the Federal Confidentiality of Alcohol and Drug Abuse Patient Records regulations: The Federal rules restrict any use of the information to criminally investigate or prosecute any alcohol or drug abuse patient.[facility] HospitalIn the event this information is protected by the Federal Confidentiality of Alcohol and Drug Abuse Patient Records regulations: The Federal rules restrict any use of the information to criminally investigate or prosecute any alcohol or drug abuse patient.[facility] HospitalIn the event this information is protected by the Federal Confidentiality of Alcohol and Drug Abuse Patient Records regulations: The Federal rules restrict any use of the information to criminally investigate or prosecute any alcohol or drug abuse patient.[facility] ClinicIn the event this information is protected by the Federal Confidentiality of Alcohol and Drug Abuse Patient Records regulations: The Federal rules restrict any use of the information to criminally investigate or prosecute any alcohol or drug abuse patient.[facility] HospitalIn the event this information is protected by the Federal Confidentiality of Alcohol and Drug Abuse Patient Records regulations: The Federal rules restrict any use of the information to criminally investigate or prosecute any alcohol or drug abuse patient.[facility] HospitalIn the event this information is protected by the Federal Confidentiality of Alcohol and Drug Abuse Patient Records regulations: The Federal rules restrict any use of the information to criminally investigate or prosecute any alcohol or drug abuse patient.[facility] HospitalIn the event this information is protected by the Federal Confidentiality of Alcohol and Drug Abuse Patient Records regulations: The Federal rules restrict any use of the information to criminally investigate or prosecute any alcohol or drug abuse patient.[facility] HospitalIn the event this information is protected by the Federal Confidentiality of Alcohol and Drug Abuse Patient Records regulations: The Federal rules restrict any use of the information to criminally investigate or prosecute any alcohol or drug abuse patient.[facility] HospitalIn the event this information is protected by the Federal Confidentiality of Alcohol and Drug Abuse Patient Records regulations: The Federal rules restrict any use of the information to criminally investigate or prosecute any alcohol or drug abuse patient.[facility] HospitalIn the event this information is protected by the Federal Confidentiality of Alcohol and Drug Abuse Patient Records regulations: The Federal rules restrict any use of the information to criminally investigate or prosecute any alcohol or drug abuse patient.[facility] HospitalIn the event this information is protected by the Federal Confidentiality of Alcohol and Drug Abuse Patient Records regulations: The Federal rules restrict any use of the information to criminally investigate or prosecute any alcohol or drug abuse patient.[facility] Reason for Visit (unrecogniz ed section and content) Reason Comments Appointment Specialty Diagnoses / Procedures Referred By Kody castaneda Referred To Contact MR IMAGING Diagnoses Pancreatic cyst IPMN (intraductal papillary mucinous neoplasm) Procedures MRI PANCREAS FUNCTION WO/W IVCON MRI ABDOMEN W/O & W/CONTRAST MATERIAL Godfrey Aguilar MD [address] [place] [address] Mr Imaging Referral ID Status Reason Start Date Expiration Date Visits Requested Visits Authorized [id number] Authorized Auto-Generat ed Referral 01/04/2022 02/03/2023 1 1 Reason Comments Problem with having MRI Reason Comments Sore Throat ST, fever and cough x 3 days Reason Comments Results Reason Comments Telemedicine Reason Comments Follow Up Reason Comments Orders Specialty Diagnoses / Procedures Referred By Kody castaneda Referred To Contact MR IMAGING Diagnoses IPMN (intraductal papillary mucinous neoplasm) Pancreatic cyst Procedures MRI PANC/MICHELLE WO/W IVCON MRI ABDOMEN W/O & W/CONTRAST MATERIAL Godfrey Aguilar MD [address] [place] [address] Mr Imaging Referral ID Status Reason Start Date Expiration Date V isits Requested Visits Authorized [id number] Closed Auto-Generate d Referral 01/31/2022 03/02/2023 1 1 Reason Comments Vaginal Problem Reason Comments Medication Question Reason Comments Medicare Wellness Exam Reason Comments Vaginal Problem Reason Comments New orthotics Reason Comments Wellness Reason Comments Acute Visit Lump in groin area x 1 month; using hot compresses on it; no drainage Reason Comments Sinus Problem sinus pressure, drai nage, headache x 1 week Reason Comments Follow Up Had an ulterasound o n a lump in groin area and wants to Specialty Diagnoses / Procedures Referred By Kody castaneda Referred To Contact CT IMAGING Diagnoses Abdominal pain, unspecified abdominal location Procedures CT ABD/PEL W IVCON CT ABD & PELVIS W/CONTRAST Godfrey Aguilar MD [address] [place] [address] [place] [address] Referral ID Status Reason Start Date Expiration Date V isits Requested Visits Authorized [id number] Closed Auto-Generate d Referral 08/26/2023 09/24/2024 1 [address] Specialty Diagnoses / Procedures Referred By Kody castaneda Referred To Contact CT IMAGING Diagnoses Abdominal pain, unspecified abdominal location Procedures CT ABD/PEL W IVCON CT ABD & PELVIS W/CONTRAST Godfrey Aguilar MD [address] [place] [address] [id number] [address] [id number] Reason Comments Abdominal Pain Care Teams (unrecognized sec tion and content) [employer] Developer Relationship Specialty Start Date End Date Godfrey Aguilar MD [address] [place] [address] [id number] PCP - General Family Practice 10/29/19 [employer]ian Bpm Developer Relationship Specialty Start Date End Date Godfrey Aguilar MD [address] [place] [address] [id number] PCP - General Family Practice 10/29/19 [employer] Developer Relationship Specialty Start Date End Date Godfrey Aguilar MD [address] [place] [id number] PCP - General Family Practice 10/29/19 [employer]ian Bpm Developer Relationship Specialty Start Date End Date Godfrey Aguilar MD [address] [place] [id number] PCP - General Family Practice 10/29/19 Appian Bpm Developer Relationship Specialty Start Date End Date Godfrey Aguilar MD [address] [place] [id number] PCP - General Family Practice 10/29/19 Appian Bpm Developer Relationship Specialty Start Date End Date Godfrey Aguilar MD [address] [place] [id number] PCP - General Family Practice 10/29/19 Appian Bpm Developer Relationship Specialty Start Date End Date Godfrey Aguilar MD [address] [place] [id number] PCP - General Family Practice 10/29/19 Appian Bpm Developer Relationship Specialty Start Date End Date Godfrey Aguilar MD [address] [place] [address] PCP - General Family Practice 10/29/19 Appian Bpm Developer Relationship Specialty Start Date End Date Godfrey Aguilar MD [address] [place] [address] PCP - General Family Practice 10/29/19 Appian Bpm Developer Relationship Specialty Start Date End Date Godfrey Aguilar MD [address] [place] [address] PCP - General Family Practice 10/29/19 Appian Bpm Developer Relationship Specialty Start Date End Date Godfrey Aguilar MD [address] [place] [address] PCP - General Family Practice 10/29/19 Appian Bpm Developer Relationship Specialty Start Date End Date Godfrey Aguilar MD [address] [place] [address] PCP - General Family Practice 10/29/19 Appian Bpm Developer Relationship Specialty Start Date End Date Godfrey Aguilar MD [address] [place] [address] PCP - General Family Practice 10/29/19 Appian Bpm Developer Relationship Specialty Start Date End Date Godfrey Aguilar MD [address] [place] [address] PCP - General Family Practice 10/29/19 Appian Bpm Developer Relationship Specialty Start Date End Date Godfrey Aguilar MD [address] [place] [address] PCP - General Family Medicine 10/29/19 Appian Bpm Developer Relationship Specialty Start Date End Date Godfrey Aguilar MD [address] [place] [address] PCP - General Family Medicine 10/29/19 Appian Bpm Developer Relationship Specialty Start Date End Date Godfrey Aguilar MD [address] [place] [address] PCP - General Family Medicine 10/29/19 Appian Bpm Developer Relationship Specialty Start Date End Date Godfrey Aguilar MD [address] [place] [address] PCP - General Family Medicine 10/29/19 Appian Bpm Developer Relationship Specialty Start Date End Date Godfrey Aguilar MD [address] [place] [address] PCP - General Family Medicine 10/29/19 Appian Bpm Developer Relationship Specialty Start Date End Date Godfrey Aguilar MD [address] [place] [address] PCP - General Family Medicine 10/29/19 Appian Bpm Developer Relationship Specialty Start Date End Date Godfrey Aguilar MD [address] [place] [address] PCP - General Family Medicine 10/29/19 Appian Bpm Developer Relationship Specialty Start Date End Date Godfrey Aguilar MD [address] [place] [address] PCP - General Family Medicine 10/29/19 Appian Bpm Developer Relationship Specialty Start Date End Date Godfrey Aguilar MD [address] [place], [place] [id number] PCP - General Family Medicine 10/29/19 Appian Bpm Developer Relationship Specialty Start Date End Date Godfrey Aguilar MD [address] [place] [address] PCP - General Family Medicine 10/29/19 Appian Bpm Developer Relationship Specialty Start Date End Date Godfrey Aguilar MD [address] [place], [place] [id number] PCP - General Family Medicine 10/29/19 Appian Bpm Developer Relationship Specialty Start Date End Date Godfrey Aguilar MD [address] [place], [place] [id number] PCP - General Family Medicine 10/29/19 FOR RECORDS PERTAINING TO PATIENTS WHO ARE OR HAVE BEEN ENROLLED IN A CHEMICAL DEPENDENCY/SUBSTANCEABUSE PROGRAM, SOME INFORMATION MAY BE OMITTED. This clinical summary was aggregated from multiple sources. Caution should be exercised in using it in the provision of clinical care. This summary normalizes information from multiple sources, and as a consequence, information in this document may materially change the coding, format and clinical context of patient data. In addition, data may be omitted in some cases. CLINICAL DECISIONS SHOULD BE BASED ON THE PRIMARY CLINICAL RECORDS. [facility] [email or web address] [facility]. provides no warranty or guarantee of the accuracy or completeness of information in this document.
== END | disposition home or self-care (01) ==
LOC: CT 13:46
PROVIDERS: PCP Family Medicine; Referring Provider Surgery; Visit Provider Surgery
DX: R10.32 Left lower quadrant pain (principal)
CPT/HCPCS: 72193; Q9967; A4216

== ENCOUNTER 2023-11-07 09:56 | Day surgery (SDC) | payer MEDICARE, SELFPAY ==
[2023-11-07] VITALS (8 sets, daily range): BP systolic 118–150; BP diastolic 58–70; PULSE 76–92; RESP 16–17; TEMP 36.3–36.6; O2SAT 96–100; BMI 22.1
--- NOTE | 2023-11-07 | HERN_PTH ---
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 Arnaldo Su MD : [id number] BED: DIS: 11/07/2023 SPEC #: [id number] RECD: 11/07/23 13:51 STATUS: ESPERANZA TEE #: [id number] JAYSON: 11/07/23 00:[address]: Arnaldo Su DEPT: SURGICAL PATHOLOGY RECD BY: Sia Cabezas ENTERED: 11/07/23 15:17 SP TYPE: Hernia OTHR DR: Dr. Senthil Aguilar MD Tissues: HERNIA Procedures: Frozen Section (charge) Surgery Specimen Level IV HEADER OPERATION: Open left femoral hernia repair with mesh PRE-OP DIAGNOSIS: Recurrent left femoral hernia TISSUE SUBMITTED: Left femoral hernia contents, frozen section FROZEN SECTION DIAGNOSIS Left femoral hernia contents, excision: Fat necrosis. No lymph node tissue is identified. :ramo 11/07/2023 MICROSCOPIC DIAGNOSIS Left femoral hernia contents, excision: A piece of adipose tissue with extensive fat necrosis and associated inflammation. No lymph node tissue is identified. See comment. SJ:ramo 11/08/2023 COMMENT Clinical correlation and appropriate follow up are necessary. Case has been reviewed in consultation with Dr. Scott who concurs with the above diagnosis. IDC:AM MICROSCOPIC DESCRIPTION Slides are reviewed. GROSS DESCRIPTION Received fresh for frozen diagnosis labeled with the patient's name is a specimen designated left femoral hernia contents. The specimen consists of a piece of vasquez, indurated tissue measuring 2.0 x 2.0 x 1.5 cm. Serial sections reveal vasquez-yellow cut surfaces. A section is submitted for frozen section diagnosis. The entire specimen is submitted in three cassettes as follows: 1 - frozen section, 2 & 3 - rest of the specimen. / LASHONDA:ramo 11/07/2023 TC:5 CPT: 90245, 52519
[2023-11-07] MEDS: Lactated Ringers 1,000 ML 15 ML IV ×2 (10:37→15:19)
--- NOTE | 2023-11-07 12:38 | HP.PCM_ITS ---
History and Physical Date of Admission: 11/07/23 Intake Vital Signs 09/21/2306:05 Height 5 ft 4.5 in Intake Visit Reasons: Discuss CT and open hernia surgery Chief Complaint: discuss CT and open hernia sx Ep Technologist Required: No Accompanied by: Is patient in pain?: Yes Allergies ciprofloxacin Allergy (Verified 10/29/23 13:21) Swellingdoxycycline Allergy (Verified 10/29/23 13:21) Otherlevofloxacin Allergy (Verified 10/29/23 13:21) Nausea Medications dicyclomine 20 mg PO DAILY PRN PRN IBS 09/20/23 [History Confirmed 10/29/23] pantoprazole 20 mg tablet,delayed release 20 mg PO .prn GERD 10/16/23 [History Confirmed 10/29/23] Subjective Details: The patient is here to discuss surgery. Objective Details: Painful left groin with bulging Coding Level of Care Code Global Post Op Diagnoses Recurrent left femoral hernia K41.91 [facility]LY [facility], 1928[facility]1983 Medical History (Updated 10/29/23 @ 15:[address] Aranldo Su MD) Alcohol use Arthritis Dietary restriction Gastric reflux History of echocardiogram History of Holter monitoring History of IBS History of pain when walking Interstitial cystitis Migraine headache Non-smoker Wears glasses Surgical History (Updated 10/16/23 @ 09:33 by Meeta Diallo) History of bladder surgery History of surgery on wrist Hx laparoscopic cholecystectomy Hx of colonoscopy Hx of foot surgery S/P left inguinal hernia repair Social History Smoking Status: Never smoker Assessment and Plan (No Qualifiers) Assessment and Plan (1) Recurrent left femoral hernia: Status: Acute Plan: The patient has CT scan which once again shows fat in the left inguinal hernia. I was unable to Use mesh during the last case because she had necrotic hernia sac. The patient had new bulging that happened about a week and a half ago. I sent her for CT scan which shows recurrence of the hernia with fat contained in the left femoral hernia. I placed the suture in the space but this did not hold obviously. I recommend open left inguinal hernia repair with mesh.I discussed surgery with her in detail. I discussed the risks including but not limited to bleeding, infection, injury other organs, nerve injury or chronic groin pain. I also discussed mesh placement with her. Patient understands all the risks and is willing to proceed. Arnaldo Su MD Pager: [facility] [address] [place] [address], [address] [place] [address] Office: I have examined the patient and the H&P has been reviewed. There are no clinical changes since date of exam.
[2023-11-07] MEDS: Cefazolin 2 GM in 0.9% Normal Saline (100mL Bag) 100 ML IV (13:08)
--- NOTE | 2023-11-07 14:30 | OP.PCM_ITS ---
Report of Operation Date of Procedure: 11/07/23 Pre-Operative Diagnosis: Incarcerated recurrent left femoral hernia Post-Operative Diagnosis: Same Surgery/Procedure Performed:: Incarcerated recurrent left femoral hernia repair with mesh Type of Anesthesia: General/Regional Specimen's removed: Left inguinal hernia content Estimated Blood Loss (mL): 5 Description of Procedure: Patient was brought back to the operating room and general anesthesia was induced. An incision was marked in the left lower quadrant and then injected with local anesthetic. Incision was made and deepened down to the external aponeurosis. The inguinal ligament was identified and just inferior to this where the lump was there was a layer of tissue that was taken down sharply. The incarcerated fat was dissected free circumferentially. It was unable to be reduced. It was suture-ligated using 0 silk suture and removed. It was sent for pathology to determine if this was a lymph node or incarcerated fat. It came back as incarcerated fat and not a lymph node. Next the area where was coming from and was inspected more and dissected further. I was able to find a very small defect that it was coming through. A small Bard plug mesh was selected and the inner tails were trimmed off. Next the plug was placed into the femoral space and sutured to the inguinal ligament using 2-0 PDS suture. It was sutured medially in the same fashion. Next the area was irrigated copiously and dried. There was good hemostasis. There was no other defect that was able to be identified. The subcutaneous tissue was closed in layers with 3-0 Vicryl suture. The skin was closed with interrupted 3-0 Vicryl suture and a running 4- 0 Monocryl. Dermabond glue was applied. Patient was awoken and taken to PACU in stable condition. Grafts/Implants Used: Small Bard plug in the left femoral space Admit VTE Documentation VTE Mechan Device Prophylaxis: SCD's
--- NOTE | 2023-11-07 14:33 | DCINST_ITS ---
Discharge Instructions Procedure Hernia Diet Discharge Diet: Light diet - advance as tolerated Activity Discharge Activity: May Not Drive (for 2-3 days or while taking narcotic pain meds.) and May Shower (tomorrow) Lifting Restrictions: 20 pounds for 4 weeks. Additional Activity Instructions:: Climbing stairs is fine, walking is encouraged. Sitting in bed may be uncomfortable. Sitting up using your lateral muscles (sitting up sideways) is usually more comfortable. Do not drive, work heavy equipment of sign legal documents for 24 hours. An ice pack can provide more comfort. Pain medications may cause nausea, you should typically eat light foods as you take your pain medications. Pain medications may also cause constipation. If you have difficulty with this, discuss with your doctor. Dressing / Incision Call your doctor if your incision/area has: Continuous Slow Oozing, Sudden Increased Bleeding, Increased Pain/ Swelling, Increased Redness and Foul Smelling Discharge Call your doctor if you observe: Fever of 101 or Higher Suture Line Care: Avoid Pulling/Pushing and Avoid Pinching/Bending Follow Up Care Please Follow Up With: Arnaldo Su MD When: Please call to schedule 2 week follow up appointment. [phone] Test Results: Test results from this visit will be discussed in further detail at your follow- up appointment, if applicable. Discharge Plan Admission Attending Provider: Arnaldo Su Primary Care Provider: Senthil Aguilar Instructions Additional Instructions / Restrictions: Alternate ibuprofen and Tylenol for pain, oxycodone for breakthrough. Take stool softeners and laxatives to prevent constipation from narcotics. Discharge Orders/Prescriptions Prescriptions: New oxycodone 5 mg tablet 5 - 10 mg PO Q6H PRN (Reason: pain) 5 Days Qty: 20 0RF No Action dicyclomine [Bentyl] 20 mg PO DAILY PRN PRN (Reason: IBS) Patient Comments: 1 CAPSULE pantoprazole 20 mg tablet,delayed release (DR/EC) 20 mg PO .prn Referrals / Follow Up: Senthil Aguilar MD [Primary Care Provider] - Disposition Disposition (needs filled in before D/C Order can be placed): Home, Self Care
[2023-11-07] MEDS: oxyCODONE 5 MG Tablet PO (16:23)
== END 2023-11-07 16:55 | disposition home or self-care (01) ==
LOC: SDC 10:02 → AC 10:04
PROVIDERS: PCP Family Medicine; Referring Provider Family Medicine; Visit Provider Surgery
PROC: (CPT 49557; principal; 2023-11-07 12:00)
DX: K41.91 Unilateral femoral hernia, without obstruction or gangrene, recurrent (principal); M79.89 Other specified soft tissue disorders; K21.9 Gastro-esophageal reflux disease without esophagitis; Z79.899 Other long term (current) drug therapy
CPT/HCPCS: 49557; 00830; 88302; 88305; 88331; J7120; C1781; J2405

== ENCOUNTER 2023-11-10 07:48 | Emergency (ER) | payer MEDICARE, SELFPAY ==
[2023-11-10 07:51] VITALS: BP 87/58; PULSE 64; RESP 16; TEMP 36.4; O2SAT 98; BMI 22.0
--- NOTE | 2023-11-10 08:11 | EX.ED.DYSGE1 ---
HPI History of Present Illness Chief Complaint: Wound Detail of Chief Complaint: Postop wound check Informant: patient Narrative Narrative: Patient presents to the emergency department concerned about her wound to her left lower abdomen. Patient states that she had surgery [address] Su for hernia repair. Patient yesterday had increased pain to the area and she noticed increased redness. She called her surgeon who recommended she come in and get evaluated. She denies any fevers or chills or sweats. The pain has lessened since yesterday and the redness has also lessened. PFSH PFS Medical History (Updated 11/10/23 @ 08:[address] Foreign Shen, DO) Alcohol use Arthritis Dietary restriction Gastric reflux History of echocardiogram History of Holter monitoring History of IBS History of pain when walking Interstitial cystitis Migraine headache Non-smoker Wears glasses Home Medications dicyclomine 20 mg PO DAILY PRN PRN IBS 09/20/23 [History Last Taken 09/19/23] pantoprazole 20 mg tablet,delayed release 20 mg PO .prn GERD 10/16/23 [History Last Taken Unknown] acetaminophen 500 mg capsule 1,000 mg PO Q6H PRN pain 11/10/23 [History Last Taken 11/09/23] amoxicillin 875 mg-potassium clavulanate 125 mg tablet 1 tab PO BID #14 tabs 11/10/23 [Rx Last Taken Unknown] ibuprofen 200 mg tablet (Advil) 200 mg PO Q6H PRN pain 11/10/23 [History Last Taken 11/09/23] Allergy/AdvReac Type Severity Reaction Status Date / Time amitriptyline Allergy Severe OTHER Verified 11/10/23 07:50 ciprofloxacin Allergy Swelling Verified 11/10/23 07:50 doxycycline Allergy Other Verified 11/10/23 07:50 levofloxacin Allergy Nausea Verified 11/10/23 07:50 Surgical History History of bladder surgery History of surgery on wrist Hx laparoscopic cholecystectomy Hx of colonoscopy Hx of foot surgery S/P left inguinal hernia repair Social History Smoking Status: Never smoker ROS ROS ED Review of Systems ROS Unobtainable: other Constitutional Constitutional ED: Reports lethargy; Denies chills, fever(s), sweats or weight loss Eyes Eyes: Denies blurry vision, change in vision or diplopia ENT ENT ED: Denies rhinorrhea or sore throat Cardiovascular Cardiovascular: Denies chest pain, orthopnea or racing heartbeat Respiratory/Chest Respiratory/Chest: Denies cough, dyspnea, dyspnea on exertion, orthopnea or sputum Gastrointestinal Gastrointestinal: Reports abdominal pain; Denies diarrhea, nausea or vomiting Genitourinary Genitourinary ED: Denies dysuria, hematuria or urinary frequency Musculoskeletal Musculoskeletal: Denies arthralgias, back pain, myalgias or neck pain Integumentary Reports other Details: Redness to left lower abdomen incision site ; Denies abscess, Abrasions or rash Neurologic Neurologic: Denies headache(s) or weakness Psychiatric Psychiatric: Denies anxiety, depression or suicidal thoughts Endocrine Endocrinology: Denies polydipsia, polyphagia or polyuria Hematologic/Lymphatic Hematologic/Lymphatic: Denies easy bleeding, easy bruising or lymphadenopathy Allergic/Immunologic Allergic/Immunologic ED: Denies mouth swelling, tongue swelling or urticaria EXAM Physical Exam Const Vital Signs: 11/10/23 07:51 11/10/23 08:12 Temperature 97.6 F L Temperature Source Temporal Pulse Rate 64 Respiratory Rate 16 Blood Pressure 87/58 L 153/78 H Blood Pressure Mean 67 103 Pulse Ox 98 Oxygen Delivery Method Room Air Positive well nourished and well developed General Appearance ED: well developed and NAD HEENT Reports TM's clear and moist mucous membranes normocephalic and atraumatic; Negative for trauma or tenderness Tympanic Membrane ED: Yes TM's clear Eyes PERRL and EOMs intact bilaterally General Eye ED: Negative for pale conjunctiva or scleral icterus Neck no lymphadenopathy, supple and no JVD General: Negative for tenderness Chest Wall inspection of chest normal and palpation of chest normal Chest: Negative for tenderness Resp normal respiratory effort and clear to auscultation bilaterally Effort and Inspection: Negative for respiratory distress or pain with movement Auscultation: Negative for rhonchi, wheezes or diminished lung sounds Cardio regular rate, regular rhythm, S1 normal heart sound, S2 normal heart sound and no murmurs Peripheral Pulses: pulses 2+ throughout GI normal to inspection, nondistended, normoactive bowel sounds, soft to palpation, non-tender, non-distended and no masses GI Narrative: Evaluation to the left lower abdomen does reveal a recent surgical wound with skin glue still in place. There is no drainage. There is some just slight erythema to the lateral aspect of the wound as well as ecchymosis and bruising. She has tenderness to palpation over the area. Back/Spine no CVA tenderness and no thoracic nor lumbar tenderness Extremity normal to inspection General Extremety ED: Negative for edema General Extremity: Negative for edema Neuro oriented x3, CN's II-XII intact bilaterally, no sensory deficits noted and gait normal Sensorium / Orientation: awake, alert, oriented to person, oriented to place and oriented to time Motor Exam: strength 5/5 throughout and strength abnormal Psych mental status grossly normal Skin no rashes or lesions noted and no wounds MDM MDM MDM Narrative Medical decision making narrative: Patient presents with concern about infection to her recent surgical incision. Clinically she looks well and has just minimal erythema to the lateral aspect of the incision. IV line established. CBC with differential obtained showed a normal white count of 6.0 with normal differential. Chemistries were unremarkable. I did speak with her surgeon who presented to the emergency department to evaluate the wound. He did not feel imaging was indicated and I am in agreement as patient looks well. I was asked by the surgeon to prescribe her Augmentin and 875 twice daily for 1 week. Patient advised to return if fever, increased redness, or condition should worsen anyway. Lab Data Labs: Laboratory Results - last 24 hr 11/10/23 08:20 WBC 6.0 RBC 4.71 Hgb 14.3 Hct 44.3 MCV 94.1 MCH 30.4 MCHC 32.3 RDW Std Deviation 46.7 H RDW Coeff of Ameya 13.4 Plt Count 278 MPV 9.6 Immature Gran % (Auto) 0.200 Neut % (Auto) 64.1 Lymph % (Auto) 27.8 [place] % (Auto) 5.7 Eos % (Auto) 1.5 Baso % (Auto) 0.7 Absolute Neuts (auto) 3.9 Absolute Lymphs (auto) 1.67 Nucleated RBC % 0 Sodium 141 Potassium 3.7 Chloride 109 H Carbon Dioxide 29.0 Anion Gap 3 L BUN 10 Creatinine 0.71 Estim Creat Clear Calc 52.47 Est GFR (MDRD) Af Amer 103 Est GFR (MDRD) Non-Af 85 BUN/Creatinine Ratio 14.1 Glucose 99 Calcium 9.6 Discharge Plan Triage Chief Complaint: Wound ED Provider: Foreign Shen Dx/Rx/DC Orders Clinical Impression: Encounter for post surgical wound check Instructions: ED Post Op Wound Check, Pain, ED Wound Check (Infection) Prescriptions: New amoxicillin-pot clavulanate 875-125 mg tablet 1 tab PO BID Qty: 14 0RF No Action dicyclomine [Bentyl] 20 mg PO DAILY PRN PRN (Reason: IBS) Patient Comments: 1 CAPSULE pantoprazole 20 mg tablet,delayed release (DR/EC) 20 mg PO .prn oxycodone 5 mg tablet 5 - 10 mg PO Q6H PRN (Reason: pain) 5 Days Qty: 20 0RF Primary Care Provider: Senthil Aguilar Referrals: Senthil Aguilar MD [Primary Care Provider] - Activity Restrictions/Additional Instructions: Follow-up with your surgeon as instructed by him in the emergency department today. Disposition Disposition: Home, Self Care
[2023-11-10 08:12] VITALS: BP 153/78
--- OUTSIDE RECORDS SUMMARY | 2023-11-10 08:30 | XMS RPT_ITS | CCD ---
Author Name Unknown Address [facility] [address] [place] [address] Organization [facility] Care Team Providers Care Sheriff Deputy Name Role Phone Godfrey Aguilar MD Primary Care Provider 1( [phone] GODFREY AGUILAR Primary Care Unavailable TARIQ, GODFREY Sullivan [...] [AMITRIPTYLINE] Drug Allergy 2 Other: See Comments [facility] (20 sources) cefdinir; Translations: [CEFDINIR] Drug Allergy 2 Other: See Comments [facility] (20 sources) Ciprofloxacin; Translations: [CIPROFLOXACIN] Drug Allergy 6 Swelling [facility] (20 sources) Doxycycline; Translations: [DOXYCYCLINE] Drug Allergy 2 Other: See Comments [facility] (20 sources) Hydrocortisone; Translations: [HYDROCORTISONE] Drug Allergy 2 Unknown [facility] (20 sources) levoFLOXacin; Translations: [LEVOFLOXACIN] Drug Allergy 7 Other: See Comments [facility] (20 sources) environmental [Other] Propensity to adverse reactions 6 Itching [facility] Work Phone: (1 source) OTHER; Translations: [OTHER] Propensity to adverse reactions (disorder) 6 [facility] Repository NEGATED: Highlighted row has been [...] 163.8 cm Godfrey Aguilar MD Work Phone: [facility] 09-20-2023 14:44-0500 Body temperature 98.29 [degF] Godfrey Aguilar MD Work Phone: [facility] 09-20-2023 14:44-0500 Body weight 59.78 kg Godfrey Aguilar MD Work Phone: [facility] 09-20-2023 14:44-0500 Diastolic blood pressure 66 mm[Hg] Godfrey Aguilar MD Work Phone: [facility] 09-20-2023 14:44-0500 Heart rate 89 /min Godfrey Aguilar MD Work Phone: [facility] 09-20-2023 14:44-0500 SaO2% (BldA) [Mass fraction] 97 % Godfrey Aguilar MD Work Phone: [facility] 09-20-2023 14:44-0500 Systolic blood pressure 122 mm[Hg] Godfrey Aguilar MD Work Phone: [facility] 05-31-2023 09:46-0400 Body weight 59.42 kg Godfrey Aguilar MD Work Phone: [facility] 05-31-2023 09:46-0400 Diastolic blood pressure 66 mm[Hg] Godfrey Aguilar MD Work Phone: [facility] 05-31-2023 09:46-0400 Respiratory rate 16 /min Godfrey Aguilar MD Work Phone: [facility] 05-31-2023 09:46-0400 SaO2% (BldA) [Mass fraction] 98 % Godfrey Aguilar MD Work Phone: [facility] 05-31-2023 09:46-0400 Systolic blood pressure 118 mm[Hg] Godfrey Aguilar MD Work Phone: [facility] 05-25-2023 13:01-0400 Body temperature 97.9 [degF] Tawana Thompson SPIRAL RUNNER.CRIMINAL LEGAL ASSISTANT Work Phone: [facility] 05-25-2023 13:01-0400 Body weight 58.97 kg Tawana Thompson SPIRAL RUNNER.CRIMINAL LEGAL ASSISTANT Work Phone: [facility] 05-25-2023 13:01-0400 Diastolic blood pressure 68 mm[Hg] Tawana Thompson SPIRAL RUNNER.CRIMINAL LEGAL ASSISTANT Work Phone: [facility] 05-25-2023 13:01-0400 Heart rate 84 /min Tawana Thompson SPIRAL RUNNER.CRIMINAL LEGAL ASSISTANT Work Phone: [facility] 05-25-2023 13:01-0400 Respiratory rate 16 /min Tawana Thompson SPIRAL RUNNER.CRIMINAL LEGAL ASSISTANT Work Phone: [facility] 05-25-2023 13:01-0400 SaO2% (BldA) [Mass fraction] 95 % Tawana Thompson SPIRAL RUNNER.CRIMINAL LEGAL ASSISTANT Work Phone: [facility] 05-25-2023 13:01-0400 Systolic blood pressure 122 mm[Hg] Tawana Thompson SPIRAL RUNNER.CRIMINAL LEGAL ASSISTANT Work Phone: [facility] 03-06-2023 14:22-0400 Diastolic blood pressure 78 mm[Hg] Maryan Humphrey SPIRAL RUNNER.CRIMINAL LEGAL ASSISTANT Work Phone: [facility] 03-06-2023 14:22-0400 Heart rate 86 /min Maryan Humphrey SPIRAL RUNNER.CRIMINAL LEGAL ASSISTANT Work Phone: [facility] 03-06-2023 14:22-0400 Respiratory rate 16 /min Maryan Humphrey SPIRAL RUNNER.CRIMINAL LEGAL ASSISTANT Work Phone: [facility] 03-06-2023 14:22-0400 SaO2% (BldA) [Mass fraction] 95 % Maryan Haagen SPIRAL RUNNER.CRIMINAL LEGAL ASSISTANT Work Phone: [facility] 03-06-2023 14:22-0400 Systolic blood pressure 122 mm[Hg] Maryan Humphrey SPIRAL RUNNER.CRIMINAL LEGAL ASSISTANT Work Phone: [facility] 01-23-2023 13:51-0400 Body weight 58.97 kg Godfrey Aguilar MD Work Phone: [facility] 01-23-2023 13:51-0400 Diastolic blood pressure 62 mm[Hg] Godfrey Aguilar MD Work Phone: [facility] 01-23-2023 13:51-0400 Heart rate 84 /min Godfrey Aguilar MD Work Phone: [facility] 01-23-2023 13:51-0400 SaO2% (BldA) [Mass fraction] 97 % Godfrey Aguilar MD Work Phone: [facility] 01-23-2023 13:51-0400 Systolic blood pressure 130 mm[Hg] Godfrey Aguilar MD Work Phone: [facility] 06-19-2022 15:27-0400 Body weight 58.06 kg Christal Rider SPIRAL RUNNER.CNM Work Phone: [facility] 06-19-2022 15:27-0400 Diastolic blood pressure 70 mm[Hg] Christal Rider SPIRAL RUNNER.CNM Work Phone: [facility] 06-19-2022 15:27-0400 Systolic blood pressure 122 mm[Hg] Christal Rider SPIRAL RUNNER.CNM Work Phone: [facility] 06-08-2022 13:40-0400 Body weight 58.51 kg Disha Treviño MD Work Phone: [facility] 06-08-2022 13:40-0400 Diastolic blood pressure 62 mm[Hg] Disha Treviño MD Work Phone: [facility] 06-08-2022 13:40-0400 Systolic blood pressure 112 mm[Hg] Disha Treviño MD Work Phone: [facility] 05-25-2022 09:42-0400 Body weight 59.42 kg Maryan Haagen SPIRAL RUNNER.CRIMINAL LEGAL ASSISTANT Work Phone: [facility] 05-25-2022 09:42-0400 Diastolic blood pressure 78 mm[Hg] Maryan Haagen SPIRAL RUNNER.CRIMINAL LEGAL ASSISTANT Work Phone: [facility] 05-25-2022 09:42-0400 Heart rate 75 /min Maryan Haagen SPIRAL RUNNER.CRIMINAL LEGAL ASSISTANT Work Phone: [facility] 05-25-2022 09:42-0400 Respiratory rate 18 /min Maryan Haagen SPIRAL RUNNER.CRIMINAL LEGAL ASSISTANT Work Phone: [facility] 05-25-2022 09:42-0400 SaO2% (BldA) [Mass fraction] 96 % Maryan Haagen SPIRAL RUNNER.CRIMINAL LEGAL ASSISTANT Work Phone: [facility] 05-25-2022 09:42-0400 Systolic blood pressure 124 mm[Hg] Maryan Haagen SPIRAL RUNNER.CRIMINAL LEGAL ASSISTANT Work Phone: [facility] 2022 13:34-0400 Body weight 58.97 kg Christal Plotts SPIRAL RUNNER.CNM Work Phone: [facility] 2022 13:34-0400 Diastolic blood pressure 64 mm[Hg] Christal Plotts SPIRAL RUNNER.CNM Work Phone: [facility] 2022 13:34-0400 Systolic blood pressure 126 mm[Hg] Christal Plotts SPIRAL RUNNER.CNM Work Phone: [facility] 04-18-2022 13:09-0400 Body weight 59.15 kg Christal Toledoocncepcion SPIRAL RUNNER.CNM Work Phone: [facility] 04-18-2022 13:09-0400 Diastolic blood pressure 60 mm[Hg] Christal Toledoconcepcion SPIRAL RUNNER.CNM Work Phone: [facility] 04-18-2022 13:09-0400 Systolic blood pressure 102 mm[Hg] Christal Toledoconcepcion SPIRAL RUNNER.CNM Work Phone: [facility] 03-19-2022 10:38-0400 Body height 164 cm Maryan Hacarolina SPIRAL RUNNER.CRIMINAL LEGAL ASSISTANT Work Phone: [facility] 03-19-2022 10:38-0400 Body weight 57.61 kg Maryan Humphrey SPIRAL RUNNER.CRIMINAL LEGAL ASSISTANT Work Phone: [facility] 03-19-2022 10:38-0400 Diastolic blood pressure 78 mm[Hg] Maryan Humphrey SPIRAL RUNNER.CRIMINAL LEGAL ASSISTANT Work Phone: [facility] 03-19-2022 10:38-0400 Heart rate 82 /min Maryan Humphrey SPIRAL RUNNER.CRIMINAL LEGAL ASSISTANT Work Phone: [facility] 03-19-2022 10:38-0400 Respiratory rate 18 /min Maryan Humphrey SPIRAL RUNNER.CRIMINAL LEGAL ASSISTANT Work Phone: [facility] 03-19-2022 10:38-0400 SaO2% (BldA) [Mass fraction] 97 % Maryan Humphrey SPIRAL RUNNER.CRIMINAL LEGAL ASSISTANT Work Phone: [facility] 03-19-2022 10:38-0400 Systolic blood pressure 116 mm[Hg] Maryan Humphrey SPIRAL RUNNER.CRIMINAL LEGAL ASSISTANT Work Phone: [facility] 03-06-2022 17:27-0400 Body temperature 100.09 [degF] Jossy Treviño SPIRAL RUNNER.CRIMINAL LEGAL ASSISTANT Work Phone: [facility] 03-06-2022 17:27-0400 Body weight 57.97 kg oJssy Treviño SPIRAL RUNNER.CRIMINAL LEGAL ASSISTANT Work Phone: [facility] 03-06-2022 17:27-0400 Diastolic blood pressure 82 mm[Hg] Jossy Treviño APRN.CRIMINAL LEGAL ASSISTANT Work Phone: [facility] 03-06-2022 17:27-0400 Heart rate 101 /min Jossy Treviño APRN.CRIMINAL LEGAL ASSISTANT Work Phone: [facility] 03-06-2022 17:27-0400 Respiratory rate 18 /min Jossy Treviño APRN.CRIMINAL LEGAL ASSISTANT Work Phone: [facility] 03-06-2022 17:27-0400 SaO2% (BldA) [Mass fraction] 96 % Jossy Treviño APRN.CRIMINAL LEGAL ASSISTANT Work Phone: [facility] 03-06-2022 17:27-0400 Systolic blood pressure 132 mm[Hg] Jossy Treviño APRN.CRIMINAL LEGAL ASSISTANT Work Phone: [facility] 01-04-2022 09:37-0400 Body weight 60.78 kg Godfrey Aguilar MD Work Phone: [facility] 01-04-2022 09:37-0400 Diastolic blood pressure 78 mm[Hg] Godfery Aguilar MD Work Phone: [facility] 01-04-2022 09:37-0400 Heart rate 76 /min Godfrey Aguilar MD Work Phone: [facility] 01-04-2022 09:37-0400 Systolic blood pressure 122 mm[Hg] Godfrey Aguilar MD Work Phone: [facility] 03-10-2021 08:21-0400 Diastolic blood pressure 69 mm[Hg] Americo Campa MD Work Phone: [facility] Work Phone: 03-10-2021 08:21-0400 Heart rate 80 /min Americo Campa MD Work Phone: [facility] Work Phone: 03-10-2021 08:21-0400 Respiratory rate 20 /min Americo Campa MD Work Phone: [facility] Work Phone: 03-10-2021 08:21-0400 SaO2% (BldA) [Mass [...] Start: 10-14-2023 End: 10-14-2023 ambulatory GODFREY AGUILAR Facility:[facility] Start: 09-20-2023 End: 09-20-2023 ambulatory GODFREY AGUILAR Facility:[facility] Start: 09-20-2023 End: 09-20-2023 Patient encounter procedure Godfrey Aguilar MD Work Phone: [facility] Procedures Date Procedure Procedure Detail Performing Clinician Start: 06-20-2023 Lipid 1996 panel - S lesley or Plasma Godfrey Aguilar MD Work Phone: Start: 06-04-2022 Mammography Godfrey Ambrosio MD Work Phone: Start: 2022 Urnls dip stick/tabl et rgnt auto w/o microscopy Christal Rider SPIRAL RUNNER.CNM Work Phone: Start: 04-18-2022 Urnls dip stick/tabl et rgnt auto w/o microscopy Christal Rider SPIRAL RUNNER.CNM Work Phone: Start: 04-10-2022 MRI 3D POST PROCESSING Godfrey Aguilar MD Work Phone: Start: 04-10-2022 Mri abdomen w/o & w/contrast material Godfrey Aguilar MD Work Phone: Start: 03-19-2022 Adult depression scr eening assessment Maryan Humphrey SPIRAL RUNNER.CRIMINAL LEGAL ASSISTANT Work Phone: Start: 03-06-2022 STREP A MOLECULAR (POC) Jossy Treviño SPIRAL RUNNER.CRIMINAL LEGAL ASSISTANT Work Phone: Start: 05-31-2021 Mammography Godfrey Ambrosio [...] - S lesley or Plasma Lipid Screening [facility] Start: 06-20-2028 Lipid panel Lipid Screening [facility] Start: 06-20-2027 LIPID SCREEN LIPID SCREEN [facility] Start: 08-26-2026 Diabetes Screening Diabetes Screenin g [facility] Start: 06-09-2026 LIPID SCREEN LIPID SCREEN [facility] Start: 04-18-2026 Colonoscopy COLONOSCOPY [facility] Start: 04-18-2026 COLORECTAL CANCER SCREENING COLORECTAL CANCER SCREENING [facility] Start: 04-18-2026 Screening for malign ant neoplasm of colon [facility] Start: 06-20-2025 DIABETES SCREEN DIABETES SCREEN [facility] Start: 01-10-2025 [facility] Start: 09-06-2024 DIABETES SCREEN [facility] Start: 05-31-2024 COVID-19 VACCINE (5 - Moderna series) COVID-19 VACCINE (5 - Moderna series) [facility] Immunizations Immunization Date Immunization Notes Care Provider Nguyen winter 08-03-2023 respiratory syncytia l virus (RSV) vaccine, bivalent (ABRYSVO) Godfrey Aguilar MD Work Phone: [facility] 07-26-2023 COVID-19 original vaccine, booster dose, monovalent (MODERNA) Godfrey Aguilar MD Work Phone: [facility] 07-24-2023 influenza virus vacc ine, unspecified formulation Godrfey Aguilar MD Work Phone: [facility] 07-07-2021 influenza virus vacc ine, unspecified formulation Godfrey Aguilar MD Work Phone: [facility] 12-20-2020 COVID-19 vaccine, fu ll dose (MODERNA) Godfrey Aguilar MD Work Phone: [facility] Work Phone: 11-26-2020 COVID-19 vaccine, fu ll dose (MODERNA) Godfrey Aguilar MD Work Phone: [facility] 10-03-2020 zoster vaccine recombinant Godfrey Aguilar MD Work Phone: [facility] 08-03-2020 zoster vaccine recombinant Godfrey Aguilar MD Work Phone: [facility] 07-01-2020 influenza, high dose seasonal, preservative-free Godfrey Agiular MD Work Phone: [facility] 06-15-2020 zoster vaccine recombinant Godfrey Aguilar MD Work Phone: [facility] 07-07-2018 influenza virus vacc ine, unspecified formulation Godfrey Aguilar MD Work Phone: [facility] 07-22-2017 influenza, high dose seasonal, preservative-free Godfrey Aguilar MD Work Phone: [facility] 09-16-2016 pneumococcal conjuga te vaccine, 13 valent Godfrey Aguilar MD Work Phone: [facility] Work Phone: 07-18-2016 influenza, high dose seasonal, preservative-free Godfrey Aguilar MD Work Phone: [facility] 07-30-2015 influenza, high dose seasonal, preservative-free Godfrey Aguilar MD Work Phone: [facility] 04-22-2015 zoster vaccine, live Godfrey Aguilar MD Work Phone: [facility] 10-24-2014 TD(adult) unspecifie d formulation Godfrey Aguilar MD Work Phone: [facility] 10-24-2014 tetanus and diphther ia toxoids, adsorbed, preservative free, for adult use (2 Lf of tetanus toxoid and 2 Lf of diphtheria toxoid) Godfrey Aguilar MD Work Phone: [facility] 07-19-2014 influenza, seasonal, injectable Godfrey Aguilar MD Work Phone: [facility] 08-06-2013 pneumococcal polysaccharide vaccine, 23 valent Godfrey Aguilar MD Work Phone: [facility] 07-26-2009 influenza virus vacc ine, unspecified formulation Godfrey Aguilar MD Work Phone: [facility] 08-12-2008 influenza virus vacc ine, unspecified formulation Godfrey Aguilar MD Work Phone: [facility] Payers Date Payer Category Payer Medicare [id number] 2014 Unknown ANTHEM BLUE CROS S AND BLUE SHIELD ANTHEM MEDIBLUE ACCESS [id number] 2014-Present [phone] [id number] [place] [id number] PPO [id number] 2014 Unknown ANTHEM BLUE CROS S AND BLUE SHIELD ANTHEM MEDIBLUE ACCESS [id number] 2014-Present [id number] [place] [id number] PPO [id number] Social History Date Type Detail Facility Start: 03-07-2021 End: 05-25-2022 Tobacco smoking status NHIS Never smoker [facility] Start: 03-07-2021 End: 05-25-2022 Tobacco use and exposure Never used [facility] Start: 03-07-2021 End: 09-20-2023 Alcohol intake Current drinker of alcohol (finding) [facility] Work Phone: Start: 1950 Sex Assigned At Not on file [facility] Work Phone: Start: 12-25-2021 End: 06-19-2022 Exposure to SARS-CoV-2 (event) Not sure [facility] Start: 03-10-2021 Alcohol Comment social [facility] Work Phone: Start: 01-04-2022 End: 03-01-2023 Alcohol intake [facility] Start: 07-10-2020 End: 09-10-2022 History SDOH Alcohol Frequency 3 [facility] Start: 10-29-2019 End: 03-19-2022 History SDOH Alcohol Std Drinks 1 [facility] Start: 06-13-2012 History SDOH Alcohol Comment Occasional. [facility] Start: 03-06-2020 End: 09-10-2022 History SDOH Social Connections Phone 2 [facility] Start: 10-28-2019 End: 03-06-2020 History SDOH Social Connections Get Together 98 [facility] Start: 10-28-2019 History SDOH Financial 5 [facility] Start: 07-10-2020 Education 12 [facility] Start: 05-16-2017 End: 05-25-2022 Tobacco Comment Father smoked in childhood home. No other household ETS since. [facility] Start: 1950 Sex Assigned At Female [facility] Start: 09-09-2022 End: 03-01-2023 Social connection and isolation panel [facility] Frequency of Communication with Friends and Family Not on file [facility] Are you now , , , , never or living with a partner? [facility] How often to you hav e a drink containing alcohol? 2-4 times a month [facility] Do you feel stress - tense, restless, nervous, or anxious, or unable to sleep at night because your mind is troubled all the time - these days [OSQ] Only a little [facility] (I/We) worried wheth er (my/our) food would run out before (I/we) got money to buy more. Never true [facility] In the past 12 month s, was there a time when you were not able to pay the mortgage or rent on time? No [facility] Start: 08-23-2019 Gender identity Identifies as female gender (finding) [facility] Start: 10-28-2019 Sexual orientation Heterosexual (finding) [facility] How often to you hav e a drink containing alcohol? 2-3 time sa week [facility] How many standard dr inks containing alcohol do you have on a typical day? 1 or 2 [facility] How often do you hav e 6 or more drinks on 1 occasion? Never [facility] Do you feel stress - tense, restless, nervous, or anxious, or unable to sleep at night because your mind is troubled all the time - these days [OSQ] Not at all [facility] Clinical Notes 11-17-2020 to 10-14-2023 Godfrey Aguilar MD - 09/20/2023 2:44 PM Tova Fleming RT(R) - 09/11/2023 9:20 AM Godfrey Garber MD - 05/31/2023 9:59 AM Tawana Roman APRN.[facility] - 05/25/2023 1:05 PM EDT Note Date & Type Note Facility 10-14-2023 Note HNO ID: [id number] Author: CONCHIS GEORGES RT(Amrik) Service: ? Author [...] RT Mckinley(R) October 14, 2023 9:04 AM [facility] 09-20-2023 Note HNO ID: [id number] Author: Godfrey Aguilar MD Service: ? Author [...] Lower thorax: No pleural effusion or consolidation Leakage Tester (topogram) images: No additional findings MEDICATIONS: Current [...] (130 lb) PH (more content not included)... [facility] 09-20-2023 History of Presen t illness Narrative [...] Lower thorax: No pleural effusion or consolidation Leakage Tester (topogram) images: No additional findings MEDICATIONS: Current [...] Godfrey Aguilar MD documented in this encounter [facility] 09-11-2023 Note HNO ID: [id number] Author: Tova Darden RT(R) Service: ? Author Type: Production Engineer Track Type: Progress Notes Filed: 09/11/2023 4:00 PM [...] DATE: September 11, 2023 TIME: 4:00 PM [facility] 09-11-2023 History of Presen t illness Narrative [...] TIME: 4:00 PM documented in this encounter [facility] 08-26-2023 Note HNO ID: [id number] Author: Godfrey Aguilar MD Service: ? Author [...] antibiotic in June. Was on cefdinir per [facility]. Has occasional loose stools but not [...] R10.9 (primary diagnosis) (more content not included)... [facility] 05-31-2023 Note HNO ID: [id number] Author: Godfrey Aguilar MD Service: ? Author [...] or chills. Ultrasound of soft tissue at [facility] was negative. Discussed RSV vaccines. GASTROENTEROLOGY had recommended we recheck her IPMN in 2023. No new gi issues. See Maryan's note from February: Pt presents today with complaint of a lump in the right groin X 1 month. Thinks that it might be a little smaller than onset. She did see the ditch tender and was told that it is not [...] Normal abdominal exam, (more content not included)... [facility] 05-31-2023 History of Presen t illness Narrative [...] or chills. Ultrasound of soft tissue at [facility] was negative. Discussed RSV vaccines. GASTROENTEROLOGY had recommended we recheck her IPMN in 2023. No new gi issues. See Maryan's note from February: Pt presents today with complaint of a lump in the right groin X 1 month. Thinks that it might be a little smaller than onset. She did see the ditch tender and was told that it is not [...] for annual exam in one year. - TIMMY SCREENING W VIKI 3. IPMN (intraductal papillary mucinous neoplasm) - ICD9: 239.0, ICD10: D49.0 - recheck next year. 4. Age-related osteoporosis without current pathological fracture - ICD9: 733.01, ICD10: M81.0 - up to date on scanning. 5. Hyperlipidemia, mixed - ICD9: 272.2, ICD10: E78.2 - follow labs. - LIPID PANEL BASIC Godfrey Aguilar MD documented in this encounter [facility] 05-25-2023 Note HNO ID: [id number] Author: Tawana Thompson APRN.CRIMINAL LEGAL ASSISTANT Service: ? Author Type: Nurse Practitioner Type: [...] history is provided by the patient. No junk removal specialist was used. Sinus Problem This is a [...] SpO2 95% BM (more content not included)... [facility] 05-25-2023 History of Presen t illness Narrative [...] history is provided by the patient. No junk removal specialist was used. Sinus Problem This is a [...] if symptoms persist or worsen. Tawana Thompson APRN.CRIMINAL LEGAL ASSISTANT documented in this encounter [facility] 03-26-2023 Miscellaneous Notes Order faxed. Anders Sanon LPN Can we please fax the order to [facility]? Maryan Humphrey APRN.CNP Pt called to schedule. This US is not done at the [place] location. Pt would prefer to stay in [place]. Would like order sent to [facility]. documented in this encounter [facility] 03-20-2023 Note Patient Outreach (NE TNAV) SHANI WRIGHT ([id number]) 1950 F Date Time Provider Department 03/20/23 ASHLEE SMITH During your visit today, we recorded the following information about you: Ashlee Smith MA 03/20/2023 9:28 AM Signed POPULATION HEALTH NAVIGATION OUTREACH Action/FYI I left a message and sent a Hangot Patient needs: medicare wellness (05/26/23), mammogram (06/05/23) Patient Identified by Name and : NO Outreach Outcome/Action Unable to reach patient: Left message Ontodiahart message sent Did you use a PCP flex slot to schedule this appointment? 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: Payor: [employer]! [employer] / Plan: ANTHEM [...] symptoms Date Reviewed: 03/06/2023 Reviewed by: Anders Sanon LPN - Fully Assessed Reason for Visit: Population Health Navigation Outreach [3910] Cmt: Braden Care Gaps Prescriptions as of 03/20/2023 - [...] Encounter Status:Closed by ASHLEE SMITH on 03/20/23 [facility] 03-20-2023 Note HNO ID: [id number] Author: Ashlee Smith MA Service: ? Author Type: Mechanical Drawing Teacher Type: Progress Notes Filed: 03/20/2023 9:28 AM [...] Gap or Scheduling/Wellness visits Payer: Payor: [employer]! CR[employer] BLUE [employer]IELD / Plan: ANTHEM [...] Health Navigator March 20, 2023 8:17 AM [facility] 03-06-2023 Note HNO ID: [id number] Author: Maryan Humphrey APRN.CRIMINAL LEGAL ASSISTANT Service: ? Author Type: Nurse Practitioner Type: [...] smaller than onset. She did see the ditch tender and was told that it is not [...] needed for worsening/no improvement. Maryan Humphrey APRN.CNP [facility] 03-06-2023 Instructions Maryan Humphrey APRN.CNP - 03/06/2023 2:56 PM EDT Continue to watch the area. If it is not improving or worsening, let me know. documented in this encounter [facility] 03-06-2023 History of Presen t illness [...] smaller than onset. She did see the ditch tender and was told that it is not [...] as needed for worsening/no improvement. Maryan Humphrey APRN.CRIMINAL LEGAL ASSISTANT documented in this encounter [facility] 01-23-2023 Note HNO ID: [id number] Author: Godfrey Aguilar MD Service: ? Author Type: Physician Type: Progress Notes Filed: 01/23/2023 2:03 PM Note Text: Were here early so no charge. No visit. [facility] 01-23-2023 Instructions Godfrey Aguilar MD - 01/23/2023 2:01 PM EDT Do visit anytime after 05/26/23 documented in this encounter [facility] 01-23-2023 History of Presen t illness Narrative Were here early so no charge. No visit. documented in this encounter [facility] 12-25-2022 Note HNO ID: [id number] Author: Catherine Aguayo Service: ? Author Type: [...] new orthotics She has received orthotics from [facility]. PAIN EVALUATION No data found in the [...] and supple. good (more content not included)... [facility] 12-25-2022 Note HNO ID: [id number] Author: Heidi Arita LPN Service: ? Author Type: LICENSED NURSE Type: Progress Notes Filed: 12/25/2022 10:33 AM Note Text: AMB ROOMING INTAKE FLOWSHEET DATA Patient presents with: Left Foot - New, orthotics Right Foot - New, orthotics Patient requesting orthotics. Heidi Arita LPN [facility] 12-25-2022 History of Presen t illness Narrative [...] new orthotics She has received orthotics from [facility]. PAIN EVALUATION No data found in the [...] Catherine Aguayo DPM Podiatry [address] [facility] [address] Dept: [phone] Dept AMB ROOMING INTAKE FLOWSHEET DATA Patient presents with: Left Foot - New, orthotics Right Foot - New, orthotics Patient requesting orthotics. Heidi Arita LPN documented in this encounter [facility] 12-06-2022 Note HNO ID: [id number] Author: Godfrey Aguilar MD Service: ? Author [...] - CONSULT TO ENT Godfrey Aguilar MD [facility] 07-03-2022 Miscellaneous Notes White discharge from the vaginal estrogen is a potential side effect. She could try switching to the yuvafem pill or could try ointment based compounded cream at [facility]. These would be options that could decrease or eliminate the white discharge. Disha Treviño MD documented in this encounter [facility] 06-19-2022 History of Presen t illness [...] external genitalia normal, normal Bartholin's glands, urethra, [place]'s glands, no vulvar lesions, no cervical lesions, [...] Christal Rider APRN.CNM documented in this encounter [facility] 06-12-2022 Miscellaneous Notes I called patient [...] with Dr Leal documented in this encounter [facility] 06-08-2022 Instructions Disha Treviño MD - [...] scratching at night. documented in this encounter [facility] 06-08-2022 History of Presen t illness [...] Births0 Comment: Patient also has two step-children. Supervisor Instrument Repair History LMP: Postmenopausal Age at Menarche: Age at First : Age at Menopause: Supervisor Instrument Repair History Comments: Sexual Activity: Yes; Male Contraception: [...] Disha Treviño MD documented in this encounter [facility] 05-25-2022 Nurse Note Vision exam w/o correction R eye 20/30 L eye 20/20 B/L eyes 20/20 documented in this encounter [facility] 05-25-2022 History of Presen t illness [...] Urology - Dr. Kaur. Eye -- Graham Supervisor Instrument Repair -- Andrae. End of Live Planning discussed [...] Maryan Humphrey APRN.CNP documented in this encounter [facility] 05-15-2022 Miscellaneous Notes Per Teodoro patient [...] Ashlee Michael RN documented in this encounter [facility] 05-10-2022 Miscellaneous Notes Rx sent. Christal [...] Karly Gaytan RN documented in this encounter [facility] 2022 History of Presen t illness Narrative Human Resources Benefits Specialist offered: Patient declines. Shani Wright is a [...] atrophy. Comment: Patient also has two step-children. Supervisor Instrument Repair History LMP: Postmenopausal Age at Menarche: Age at First : Age at Menopause: Supervisor Instrument Repair History Comments: Sexual Activity: Yes; Male Contraception: [...] which included preparing to see the patient, [id number] patient care, completing clinical documentation, performing a medically appropriate examination and counseling and educating the patient/family/caregiver Medical Decision Making Christal Rider APRN.CNM documented in this encounter [facility] 2022 Miscellaneous Notes Patient called in to the office. Appointment given. Ashlee Michael RN documented in this encounter [facility] 04-18-2022 Instructions Christal Rider APRN.CNM - [...] penis or fingers just before sex. Coconut, Leroy, Avocado or Peanut oil- natural oils are [...] are available in pharmacies and online. Restore- [employer] Replens Rios Feminease Moist Again K-Y Liquid beads Products to assist with maintaining vaginal ph IsoFresh www[employer] BiopHresh Rephresh documented in this encounter [facility] 04-18-2022 History of Presen t illness [...] Christal Rider APRN.CNM documented in this encounter [facility] 04-10-2022 Miscellaneous Notes Placed e consult for determining the length of monitoring. documented in this encounter [facility] 04-10-2022 History of Presen t illness [...] TIME: 11:19 AM documented in this encounter [facility] 03-19-2022 History of Presen t illness [...] Consult to Medical Genetics - General order. [facility] will contact the patient/family to schedule after the order is received. Thank you for consulting Genetics. Lisa Mai MD, PhD March 19, 2022 documented in this encounter [facility] documented as of this encounter (statuses as of 12/25/2022) [facility] History of Past illness Narrative* Problem Noted Date Resolved Date Abnormal thyroid blood test 03/19/2022 03/0 11/2022 Radiculopathy, cervical region 11/17/2020 0 02/07/2021 Mixed hyperlipidemia 10/29/2019 10/29/2019 Acute idiopathic gout of right hand 06/17/2017 05/01/2019 Overview: Added automatically from request for surgery [id number] Chronic cholecystitis with calculus 01/04/2017 10/29/2019 Pain [...] of this encounter (statuses as of 01/24/2023) [facility] History of Past illness Narrative* Problem Noted Date Resolved Date Abnormal thyroid blood test 03/19/2022 03/0 11/2022 Radiculopathy, cervical region 11/17/2020 0 02/07/2021 Mixed hyperlipidemia 10/29/2019 10/29/2019 Acute idiopathic gout of right hand 06/17/2017 05/01/2019 Overview: Added automatically from request for surgery [id number] Chronic cholecystitis with calculus 01/04/2017 10/29/2019 Pain [...] of this encounter (statuses as of 03/07/2023) [facility] History of Past illness Narrative* Problem Noted Date Resolved Date Abnormal thyroid blood test 03/19/2022 03/0 11/2022 Radiculopathy, cervical region 11/17/2020 0 02/07/2021 Mixed hyperlipidemia 10/29/2019 10/29/2019 Acute idiopathic gout of right hand 06/17/2017 05/01/2019 Overview: Added automatically from request for surgery [id number] Chronic cholecystitis with calculus 01/04/2017 10/29/2019 Pain [...] of this encounter (statuses as of 03/27/2023) [facility] History of Past illness Narrative* Problem Noted Date Diagnosed Date Resolved Date Abnormal thyroid blood test 03/19/2022 12/06/2022 Radiculopathy, cervical region 11/17/2020 02/07/2021 Mixed hyperlipidemia 10/29/2019 020 Acute idiopathic gout of right hand 06/17/2017 05/01/2019 Overview: Added automatically from request for surgery [id number] Chronic cholecystitis with calculus 01/04/2017 10/29/2019 Pain [...] of this encounter (statuses as of 05/25/2023) [facility] History of Past illness Narrative* Problem Noted Date Diagnosed Date Resolved Date Abnormal thyroid blood test 03/19/2022 12/06/2022 Radiculopathy, cervical region 11/17/2020 02/07/2021 Mixed hyperlipidemia 10/29/2019 020 Acute idiopathic gout of right hand 06/17/2017 05/01/2019 Overview: Added automatically from request for surgery [id number] Chronic cholecystitis with calculus 01/04/2017 10/29/2019 Pain [...] of this encounter (statuses as of 05/28/2023) [facility] History of Past illness Narrative* Problem Noted Date Diagnosed Date Resolved Date Abnormal thyroid blood test 03/19/2022 12/06/2022 Radiculopathy, cervical region 11/17/2020 02/07/2021 Mixed hyperlipidemia 10/29/2019 020 Acute idiopathic gout of right hand 06/17/2017 05/01/2019 Overview: Added automatically from request for surgery [id number] Chronic cholecystitis with calculus 01/04/2017 10/29/2019 Pain [...] of this encounter (statuses as of 05/31/2023) [facility] History of Past illness Narrative* Problem Noted Date Diagnosed Date Resolved Date Abnormal thyroid blood test 03/19/2022 12/06/2022 Radiculopathy, cervical region 11/17/2020 02/07/2021 Mixed hyperlipidemia 10/29/2019 020 Acute idiopathic gout of right hand 06/17/2017 05/01/2019 Overview: Added automatically from request for surgery [id number] Chronic cholecystitis with calculus 01/04/2017 10/29/2019 Pain [...] of this encounter (statuses as of 08/28/2023) [facility] of Past illness Narrative* Problem Noted Date Diagnosed Date Resolved Date Abnormal thyroid blood test 03/19/2022 12/06/2022 Radiculopathy, cervical region 11/17/2020 02/07/2021 Mixed hyperlipidemia 10/29/2019 020 Acute idiopathic gout of right hand 06/17/2017 05/01/2019 Overview: Added automatically from request for surgery [id number] Chronic cholecystitis with calculus 01/04/2017 10/29/2019 Pain [...] of this encounter (statuses as of 09/12/2023) [facility] History of Past illness Narrative* Problem Noted Date Diagnosed Date Resolved Date Abnormal thyroid blood test 03/19/2022 12/06/2022 Radiculopathy, cervical region 11/17/2020 02/07/2021 Mixed hyperlipidemia 10/29/2019 020 Acute idiopathic gout of right hand 06/17/2017 05/01/2019 Overview: Added automatically from request for surgery [id number] Chronic cholecystitis with calculus 01/04/2017 10/29/2019 Pain [...] of this encounter (statuses as of 09/12/2023) [facility] History of Past illness Narrative* Problem Noted Date Diagnosed Date Resolved Date Abnormal thyroid blood test 03/19/2022 12/06/2022 Radiculopathy, cervical region 11/17/2020 02/07/2021 Mixed hyperlipidemia 10/29/2019 020 Acute idiopathic gout of right hand 06/17/2017 05/01/2019 Overview: Added automatically from request for surgery [id number] Chronic cholecystitis with calculus 01/04/2017 10/29/2019 Pain [...] of this encounter (statuses as of 09/21/2023) [facility] Instructions* Patient Instructions* Maryan Humphrey APRN.CRIMINAL LEGAL ASSISTANT - 03/19/2022 11:09 AM EDT 1. Continue to watch weight. If continuing to lose, let us know. 2. Get the MRI, as scheduled. 3. I'll let you know when I hear back from genetics. Health Promotion: - Eat healthy go to [employer] to get started - Have a yearly [...] drive - Wear sunscreen [facility] History of Present illness Narrative* Maryan [...] improvement. Maryan Humphrey APRN.CNP [facility] Miscellaneous Notes* Telephone Encounter - Anders Sanon LPN - 03/12/2022 1:30 PM EDT Order sent electronically. Anders Sanon LPN * Telephone Encounter - Maryan Humphrey APRN.CNP - 03/12/2022 12:50 PM EDT Order placed. Please fax as requested. Maryan Humphrey APRN.CNP * Telephone Encounter - Kina De Oliveira LPN - 03/12/2022 9:59 AM EDT Order pending for mammo to sign and fax to [facility]. documented [facility] Miscellaneous Notes* Telephone Encounter - Maryan [...] note to call Pt for today with Maryan Humphrey. Sharon Bradley RN * Telephone Encounter - Godfrey Aguilar MD - 03/07/2022 7:52 AM EDT covid is positive. Can we arrange virtual visit with one of us for follow up. documented in [facility] encounter[facility] History of Present illness Narrative* Maryan [...] agrees to the visit: Yes Patient Location: [facility] Shani Wright is a 71 year old [...] patient = 11-20 minutes documented in this encounterC[facility] History of Present illness Narrative* Jossy [...] plan. Jossy Treviño APRN.KIRK documented in this encounterC[facility] Miscellaneous Notes* Telephone Encounter - Carmen [...] advise. Jory Feng LPN documented in this encounterC[facility] Miscellaneous Notes* Telephone Encounter - Misti Hogan - 01/08/2022 2:55 PM EDT Please schedule patient in [place]. * Telephone Encounter - Kendra Paz - 01/04/2022 10:43 AM EDTSummary: Pain Management PT would like to be seen for pain management in [place]. Order is in place, please call to schedule. documented in this encounterC[facility] History of Present illness Narrative* Godfrey [...] her neck. Has done physical therapy. Saw [place] [facility] for same and said shehad a [...] six months and prn. documented in this encounterC[facility] History of Present illness Narrative* Oxana Barriga, RN - 03/10/2021 8:16 AM EDT PATIENT RECEIVED FROM OR VIA CART TO PHASE II . ALERT SPONT RESP. WITH BALANCE WEIGHER IN ATTENDANCE documented in this encounterSUMMarketecture Work Phone: 1(932) 949-101606-01-2021 Hospital Discharge instructions* Instructions* Radha Pierce RN [...] Everywhere. * [facility]: Tendon Release: Post-op ([place]) * [facility]: Tendon Release: Pre-op ([place]) documented in this encounterSUMMA Work Phone: [phone]) 428-262102-11-2021 History of Past illness Narrative* Problem Noted Date Resolved Date Radiculopathy, cervical region 11/17/2020 0 02/07/2021 Mixed hyperlipidemia 10/29/2019 10/29/2019 Acute idiopathic gout of right hand 06/17/2017 05/01/2019 Overview: Added automatically from request for surgery [id number] Chronic cholecystitis with calculus 01/04/2017 10/29/2019 Pain [...] of this encounter (statuses as of 01/04/2022) [facility] History of Past illness Narrative* Problem Noted Date Resolved Date Radiculopathy, cervical region 11/17/2020 0 02/07/2021 Mixed hyperlipidemia 10/29/2019 10/29/2019 Acute idiopathic gout of right hand 06/17/2017 05/01/2019 Overview: Added automatically from request for surgery [id number] Chronic cholecystitis with calculus 01/04/2017 10/29/2019 Pain [...] of this encounter (statuses as of 01/08/2022) [facility] History of Past illness Narrative* Problem Noted Date Resolved Date Radiculopathy, cervical region 11/17/2020 0 02/07/2021 Mixed hyperlipidemia 10/29/2019 10/29/2019 Acute idiopathic gout of right hand 06/17/2017 05/01/2019 Overview: Added automatically from request for surgery [id number] Chronic cholecystitis with calculus 01/04/2017 10/29/2019 Pain [...] of this encounter (statuses as of 02/01/2022) [facility] History of Past illness Narrative* Problem Noted Date Resolved Date Radiculopathy, cervical region 11/17/2020 0 02/07/2021 Mixed hyperlipidemia 10/29/2019 10/29/2019 Acute idiopathic gout of right hand 06/17/2017 05/01/2019 Overview: Added automatically from request for surgery [id number] Chronic cholecystitis with calculus 01/04/2017 10/29/2019 Pain [...] of this encounter (statuses as of 02/26/2022) [facility] History of Past illness Narrative* Problem Noted Date Resolved Date Radiculopathy, cervical region 11/17/2020 0 02/07/2021 Mixed hyperlipidemia 10/29/2019 10/29/2019 Acute idiopathic gout of right hand 06/17/2017 05/01/2019 Overview: Added automatically from request for surgery [id number] Chronic cholecystitis with calculus 01/04/2017 10/29/2019 Pain [...] of this encounter (statuses as of 03/06/2022) [facility] History of Past illness Narrative* Problem Noted Date Resolved Date Radiculopathy, cervical region 11/17/2020 0 02/07/2021 Mixed hyperlipidemia 10/29/2019 10/29/2019 Acute idiopathic gout of right hand 06/17/2017 05/01/2019 Overview: Added automatically from request for surgery [id number] Chronic cholecystitis with calculus 01/04/2017 10/29/2019 Pain [...] of this encounter (statuses as of 03/07/2022) [facility] History of Past illness Narrative* Problem Noted Date Resolved Date Radiculopathy, cervical region 11/17/2020 0 02/07/2021 Mixed hyperlipidemia 10/29/2019 10/29/2019 Acute idiopathic gout of right hand 06/17/2017 05/01/2019 Overview: Added automatically from request for surgery [id number] Chronic cholecystitis with calculus 01/04/2017 10/29/2019 Pain [...] of this encounter (statuses as of 03/07/2022) [facility] History of Past illness Narrative* Problem Noted Date Resolved Date Radiculopathy, cervical region 11/17/2020 0 02/07/2021 Mixed hyperlipidemia 10/29/2019 10/29/2019 Acute idiopathic gout of right hand 06/17/2017 05/01/2019 Overview: Added automatically from request for surgery [id number] Chronic cholecystitis with calculus 01/04/2017 10/29/2019 Pain [...] of this encounter (statuses as of 03/08/2022) [facility] of Past illness Narrative* Problem Noted Date Resolved Date Radiculopathy, cervical region 11/17/2020 0 02/07/2021 Mixed hyperlipidemia 10/29/2019 10/29/2019 Acute idiopathic gout of right hand 06/17/2017 05/01/2019 Overview: Added automatically from request for surgery [id number] Chronic cholecystitis with calculus 01/04/2017 10/29/2019 Pain [...] of this encounter (statuses as of 03/13/2022) [facility] of Past illness Narrative* Problem Noted Date Resolved Date Radiculopathy, cervical region 11/17/2020 0 02/07/2021 Mixed hyperlipidemia 10/29/2019 10/29/2019 Acute idiopathic gout of right hand 06/17/2017 05/01/2019 Overview: Added automatically from request for surgery [id number] Chronic cholecystitis with calculus 01/04/2017 10/29/2019 Pain [...] of this encounter (statuses as of 03/19/2022) [facility] of Past illness Narrative* Problem Noted Date Resolved Date Radiculopathy, cervical region 11/17/2020 0 02/07/2021 Mixed hyperlipidemia 10/29/2019 10/29/2019 Acute idiopathic gout of right hand 06/17/2017 05/01/2019 Overview: Added automatically from request for surgery [id number] Chronic cholecystitis with calculus 01/04/2017 10/29/2019 Pain [...] of this encounter (statuses as of 03/19/2022) [facility] of Past illness Narrative* Problem Noted Date Resolved Date Radiculopathy, cervical region 11/17/2020 0 02/07/2021 Mixed hyperlipidemia 10/29/2019 10/29/2019 Acute idiopathic gout of right hand 06/17/2017 05/01/2019 Overview: Added automatically from request for surgery [id number] Chronic cholecystitis with calculus 01/04/2017 10/29/2019 Pain [...] of this encounter (statuses as of 04/10/2022) [facility] of Past illness Narrative* Problem Noted Date Resolved Date Radiculopathy, cervical region 11/17/2020 0 02/07/2021 Mixed hyperlipidemia 10/29/2019 10/29/2019 Acute idiopathic gout of right hand 06/17/2017 05/01/2019 Overview: Added automatically from request for surgery [id number] Chronic cholecystitis with calculus 01/04/2017 10/29/2019 Pain [...] of this encounter (statuses as of 04/11/2022) [facility] of Past illness Narrative* Problem Noted Date Resolved Date Radiculopathy, cervical region 11/17/2020 0 02/07/2021 Mixed hyperlipidemia 10/29/2019 10/29/2019 Acute idiopathic gout of right hand 06/17/2017 05/01/2019 Overview: Added automatically from request for surgery [id number] Chronic cholecystitis with calculus 01/04/2017 10/29/2019 Pain [...] of this encounter (statuses as of 04/18/2022) [facility] of [facility] illness Narrative* Problem Noted Date Resolved Date Radiculopathy, cervical region 11/17/2020 0 02/07/2021 Mixed hyperlipidemia 10/29/2019 10/29/2019 Acute idiopathic gout of right hand 06/17/2017 05/01/2019 Overview: Added automatically from request for surgery [id number] Chronic cholecystitis with calculus 01/04/2017 10/29/2019 Pain [...] of this encounter (statuses as of 2022) [facility] of [facility] illness Narrative* Problem Noted Date Resolved Date Radiculopathy, cervical region 11/17/2020 0 02/07/2021 Mixed hyperlipidemia 10/29/2019 10/29/2019 Acute idiopathic gout of right hand 06/17/2017 05/01/2019 Overview: Added automatically from request for surgery [id number] Chronic cholecystitis with calculus 01/04/2017 10/29/2019 Pain [...] of this encounter (statuses as of 2022) [facility] of [facility] illness Narrative* Problem Noted Date Resolved Date Radiculopathy, cervical region 11/17/2020 0 02/07/2021 Mixed hyperlipidemia 10/29/2019 10/29/2019 Acute idiopathic gout of right hand 06/17/2017 05/01/2019 Overview: Added automatically from request for surgery [id number] Chronic cholecystitis with calculus 01/04/2017 10/29/2019 Pain [...] of this encounter (statuses as of 05/15/2022) [facility] of [facility] Narrative* Problem Noted Date Resolved Date Radiculopathy, cervical region 11/17/2020 0 02/07/2021 Mixed hyperlipidemia 10/29/2019 10/29/2019 Acute idiopathic gout of right hand 06/17/2017 05/01/2019 Overview: Added automatically from request for surgery [id number] Chronic cholecystitis with calculus 01/04/2017 10/29/2019 Pain [...] of this encounter (statuses as of 05/21/2022) [facility] of Past illness Narrative* Problem Noted Date Resolved Date Radiculopathy, cervical region 11/17/2020 0 02/07/2021 Mixed hyperlipidemia 10/29/2019 10/29/2019 Acute idiopathic gout of right hand 06/17/2017 05/01/2019 Overview: Added automatically from request for surgery [id number] Chronic cholecystitis with calculus 01/04/2017 10/29/2019 Pain [...] of this encounter (statuses as of 05/25/2022) [facility] History of Past illness Narrative* Problem Noted Date Resolved Date Radiculopathy, cervical region 11/17/2020 0 02/07/2021 Mixed hyperlipidemia 10/29/2019 10/29/2019 Acute idiopathic gout of right hand 06/17/2017 05/01/2019 Overview: Added automatically from request for surgery [id number] Chronic cholecystitis with calculus 01/04/2017 10/29/2019 Pain [...] of this encounter (statuses as of 06/05/2022) [facility] History of Past illness Narrative* Problem Noted Date Resolved Date Radiculopathy, cervical region 11/17/2020 0 02/07/2021 Mixed hyperlipidemia 10/29/2019 10/29/2019 Acute idiopathic gout of right hand 06/17/2017 05/01/2019 Overview: Added automatically from request for surgery [id number] Chronic cholecystitis with calculus 01/04/2017 10/29/2019 Pain [...] of this encounter (statuses as of 06/08/2022) [facility] History of Past illness Narrative* Problem Noted Date Resolved Date Radiculopathy, cervical region 11/17/2020 0 02/07/2021 Mixed hyperlipidemia 10/29/2019 10/29/2019 Acute idiopathic gout of right hand 06/17/2017 05/01/2019 Overview: Added automatically from request for surgery [id number] Chronic cholecystitis with calculus 01/04/2017 10/29/2019 Pain [...] of this encounter (statuses as of 06/12/2022) [facility] History of Past illness Narrative* Problem Noted Date Resolved Date Radiculopathy, cervical region 11/17/2020 0 02/07/2021 Mixed hyperlipidemia 10/29/2019 10/29/2019 Acute idiopathic gout of right hand 06/17/2017 05/01/2019 Overview: Added automatically from request for surgery [id number] Chronic cholecystitis with calculus 01/04/2017 10/29/2019 Pain [...] of this encounter (statuses as of 06/19/2022) [facility] History of Past illness Narrative* Problem Noted Date Resolved Date Radiculopathy, cervical region 11/17/2020 0 02/07/2021 Mixed hyperlipidemia 10/29/2019 10/29/2019 Acute idiopathic gout of right hand 06/17/2017 05/01/2019 Overview: Added automatically from request for surgery [id number] Chronic cholecystitis with calculus 01/04/2017 10/29/2019 Pain [...] of this encounter (statuses as of 07/05/2022) [facility] De Quervain's tenosynovitis, left- [...] Fatigue, unspecified type [facility] Diagnosis IPMN (intraductal papillary mucinous neoplasm)- Primary Neoplasm of unspecified nature of digestive system Pancreatic cyst Cyst and pseudocyst of pancreas [facility] Diagnosis Sore throat- Primary Acute pharyngitis Cough Close exposure to COVID-19 virus [facility] Diagnosis COVID-19- Primary [facility] Diagnosis Encounter for screening mammogram for malignant neoplasm of breast- Primary Other screening mammogram [facility] Diagnosis COVID-19- Primary Abnormal thyroid blood [...] Loss of weight [facility] Diagnosis Family history of neurologic disorder Family history of other neurological diseases [facility] Diagnosis IPMN (intraductal papillary mucinous neoplasm)- Primary Neoplasm of unspecified nature of digestive system [facility] Diagnosis IPMN (intraductal papillary mucinous neoplasm) Neoplasm of unspecified nature of digestive system Pancreatic cyst Cyst and pseudocyst of pancreas [facility] Diagnosis Vaginal irritation- Primary Unspecified noninflammatory disorder of vagina Vaginal atrophy Postmenopausal atrophic vaginitis [facility] Diagnosis Vaginal discharge- Primary Leukorrhea, not specified as infective Vaginal atrophy Postmenopausal atrophic vaginitis Vaginal odor Unspecified symptom associated with female genital organs Asymptomatic microscopic hematuria [facility] Diagnosis Medicare annual wellness visit, subsequent- Primary Routine general medical examination at a health care facility [facility] Diagnosis Vaginal discharge- Primary Leukorrhea, not specified as infective Chronic vaginitis Vaginitis and vulvovaginitis, unspecified [facility] Diagnosis Posterior tibial tendon dysfunction- Primary Other disorders of synovium, tendon, and bursa Acquired hallux valgus, unspecified laterality Hammer toes of both feet documented in this encounter [facility] note* Diagnosis Procedure and treatment not carried out due to patient leaving prior to being seen by health care provider- Primary [facility] Diagnosis Lymph node enlargement- Primary Enlargement of lymph nodes [facility] Diagnosis Lymph node enlargement- Primary Enlargement of lymph nodes [facility] Diagnosis Acute otitis media, left- Primary Unspecified otitis media Rhinosinusitis Unspecified sinusitis (chronic) documented in this encounter [facility] note* Diagnosis Groin lump- Primary Abdominal or pelvic swelling, mass or lump, unspecified site Encounter for screening mammogram for malignant neoplasm of breast Other screening mammogram IPMN (intraductal papillary mucinous neoplasm) Neoplasm of unspecified nature of digestive system Age-related osteoporosis without current pathological fracture Senile osteoporosis Hyperlipidemia, mixed Mixed hyperlipidemia documented in this encounter [facility] note* Diagnosis Abdominal pain, unspecified abdominal location documented in this encounter [facility] note* Diagnosis Groin mass- Primary Abdominal or pelvic swelling, mass or lump, unspecified site [facility] Instructions* Cherry Luna [...] Where can you learn more? Go to [email or web address] and sign in to your [employer] account. Enter E635 in the Search Health Information box to learn more about De Quervain's Disease: Exercises. If you do not have an account, please click on the Sign Up Now link. Current as of: December 07, 2019 Content Version: . [employer]. Care instructions adapted under license by [employer]. If you have questions about a medical condition or this instruction, always ask your healthcare professional. [employer] disclaims any warranty or liability for your [...] 2-VIEW BREAST INC CAD Godfrey Aguilar MD [address] [place] [address] [facility] [address] [place] [address] Referral ID Status Reason Start Date Expiration Date Visits Requested Visits Authorized [id number] Pending Review Auto-Generat ed Referral 03/12/2022 04/11/2023 1 1 [facility] for referral (narrative)* Diagnostic Procedure Only (Routine) - Pending Review Specialty Diagnoses / Procedures Referred By Kody castaneda Referred To Contact US IMAGING Diagnoses Lymph node enlargement Procedures US EXTREMITY MASS/FLUID COLLECTION RIGHT Maryan Humphrey APRN.CRIMINAL LEGAL ASSISTANT [address] [place] [address] Us Imaging Referral ID Status Reason Start Date Expiration Date Visits Requested Visits Authorized [id number] Pending Review Auto-Generat ed Referral 03/25/2023 04/23/2024 1 1 [facility] Diagnostic Procedure Only (Routine) - Pending Review Specialty Diagnoses / Procedures Referred By Kody t Referred To Contact BR IMAGING Diagnoses Encounter for screening mammogram for malignant neoplasm of breast Procedures TIMMY SCREENING W VIKI SCREENING DIGITAL BREAST TOMOSYNTHESIS BI SCREENING MAMMOGRAPHY BI 2-[place] [address] [place] [address] [facility] [address] [address] Referral ID Status Reason Start Date Expiration Date Visits Requested Visits Authorized [id number] Pending Review Auto-Generat ed Referral 05/31/2023 06/29/2024 1 1 [facility] Advance Directives No Advanced Directives Records FoundLatest Code Status on File Code Status Date Activated Date Inactivated Comments Full Code 03/10/2021 6:21 AM Documents on File Type Date Recorded 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 Advance Directive(s) 04/18/2021 11:32 AM Advance Directive(s) 03/29/2021 9:37 AM Advance Directive(s) 06/17/2017 10:44 AM Documents on File Type Date Recorded 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 Advance Directive(s) 04/18/2021 11:32 AM [...] & W/CONTRAST MATERIAL Godfrey Aguilar MD [address] [place] [address] Mr Imaging Referral ID Status Reason Start Date Expiration Date Visits Requested Visits Authorized [id number] Authorized Auto-Generat ed Referral 01/04/2022 02/03/2023 1 1 Specialty Diagnoses / Procedures Referred By Contac t Referred To Contact Pain Management Diagnoses DDD (degenerative disc disease), cervical Chronic thoracic back pain, unspecified back pain laterality Procedures CONSULT TO PAIN MGT OFFICE/OUTPATIENT NEW HIGH MDM 60-74 MINUTES Godfrey Aguilar MD [address] [place] [address] Referral ID Status Reason Start Date Expiration Date Visits Requested Visits Authorized [id number] Pending Review PCP Requested Referral 01/04/2022 01/04/2023 1 1 Specialty Diagnoses / Procedures Referred By Contac t Referred To Contact MR IMAGING Diagnoses IPMN (intraductal papillary mucinous neoplasm) Procedures MRI 3D POST PROCESSING 3D RENDERING W/INTERP&POSTPROC DIFF WORK STATION Godfrey Aguilar MD [address] [place] [address] Mr Imaging Referral ID Status Reason Start Date Expiration Date Visits Requested Visits Authorized [id number] Authorized Auto-Generat ed Referral 01/31/2022 03/02/2023 1 1 Specialty Diagnoses / Procedures Referred By Contac t Referred To Contact MR IMAGING Diagnoses IPMN (intraductal papillary mucinous neoplasm) Pancreatic cyst Procedures MRI PANC/MICHELLE WO/W IVCON MRI ABDOMEN W/O & W/CONTRAST MATERIAL Godfrey Aguilar MD [address] [place] [address] Mr Imaging Referral ID Status Reason Start Date Expiration Date Visits Requested Visits Authorized [id number] Authorized Auto-Generat ed Referral 01/31/2022 03/02/2023 1 1 Referral ID Status Reason Start Date Expiration Date V isits Requested Visits Authorized [id number] Closed Auto-Generate d Referral 01/31/2022 03/02/2023 1 1 Referral ID Status Reason Start Date Expiration Date V isits Requested Visits Authorized [id number] Closed Auto-Generate d Referral 01/31/2022 03/02/2023 1 1 Specialty Diagnoses / Procedures Referred By Contac t Referred To Contact Diagnoses Vaginal discharge Chronic vaginitis Procedures CONSULT TO URO GYNECOLOGY OFFICE/OUTPATIENT NEW HIGH MDM 60-74 MINUTES Christal Rider APRN.CNM [address] [place] [address] Referral ID Status Reason Start Date Expiration Date Visits Requested Visits Authorized [id number] Pending Review PCP Requested Referral Auto-Generate d [...] DATE CREATED AUTHOR AUTHOR'S ORGANIZ ATION 10/14/2023 [facility] Source Comments (unrecognize d section and content) In the event this informatio n is protected by the Federal Confidentiality of Alcohol and Drug Abuse Patient Records regulations: The Federal rules restrict any use of the information to criminally investigate or prosecute any alcohol or drug abuse patient.[facility] the event this information is protected by the Federal Confidentiality of Alcohol and Drug Abuse Patient Records regulations: The Federal rules restrict any use of the information to criminally investigate or prosecute any alcohol or drug abuse patient.[facility] the event this information is protected by the Federal Confidentiality of Alcohol and Drug Abuse Patient Records regulations: The Federal rules restrict any use of the information to criminally investigate or prosecute any alcohol or drug abuse patient.[facility] the event this information is protected by the Federal Confidentiality of Alcohol and Drug Abuse Patient Records regulations: The Federal rules restrict any use of the information to criminally investigate or prosecute any alcohol or drug abuse patient.[facility] the event this information is protected by the Federal Confidentiality of Alcohol and Drug Abuse Patient Records regulations: The Federal rules restrict any use of the information to criminally investigate or prosecute any alcohol or drug abuse patient.[facility] the event this information is protected by the Federal Confidentiality of Alcohol and Drug Abuse Patient Records regulations: The Federal rules restrict any use of the information to criminally investigate or prosecute any alcohol or drug abuse patient.[facility] the event this information is protected by the Federal Confidentiality of Alcohol and Drug Abuse Patient Records regulations: The Federal rules restrict any use of the information to criminally investigate or prosecute any alcohol or drug abuse patient.[facility] the event this information is protected by the Federal Confidentiality of Alcohol and Drug Abuse Patient Records regulations: The Federal rules restrict any use of the information to criminally investigate or prosecute any alcohol or drug abuse patient.[facility] the event this information is protected by the Federal Confidentiality of Alcohol and Drug Abuse Patient Records regulations: The Federal rules restrict any use of the information to criminally investigate or prosecute any alcohol or drug abuse patient.[facility] the event this information is protected by the Federal Confidentiality of Alcohol and Drug Abuse Patient Records regulations: The Federal rules restrict any use of the information to criminally investigate or prosecute any alcohol or drug abuse patient.[facility] the event this information is protected by the Federal Confidentiality of Alcohol and Drug Abuse Patient Records regulations: The Federal rules restrict any use of the information to criminally investigate or prosecute any alcohol or drug abuse patient.[facility] the event this information is protected by the Federal Confidentiality of Alcohol and Drug Abuse Patient Records regulations: The Federal rules restrict any use of the information to criminally investigate or prosecute any alcohol or drug abuse patient.[facility] the event this information is protected by the Federal Confidentiality of Alcohol and Drug Abuse Patient Records regulations: The Federal rules restrict any use of the information to criminally investigate or prosecute any alcohol or drug abuse patient.[facility] the event this information is protected by the Federal Confidentiality of Alcohol and Drug Abuse Patient Records regulations: The Federal rules restrict any use of the information to criminally investigate or prosecute any alcohol or drug abuse patient.[facility] the event this information is protected by the Federal Confidentiality of Alcohol and Drug Abuse Patient Records regulations: The Federal rules restrict any use of the information to criminally investigate or prosecute any alcohol or drug abuse patient.[facility] the event this information is protected by the Federal Confidentiality of Alcohol and Drug Abuse Patient Records regulations: The Federal rules restrict any use of the information to criminally investigate or prosecute any alcohol or drug abuse patient.[facility] the event this information is protected by the Federal Confidentiality of Alcohol and Drug Abuse Patient Records regulations: The Federal rules restrict any use of the information to criminally investigate or prosecute any alcohol or drug abuse patient.[facility] the event this information is protected by the Federal Confidentiality of Alcohol and Drug Abuse Patient Records regulations: The Federal rules restrict any use of the information to criminally investigate or prosecute any alcohol or drug abuse patient.[facility] the event this information is protected by the Federal Confidentiality of Alcohol and Drug Abuse Patient Records regulations: The Federal rules restrict any use of the information to criminally investigate or prosecute any alcohol or drug abuse patient.[facility] the event this information is protected by the Federal Confidentiality of Alcohol and Drug Abuse Patient Records regulations: The Federal rules restrict any use of the information to criminally investigate or prosecute any alcohol or drug abuse patient.[facility] the event this information is protected by the Federal Confidentiality of Alcohol and Drug Abuse Patient Records regulations: The Federal rules restrict any use of the information to criminally investigate or prosecute any alcohol or drug abuse patient.[facility] the event this information is protected by the Federal Confidentiality of Alcohol and Drug Abuse Patient Records regulations: The Federal rules restrict any use of the information to criminally investigate or prosecute any alcohol or drug abuse patient.[facility] the event this information is protected by the Federal Confidentiality of Alcohol and Drug Abuse Patient Records regulations: The Federal rules restrict any use of the information to criminally investigate or prosecute any alcohol or drug abuse patient.[facility] the event this information is protected by the Federal Confidentiality of Alcohol and Drug Abuse Patient Records regulations: The Federal rules restrict any use of the information to criminally investigate or prosecute any alcohol or drug abuse patient.[facility] the event this information is protected by the Federal Confidentiality of Alcohol and Drug Abuse Patient Records regulations: The Federal rules restrict any use of the information to criminally investigate or prosecute any alcohol or drug abuse patient.[facility] the event this information is protected by the Federal Confidentiality of Alcohol and Drug Abuse Patient Records regulations: The Federal rules restrict any use of the information to criminally investigate or prosecute any alcohol or drug abuse patient.[facility] HospitalIn the event this information is protected [...] or prosecute any alcohol or drug abuse patient.[facility] the event this information is protected by the Federal Confidentiality of Alcohol and Drug Abuse Patient Records regulations: The Federal rules restrict any use of the information to criminally investigate or prosecute any alcohol or drug abuse patient.[facility] the event this information is protected by the Federal Confidentiality of Alcohol and Drug Abuse Patient Records regulations: The Federal rules restrict any use of the information to criminally investigate or prosecute any alcohol or drug abuse patient.[facility]In the event this information is protected by the Federal Confidentiality of Alcohol and Drug Abuse Patient Records regulations: The Federal rules restrict any use of the information to criminally investigate or prosecute any alcohol or drug abuse patient.[facility] the event this information is protected by the Federal Confidentiality of Alcohol and Drug Abuse Patient Records regulations: The Federal rules restrict any use of the information to criminally investigate or prosecute any alcohol or drug abuse patient.[facility] the event this information is protected by the Federal Confidentiality of Alcohol and Drug Abuse Patient Records regulations: The Federal rules restrict any use of the information to criminally investigate or prosecute any alcohol or drug abuse patient.[facility] the event this information is protected by the Federal Confidentiality of Alcohol and Drug Abuse Patient Records regulations: The Federal rules restrict any use of the information to criminally investigate or prosecute any alcohol or drug abuse patient.[facility]In the event this information is protected by the Federal Confidentiality of Alcohol and Drug Abuse Patient Records regulations: The Federal rules restrict any use of the information to criminally investigate or prosecute any alcohol or drug abuse patient.[facility] Reason for Visit (unrecogniz ed section and content) Reason Comments Appointment Specialty Diagnoses / Procedures Referred By Kody castaneda Referred To Contact MR IMAGING Diagnoses Pancreatic cyst IPMN (intraductal papillary mucinous neoplasm) Procedures MRI PANCREAS FUNCTION WO/W IVCON MRI ABDOMEN W/O & W/CONTRAST MATERIAL Godfrey Aguilar MD [address] [place] [address] Mr Imaging Referral ID Status Reason Start Date Expiration Date Visits Requested Visits Authorized [id number] Authorized Auto-Generat ed Referral 01/04/2022 02/03/2023 1 [...] W/O & W/CONTRAST MATERIAL Godfrey Aguilar MD [address] [place] [address] Mr Imaging Referral ID Status Reason Start Date Expiration Date V isits Requested Visits Authorized [id number] Closed Auto-Generate d Referral 01/31/2022 03/02/2023 1 [...] ABD & PELVIS W/CONTRAST Godfrey Aguilar MD [address] [place] [address] [place] [address] Referral ID Status Reason Start Date Expiration Date V isits Requested Visits Authorized [id number] Closed Auto-Generate d Referral 08/26/2023 09/24/2024 [address] Specialty Diagnoses / Procedures Referred By Kody castaneda Referred To Contact CT IMAGING Diagnoses Abdominal pain, unspecified abdominal location Procedures CT ABD/PEL W IVCON CT ABD & PELVIS W/CONTRAST Godfrey Aguilar MD [address] [place] [address] [address] [facility]95 Reason Comments Abdominal Pain Care Teams (unrecognized sec tion and content) Sheriff Deputy Relationship Specialty Start Date End Date Godfrey Aguilar MD [address] [place] [address] [id number] PCP - General Family Practice 10/29/19 Sheriff Deputy Relationship Specialty Start Date End Date Godfrey Aguilar MD [address] [place] [address] [id number] PCP - General Family Practice 10/29/19 Sheriff Deputy Relationship Specialty Start Date End Date Godfrey Aguilar MD [address] [place] [id number] PCP - General Family Practice 10/29/19 Sheriff Deputy Relationship Specialty Start Date End Date Godfrey Aguilar MD [address] [place] [id number] PCP - General Family Practice 10/29/19 Sheriff Deputy Relationship Specialty Start Date End Date Godfrey Aguilar MD [address] [place] [id number] PCP - General Family Practice 10/29/19 Sheriff Deputy Relationship Specialty Start Date End Date Godfrey Aguilar MD [address] [place] [id number] PCP - General Family Practice 10/29/19 Sheriff 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 [place] [address] PCP - General Family Practice 10/29/19 Sheriff Deputy Relationship Specialty Start Date End Date Godfrey Aguilar MD [address] [facility] [place] [address] PCP - General Family Practice 10/29/19 Sheriff Deputy Relationship Specialty Start Date End Date Godfrey Aguilar MD [address] [facility] [place] [address] PCP - General Family Practice 10/29/19 Sheriff Deputy Relationship Specialty Start Date End Date Godfrey Aguilar MD [address] [facility] [place] [address] PCP - General Family Practice 10/29/19 Sheriff Deputy Relationship Specialty Start Date End Date Godfrey Aguilar MD [address] [facility] [place] [address] PCP - General Family Practice 10/29/19 Sheriff Deputy Relationship Specialty Start Date End Date Godfrey Aguilar MD [address] [facility] [place] [address] PCP - General Family Practice 10/29/19 Sheriff Deputy Relationship Specialty Start Date End Date Godfrey Aguilar MD [address] [facility] [place] [address] PCP - General Family Practice 10/29/19 Sheriff Deputy Relationship Specialty Start Date End Date Godfrey Aguilar MD [address] [facility] [place] [address] PCP - General Family Medicine 10/29/19 Sheriff Deputy Relationship Specialty Start Date End Date Godfrey Aguilar MD [address] [facility] [place] [address] PCP - General Family Medicine 10/29/19 Sheriff Deputy Relationship Specialty Start Date End Date Godfrey Aguilar MD [address] [place] [address] PCP - General Family Medicine 10/29/19 Sheriff Deputy Relationship Specialty Start Date End Date Godfrey Aguilar MD [address] [place] [address] PCP - General Family Medicine 10/29/19 Sheriff Deputy Relationship Specialty Start Date End Date Godfrey Aguilar MD [address] [place] [address] PCP - General Family Medicine 10/29/19 Sheriff Deputy Relationship Specialty Start Date End Date Godfrey Aguilar MD [address] [place] [address] PCP - General Family Medicine 10/29/19 Sheriff Deputy Relationship Specialty Start Date End Date Godfrey Aguilar MD [address] [place] [address] PCP - General Family Medicine 10/29/19 Sheriff Deputy Relationship Specialty Start Date End Date Godfrey Aguilar MD [address] [place] [address] PCP - General Family Medicine 10/29/19 Sheriff Deputy Relationship Specialty Start Date End Date Godfrey Aguilar MD [address] [place], [place] [address] PCP - General Family Medicine 10/29/19 Sheriff Deputy Relationship Specialty Start Date End Date Godfrey Aguilar MD [address] [place] [address] PCP - General Family Medicine 10/29/19 Sheriff Deputy Relationship Specialty Start Date End Date Godfrey Aguilar MD [address] [place], [place] [id number] PCP - General Family Medicine 10/29/19 Sheriff Deputy Relationship Specialty Start Date End Date Godfrey Aguilar MD [address] [place], [place] [id number] PCP - General Family Medicine 10/29/19 FOR [...] BE BASED ON THE PRIMARY CLINICAL RECORDS. [facility] [employer] [facility]. provides no warranty or guarantee of the accuracy or completeness of information in this document.
[2023-11-10 08:41] LABS: Absolute Lymphocyte Count 1.67 X10^3/uL (0.83-4.51); Absolute Neutrophil Count 3.9 X10^3/uL (2.0-7.7); Basophil# 0.04 X10^3/uL; Basophil% 0.7 % (0-1); Eosinophil# 0.09 X10^3/uL; Eosinophils% 1.5 % (0-5); Hematocrit 44.3 % (37-47); Hemoglobin 14.3 g/dL (12.0-15.0); Lymphocyte # 1.67 X10^3/ul (0.83-4.51); Lymphocyte % 27.8 % (19-41); Mean Corp Hgb Conc 32.3 g/dL (32-36); Mean Corpuscular Hgb 30.4 pg (27.0-32.0); Mean Corpuscular Volume 94.1 fL (81-99); Mean Platelet Vol. 9.6 fl (6.2-12.0); Monocyte# 0.34 X10^3/uL; Monocyte% 5.7 % (0-10); NRBC Flagged by Analyzer 0 % (0-5); Neutrophil # 3.86 X10^3/uL (2.7-7.7); Neutrophil % 64.1 % (47-70); Platelet Count 278 K/mm3 (150-450); RBC Distribution Width CV 13.4 % (11.6-14.6); RBC Distribution Width SD 46.7 fl (35.1-43.9); Red Blood Count 4.71 M/mm3 (4.2-5.4)
[2023-11-10 08:49] LABS: Anion Gap 3 (5-15); BUN 10 mg/dL (7-18); BUN/Creat Ratio 14.1 RATIO (10-20); Calcium,Total 9.6 mg/dL (8.5-10.1); Chloride 109 mmol/L (98-107); Creatinine, Serum 0.71 mg/dL (0.55-1.02); EST Glomerular Filtration Rate 85 mL/min (>60); Est Glom Filt Rate - Afr Amer 103 mL/min (>60); Estimated Creatinine Clearance 52.47 ml/min; Glucose 99 mg/dL (74-106); Potassium 3.7 mmol/L (3.5-5.1); Sodium Level 141 mmol/L (136-145)
== END 2023-11-10 09:10 | disposition home or self-care (01) ==
PROVIDERS: Emergency Provider Emergency Medicine; PCP Family Medicine; Visit Provider Emergency Medicine
DX: Z51.89 Encounter for other specified aftercare (principal); Z98.890 Other specified postprocedural states; K21.9 Gastro-esophageal reflux disease without esophagitis; Z79.899 Other long term (current) drug therapy
CPT/HCPCS: 80048; 85025; 99283; A4216

== ENCOUNTER 2024-01-29 09:42 | Day surgery (SDC) | payer MEDICARE, SELFPAY ==
[2024-01-29] VITALS (8 sets, daily range): BP systolic 109–147; BP diastolic 60–74; PULSE 73–87; RESP 16; TEMP 35.9–36.6; O2SAT 94–100; BMI 22.8
[2024-01-29] MEDS: Lactated Ringers 1,000 ML 15 ML IV (10:17)
--- NOTE | 2024-01-29 10:34 | PCM.HP.STD ---
HPI - General General Date of Service: 01/29/24 HPI Narrative COSME WRIGHT, is a 73 F who presents for hydrodistention and placement of medications in her bladder for interstitial cystitis plan to do the surgery today for chronic pain and interstitial cystitis. [facility] Medical History (Updated 01/09/24 @ 15:05 by Carito Rodriguez) Alcohol use Anal and rectal polyp Arthritis Diarrhea Dietary restriction Diverticulitis of colon with hemorrhage Extensor intersection syndrome Fibrocystic breast disease Gastric reflux History of echocardiogram History of Holter monitoring History of IBS History of pain when walking IBS (irritable bowel syndrome) Internal hemorrhoids Interstitial cystitis Migraine headache Non-smoker Osteoporosis RLQ abdominal pain Wears glasses Home Medications dicyclomine 20 mg PO DAILY PRN PRN IBS 09/20/23 [History Last Taken 09/19/23] pantoprazole 20 mg tablet,delayed release 20 mg PO DAILY PRN PRN GERD 10/16/23 [History Last Taken Unknown] acetaminophen 500 mg capsule 1,000 mg PO Q6H PRN pain 11/10/23 [History Last Taken 11/09/23] ibuprofen 200 mg tablet (Advil) 200 mg PO Q6H PRN pain 11/10/23 [History Last Taken 11/09/23] Allergy/AdvReac Type Severity Reaction Status Date / Time amitriptyline Allergy Severe OTHER Verified 01/29/24 10:06 cefdinir Allergy Intermediate Other Verified 01/29/24 10:06 hydrocortisone Allergy Intermediate Other Verified 01/29/24 10:06 ciprofloxacin Allergy Swelling Verified 01/29/24 10:06 doxycycline Allergy Other Verified 01/29/24 10:06 levofloxacin Allergy Nausea Verified 01/29/24 10:06 Surgical History (Updated 01/09/24 @ 15:05 by Carito Rodriguez) History of bladder surgery History of surgery on wrist Hx laparoscopic cholecystectomy Hx of colonoscopy Hx of foot surgery Hx of hernia repair S/P left inguinal hernia repair Social History (Updated 12/16/23 @ 09:05 by Samanta Baltazar) Smoking Status: Never smoker alcohol intake: current alcohol intake frequency: holidays/special occasions only substance use type: does not use Vital Signs Vital Signs Vital Signs: 01/29/24 10:08 01/29/24 10:08 Temperature 98 F Temperature Source Temporal Pulse Rate 77 Respiratory Rate 16 Respiratory Pattern Normal Blood Pressure 147/74 H Blood Pressure Mean 98 Blood Pressure Source Monitor Blood Pressure Position Semi-Fowlers Blood Pressure Location Left Arm Pulse Ox 100 Oxygen Delivery Method Room Air Weight Weight: 60.328 kg Body Mass Index (BMI) 22.8
[2024-01-29] MEDS: Cefazolin 2 GM in 0.9% Normal Saline (100mL Bag) 100 ML IV (10:59)
--- NOTE | 2024-01-29 11:06 | DCINST_ITS ---
Discharge Instructions Diet Discharge Diet: No restrictions Activity Discharge Activity: Return to Normal Activity and May Not Drive (while taking narcotic pain medications.) Dressing / Incision Call your doctor if you observe: Fever of 101 or Higher Follow Up Care Please Follow Up With: Arias Plasencia MD When: Call [phone] for an appointment Test Results: Test results from this visit will be discussed in further detail at your follow- up appointment, if applicable. Discharge Plan Admission Primary Reason for Your Visit: IC Attending Provider: Arias Plasencia Primary Care Provider: Senthil Aguilar Discharge Orders/Prescriptions Prescriptions: Continued acetaminophen 500 mg capsule 1,000 mg PO Q6H PRN (Reason: pain) ibuprofen [Advil] 200 mg tablet 200 mg PO Q6H PRN (Reason: pain) dicyclomine [Bentyl] 20 mg PO DAILY PRN PRN (Reason: IBS) Patient Comments: 1 CAPSULE pantoprazole 20 mg tablet,delayed release (DR/EC) 20 mg PO DAILY PRN PRN (Reason: GERD) Referrals / Follow Up: Arias Plasencia MD [Med Staff - Active Staff] - Senthil Aguilar MD [Primary Care Provider] - Disposition Disposition (needs filled in before D/C Order can be placed): Home, Self Care
--- NOTE | 2024-01-29 11:07 | OP.PCM_ITS ---
Report of Operation Date of Procedure: 01/29/24 Pre-Operative Diagnosis: Interstitial cystitis Post-Operative Diagnosis: The same Surgery/Procedure Performed:: Cystoscopy hydrodistention the bladder and instillation of bladder IC cocktail medication Description of Surgical Findings:: 73-year-old female with a history of recurrent bladder pain and chronic interstitial cystitis she had a hydrodistention about a year and a half ago which did really well for her she comes back to my office because she is having more pain in her bladder and chronic pain and frequency and urgency she is failed medical therapy so today we will proceed with a cystoscopy hydrodistention of the bladder and placement of interest special medications to the bladder. Once patient is taken back to the operating room she underwent general anesthetic she was placed in dorsolithotomy position. Went into the bladder after she was prepped and draped in usual fashion with a 21 Croatian rigid cystoscopy scope left and right ureter orifice were normal her bladder was normal she had several areas in the bladder the mucosa had been biopsied and cauterized but no lesions or stones within the bladder itself had a fairly good capacity bladder I did not feel that the bladder is much as possible and then after filling of the bladder we then did a hydrodistention with 80 cmH2O for 5 minutes. This was done first time the bladder was then drained she had the typical petechiae and leakage and bleeding petechiae throughout the bladder consistent with IC. We then did a second hydrodistention held this for 5 minutes at 80 cm of water pressure. Then the bladder was drained and then a 20 Croatian catheter was put in the bladder and then we instilled a cocktail of IC medications into the bladder to be held as long as possible.. Patient bladder was drained medication of cocktails put into the bladder anesthetic was reversed she takeback to PACU in good condition to follow-up in my office in a few weeks to review results hopefully will help with her bladder pain. Surgeon: Arias Plasencia Type of Anesthesia: General Drains: none Estimated Blood Loss (mL): 0 Admit VTE Documentation VTE Present on Admission: No VTE Mechan Device Prophylaxis: SCD's VTE Pharm Prophylaxis ordered?: No
[2024-01-29] MEDS: Heparin Injection (Vial) 5,000 UNIT/ML VIAL 10000 UNIT IRRIGATION ×2 (11:16)
[2024-01-29] MEDS: Lidocaine 2% (20 ml mdv) 20 ML Vial 50 ML IRRIGATION ×3 (11:16→11:17)
[2024-01-29] MEDS: Dimethyl Sulfoxide 50 ML Solution INTRA-CATH (11:17)
[2024-01-29] MEDS: Hydrocortisone Sod Succinate 100 MG/2 ML Vial 150 MG IRRIGATION ×2 (11:17→11:18)
[2024-01-29] MEDS: Sodium Bicarbonate 50 MEQ/50 ML Vial IRRIGATION (11:20)
[2024-01-29] MEDS: Ketorolac 15 MG/ML Vial IV (12:21)
== END 2024-01-29 13:28 | disposition home or self-care (01) ==
LOC: SDC 09:48 → AC 09:49
PROVIDERS: PCP Family Medicine; Referring Provider Urology; Visit Provider Urology
PROC: 0T7B7ZZ Dilation of Bladder, Via Natural or Artificial Opening (ICD-10-PCS; CPT 52260; principal; 2024-01-29 11:35)
DX: N30.10 Interstitial cystitis (chronic) without hematuria (principal); R39.82 Chronic bladder pain
CPT/HCPCS: 52260; 51700; 00910; J7120; J1212; J2405

== ENCOUNTER → 2024-02-05 | Outpatient (CLI) | payer MEDICARE, SELFPAY | END | disposition home or self-care (01) | LOC: LABSPEC 09:40 | PROVIDERS: PCP Family Medicine; Referring Provider Urology; Visit Provider Urology | DX: R30.0 Dysuria (principal) | CPT/HCPCS: 87086; 87088 ==

== ENCOUNTER → 2024-06-29 | Outpatient (CLI) | payer MEDICARE, SELFPAY ==
--- NOTE | 2024-06-29 10:07 | BI_ITS ---
MAMMOGRAPHY - BILATERAL SCREENING REASON FOR EXAM: Female, 74 years old. Routine annual screening examination. PERTINENT HISTORY: Non-contributory. History of prior bilateral medial breast biopsies. TECHNIQUE: Digital bilateral breast viki (3D mammographic acquisition) in the CC and MLO projections. 2-D mediolateral oblique (MLO) and craniocaudad (CC) views of both breasts were obtained. CAD: Full Field Digital Mammography with Computer Added Detection was performed. COMPARISON: Comparison is made with prior study dated June 27, 2023 and June 04, 2022. FINDINGS: Breast Composition: The breasts are heterogeneously dense, which may obscure small masses. There are no dominant masses or suspicious calcifications. Once again, 2 adjacent tissue clip markers are seen in the retroareolar region of the right breast. No other significant abnormalities are identified. There has been no significant change since the prior study. BI/SCRN MAMM (CAD)W/VIKI BILAT IMPRESSION: Stable bilateral screening mammogram. Yearly follow-up mammogram recommended. (A) ASSESSMENT CATEGORY: BIRADS Category 2: Benign. A letter regarding these results will be sent to the patient by the facility within 30 days. Approximately 10% of breast cancers are not detected by mammography. A normal mammogram should not delay biopsy of a clinically suspicious abnormality. [id number] Electronically Signed: Blue Sheikh MD at 11:31 EDT ,
== END | disposition home or self-care (01) ==
LOC: OPBI 10:05
PROVIDERS: PCP Family Medicine; Referring Provider Nurse Practitioner Family; Visit Provider Nurse Practitioner Family
DX: Z12.31 Encounter for screening mammogram for malignant neoplasm of breast (principal)
CPT/HCPCS: 77063; 77067

== ENCOUNTER → 2025-01-04 | Outpatient (CLI) | payer MEDICARE, SELFPAY ==
--- NOTE | 2025-01-04 14:01 | CT_ITS ---
PROCEDURE: PELVIS WITH IV CONTRAST REASON FOR EXAM: LEFT GROIN PAIN History of prior hernia repair.. TECHNIQUE: Pelvis CT with intravenous contrast. CONTRAST: Isovue 370 VOLUME: 94mL One or more dose reduction techniques were used (e.g., Automated exposure control, adjustment of the mA and/or kV according to patient size, use of iterative reconstruction technique). RADIATION DOSE SUMMARY: CTDlvol: 27.34 mGy DLP: 865.45 mGycm COMPARISON: None. FINDINGS: Bladder: Unremarkable. Reproductive Organs: Tubal ligation clips. There is a 2.7 cm x 2.5 cm cystic structure in the upper left hemipelvis adjacent to a small bowel loop. This may represent a duplication cyst of the small bowel although a left ovarian cyst can not be excluded. Correlation with pelvic sonogram recommended. Bowel: Unremarkable Appendix: Unremarkable Lymph nodes: No suspicious lymph node enlargement. Vasculature: Major vascular structures are unremarkable. Peritoneum / Retroperitoneum: No ascites. No free air. Bones: Unremarkable. CT/Pelvis WITH IV Contrast IMPRESSION: 2.7 cm x 2.5 cm cystic structure in the upper left hemipelvis changes new small bowel loops. This may represent a duplication cyst although left ovarian cyst can not be excluded. Correlation with ultrasou nd recommended. Reading Location: [facility]
== END | disposition home or self-care (01) ==
PROVIDERS: PCP Family Medicine; Referring Provider Surgery; Visit Provider Surgery
DX: R10.32 Left lower quadrant pain (principal)
CPT/HCPCS: 72193; Q9967; A4216

== ENCOUNTER → 2025-02-03 | Outpatient (CLI) | payer MEDICARE, SELFPAY ==
--- NOTE | 2025-02-03 09:00 | US_ITS ---
PROCEDURE: TRANSVAGINAL NON- 02/03/2025 REASON FOR EXAM: PELVIC CYST TECHNIQUE: Transvaginal pelvic ultrasound COMPARISON: CT pelvis 01/04/2025 FINDINGS: Measurements: Uterus: 6.8 x 2.7 x 4.0 cm for volume of 38.4 mL. There are scattered punctate echogenic foci throughout the myometrium. No discrete myometrial lesion. Endometrial Thickness: 0.2 The ovaries were not visualized on this exam. No significant pelvic free fluid. US/Transvaginal Non- IMPRESSION: 1. Ovaries were not visualized on this exam. 2. Unremarkable sonographic appearance of the uterus. Reading Location: [facility]
== END | disposition home or self-care (01) ==
PROVIDERS: PCP Family Medicine; Referring Provider Family Medicine; Visit Provider Family Medicine
DX: N94.89 Other specified conditions associated with female genital organs and menstrual cycle (principal); K58.2 Mixed irritable bowel syndrome
CPT/HCPCS: 76830

== ENCOUNTER 2025-05-19 10:31 | Day surgery (SDC) | payer MEDICARE, SELFPAY ==
--- NOTE | 2025-05-07 16:51 | PAT.ANE_ITS ---
Pre-Assessment Diagnosis/Proposed Procedure Planned Operative Procedure(s): cystoscopy, hydrodistension Anesthesia History Anesthesia History - bibliographic services specialist: Anesthesia History - bibliographic services specialist Hx Hospitalization No 05/07/25 08:07 Any Problems With Anesthesia No 05/07/25 08:07 Cholinesterase deficiency No 05/07/25 08:07 You/Your Family Experience No 05/07/25 08:07 fever (hyperthermia) with Relationship Recent Exposure to Contagious No 11/25/24 12:55 Disease Does patient have nerve No 05/07/25 08:07 stimulator Patient instructed to have device shut off --Does patient have Pacemaker or ICD? When Was Last Pacemaker Check QUESTION #4 FULL TEXT: You/Your Family Experience fever (hyperthermia) with Anesthesia Last Oral Intake Last Oral intake: Last Oral Intake NPO since Meds taken in AM with sips of water? Meds patient instructed to take am of surgery PONV PONV - bibliographic services specialist: PONV - bibliographic services specialist Female Yes 05/07/25 08:07 HX of Motion Sickness No 05/07/25 08:07 HX of N/V After Surgery No 05/07/25 08:07 Non-Smoker Yes 05/07/25 08:07 Duration of Surgery greater No 05/07/25 08:07 than 60 minutes Number of Risk Factors 2 05/07/25 08:07 PONV Score Moderate Risk 05/07/25 08:07 Height & Weight Height & Weight: Anesthesia: Height & Weight Height 5 ft 4 in 11/25/24 12:55 Respiratory Assessment Respiratory Assessment - bibliographic services specialist: Respiratory Tract Infection Hx - bibliographic services specialist Hx Respiratory Tract Infection No 05/07/25 08:07 STOP Sleep Apnea STOP Sleep Apnea - bibliographic services specialist: STOP Sleep Apnea - bibliographic services specialist Hx Hypertension No 05/07/25 08:07 Hx Sleep Apnea No 05/07/25 08:07 CPAP BIPAP Do you snore loudly (louder No 05/07/25 08:07 than talking or can be heard Do you often feel tired/ No 05/07/25 08:07 fatigued/ sleepy during daytime? Has anyone observed you stop No 05/07/25 08:07 breathing during sleep? STOP Results Negative 05/07/25 08:07 QUESTION #5 FULL TEXT : Do you snore loudly (louder than talking or can be heard through closed doors)? 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 Specify any problems Hx of Preganancy in last 3 No 05/07/25 08:07 Months Nurse Filling Out Transfusion JZOLLINGE 05/07/25 08:07 & Questions: Date: 05/07/25 05/07/25 08:07 Time: 08:09 05/07/25 08:07 Patient unable to answer at this time (ie. confused, unrespo /Reproduction History /Reproductive History - bibliographic services specialist: /Reproductive Hx- bibliographic services specialist Hx Now No 05/07/25 08:07 Gestational Age (in weeks): EDC: Hx Hx Para Hx Section SAB No 05/07/25 08:07 [facility] Medical History (Updated 12/03/24 @ 11:04 by Jose Lobo MD) Osteoarthritis of left hip Left hip pain Left groin pain Fibrocystic breast disease Osteoporosis IBS (irritable bowel syndrome) Internal hemorrhoids Extensor intersection syndrome Diverticulitis of colon with hemorrhage Diarrhea Anal and rectal polyp RLQ abdominal pain Migraine headache History of Holter monitoring Wears glasses Alcohol use Arthritis Interstitial cystitis Dietary restriction History of IBS Gastric reflux Non-smoker History of pain when walking History of echocardiogram Home Medications ?Medication ?Instructions ?Recorded ?Last Taken ?Type dicyclomine 20 mg PO DAILY PRN PRN IBS 1 11/21/22 09/19/23 History pantoprazole 20 mg tablet,delayed 20 mg PO DAILY PRN P RN GERD 10/16/23 Unknown History release acetaminophen 500 mg capsule 1,000 mg PO Q6H PRN pain 11/10/23 11/09/23 History ibuprofen 200 mg tablet (Advil) 200 mg PO Q6H PRN pain 11/10/23 11/09/23 History multivitamin 1 tab PO QDAY 12/03/24 Unkno wn History Allergy/AdvReac Type Severity Reaction Status Date / Time amitriptyline Allergy Severe OTHER Verified 05/07/25 08:05 hydrocortisone Allergy Intermediate Other Verified 05/07/25 08:05 doxycycline Allergy Other Verified 05/07/25 08:05 Environmental Allergies: Allergy Itchy Verified 05/07/25 08:05 Uncoded (seasonal) eyes, runny nose levofloxacin Allergy Nausea Verified 05/07/25 08:05 Family History (Updated 12/03/24 @ 10:48 by Tawana Heart) Other Cancer Diabetes Heart disease Hypertension Surgical History Hx of hernia repair S/P left inguinal hernia repair History of surgery on wrist History of bladder surgery Hx of colonoscopy Hx of foot surgery Hx laparoscopic cholecystectomy Social History (Updated 12/03/24 @ 10:49 by Tawana Heart) household members: spouse Smoking Status: Never smoker alcohol intake: current alcohol intake frequency: a few times a week substance use type: does not use Audit: Pertinent Findings Pertinent Findings EKG Perinent findings: September 20, 2023. Normal sinus rhythm. Minimal voltage criteria for LVH. Possible left atrial enlargement. Echo (EF%) pertinent findings: March 11, 2020. EF of 60%. PASP is 34 mmHg. No aortic valve stenosis is noted. Additional pertinent findings: Holter monitor. April 11, 2020. Average heart rate was normal sinus rhythm/sinus tachycardia. Total of 89 ventricular ectopic beats comprising 0.1% of the total QRS complexes. Total of 18 supraventricular ectopic beats including 3 beats of atrial trigeminy. There was no atrial fibrillation. No ventricular tachycardia. Diary noted rapid beats which correlated with sinus tachycardia. Recommendation Anesthesia Recommendation Anesthesia recommendation: OPTIMIZED for anesthesia
[2025-05-19] VITALS (9 sets, daily range): BP systolic 107–150; BP diastolic 66–87; PULSE 73–76; RESP 12–16; TEMP 35.8–37; O2SAT 94–99; BMI 21.9
[2025-05-19] MEDS: Lactated Ringers 1,000 ML 15 ML IV (11:02)
--- NOTE | 2025-05-19 11:47 | PCM.PRE.AN2 ---
ASA Classification* ASA Classification ASA Classification: 2 Assessment & Plan Anesthesia* Anesthesia Assessment Anesthesia Assessment: Discussed sedation and/or anesthesia options, risks, benefits, and alternatives with patient/parents/legal guardian/POA. Questions invited. The patient/parents/legal guardian/POA seems to understand and agrees to proceed with anesthesia plan. Reviewed the physical assessment, medical history, allergy history and patient home medications list prior to surgery/procedure/anesthetic and documented any changes. Performed airway and anesthesia risk assessments. Anesthesia Type Anesthesia Type: General History Source History Obtained from:: Patient and Chart Anesthesia Focused Assessment* Temperature: 97 F Pulse Rate: 74 Blood Pressure: 115/72 Respiratory Rate: 16 Pulse Ox: 98 Oxygen Delivery Method: Room Air Airway Assessment Mouth opens: >3 cm Mallampati Score: II Teeth Condition: Intact Neck Range of motion (ROM): Limited ROM Labs Anesthesia Preop lab: CBC WBC 6.0 K/mm3 (4.4-11.0) 11/10/23 08:20 11/10/23 RBC 4.71 M/mm3 (4.2-5.4) 11/10/23 08:20 11/10/23 Hgb 14.3 g/dL (12.0-15.0) 11/10/23 08:20 11/10/23 Hct 44.3 % (37-47) 11/10/23 08:20 11/10/23 Plt Count 278 K/mm3 (150-450) 11/10/23 08:20 11/10/23 CHEMISTRY Potassium 3.7 mmol/L (3.5-5.1) 11/10/23 08:20 11/10/23 Sodium 141 mmol/L (136-145) 11/10/23 08:20 11/10/23 Magnesium 2.3 mg/dL (1.6-2.6) 03/11/20 05:38 03/11/20 BUN 10 mg/dL (7-18) 11/10/23 08:20 11/10/23 Creatinine 0.71 mg/dL (0.55-1.02) 11/10/23 08:20 11/10/23 Glucose 99 mg/dL (74-106) 11/10/23 08:20 11/10/23 COAG PT 13.4 SECONDS (11.7-14.9) 03/14/20 06:00 03/14/20 Pre-Assessment Diagnosis/Proposed Procedure Planned Operative Procedure(s): cystoscopy, hydrodistension Anesthesia History Anesthesia History - security assistant: Anesthesia History - security assistant Hx Hospitalization No 05/07/25 08:07 Any Problems With Anesthesia No 05/07/25 08:07 Cholinesterase deficiency No 05/07/25 08:07 You/Your Family Experience No 05/07/25 08:07 fever (hyperthermia) with Relationship Recent Exposure to Contagious No 05/19/25 11:04 Disease Does patient have nerve No 05/07/25 08:07 stimulator Patient instructed to have device shut off --Does patient have Pacemaker No 05/19/25 11:04 or ICD? When Was Last Pacemaker Check QUESTION #4 FULL TEXT: You/Your Family Experience fever (hyperthermia) with Anesthesia Last Oral Intake Last Oral intake: Last Oral Intake NPO since 08:00 05/19/25 11:04 Meds taken in AM with sips of No 05/19/25 11:04 water? Meds patient instructed to take am of surgery PONV PONV - security assistant: PONV - security assistant Female Yes 05/07/25 08:07 HX of Motion Sickness No 05/07/25 08:07 HX of N/V After Surgery No 05/07/25 08:07 Non-Smoker Yes 05/07/25 08:07 Duration of Surgery greater No 05/07/25 08:07 than 60 minutes Number of Risk Factors 2 05/07/25 08:07 PONV Score Moderate Risk 05/07/25 08:07 Height & Weight Height & Weight: Anesthesia: Height & Weight Height 5 ft 4 in 05/19/25 11:04 Weight: 58 kg 05/19/25 11:04 Body Mass Index (BMI) 21.9 05/19/25 11:04 Respiratory Assessment Respiratory Assessment - security assistant: Respiratory Tract Infection Hx - security assistant Hx Respiratory Tract Infection No 05/07/25 08:07 STOP Sleep Apnea STOP Sleep Apnea - security assistant: STOP Sleep Apnea - security assistant Hx Hypertension No 05/07/25 08:07 Hx Sleep Apnea No 05/07/25 08:07 CPAP BIPAP Do you snore loudly (louder No 05/07/25 08:07 than talking or can be heard Do you often feel tired/ No 05/07/25 08:07 fatigued/ sleepy during daytime? Has anyone observed you stop No 05/07/25 08:07 breathing during sleep? STOP Results Negative 05/07/25 08:07 QUESTION #5 FULL TEXT : Do you snore loudly (louder than talking or can be heard through closed doors)? 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 Specify any problems Hx of Preganancy in last 3 No 05/07/25 08:07 Months Nurse Filling Out Transfusion JZOLLINGE 05/07/25 08:07 & Questions: Date: 05/07/25 05/07/25 08:07 Time: 08:09 05/07/25 08:07 Patient unable to answer at this time (ie. confused, unrespo /Reproduction History /Reproductive History - security assistant: /Reproductive Hx- security assistant Hx Now No 05/07/25 08:07 Gestational Age (in weeks): EDC: Hx Hx Para Hx Section SAB No 05/07/25 08:07 Active Medications Active Medications: Current Medications Generic Name Dose Route Start Last Admin Trade Name Freq PRN Reason Stop Dose Admin Heparin Sodium (Porcine) 10,000 units 05/19/25 12:30 Heparin 10,000 Units/10 Ml Vial OPERA.SITE 05/19/25 12:31 X1 ONE Hydrocortisone Sodium Succinate 150 mg 05/19/25 12:30 Hydrocortisone Sod Succinate 100 Mg/2 Ml Vial IRRIGATION 05/19/25 12:31 X1 ONE Cefazolin Sodium 2 gm/ Sodium 110 mls @ 200 mls/hr 05/19/25 12:30 Chloride IV 05/19/25 13:02 INTRAOP ONE Lactated Ringer's 1,000 mls @ 15 mls/hr 05/19/25 10:45 05/19/25 11:02 IV 15 mls/hr .Q48H LISA Administration Lidocaine HCl 50 ml 05/19/25 12:30 Lidocaine 2% (20 Ml Mdv) 20 Ml Vial IRRIGATION 05/19/25 12:31 X1 ONE Sodium Bicarbonate 50 meq 05/19/25 12:30 Sodium Bicarbonate 50 Meq/50 Ml Vial IRRIGATION 05/19/25 12:31 X1 ONE PFSH Medical History Osteoarthritis of left hip Left hip pain Left groin pain Fibrocystic breast disease Osteoporosis IBS (irritable bowel syndrome) Internal hemorrhoids Extensor intersection syndrome Diverticulitis of colon with hemorrhage Diarrhea Anal and rectal polyp RLQ abdominal pain Migraine headache History of Holter monitoring Wears glasses Alcohol use Arthritis Interstitial cystitis Dietary restriction History of IBS Gastric reflux Non-smoker History of pain when walking History of echocardiogram Home Medications ?Medication ?Instructions ?Recorded ?Last Taken ?Type dicyclomine 20 mg PO DAILY PRN PRN IBS 09/20/23 09/19/23 History pantoprazole 20 mg tablet,delayed 20 mg PO DAILY PRN PRN GERD 10/16/23 Unknown History release acetaminophen 500 mg capsule 1,000 mg PO Q6H PRN pain 11/10/23 11/09/23 History ibuprofen 200 mg tablet (Advil) 200 mg PO Q6H PRN pain 11/10/23 11/09/23 History multivitamin 1 tab PO QDAY 12/03/24 Unknown History Allergy/AdvReac Type Severity Reaction Status Date / Time amitriptyline Allergy Severe OTHER Verified 05/07/25 08:05 hydrocortisone Allergy Intermediate Other Verified 05/07/25 08:05 doxycycline Allergy Other Verified 05/07/25 08:05 Environmental Allergies: Allergy Itchy Verified 05/07/25 08:05 Uncoded (seasonal) eyes, runny nose levofloxacin Allergy Nausea Verified 05/07/25 08:05 Family History Other Cancer Diabetes Heart disease Hypertension Surgical History Hx of hernia repair S/P left inguinal hernia repair History of surgery on wrist History of bladder surgery Hx of colonoscopy Hx of foot surgery Hx laparoscopic cholecystectomy Social History household members: spouse Smoking Status: Never smoker alcohol intake: current alcohol intake frequency: a few times a week substance use type: does not use Review of Systems (Anesthesia) ROS Narrative System reviewed and no additional complaints, except as documented.
--- NOTE | 2025-05-19 12:46 | DCINST_ITS ---
Discharge Instructions DC O2, CPAP, BIPAP needs Home O2 Discharge instructions: No Dressing / Incision Discharge Activity: Return to Normal Activity Dressing / Incision Call your doctor if you observe: Fever of 101 or Higher Follow Up Care Please Follow Up With: Arias Plasencia MD When: Call [phone] for an appointment Test Results: Test results from this visit will be discussed in further detail at your follow- up appointment, if applicable. Discharge Plan Admission Primary Reason for Your Visit: IC hydrodistention Attending Provider: Arias Plasencia Primary Care Provider: Senthil Aguilar Instructions Print Language: Cook Islander Discharge Orders/Prescriptions Prescriptions: Continued multivitamin Tablet 1 tab PO QDAY acetaminophen 500 mg capsule 1,000 mg PO Q6H PRN (Reason: pain) ibuprofen [Advil] 200 mg tablet 200 mg PO Q6H PRN (Reason: pain) dicyclomine [Bentyl] 20 mg PO DAILY PRN PRN (Reason: IBS) Patient Comments: 1 CAPSULE pantoprazole 20 mg tablet,delayed release (DR/EC) 20 mg PO DAILY PRN PRN (Reason: GERD) Referrals / Follow Up: Arias Plasencia MD [Med Staff - Active Staff] - Senthil Aguilar MD [Primary Care Provider] - Disposition Disposition (needs filled in before D/C Order can be placed): Home, Self Care
[2025-05-19] MEDS: Lidocaine 1% (5 ml sdv) 5 ML Vial 10 ML IV (12:57)
[2025-05-19] MEDS: Cefazolin 1 GM/5 ML Vial 2 GM IV (13:01)
[2025-05-19] MEDS: Lactated Ringers 500 ML IV (13:01)
[2025-05-19] MEDS: Dimethyl Sulfoxide 50 ML Solution OPERA.SITE (13:05)
[2025-05-19] MEDS: Lidocaine 2% (20 ml mdv) 20 ML Vial 50 ML IRRIGATION (13:06)
[2025-05-19] MEDS: fentaNYL 100 MCG/2 ML Ampul 25 MCG IV (13:13)
[2025-05-19] MEDS: Lidocaine Jelly 2% 20 ML Syringe (URO-JET) 1 APPLIC (13:15)
--- NOTE | 2025-05-19 13:17 | PCM.OPRPT ---
Operative Report (Standard) Operative Information Date of Procedure: 05/19/25 Pre-Operative Diagnosis: Interstitial cystitis Post-Operative Diagnosis: The same Surgery/Procedure Performed: cystoscopy with hydrodistention of the bladder instillation of IC medication corporate real estate specialist: No Type of Anesthesia: General RN Documented Start/Stop Times: Operation Date: 05/19/25 12:30 Case Time Into Pre-Op 05/19/25 10:46 Out of Pre-Op 05/19/25 12:46 Anesthesia Start 05/19/25 12:50 Into Room 05/19/25 12:50 Procedure Start 05/19/25 13:04 Procedure Start Time: 13:04 Procedure Stop Time: 13:18 Select all DRAINS/GRAFTS/IMPLANTS that apply: Drains Drain details: 20 Slovenian Hoyt Estimated Blood Loss: None Specimen collected: No Description of surgery: 75-year-old female who has a history of interstitial cystitis and painful bladder syndrome in the past she has been helped with hydrodistention and instillation of medication to soothe the bladder. I do the same today. She was taken back to the operating room after smooth induction of anesthesia she was placed dorsolithotomy position went in the bladder with a 21 Slovenian rigid cystourethroscope the left and right ureteral orifice were identified the trigone was identified she had a normal bladder she had a few biopsy sites in the top of the bladder from prior cystoscopy bladder biopsies no lesions tumors or stones seen within the bladder I then the bag was by 80 cm above the bladder we did the first hydrodistention which was about 5 minutes and the bladder stretched out nicely, no tearing or cracking of the bladder. I then did a second hydrodistention 5 minutes again 80 cm of pressure after the second hydrodistention the Hoyt catheter was placed and then a medication about 150 cc of IC cocktail medication was placed into the bladder this was mixed in the back field table by the nurses. After successful instillation of the medication she will go back with a catheter and hold it for half an hour and then the catheter will be removed the medication drained after half an hour she can tolerate it. Follow-up in the office a few weeks for checkup Surgical Findings: Normal bladder hydrodistention done x 2 Complications Complications: No Admit VTE Documentation VTE Present on Admission: No VTE Mechan Device Prophylaxis: SCD's VTE Pharm Prophylaxis ordered?: No
--- NOTE | 2025-05-19 13:34 | PCM.POST.ANE ---
Anesthesia: Postop Eval I Current Vital Signs Temperature: 98.6 F Pulse Rate: 75 Blood Pressure: 110/67 Respiratory Rate: 14 Pulse Ox: 95 Assessment Airway patent: Yes Spontaneous unlabored respirations: Yes nausea: No Vomiting: No Anesthesia Complication: No Fluid Hydration Crystalloid volume administer (ml): 500 Total IV fluid infused: 500 Progress Note Anesthesia document: Postop Eval 1 completed: Yes
--- NOTE | 2025-05-19 16:38 | POSTOPAN2_ITS ---
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 Spontaneous unlabored Yes 05/19/25 13:34 TEMPORARY ADMINISTRATIVE ASSISTANT.KCRO respirations Mental status nausea No 05/19/25 13:34 TEMPORARY ADMINISTRATIVE ASSISTANT.KCRO Vomiting No 05/19/25 13:34 TEMPORARY ADMINISTRATIVE ASSISTANT.KCRO Anesthesia Postop Eval I: Fluid Summary Crystalloid volume administer 500 05/19/25 13:34 TEMPORARY ADMINISTRATIVE ASSISTANT.KCRO (ml) Colloids volume administered ( ml) Blood Product volume administered (ml) Total IV fluid infused 500 05/19/25 13:34 TEMPORARY ADMINISTRATIVE ASSISTANT.KCRO Anesthesia Postop Eval I: Summary Notes Anesthesia Complication No 05/19/25 13:34 TEMPORARY ADMINISTRATIVE ASSISTANT.KCRO Anesthesia Complication Comment: Post-operative progress note Anesthesia: Postop Eval II Evaluation Mental status: Awake Pain Level: 2 nausea: No Vomiting: No
--- NOTE | 2025-05-19 16:38 | PCM.POSTANE2 ---
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 respirations Mental status nausea No 05/19/25 13:34 SOCIAL WORKER ASSISTANT.KCRO Vomiting No 05/19/25 13:34 SOCIAL WORKER ASSISTANT.KCRO Anesthesia Postop Eval I: Fluid Summary Crystalloid volume administer 500 05/19/25 13:34 SOCIAL WORKER ASSISTANT.KCRO (ml) Colloids volume administered ( ml) Blood Product volume administered (ml) Total IV fluid infused 500 05/19/25 13:34 SOCIAL WORKER ASSISTANT.KCRO Anesthesia Postop Eval I: Summary Notes Anesthesia Complication No 05/19/25 13:34 SOCIAL WORKER ASSISTANT.KCRO Anesthesia Complication Comment: Post-operative progress note Anesthesia: Postop Eval II Evaluation Mental status: Awake Pain Level: 2 nausea: No Vomiting: No
== END 2025-05-19 14:50 | disposition home or self-care (01) ==
LOC: SDC 10:31 → AC 10:32
PROVIDERS: PCP Family Medicine; Referring Provider Urology; Visit Provider Urology
PROC: 0T7B7ZZ Dilation of Bladder, Via Natural or Artificial Opening (ICD-10-PCS; CPT 52260; principal; 2025-05-19 12:20)
DX: N30.10 Interstitial cystitis (chronic) without hematuria (principal); K21.9 Gastro-esophageal reflux disease without esophagitis; K58.9 Irritable bowel syndrome, unspecified; Z90.49 Acquired absence of other specified parts of digestive tract; Z79.899 Other long term (current) drug therapy
CPT/HCPCS: 52260; J1212; J2405

== ENCOUNTER → 2025-07-19 | Outpatient (CLI) | payer MEDICARE, SELFPAY ==
--- NOTE | 2025-07-19 12:30 | BI_ITS ---
EXAM: SCRN MAMM (CAD)W/VIKI BILAT DATE: 07/19/2025 CLINICAL HISTORY: F, Age 75 y/o , SCREENING TECHNIQUE: Procedure Code: [id number] Modality: MG Procedure: SCRN MAMM (CAD)W/VIKI BILAT COMPARISON: Prior exam(s) dated 06/29/2024 and 06/27/2023. FINDINGS: TISSUE DENSITY: There are scattered areas of fibroglandular density. Bilateral Breast Mammographic Findings: No significant masses, calcifications or other abnormalities are identified. Benign-appearing round microcalcifications and macrocalcifications are seen in both breasts. Stable nodular masslike densities are seen in both breasts. BI/SCRN MAMM (CAD)W/VIKI BILAT IMPRESSION: Benign screening mammogram OVERALL FINAL ASSESSMENT BI-RADS 2: BENIGN RECOMMENDATION: Routine annual follow-up in 1 Year Additional Recommendation none A letter with findings and recommendations will be mailed to the patient. Reading Location: [id number]
--- NOTE | 2025-07-19 12:30 | BI_ITS ---
EXAM: SCRN MAMM (CAD)W/VIKI BILAT DATE: 07/19/2025 CLINICAL HISTORY: F, Age 75 y/o , SCREENING TECHNIQUE: Procedure Code: [id number] Modality: MG Procedure: SCRN MAMM (CAD)W/VIKI BILAT COMPARISON: Prior exam(s) dated 06/29/2024 and 06/27/2023. FINDINGS: TISSUE DENSITY: There are scattered areas of fibroglandular density. Bilateral Breast Mammographic Findings: No significant masses, calcifications or other abnormalities are identified. Benign-appearing round microcalcifications and macrocalcifications are seen in both breasts. Stable nodular masslike densities are seen in both breasts. BI/SCRN MAMM (CAD)W/VIKI BILAT IMPRESSION: Benign screening mammogram OVERALL FINAL ASSESSMENT BI-RADS 2: BENIGN RECOMMENDATION: Routine annual follow-up in 1 Year Additional Recommendation none A letter with findings and recommendations will be mailed to the patient. Reading Location: [id number]
== END | disposition home or self-care (01) ==
LOC: OPBI 12:29
PROVIDERS: PCP Family Medicine; Referring Provider Family Medicine; Visit Provider Family Medicine
DX: Z12.31 Encounter for screening mammogram for malignant neoplasm of breast (principal)
CPT/HCPCS: 77063; 77067